=== PATIENT | female | born 1955 | race Caucasian/White ===

== ENCOUNTER → 2016-05-31 | Outpatient (CLI) | payer OTHER ==
--- NOTE | 2016-06-09 08:03 | USB ---
Reason for exam: clinical finding. History: Patient is postmenopausal and has history of breast cancer at age 59. Family history of breast cancer in mother at age 50. Implant Removal of the left breast, June 07, 2016. Malignant stereotactic core biopsy of the left breast, April 27, 2015. Ultrasound-guided core biopsy of the left breast, April 27, 2015. Mastectomy of the left breast, 2016. Chemotherapy, 2016. Radiation therapy of the left breast, 2016. Indicated problem(s): other indicated problem in the right breast. Physical Findings: Nurse Summary: right breast soft, nodular, movable, redness with irritation under breast (nurse ts). US Breast RT Right breast ultrasound includes all four quadrants, the retroareolar region and axilla. Finding demonstrates a 1.1 x 0.6 x 0.3cm oval, hypoechoic lesion at 3 o'clock. These results were verbally communicated with the patient and result sheet given to the patient on 06/08/16. ASSESSMENT: Suspicious, BI-RAD 4 RECOMMENDATION: Ultrasound core biopsy of the right breast. Called Dr. Heart with mammographic findings office to contact patient with results. PRELIMINARY REPORT CALLED AND FAXED TO DR. BUCHANAN ON 06/09/16 AT 800/TMP.
== END | disposition home or self-care (01) ==
LOC: RADUSWWP 15:22
PROVIDERS: ATTEND Internal Medicine Hematology & Oncology
DX: Z85.3 Personal history of malignant neoplasm of breast (principal)

== ENCOUNTER 2016-06-06 17:21 | Inpatient (IN) | payer OTHER ==
--- NOTE | 2016-06-06 18:10 | ED ---
General Adult HPI - General Chief complaint: Skin/Abscess/Foreign Body Stated complaint: Post op infection Time Seen by Provider: 06/06/16 17:51 Source: patient, RN notes reviewed, old records reviewed Mode of arrival: ambulatory Limitations: no limitations - History of Present Illness Initial comments: 60-year-old female presenting for left breast swelling and pain. Patient states history of breast cancer with mastectomy. She states the surgery was done about a year ago. She had a breast engineering specialist technician placed in November. She states she has had some degree of pain since January which she has followed up for. She states however over the past few weeks the pain is worsening. Today she had a blister on the breast which popped and a large gush of fluid that came out of it. She states that her breast feels warm and painful to the touch. She denies any fevers or chills. She denies any chest pain or shortness of breath. She states she follows with Dr. Spence from surgery. - Related Data Home Medications Medication Instructions Recorded Confirmed Aspirin EC [Ecotrin] 81 mg PO DAILY 05/05/15 06/06/16 Acetaminophen Tab [Tylenol Tab] 1,500 mg PO DAILY@1200 06/06/16 06/06/16 Letrozole [Femara] 2.5 mg PO DAILY 06/06/16 06/06/16 Xeloda (Unknown Dose) 1 dose PO DIRECTED 06/06/16 06/06/16 Allergies Allergy/AdvReac Type Severity Reaction Status Date / Time latex AdvReac Unknown "TINGLING" Verified 06/06/16 17:48 ibuprofen [From Motrin] AdvReac Nausea & Verified 06/06/16 18:21 Vomiting phenaphen Allergy Severe Anaphylaxis Uncoded 06/06/16 18:21 blue cheese Allergy Unknown Rash/Hives, Uncoded 06/06/16 17:48 Swelling corn beef Allergy Unknown Rash/Hives, Uncoded 06/06/16 17:48 Swelling OXYGEN AdvReac Unknown smell of Uncoded 06/06/16 17:48 O2 VIA NASAL CANULA causes N/V Review of Systems ROS Statement: Those systems with pertinent positive or pertinent negative responses have been documented in the HPI. ROS Other: All systems not noted in ROS Statement are negative. 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 FINISHED CHEMO Sep History of Any Multi-Drug Resistant Organisms: None Reported Past Surgical History: Breast Surgery, Section Additional Past Surgical History / Comment(s): C-SEC X3. MEDI PORT INSERTION- RT CHEST Past Anesthesia/Blood Transfusion Reactions: Previous Problems w/ Anesthesia Additional Past Anesthesia/Blood Transfusion Reaction / Comment(s): O2 VIA NASAL CANULA CAUSES N/V Past Psychological History: No Psychological Hx Reported Smoking Status: Never smoker Past Alcohol Use History: Rare Past Drug Use History: None Reported - Past Family History Mother Family Medical History: Cancer Additional Family Medical History / Comment(s): BREAST CANCER Father Family Medical History: Cancer, Congestive Heart Failure (CHF) Additional Family Medical History / Comment(s): CANCER General Exam - General Exam Comments Initial Comments: General: Awake and Alert. No acute distress. Does not appear acutely ill. Eyes: GENEVA, EOM intact. No nystagmus. No scleral icterus. HENT: Atraumatic, normocephalic. Mucous membranes moist. Trachea midline. Neck: The neck is supple, there is no tenderness or JVD. Cardiovascular: Regular rate and rhythm. No murmur, rub, or gallop is appreciated. Distal pulses intact. Respiratory: Lungs are clear to auscultation bilaterally. No wheezes, rales, rhonchi. No respiratory distress. Gastrointestinal: Soft, Nontender. No rebound or guarding. Non-distended. No masses or organomegaly noted. No CVA tenderness. Musculoskeletal: No tenderness. Normal ROM. No gross deformity. No strength deficits. Neurological: A&Ox3. CN II-XII grossly intact, There are no obvious motor or sensory deficits. Coordination appears grossly intact. Speech is normal. Skin: Skin is warm and dry and no rashes or lesions are noted. Left lower lateral breast area with induration and erythema. There is a 1 cm x 1cm ulcer left lateral portion of the breast which has purulent drainage coming from it. Psychiatric: Cooperative, appropriate mood & affect, normal judgment. Limitations: no limitations Course Vital Signs 06/06/16 06/06/16 06/06/16 17:46 19:56 21:23 Temperature 97.6 F 99.4 F 99.3 F Pulse Rate 107 H 101 H 110 H Respiratory 18 18 18 Rate Blood Pressure 102/68 129/69 133/64 O2 Sat by Pulse 100 98 98 Oximetry Medical Decision Making - Medical Decision Making 60-year-old female presenting for left breast abscess. Patient has a tissue engineering specialist technician present in this breast area after mastectomy in November 2015. Per review this was a surgery performed by Dr. Brad Warren as well as Dr. Zhou. Breast ultrasound is showing evidence of abscess formation which is around the tissue engineering specialist technician. Lab work was performed with leukocytosis, and worsening anemia. Discussed with patient, she is on a home oral chemotherapy medication she takes every other week. Likely secondary this. Discussed plan for blood transfusion, patient is agreeable with this. Risks and benefits discussed. BMP grossly stable. Lactate is negative. Patient started on vancomycin. Patient reevaluated and remains clinically stable. Updated on results and imaging. Discussed plan for admission, she and family are agreeable to this. I discussed with Dr. Spence who was updated on the patient. She recommends contacting Dr. Zhou, plastic surgery for further management as he placed the tissue engineering specialist technician. I discussed with Dr. Zhou states he is unable to manage the patient until Monday. He recommends surgeon from our system remove the tissue engineering specialist technician and she can follow-up on Monday in his office. I discussed with Dr. Godinez, who also spoke with Dr. Zhou. She recommends admission for the patient with Dr. Spence to remove the tissue engineering specialist technician. Spoke with Dr. Clark, agrees with plan for admission. Consult placed to Dr. Spence for surgical management. - Lab Data Result diagrams: 06/06/16 20:00 06/06/16 20:00 Lab Results 06/06/16 06/06/16 06/06/16 Range/Units 20:00 20:00 20:00 WBC 12.9 H (3.8-10.6) k/uL RBC 2.46 L (3.80-5.40) m/uL Hgb 6.9 L* (11.4-16.0) gm/dL Hct 23.0 L (34.0-46.0) % MCV 93.5 (80.0-100.0) fL MCH 28.1 (25.0-35.0) pg MCHC 30.1 L (31.0-37.0) g/dL RDW 20.5 H (11.5-15.5) % Plt Count 346 (150-450) k/uL Neutrophils % 88 % Lymphocytes % 6 % Monocytes % 4 % Eosinophils % 0 % Basophils % 0 % Neutrophils # 11.4 H (1.3-7.7) k/uL Lymphocytes # 0.7 L (1.0-4.8) k/uL Monocytes # 0.6 (0-1.0) k/uL Eosinophils # 0.0 (0-0.7) k/uL Basophils # 0.0 (0-0.2) k/uL Hypochromasia Marked Anisocytosis Moderate Macrocytosis Slight Sodium 131 L (137-145) mmol/L Potassium 3.5 (3.5-5.1) mmol/L Chloride 92 L (98-107) mmol/L Carbon Dioxide 27 (22-30) mmol/L Anion Gap 12 mmol/L BUN 13 (7-17) mg/dL Creatinine 0.77 (0.52-1.04) mg/dL Est GFR (MDRD) Af Amer >60 (>60 ml/min/1.73 sqM) Est GFR (MDRD) Non-Af >60 (>60 ml/min/1.73 sqM) Glucose 139 H (74-99) mg/dL Plasma Lactic Acid Ar 1.5 (0.7-2.0) mmol/L Calcium 8.4 (8.4-10.2) mg/dL - Radiology Data Radiology results: report reviewed, image reviewed Disposition Clinical Impression: Sepsis, Breast abscess, Anemia Disposition: ADMITTED IP TO THIS [facility] Condition: Stable Decision to Admit Reason: Admit from EC
--- NOTE | 2016-06-06 18:57 | USB ---
EXAMINATION TYPE: US breast complete LT DATE OF EXAM: 06/06/2016 6:40 PM COMPARISON: NONE CLINICAL HISTORY: Pain r/o abscess. Findings Left breast is scanned and there is an implant. There is some complex fluid surrounding the implant i n the 3:00 position and also the 7:00 position consistent with abscess. IMPRESSION: There is complex fluid surrounding the spacer as described above consistent with abscess . This measures almost up to 2 cm in thickness. Hematoma is thought less likely in view of the erythe ma.
[2016-06-06] MEDS ORDERED: VANCOMYCIN 2,000 MG in SODIUM CHLORIDE 0.9% 500 ML IVPB STA (19:23)
[2016-06-06 20:11] LABS: Anisocytosis Moderate; Basophils % (A) 0 %; CH 27.8; CHCM 29.6; Eosinophils % (A) 0 %; Hypochromasia Marked; Luc # (Auto) 0.21; Luc % (Auto) 2; Lymphocytes # (A) 0.7 k/uL (1.0-4.8); Lymphocytes % (A) 6 %; MCH 28.1 pg (25.0-35.0); MCHC 30.1 g/dL (31.0-37.0); MCV 93.5 fL (80.0-100.0); Macrocytosis Slight; Mean Platelet Volume 7.3; Monocytes # (A) 0.6 k/uL (0-1.0); Monocytes % (A) 4 %; Neutrophils # (A) 11.4 k/uL (1.3-7.7); Neutrophils % (A) 88 %; RBC 2.46 m/uL (3.80-5.40); RDW 20.5 % (11.5-15.5); WBC 12.9 k/uL (3.8-10.6); WBC (Perox) 14.05
[2016-06-06 20:18] LABS: HGB 6.9 gm/dL (11.4-16.0)
[2016-06-06 20:23] LABS: Anion Gap 12 mmol/L; Blood Urea Nitrogen 13 mg/dL (7-17); Calcium 8.4 mg/dL (8.4-10.2); Carbon Dioxide 27 mmol/L (22-30); Chloride 92 mmol/L (98-107); Glucose 139 mg/dL (74-99); Non-African American GFR(MDRD) >60 (>60 ml/min/1.73 sqM); Potassium 3.5 mmol/L (3.5-5.1); Sodium 131 mmol/L (137-145)
--- NOTE | 2016-06-06 20:59 | P.PN ---
Progress Note - Text Please see full dictated report. A patient reports having a tissue packaging designer placement November 2015 for breast cancer reconstruction. Her last follow up with her plastic surgeon was one to 2 months ago. She reports increasing pain and warmth and tenderness along the left chest wall at her tissue packaging designer following radiation treatment. She reports active drainage including intermittent fevers or chills. I had personally spoken to her plastic surgeon who has recommended explant and removal of her tissue packaging designer. She will be admitted for IV antibiotics. Once clinically medically stable, she'll follow-up with her plastic surgeon.
[2016-06-06] MEDS ORDERED: oxyCODONE-APAP 5-325MG 1 EACH TAB PO PRN (21:01)
[2016-06-06] MEDS ORDERED: ACETAMINOPHEN IV (For NPO) 1,000 MG in EMPTY BAG 1 BAG IVPB ONE (21:01)
[2016-06-06] MEDS ORDERED: IV VANCOMYCIN PER PHARMACY 1 EACH MISC MISCELLANE PRN (21:03)
[2016-06-07] MEDS: ACETAMINOPHEN TAB 325 MG TAB PO PRN ×2 (03:24→21:58)
[2016-06-07] MEDS: VANCOMYCIN 1,750 MG in SODIUM CHLORIDE 0.9% 250 ML IVPB SCH ×2 (05:52→18:20)
[2016-06-07] MEDS: ONDANSETRON 4 MG/2 ML VIAL IVP SCH ×4 (05:58→16:56)
[2016-06-07 06:01] LABS: Anisocytosis Moderate; Basophils % (A) 0 %; CH 28.2; CHCM 30.7; Eosinophils % (A) 0 %; HCT 20.7 % (34.0-46.0); HDW 3.41; Hypochromasia Marked; Luc # (Auto) 0.16; Luc % (Auto) 2; Lymphocytes # (A) 0.5 k/uL (1.0-4.8); Lymphocytes % (A) 5 %; MCH 28.8 pg (25.0-35.0); MCHC 31.4 g/dL (31.0-37.0); MCV 91.8 fL (80.0-100.0); Macrocytosis Slight; Mean Platelet Volume 7.2; Monocytes # (A) 0.5 k/uL (0-1.0); Monocytes % (A) 5 %; Neutrophils # (A) 9.2 k/uL (1.3-7.7); Neutrophils % (A) 89 %; Poikilocytosis Slight; RBC 2.25 m/uL (3.80-5.40); RDW 20.3 % (11.5-15.5); WBC 10.3 k/uL (3.8-10.6); WBC (Perox) 10.47
[2016-06-07 06:09] LABS: HGB 6.5 gm/dL (11.4-16.0)
[2016-06-07 06:13] LABS: ALT 21 U/L (9-52); AST 11 U/L (14-36); Alkaline Phosphatase 110 U/L (38-126); Anion Gap 9 mmol/L; Blood Urea Nitrogen 10 mg/dL (7-17); Calcium 7.9 mg/dL (8.4-10.2); Carbon Dioxide 28 mmol/L (22-30); Chloride 94 mmol/L (98-107); Glucose 124 mg/dL (74-99); Iron 17 ug/dL (37-170); Magnesium 1.4 mg/dL (1.6-2.3); Non-African American GFR(MDRD) >60 (>60 ml/min/1.73 sqM); Phosphorous 3.1 mg/dL (2.5-4.5); Potassium 3.2 mmol/L (3.5-5.1); Sodium 131 mmol/L (137-145); Total Bilirubin 0.9 mg/dL (0.2-1.3)
[2016-06-07] MEDS ORDERED: ENOXAPARIN 40 MG/0.4 ML SYRINGE SQ SCH (09:00)
[2016-06-07] MEDS: MAGNESIUM SULFATE-D5W PMX 1 GM in DEXTROSE/WATER 1 100ML.BAG IVPB SCH ×4 (11:03→17:00)
--- NOTE | 2016-06-07 11:23 | P.GSCN ---
History of Present Illness Consult date: 06/07/16 Reason for Consult: Left breast abscess History of present illness: A 60-year-old female. Patient stated the surgery was done about a year ago. Patient states that she had breast expanders placed in November 2015. Patient has a history of invasive left breast cancer underwent immediate reconstruction of the left breast following a mastectomy with insertion of tissue bonbon cream warmer with subsequent outpatient expansion done on 12/01/2015 the temp in the emergency room was 99.4 additionally was noted that the patient's hemoglobin was down to 6.9. It's noted that the patient is on home oral chemotherapy medication which is likely contributing to the patient's worsening anemia and leukocytosis. Decision was made by the medicine service to give 1 unit of packed red blood cells. Patient had a blood reaction approximately 200 mL of the blood was given patient spiked a temp of 103 the blood was stopped protocol was initiated hemoglobin this morning 6.9. There is no evidence of any active bleed. 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 The left chest area 1 cm ulcer left lateral portion of the breast. Drainage coming from it the skin is warm no rash positive erythrema noted patient continues to report tenderness to the left breast area Patient reports that over the last several weeks she has developed increased pain involving the left breast. Did note there was a blister on the breast which popped and there was a large amount of fluid that came out of the site. Patient stated the breast was tender and painful to the touch. Patient denied any fever chills. Patient states her surgeon that she normally follows with is Dr. Brad Warren patient states that she did see the plastic surgeon Dr. coleman about 2 months ago. Review of Systems Essentially unremarkable except as mentioned in the present illness Past Medical History Past Medical History: Cancer, CVA/TIA, Hypertension Additional Past Medical History / Comment(s): CVA (MAR 2014)- NO WEAKNESS OR PARALYSIS- SOME TINGLING ON TONGUE, NEW DIAGNOSIS LEFT BREAST CANCER. FINISHED CHEMO Sep History of Any Multi-Drug Resistant Organisms: None Reported Past Surgical History: Breast Surgery, Section Additional Past Surgical History / Comment(s): C-SEC X3. MEDI PORT INSERTION- RT CHEST Past Anesthesia/Blood Transfusion Reactions: Previous Problems w/ Anesthesia Additional Past Anesthesia/Blood Transfusion Reaction / Comm: O2 VIA NASAL CANULA CAUSES N/V Past Psychological History: No Psychological Hx Reported Smoking Status: Never smoker Past Alcohol Use History: Rare Past Drug Use History: None Reported - Past Family History Mother Family Medical History: Cancer Additional Family Medical History / Comment(s): BREAST CANCER Father Family Medical History: Cancer, Congestive Heart Failure (CHF) Additional Family Medical History / Comment(s): CANCER Medications and Allergies Home Medications Medication Instructions Recorded Confirmed Type Aspirin EC [Ecotrin] 81 mg PO DAILY 05/05/15 06/06/16 History Acetaminophen Tab [Tylenol Tab] 1,500 mg PO DAILY@1200 06/06/16 06/06/16 History Letrozole [Femara] 2.5 mg PO DAILY 06/06/16 06/06/16 History Xeloda (Unknown Dose) 1 dose PO DIRECTED 06/06/16 06/06/16 History Allergies Allergy/AdvReac Type Severity Reaction Status Date / Time latex AdvReac Unknown "TINGLING" Verified 06/06/16 17:48 ibuprofen [From Motrin] AdvReac Nausea & Verified 06/06/16 18:21 Vomiting phenaphen Allergy Severe Anaphylaxis Uncoded 06/06/16 18:21 blue cheese Allergy Unknown Rash/Hives, Uncoded 06/06/16 17:48 Swelling corn beef Allergy Unknown Rash/Hives, Uncoded 06/06/16 17:48 Swelling OXYGEN AdvReac Unknown smell of Uncoded 06/06/16 17:48 O2 VIA NASAL CANULA causes N/V Surgical - Exam Vital Signs Temp Pulse Resp BP Pulse Ox 97.6 F 107 H 18 102/68 100 06/06/16 17:46 06/06/16 17:46 06/06/16 17:46 06/06/16 17:46 06/06/16 17:46 GENERAL APPEARANCE: 60-year-old female patient is alert, oriented, in no acute distress. Continues to report having tenderness to the left breast area VITAL SIGNS: Reviewed HEENT: Head is normocephalic and atraumatic. Pupils are equal and reactive. The nares are patent. Oropharynx is clear without lesions. NECK: Supple without lymphadenopathy. Traches midline. HEART: S1, S2. Regular rate and rhythm. No murmur noted denying chest pain LUNGS: No crackles or wheezes are heard. Adequate air movement bilaterally sats are 98% on room air ABDOMEN: Soft, nontender, nondistended with good bowel sounds. No peritoneal signs. No palpable organomegaly or masses. No reports of nausea vomiting EXTREMITIES: Normal skin color and turgor. No cyanosis, rash, ulceration, clubbing or edema. Radial pedal pulses are 2/4 bilaterally. NEUROLOGICAL: No focal deficits. Strength and sensation are grossly intact. Chest left breast absent there is no rash noted that the area is red and warm to touch positive tenderness. The left lower lateral breast area induration erythema there is a 1 cm x 1 cm ulcer the left lateral portion of the breast.. Drainage noted. No odor. Skin warm to touch no skin rash Results - Labs 06/07/16 05:35 06/07/16 05:35 Abnormal Lab Results - Last 24 Hours (Table) 06/06/16 06/07/16 06/07/16 Range/Units 22:53 05:35 05:35 RBC 2.25 L (3.80-5.40) m/uL Hgb 6.5 L* (11.4-16.0) gm/dL Hct 20.7 L (34.0-46.0) % RDW 20.3 H (11.5-15.5) % Neutrophils # 9.2 H (1.3-7.7) k/uL Lymphocytes # 0.5 L (1.0-4.8) k/uL Sodium 131 L (137-145) mmol/L Potassium 3.2 L (3.5-5.1) mmol/L Chloride 94 L (98-107) mmol/L Glucose 124 H (74-99) mg/dL Calcium 7.9 L (8.4-10.2) mg/dL Magnesium 1.4 L (1.6-2.3) mg/dL Iron 17 L (37-170) ug/dL Ferritin 1550 H (11-264) ng/mL AST 11 L (14-36) U/L Total Protein 5.0 L (6.3-8.2) g/dL Albumin 2.6 L (3.5-5.0) g/dL Crossmatch See Detail Diabetes panel 06/07/16 Range/Units 05:35 Sodium 131 L (137-145) mmol/L Potassium 3.2 L (3.5-5.1) mmol/L Chloride 94 L (98-107) mmol/L Carbon Dioxide 28 (22-30) mmol/L BUN 10 (7-17) mg/dL Creatinine 0.70 (0.52-1.04) mg/dL Glucose 124 H (74-99) mg/dL Calcium 7.9 L (8.4-10.2) mg/dL AST 11 L (14-36) U/L ALT 21 (9-52) U/L Alkaline Phosphatase 110 (38-126) U/L Total Protein 5.0 L (6.3-8.2) g/dL Albumin 2.6 L (3.5-5.0) g/dL Calcium panel 06/07/16 Range/Units 05:35 Calcium 7.9 L (8.4-10.2) mg/dL Phosphorus 3.1 (2.5-4.5) mg/dL Albumin 2.6 L (3.5-5.0) g/dL Pituitary panel 06/07/16 Range/Units 05:35 Sodium 131 L (137-145) mmol/L Potassium 3.2 L (3.5-5.1) mmol/L Chloride 94 L (98-107) mmol/L Carbon Dioxide 28 (22-30) mmol/L BUN 10 (7-17) mg/dL Creatinine 0.70 (0.52-1.04) mg/dL Glucose 124 H (74-99) mg/dL Calcium 7.9 L (8.4-10.2) mg/dL Adrenal panel 06/07/16 Range/Units 05:35 Sodium 131 L (137-145) mmol/L Potassium 3.2 L (3.5-5.1) mmol/L Chloride 94 L (98-107) mmol/L Carbon Dioxide 28 (22-30) mmol/L BUN 10 (7-17) mg/dL Creatinine 0.70 (0.52-1.04) mg/dL Glucose 124 H (74-99) mg/dL Calcium 7.9 L (8.4-10.2) mg/dL Total Bilirubin 0.9 (0.2-1.3) mg/dL AST 11 L (14-36) U/L ALT 21 (9-52) U/L Alkaline Phosphatase 110 (38-126) U/L Total Protein 5.0 L (6.3-8.2) g/dL Albumin 2.6 L (3.5-5.0) g/dL Assessment and Plan Plan: Impression Present on admission left breast pain suspect due to 1 cm breast abscess Present on admission leukocytosis suspect due to left breast abscess 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 Harrison to remove the tissue bonbon cream warmer defer to the timing of the procedure per surgery Hematology oncology Dr. Anil engel for anemia and myoplastic disorder IV antibiotics as ordered vancomycin When patient is clinically medically stable will follow-up with her plastic surgeon Dr. preciado Electrolytes to be corrected labs to be monitored DVT and GI prophylaxis Pain control Resume home meds as appropriate Will DC Lovenox patient has received no doses The above dictated assessment and findings were discussed with dr Arnold Salinas . Impression and the plan of care have been dictated as directed. Ebony Good nurse practitioner acting as a scribe for [place]
[2016-06-07 11:27] VITALS: BMI 38.2
[2016-06-07] MEDS: POTASSIUM CHLORIDE ER 20 MEQ TAB.ER PO SCH ×2 (13:38→15:45)
--- NOTE | 2016-06-07 13:43 | P.GSHP ---
History of Present Illness H&P Date: 06/07/16 Reason for Consult: Left breast abscess History of present illness: A 60-year-old female. Patient stated the surgery was done about a year ago. Patient states that she had breast expanders placed in November 2015. Patient has a history of invasive left breast cancer underwent immediate reconstruction of the left breast following a mastectomy with insertion of tissue sales promotion director with subsequent outpatient expansion done on 12/01/2015 the temp in the emergency room was 99.4 additionally was noted that the patient's hemoglobin was down to 6.9. It's noted that the patient is on home oral chemotherapy medication which is likely contributing to the patient's worsening anemia and leukocytosis. Decision was made by the medicine service to give 1 unit of packed red blood cells. Patient had a blood reaction approximately 200 mL of the blood was given patient spiked a temp of 103 the blood was stopped protocol was initiated hemoglobin this morning 6.9. There is no evidence of any active bleed. 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 The left chest area 1 cm ulcer left lateral portion of the breast. Drainage coming from it the skin is warm no rash positive erythrema noted patient continues to report tenderness to the left breast area Patient reports that over the last several weeks she has developed increased pain involving the left breast. Did note there was a blister on the breast which popped and there was a large amount of fluid that came out of the site. Patient stated the breast was tender and painful to the touch. Patient denied any fever chills. Patient states her surgeon that she normally follows with is Dr. Brad Warren patient states that she did see the plastic surgeon Dr. coleman about 2 months ago. - Review of Systems Comment: Essentially unremarkable except as mentioned in the present illness Past Medical History Past Medical History: Cancer, CVA/TIA, Hypertension Additional Past Medical History / Comment(s): CVA (MAR 2014)- NO WEAKNESS OR PARALYSIS- SOME TINGLING ON TONGUE, NEW DIAGNOSIS LEFT BREAST CANCER. FINISHED CHEMO Sep History of Any Multi-Drug Resistant Organisms: None Reported Past Surgical History: Breast Surgery, Section Additional Past Surgical History / Comment(s): C-SEC X3. MEDI PORT INSERTION- RT CHEST Past Anesthesia/Blood Transfusion Reactions: Previous Problems w/ Anesthesia Additional Past Anesthesia/Blood Transfusion Reaction / Comment(s): O2 VIA NASAL CANULA CAUSES N/V Past Psychological History: No Psychological Hx Reported Smoking Status: Never smoker Past Alcohol Use History: Rare Past Drug Use History: None Reported - Past Family History Mother Family Medical History: Cancer Additional Family Medical History / Comment(s): BREAST CANCER Father Family Medical History: Cancer, Congestive Heart Failure (CHF) Additional Family Medical History / Comment(s): CANCER Medications and Allergies Home Medications Medication Instructions Recorded Confirmed Type Aspirin EC [Ecotrin] 81 mg PO DAILY 05/05/15 06/06/16 History Acetaminophen Tab [Tylenol Tab] 1,500 mg PO DAILY@1200 06/06/16 06/06/16 History Letrozole [Femara] 2.5 mg PO DAILY 06/06/16 06/06/16 History Capecitabine [Capecitabine] 2,500 mg PO BID PRN 06/07/16 06/07/16 History Allergies Allergy/AdvReac Type Severity Reaction Status Date / Time latex AdvReac Unknown "TINGLING" Verified 06/06/16 17:48 ibuprofen [From Motrin] AdvReac Nausea & Verified 06/06/16 18:21 Vomiting phenaphen Allergy Severe Anaphylaxis Uncoded 06/06/16 18:21 blue cheese Allergy Unknown Rash/Hives, Uncoded 06/06/16 17:48 Swelling corn beef Allergy Unknown Rash/Hives, Uncoded 06/06/16 17:48 Swelling OXYGEN AdvReac Unknown smell of Uncoded 06/06/16 17:48 O2 VIA NASAL CANULA causes N/V Surgical - Exam Vital Signs Temp Pulse Resp BP Pulse Ox 97.6 F 107 H 18 102/68 100 06/06/16 17:46 06/06/16 17:46 06/06/16 17:46 06/06/16 17:46 06/06/16 17:46 Physical exam GENERAL APPEARANCE: 60-year-old female patient is alert, oriented, in no acute distress. Continues to report having tenderness to the left breast area VITAL SIGNS: Reviewed HEENT: Head is normocephalic and atraumatic. Pupils are equal and reactive. The nares are patent. Oropharynx is clear without lesions. NECK: Supple without lymphadenopathy. Traches midline. HEART: S1, S2. Regular rate and rhythm. No murmur noted denying chest pain LUNGS: No crackles or wheezes are heard. Adequate air movement bilaterally sats are 98% on room air ABDOMEN: Soft, nontender, nondistended with good bowel sounds. No peritoneal signs. No palpable organomegaly or masses. No reports of nausea vomiting EXTREMITIES: Normal skin color and turgor. No cyanosis, rash, ulceration, clubbing or edema. Radial pedal pulses are 2/4 bilaterally. NEUROLOGICAL: No focal deficits. Strength and sensation are grossly intact. Chest left breast absent there is no rash noted that the area is red and warm to touch positive tenderness. The left lower lateral breast area induration erythema there is a 1 cm x 1 cm ulcer the left lateral portion of the breast.. Drainage noted. No odor. Skin warm to touch no skin rash Results - Labs 06/07/16 05:35 06/07/16 05:35 Abnormal Lab Results - Last 24 Hours (Table) 06/06/16 06/07/16 06/07/16 Range/Units 22:53 05:35 05:35 RBC 2.25 L (3.80-5.40) m/uL Hgb 6.5 L* (11.4-16.0) gm/dL Hct 20.7 L (34.0-46.0) % RDW 20.3 H (11.5-15.5) % Neutrophils # 9.2 H (1.3-7.7) k/uL Lymphocytes # 0.5 L (1.0-4.8) k/uL Sodium 131 L (137-145) mmol/L Potassium 3.2 L (3.5-5.1) mmol/L Chloride 94 L (98-107) mmol/L Glucose 124 H (74-99) mg/dL Calcium 7.9 L (8.4-10.2) mg/dL Magnesium 1.4 L (1.6-2.3) mg/dL Iron 17 L (37-170) ug/dL Ferritin 1550 H (11-264) ng/mL AST 11 L (14-36) U/L Total Protein 5.0 L (6.3-8.2) g/dL Albumin 2.6 L (3.5-5.0) g/dL Crossmatch See Detail Diabetes panel 06/07/16 Range/Units 05:35 Sodium 131 L (137-145) mmol/L Potassium 3.2 L (3.5-5.1) mmol/L Chloride 94 L (98-107) mmol/L Carbon Dioxide 28 (22-30) mmol/L BUN 10 (7-17) mg/dL Creatinine 0.70 (0.52-1.04) mg/dL Glucose 124 H (74-99) mg/dL Calcium 7.9 L (8.4-10.2) mg/dL AST 11 L (14-36) U/L ALT 21 (9-52) U/L Alkaline Phosphatase 110 (38-126) U/L Total Protein 5.0 L (6.3-8.2) g/dL Albumin 2.6 L (3.5-5.0) g/dL Calcium panel 06/07/16 Range/Units 05:35 Calcium 7.9 L (8.4-10.2) mg/dL Phosphorus 3.1 (2.5-4.5) mg/dL Albumin 2.6 L (3.5-5.0) g/dL Pituitary panel 06/07/16 Range/Units 05:35 Sodium 131 L (137-145) mmol/L Potassium 3.2 L (3.5-5.1) mmol/L Chloride 94 L (98-107) mmol/L Carbon Dioxide 28 (22-30) mmol/L BUN 10 (7-17) mg/dL Creatinine 0.70 (0.52-1.04) mg/dL Glucose 124 H (74-99) mg/dL Calcium 7.9 L (8.4-10.2) mg/dL Adrenal panel 06/07/16 Range/Units 05:35 Sodium 131 L (137-145) mmol/L Potassium 3.2 L (3.5-5.1) mmol/L Chloride 94 L (98-107) mmol/L Carbon Dioxide 28 (22-30) mmol/L BUN 10 (7-17) mg/dL Creatinine 0.70 (0.52-1.04) mg/dL Glucose 124 H (74-99) mg/dL Calcium 7.9 L (8.4-10.2) mg/dL Total Bilirubin 0.9 (0.2-1.3) mg/dL AST 11 L (14-36) U/L ALT 21 (9-52) U/L Alkaline Phosphatase 110 (38-126) U/L Total Protein 5.0 L (6.3-8.2) g/dL Albumin 2.6 L (3.5-5.0) g/dL Assessment and Plan Plan: Impression Present on admission left breast pain suspect due to 1 cm breast abscess Present on admission leukocytosis suspect due to left breast abscess 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 Harrison to remove the tissue sales promotion director defer to the timing of the procedure per surgery Hematology oncology Dr. Anil engel for anemia and myoplastic disorder IV antibiotics as ordered vancomycin When patient is clinically medically stable will follow-up with her plastic surgeon Dr. preciado Electrolytes to be corrected labs to be monitored DVT and GI prophylaxis Pain control Resume home meds as appropriate Will DC Lovenox patient has received no doses The above dictated assessment and findings were discussed with dr Dr. Godinez . Impression and the plan of care have been dictated as directed. Ebony Good nurse practitioner acting as a scribe for Dr. Gretchen Harrison will resume care with further recommendations per Dr. Harrison
[2016-06-07] MEDS: HEPARIN SODIUM,PORCINE 5,000 UNIT/ML 1 ML VIAL SQ SCH (21:32)
[2016-06-07] MEDS ORDERED: methylPREDNISolone SOD SUCCI 125 MG/2 ML VIAL IV STA (22:26)
[2016-06-07] MEDS ORDERED: diphenhydrAMINE 50 MG/ML 1 ML VIAL IVP STA (22:30)
[2016-06-08] MEDS: ACETAMINOPHEN TAB 325 MG TAB PO PRN (01:00)
[2016-06-08] MEDS: ONDANSETRON 4 MG/2 ML VIAL IVP SCH ×4 (01:43→13:58)
[2016-06-08] MEDS ORDERED: VANCOMYCIN TROUGH DUE 1 EACH MISC MISCELLANE ONE (05:00)
[2016-06-08 08:37] LABS: INR 1.3 (<1.1); Partial Thromboplastin Time 24.2 sec (22.0-30.0); Prothrombin Time 12.8 sec (9.0-12.0)
[2016-06-08 08:38] LABS: Anisocytosis Slight; Basophils % (A) 0 %; CH 28.7; CHCM 31.1; Eosinophils % (A) 0 %; HCT 28.6 % (34.0-46.0); HDW 4.21; Hypochromasia Marked; Luc # (Auto) 0.13; Luc % (Auto) 1; Lymphocytes # (A) 0.4 k/uL (1.0-4.8); Lymphocytes % (A) 4 %; MCH 29.9 pg (25.0-35.0); MCHC 32.2 g/dL (31.0-37.0); MCV 92.7 fL (80.0-100.0); Mean Platelet Volume 7.4; Monocytes # (A) 0.5 k/uL (0-1.0); Monocytes % (A) 5 %; Neutrophils # (A) 8.9 k/uL (1.3-7.7); Neutrophils % (A) 89 %; Poikilocytosis Moderate; RBC 3.08 m/uL (3.80-5.40); RDW 18.3 % (11.5-15.5)
[2016-06-08 08:39] LABS: HGB 9.2 gm/dL (11.4-16.0)
[2016-06-08 08:56] LABS: ALT 23 U/L (9-52); AST 13 U/L (14-36); Alkaline Phosphatase 125 U/L (38-126); Anion Gap 10 mmol/L; Blood Urea Nitrogen 11 mg/dL (7-17); Calcium 7.9 mg/dL (8.4-10.2); Carbon Dioxide 26 mmol/L (22-30); Chloride 99 mmol/L (98-107); Glucose 124 mg/dL (74-99); Non-African American GFR(MDRD) >60 (>60 ml/min/1.73 sqM); Sodium 135 mmol/L (137-145); Total Bilirubin 1.3 mg/dL (0.2-1.3); Total Protein 5.3 g/dL (6.3-8.2)
[2016-06-08] MEDS: HEPARIN SODIUM,PORCINE 5,000 UNIT/ML 1 ML VIAL SQ SCH ×2 (10:54→20:41)
[2016-06-08] MEDS: VANCOMYCIN 1,750 MG in SODIUM CHLORIDE 0.9% 250 ML IVPB SCH ×2 (12:22→23:00)
[2016-06-08] MEDS ORDERED: IV FLUID CONTINUATION 1,000 ML IV ONE (13:30)
[2016-06-08] MEDS ORDERED: MIDAZOLAM 2 MG/2 ML VIAL IV ONE (13:58)
[2016-06-08] MEDS ORDERED: DEXAMETHASONE SOD PHOS (MDV) 100 MG/10 ML VIAL IV ONE (13:58)
[2016-06-08] MEDS ORDERED: fentaNYL (PF) 50 MCG/ML 2 ML AMP ONE (14:17)
[2016-06-08] MEDS ORDERED: PROPOFOL 10 MG/ML 20 ML VIAL IV ONE (14:17)
[2016-06-08] MEDS ORDERED: GLYCOPYRROLATE 0.2 MG/ML 2 ML VIAL ONE (14:17)
[2016-06-08] MEDS ORDERED: LIDOCAINE 1% INJ 10MG/ML (20 ML MDV) ONE (14:17)
[2016-06-08] MEDS ORDERED: SUCCINYLCHOLINE CHLORIDE 100 MG/5 ML SYR IV ONE (14:17)
[2016-06-08] MEDS ORDERED: ROCURONIUM BROMIDE 10 MG/ML 10 ML VIAL IV ONE (14:17)
[2016-06-08] MEDS ORDERED: NEOSTIGMINE 1 MG/ML 10 ML VIAL ONE (14:17)
[2016-06-08] MEDS ORDERED: ONDANSETRON 4 MG/2 ML VIAL IVP PRN (14:58)
[2016-06-08] MEDS ORDERED: HYDROmorphone 1 MG/ML 1 ML SYRINGE IV PRN (14:58)
[2016-06-08] MEDS ORDERED: NALOXONE 0.4 MG/ML 1 ML VIAL IV PRN (14:58)
--- NOTE | 2016-06-08 14:58 | P.OP ---
Date of Procedure: 06/08/16 Preoperative Diagnosis: Infected subpectoral milk processing worker left breast Postoperative Diagnosis: Same Procedure(s) Performed: removal Infected subpectoral milk processing worker left breast Anesthesia: MICHELLEA Surgeon: Angélica Spence Estimated Blood Loss (ml): 5 IV fluids (ml): 500 Pathology: none sent Condition: stable Disposition: PACU Indications for Procedure: Patient is a 60-year-old white female who presents with an infected left subpectoral expanders status post mastectomy in approximately November 2015 This was discussed with a plastic surgeon who recommended removal of milk processing worker. Operative Findings: Infected left breast milk processing worker Description of Procedure: Mary Reilly is a 60-year-old white female who is status post a left breast mastectomy chemotherapy and radiation therapy. She underwent a reconstructive procedure with placement of the subcu pectoral milk processing worker in approximately November 2015. This is subsequently become inflamed and infected. She presents for removal of the milk processing worker. The case has been discussed with plastic surgery. The patient was taken to the operating room and following induction of general anesthesia the left breast was prepped and draped in a sterile fashion. The periareolar incision was enlarged using electrocautery device. The implant was immediately visible and this was deflated using an 18-gauge syringe. This was removed. Cultures were obtained. There was an area of necrotic skin in the upper outer quadrant region which was debrided. This area was approximately 4 cm in length. Debridement of necrotic tissue was performed. Pulse VAC was utilized to clean the area. Approximately 3 L of fluid was used. After assured that homeostasis was attained the wound was packed using moist kurlex.
[2016-06-08] MEDS ORDERED: IV VANCOMYCIN PER PHARMACY 1 EACH MISC MISCELLANE PRN ×2 (15:04→15:07)
[2016-06-08] MEDS ORDERED: KETOROLAC 30 MG/ML 1 ML VIAL IVP ONE (15:37)
[2016-06-08] MEDS: HYDROmorphone 1 MG/ML 1 ML SYRINGE IVP ONE ×2 (15:49→15:54)
[2016-06-08] MEDS ORDERED: HEPARIN SODIUM,PORCINE 5,000 UNIT/ML 1 ML VIAL SQ SCH (21:00)
--- NOTE | 2016-06-08 21:10 | P.CONS ---
History of Present Illness - Reason for Consult Consult date: 06/08/16 MDS, breast cancer Requesting physician: Lay Godinez - Chief Complaint left breast abscess - History of Present Illness Mrs. Wilson is a very pleasant 60-year-old female patient of Dr. Michelle donovan with a history of ER-positive locally advanced breast cancer diagnosed in November 2015. Patient had neoadjuvant chemotherapy followed by surgery. Patient is then started on adjuvant Xeloda due to local advancement of her cancer. patient is admitted for removal of an infected left breast can slider. Dr. Ma and Dr. Brad Warren did collaborate on the case prior to surgery. Patient is seen today postoperatively. Patient is doing well, she is sitting up in bed and eating ice cream, she states she feels like she did "before she ever had cancer". Review of Systems All systems: negative Constitutional: Reports as per HPI Past Medical History Past Medical History: Cancer, CVA/TIA, Hypertension Additional Past Medical History / Comment(s): CVA (MAR 2014)- NO WEAKNESS OR PARALYSIS- SOME TINGLING ON TONGUE, NEW DIAGNOSIS LEFT BREAST CANCER. FINISHED CHEMO Sep History of Any Multi-Drug Resistant Organisms: None Reported Past Surgical History: Breast Surgery, Section Additional Past Surgical History / Comment(s): C-SEC X3. MEDI PORT INSERTION- RT CHEST Past Anesthesia/Blood Transfusion Reactions: Previous Problems w/ Anesthesia Additional Past Anesthesia/Blood Transfusion Reaction / Comm: O2 VIA NASAL CANULA CAUSES N/V Past Psychological History: No Psychological Hx Reported Smoking Status: Never smoker Past Alcohol Use History: Rare Past Drug Use History: None Reported - Past Family History Mother Family Medical History: Cancer Additional Family Medical History / Comment(s): BREAST CANCER Father Family Medical History: Cancer, Congestive Heart Failure (CHF) Additional Family Medical History / Comment(s): CANCER Medications and Allergies Home Medications Medication Instructions Recorded Confirmed Type Aspirin EC [Ecotrin] 81 mg PO DAILY 05/05/15 06/06/16 History Acetaminophen Tab [Tylenol Tab] 1,500 mg PO DAILY@1200 06/06/16 06/06/16 History Letrozole [Femara] 2.5 mg PO DAILY 06/06/16 06/06/16 History Capecitabine [Capecitabine] 2,500 mg PO BID PRN 06/07/16 06/07/16 History Allergies Allergy/AdvReac Type Severity Reaction Status Date / Time latex AdvReac Unknown "TINGLING" Verified 06/08/16 13:35 ibuprofen [From Motrin] AdvReac Nausea & Verified 06/08/16 13:35 Vomiting phenaphen Allergy Severe Anaphylaxis Uncoded 06/08/16 13:35 blue cheese Allergy Unknown Rash/Hives, Uncoded 06/08/16 13:35 Swelling corn beef Allergy Unknown Rash/Hives, Uncoded 06/08/16 13:35 Swelling OXYGEN AdvReac Unknown smell of Uncoded 06/08/16 13:35 O2 VIA NASAL CANULA causes N/V Physical Exam Vitals: Vital Signs Temp Pulse Pulse Pulse Resp BP BP 06/08/16 18:30 97.2 F L 76 16 117/65 06/08/16 17:27 98.4 F 86 16 97/63 06/08/16 17:00 97.2 F L 74 16 111/61 06/08/16 16:30 97.5 F L 87 16 97/69 06/08/16 16:00 86 16 117/61 06/08/16 15:46 98 18 132/69 06/08/16 15:30 97 18 133/68 06/08/16 15:15 98 18 147/73 06/08/16 15:06 97 12 132/66 06/08/16 13:45 99.4 F 103 H 16 135/75 06/08/16 09:20 97.7 F 98 16 146/72 06/08/16 08:02 97.7 F 98 16 146/72 06/08/16 08:00 98 16 06/08/16 07:00 97.7 F 98 16 146/72 06/08/16 04:54 97.5 F L 80 115/64 06/08/16 04:24 97.5 F L 80 108/64 06/08/16 04:14 97.2 F L 82 110/66 06/08/16 04:02 97.3 F L 83 110/66 06/08/16 01:38 97.9 F 84 108/55 06/08/16 01:08 98.1 F 86 114/62 06/08/16 00:58 98 F 84 112/59 06/07/16 23:44 98.4 F 06/07/16 22:57 101.4 F H 06/07/16 21:47 102.7 F H 108 H 16 129/66 Pulse Ox 06/08/16 18:30 98 06/08/16 17:27 94 L 06/08/16 17:00 98 06/08/16 16:30 97 06/08/16 16:00 95 06/08/16 15:46 95 06/08/16 15:30 100 06/08/16 15:15 100 06/08/16 15:06 100 06/08/16 13:45 95 06/08/16 09:20 99 06/08/16 08:02 99 06/08/16 08:00 06/08/16 07:00 99 06/08/16 04:54 06/08/16 04:24 06/08/16 04:14 06/08/16 04:02 06/08/16 01:38 96 06/08/16 01:08 06/08/16 00:58 06/07/16 23:44 06/07/16 22:57 06/07/16 21:47 98 Intake and Output 06/08/16 06/08/16 06/08/16 06:59 14:59 22:59 Intake Total 310 400 150 Output Total 5 Balance 310 400 145 Intake: IV 310 400 150 prbcs 310 Blood Product 0 Rc As-1 Unit 0 [id number] Rc As-1 Unit 0 [id number] Output: Estimated Blood Loss 5 Other: Voiding Method Toilet Toilet Toilet # Voids 1 1 Weight 104.326 kg 104.326 kg Patient Weight 06/09/16 06:59 Weight 104.326 kg - Constitutional General appearance: cooperative, no acute distress, obese - EENT Eyes: anicteric sclerae - Respiratory Respiratory: bilateral: CTA - Cardiovascular Heart sounds: normal: S1, S2 - Gastrointestinal General gastrointestinal: normal bowel sounds, soft - Neurologic Neurologic: CNII-XII intact - Musculoskeletal Musculoskeletal: strength equal bilaterally - Psychiatric Psychiatric: A&O x's 3, appropriate affect, intact judgment & insight Results CBC & Chem 7: 06/08/16 08:08 06/08/16 08:08 Labs: Abnormal Lab Results - Last 24 Hours (Table) 06/06/16 06/08/16 06/08/16 Range/Units 22:53 08:08 08:08 RBC 3.08 L (3.80-5.40) m/uL Hgb 9.2 L D (11.4-16.0) gm/dL Hct 28.6 L (34.0-46.0) % RDW 18.3 H (11.5-15.5) % Neutrophils # 8.9 H (1.3-7.7) k/uL Lymphocytes # 0.4 L (1.0-4.8) k/uL PT (9.0-12.0) sec Sodium 135 L (137-145) mmol/L Glucose 124 H (74-99) mg/dL Calcium 7.9 L (8.4-10.2) mg/dL AST 13 L (14-36) U/L Total Protein 5.3 L (6.3-8.2) g/dL Albumin 2.6 L (3.5-5.0) g/dL Crossmatch See Detail 06/08/16 Range/Units 08:08 RBC (3.80-5.40) m/uL Hgb (11.4-16.0) gm/dL Hct (34.0-46.0) % RDW (11.5-15.5) % Neutrophils # (1.3-7.7) k/uL Lymphocytes # (1.0-4.8) k/uL PT 12.8 H (9.0-12.0) sec Sodium (137-145) mmol/L Glucose (74-99) mg/dL Calcium (8.4-10.2) mg/dL AST (14-36) U/L Total Protein (6.3-8.2) g/dL Albumin (3.5-5.0) g/dL Crossmatch Microbiology - Last 24 Hours (Table) 06/07/16 15:45 Gram Stain - Preliminary Breast Fluid - Left Wound Culture - Preliminary Presumptive Staph aureus 06/07/16 16:00 Anaerobic Culture - Preliminary Breast Fluid - Left Comments: Left breast US report reviewed Assessment and Plan (1) Breast abscess Narrative/Plan: patient is status post removal of an infected breast can slider on the left with Dr. Brad Warren, patient is doing well after surgery Status: Acute (2) Cancer of left breast Narrative/Plan: Patient is currently on adjuvant Xeloda, she will continue with therapy as prescribed. She will follow up with Dr. Martinez in one to 2 weeks Status: Chronic Plan: Dr. Ma and Dr. Brad Warren did discuss patient's case in regards to transfusion reaction and preoperative hemoglobin. She was transfused with 2 additional units of blood with a significant improvement in her hemoglobin which did allow Dr. Brad Warren to perform surgery. CBC in the a.m.
[2016-06-09] MEDS: ACETAMINOPHEN TAB 325 MG TAB PO PRN (07:38)
--- NOTE | 2016-06-09 07:40 | CONS ---
DATE OF CONSULTATION: DATE OF SERVICE: 06/08/2016 REASON FOR CONSULTATION: Left breast abscess. HISTORY OF PRESENT ILLNESS: The patient is a 60-year-old female with past medical history significant for left breast cancer, status post mastectomy. Patient did have left breast writing center director placement back in 03/2015. The patient seemed to have some problem with left breast pain and swelling that has been going on for the last few months. Breast has been more swollen and red and the patient said she has been evaluated by her PCP and no specific therapy has been done. She did not recall if she was given any antibiotic. Pain described to be more of a dull in nature about 4 to 5 out of 10 and no radiation. On the day of admission, on the , the patient noticed to have significant drainage of chocolate-colored fluid coming out from one side of her breast area. With this symptom, the patient did come to the ER. She did have an ultrasound of the breast that was suspicious for an abscess. The patient did have a fever of 101 to 102.6 degrees Fahrenheit with elevated white count 12.9. The patient did have cultures obtained. She has been treated with vancomycin. She was taken to the OR today, status post removal of the writing center director and some debridement of the necrotic tissue. Deep culture was obtained. I was asked to see the patient for further recommendation regarding antibiotic therapy. REVIEW OF SYSTEMS: CONSTITUTIONAL: Positive for weakness along with a fever. EYES: No complaint. ENT: No complaint. RESPIRATORY: No complaint. CARDIOVASCULAR: No complaint. GENITOURINARY: No complaint. GASTROINTESTINAL: No complaint. MUSCULOSKELETAL: No complaint. INTEGUMENTARY: As per HPI. PSYCHOLOGIC: No complaint. ENDOCRINE: No complaint. NEUROLOGIC: No complaint. PAST MEDICAL HISTORY: Hypertension, CVA, TIA, breast cancer. PAST SURGICAL HISTORY: Left mastectomy with tissue writing center director placement, x3, Mediport insertion right chest. SOCIAL HISTORY: No history of smoking, drinking or drug use. FAMILY HISTORY: Mother with history of breast cancer. Father history of heart failure. Allergies to LATEX, IBUPROFEN. Medications include the patient is on vancomycin pharmacy to dose. She is on Tylenol, [place], heparin, Dilaudid, Narcan, Zofran, Protonix. On examination, blood pressure 117/61 with pulse of 95, temperature 98. She is 95% on room air. General description is a middle-age female lying in bed in no distress. No tachypnea or accessory muscle of respiration use. HEENT examination shows pallor. No scleral icterus. Oral mucous membranes dry. NECK: Trachea central. There is no thyromegaly. LUNGS: Unlabored breathing. Clear to auscultation anteriorly. HEART: S1, S2. Regular rate and rhythm. ABDOMEN: Soft. No tenderness. EXTREMITIES: No edema of the feet. EXAMINATION OF THE LEFT BREAST: Wound is currently packed, she just came from the OR with some drainage on the dressing. NEUROLOGICAL: The patient is awake, alert, oriented x3. Mood and affect normal. LABS: Hemoglobin 9.2, white count 10. Admission white count was 12.9 with a BUN of 11, creatinine 0.56. Blood culture obtained, currently pending. Wound culture with presumptive Staph aureus. DIAGNOSTIC IMPRESSION AND PLAN: Patient admitted to the hospital with sepsis in a patient who noted to have a fever of 102 with elevated white count of 12.9, some tachycardia meeting criteria for sepsis, source is left breast abscess with writing center director infection, status post removal of the same. Wound culture showing a staph to be more likely methicillin-resistant Staphylococcus aureus. PLAN: 1. Vancomycin pharmacy to dose with a target trough of 15. 2. Will re-evaluate the wound tomorrow depending upon the depth of infection as well as clinical response, will determine her discharge antibiotic, which could be more likely IV in view of her extensive infection. 3. Will follow up on the clinical condition and cultures to further adjust the medication if needed. Thank you for this consultation. Will follow this patient along with you. NEWTON
[2016-06-09] MEDS: HEPARIN SODIUM,PORCINE 5,000 UNIT/ML 1 ML VIAL SQ SCH ×2 (08:06→21:17)
[2016-06-09] MEDS: PANTOPRAZOLE 40 MG TABLET PO SCH (08:06)
[2016-06-09 08:14] LABS: Anisocytosis Slight; Basophils % (A) 0 %; CH 28.6; CHCM 30.4; Eosinophils % (A) 0 %; HCT 31.2 % (34.0-46.0); HDW 4.16; HGB 9.7 gm/dL (11.4-16.0); Hypochromasia Marked; Luc # (Auto) 0.03; Luc % (Auto) 1; Lymphocytes # (A) 0.4 k/uL (1.0-4.8); Lymphocytes % (A) 6 %; MCH 29.1 pg (25.0-35.0); MCV 94.1 fL (80.0-100.0); Macrocytosis Slight; Mean Platelet Volume 7.8; Monocytes # (A) 0.2 k/uL (0-1.0); Monocytes % (A) 3 %; Neutrophils # (A) 5.2 k/uL (1.3-7.7); Neutrophils % (A) 90 %; Poikilocytosis Moderate; RBC 3.32 m/uL (3.80-5.40); RDW 18.1 % (11.5-15.5); WBC 5.8 k/uL (3.8-10.6); WBC (Perox) 6.16
[2016-06-09] MEDS: VANCOMYCIN 1,750 MG in SODIUM CHLORIDE 0.9% 250 ML IVPB SCH (11:19)
[2016-06-09] MEDS: HYDROcodone/APAP 5-325MG 1 EACH TAB PO PRN ×2 (11:52→18:19)
--- NOTE | 2016-06-09 15:38 | P.PN ---
Subjective 6-year-old female being seen with the attending this morning. Dr. Salinas did remove the surgical dressing from the left breast. 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 left breast done on June 08 the left breast has packing in place positive tenderness to the site decrease edema noted the wound cultures are pending Objective - Vital Signs Vital signs: Vital Signs Temp 98.7 F 06/09/16 07:00 Pulse 81 06/09/16 08:00 Resp 16 06/09/16 08:00 BP 110/72 06/09/16 07:00 Pulse Ox 99 06/09/16 07:00 Intake & Output 06/08/16 06/09/16 06/09/16 18:59 06:59 18:59 Intake Total 550 730 360 Output Total 5 Balance 545 730 360 Weight 104.326 kg 104.326 kg Intake: IV 550 Intake, IV Titration 250 Amount Vancomycin 1,750 mg In 250 Sodium Chloride 0.9% 250 ml @ 125 mls/hr IVPB Q12H [facility] Rx#:[id number] Oral 480 360 Output: Estimated Blood Loss 5 Other: Voiding Method Toilet Toilet Toilet # Voids 1 1 - Exam Physical exam 60-year-old female resting in bed states pain medication effective for pain control Lungs essentially clear adequate air movement on room air Heart S1-S2 audible regular Abdomen soft nontender denies any frequent stooling no nausea vomiting Extremities no edema Chest dressing left breast area dry packing in place decreased tenderness to the left axillary area - Labs CBC & Chem 7: 06/09/16 07:18 06/08/16 08:08 Labs: Abnormal Lab Results - Last 24 Hours (Table) 06/06/16 06/09/16 Range/Units 22:53 07:18 RBC 3.32 L (3.80-5.40) m/uL Hgb 9.7 L (11.4-16.0) gm/dL Hct 31.2 L (34.0-46.0) % RDW 18.1 H (11.5-15.5) % Lymphocytes # 0.4 L (1.0-4.8) k/uL Crossmatch See Detail Microbiology - Last 24 Hours (Table) 06/07/16 16:00 Anaerobic Culture - Preliminary Breast Fluid - Left 06/07/16 15:45 Gram Stain - Final Breast Fluid - Left Wound Culture - Final Staphylococcus aureus 06/08/16 14:38 Gram Stain - Preliminary Breast - Left Wound Culture - Preliminary 06/08/16 14:38 Anaerobic Culture - Preliminary Breast - Left Assessment and Plan Plan: Impression Present on admission left breast pain suspect due to 1 cm breast abscess Present on admission leukocytosis suspect due to left breast abscess 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 Present on admission anemia suspect related to myoplastic disorder History of invasive breast cancer left breast Immediate reconstruction left breast following a left mastectomy with insertion of tissue expanders and subsequent outpatient expansion done on 12/01/2015 Present on admission febrile leukocytosis suspect sepsis likely due to left breast abscess Blood transfusion reaction temp the 103 occurred on 06/06/2016 Severe Electrolyte abnormality hypokalemia hypo-magnesium present on admission Elevated ferritin level Status post left mastectomy November 2015 Status post June 08 removal Infected 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 preciado DVT and GI prophylaxis Pain control Resume home meds as appropriate The above dictated assessment and findings were discussed with dr Dr. Godinez . Impression and the plan of care have been dictated as directed. Ebony Good nurse practitioner acting as a scribe for Dr. Gretchen Harrison will resume care with further recommendations per Dr. Harrison
[2016-06-09] MEDS: ceFAZolin 2 GM in SODIUM CHLORIDE 0.9% 100 ML IVPB SCH (18:20)
--- NOTE | 2016-06-09 19:04 | PN ---
DATE OF SERVICE: 06/09/2016 Reason for follow up is left breast Staphylococcus aureus infection. INTERVAL HISTORY: The patient is afebrile. Pain to the left breast area has slightly improved. The patient denies having any chest pain, shortness of breath, cough. No abdominal pain or any diarrhea. On examination, blood pressure 110/72 with a pulse of 77, temperature 98.7. She is 99% on room air. General description is a middle-age female lying in bed in no distress. RESPIRATORY SYSTEM: Unlabored breathing. Clear to auscultation anteriorly. HEART: S1, S2. Regular rate and rhythm. ABDOMEN: Soft. No tenderness. Left breast wound was significantly deep, though no significant slough tissue. Surrounding cellulitis improved. No drainage. LABS: Hemoglobin 9.7, white count 5.8. Wound culture with Staphylococcus aureus with sensitivities pending. DIAGNOSTIC IMPRESSION AND PLAN: Patient with a left breast infected prosthesis, status post removal and debridement and resection of the necrotic skin. On review of the extensive infection. The patient will benefit from IV antibiotic therapy for which a PICC line will be placed. Also may benefit from the wound VAC. Will discussed further with surgery. Continue supportive care.
[2016-06-10] MEDS: ceFAZolin 2 GM in SODIUM CHLORIDE 0.9% 100 ML IVPB SCH ×3 (01:38→17:52)
[2016-06-10] MEDS: HYDROcodone/APAP 5-325MG 1 EACH TAB PO PRN ×3 (08:03→17:55)
[2016-06-10 08:20] LABS: Anisocytosis Slight; CH 28.6; CHCM 31.4; HCT 30.2 % (34.0-46.0); HDW 3.99; HGB 9.6 gm/dL (11.4-16.0); Hypochromasia Marked; MCH 29.1 pg (25.0-35.0); MCHC 31.8 g/dL (31.0-37.0); MCV 91.4 fL (80.0-100.0); Mean Platelet Volume 8.6; Poikilocytosis Slight; RBC 3.31 m/uL (3.80-5.40); RDW 18.3 % (11.5-15.5); WBC 7.7 k/uL (3.8-10.6); WBC (Perox) 8.24
[2016-06-10] MEDS: PANTOPRAZOLE 40 MG TABLET PO SCH (08:41)
[2016-06-10] MEDS: HEPARIN SODIUM,PORCINE 5,000 UNIT/ML 1 ML VIAL SQ SCH (08:41)
[2016-06-10 08:42] LABS: Add Differential Manual Differential
[2016-06-10 08:45] LABS: Nucleated Red Blood Cells 0 /100 WBC (0-0); Total Cells Counted 100
[2016-06-10 08:48] LABS: Polychromasia Present
--- NOTE | 2016-06-10 10:59 | P.PN ---
Subjective 60-year-old female patient being seen with the surgical surgeon at the bedside this morning Dr. Harrison. The surgeon did remove the surgical dressing from the left breast. There is packing in place at the surgical site. Patient continues to report having tenderness at the site is decreased swelling. No drainage noted on the dressing. Wound cultures pending the patient is being followed by infectious disease Dr. 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 done on June 08 Objective - Vital Signs Vital signs: Vital Signs Temp 97.4 F L 06/10/16 07:00 Pulse 77 06/10/16 08:00 Resp 16 06/10/16 08:00 BP 136/74 06/10/16 07:00 Pulse Ox 100 06/10/16 07:00 Intake & Output 06/09/16 06/10/16 06/10/16 18:59 06:59 18:59 Intake Total 985 1255 360 Output Total 6 1 Balance 979 1255 359 Weight 104.326 kg 104.326 kg Intake: IV 675 prbcs 675 Intake, IV Titration 125 100 Amount Vancomycin 1,750 mg In 125 Sodium Chloride 0.9% 250 ml @ 125 mls/hr IVPB Q12H [facility] Rx#:[id number] ceFAZolin 2 gm In Sodium 100 Chloride 0.9% 100 ml @ 100 mls/hr IVPB Q8HR [facility] Rx#:[id number] Oral 860 480 360 Output: Urine 3 Stool 3 1 Other: Voiding Method Toilet Toilet # Voids 5 2 1 - Exam Physical exam 60-year-old female resting in bed states pain medication effective for pain control "very anxious I don't know how I got this infection Lungs essentially clear adequate air movement on room air no cough no shortness of breath Heart S1-S2 audible regular Abdomen soft nontender denies any frequent stooling no nausea vomiting Extremities no edema Chest dressing left breast area dry packing in place decreased tenderness to the left axillary area - Labs CBC & Chem 7: 06/10/16 07:20 06/08/16 08:08 Labs: Abnormal Lab Results - Last 24 Hours (Table) 06/06/16 06/10/16 Range/Units 22:53 07:20 RBC 3.31 L (3.80-5.40) m/uL Hgb 9.6 L (11.4-16.0) gm/dL Hct 30.2 L (34.0-46.0) % RDW 18.3 H (11.5-15.5) % Lymphocytes # (Manual) 0.3 L (1.0-4.8) k/uL Crossmatch See Detail Microbiology - Last 24 Hours (Table) 06/07/16 16:00 Anaerobic Culture - Preliminary Breast Fluid - Left 06/07/16 15:45 Gram Stain - Final Breast Fluid - Left Wound Culture - Final Staphylococcus aureus Assessment and Plan Plan: Impression Present on admission left breast pain suspect due to 1 cm breast abscess Present on admission leukocytosis suspect due to left breast abscess 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 Present on admission anemia suspect related to myoplastic disorder History of invasive breast cancer left breast Immediate reconstruction left breast following a left mastectomy with insertion of tissue expanders and subsequent outpatient expansion done on 12/01/2015 Present on admission febrile leukocytosis suspect sepsis likely due to left breast abscess Blood transfusion reaction temp the 103 occurred on 06/06/2016 Severe Electrolyte abnormality hypokalemia hypo-magnesium present on admission Elevated ferritin level Status post left mastectomy November 2015 Status post June 08 removal 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 preciado DVT and GI prophylaxis Pain control Resume home meds as appropriate The above dictated assessment and findings were discussed with dr Dr. Godinez . Impression and the plan of care have been dictated as directed. Ebony Good nurse practitioner acting as a scribe for Dr. Gretchen Harrison will resume care with further recommendations per Dr. Harrison
[2016-06-10] MEDS ORDERED: LIDOCAINE 2% INJ 20 MG/ML (20 ML MDV) ONE (14:24)
[2016-06-10] MEDS ORDERED: LIDOCAINE 2% INJ 20 MG/ML SQ ONE (14:54)
[2016-06-11] MEDS: HYDROcodone/APAP 5-325MG 1 EACH TAB PO PRN ×3 (00:31→22:08)
[2016-06-11] MEDS: ceFAZolin 2 GM in SODIUM CHLORIDE 0.9% 100 ML IVPB SCH ×3 (01:47→18:25)
[2016-06-11] MEDS: HEPARIN SODIUM,PORCINE 5,000 UNIT/ML 1 ML VIAL SQ SCH ×3 (01:47→22:08)
[2016-06-11] MEDS: PANTOPRAZOLE 40 MG TABLET PO SCH (08:18)
--- NOTE | 2016-06-11 10:37 | PN ---
DATE OF SERVICE: 06/10/2016 REASON FOR FOLLOWUP: Left breast methicillin susceptible Staphylococcus aureus abscess and cellulitis. INTERVAL HISTORY: The patient is afebrile. She is currently breathing comfortably. Pain is currently controlled. Denies significant chest pain. No cough, abdominal pain or diarrhea. On examination, blood pressure 146/75, pulse of 78, temperature 97.2, she is saturating 97% on room air. GENERAL DESCRIPTION: A middle-age female lying in bed in no distress. RESPIRATORY SYSTEM: Unlabored breathing. HEART: S1, S2 regular rate and rhythm. BREASTS: Left breast currently packed. EXTREMITIES: No edema of the feet. LABS: Hemoglobin 9.6, white count 7.7, BUN 11, creatinine 0.56. DIAGNOSTIC IMPRESSION AND PLAN: Methicillin susceptible Staphylococcus aureus and sepsis. The patient will need IV antibiotics for at least 2 weeks in the form of cefazolin. Local wound care with wet to dry dressing or wound VAC will help in healing process. Discussed in detail with Surgery. Once a PICC line is placed and outpatient wound care is arranged, she should be ready to go home from ID standpoint.
--- NOTE | 2016-06-11 10:43 | P.PN ---
Subjective Patient is postop day #3 removal of infected stab pectoral breast spacer. The patient is doing well at this time. She is been seen by infectious disease and is on IV antibiotic therapy. She will most likely be discharged home on Monday. Objective - Vital Signs Vital signs: Vital Signs Temp 97.4 F L 06/11/16 07:00 Pulse 75 06/11/16 08:00 Resp 16 06/11/16 08:00 BP 146/72 06/11/16 07:00 Pulse Ox 100 06/11/16 07:00 Intake & Output 06/10/16 06/11/16 06/11/16 18:59 06:59 18:59 Intake Total 1420 720 Output Total 6 5 Balance 1414 720 -5 Weight 104.326 kg 104.326 kg Intake: IV 600 prbcs 600 Intake, IV Titration 100 Amount ceFAZolin 2 gm In Sodium 100 Chloride 0.9% 100 ml @ 100 mls/hr IVPB Q8HR [facility] Rx#:[id number] Oral 720 720 Output: Urine 3 3 Stool 3 2 Other: Voiding Method Toilet Toilet # Voids 1 1 1 - Constitutional General appearance: Present: obese - Respiratory Respiratory: bilateral: CTA - Cardiovascular Rhythm: regular Heart sounds: normal: S1, S2 - Gastrointestinal General gastrointestinal: Present: normal bowel sounds, soft - Integumentary Integumentary Comment(s): Decreased inflammation of the skin of the left breast Packing in place - Psychiatric Psychiatric: Present: A&O x's 3, appropriate affect, intact judgment & insight - Labs CBC & Chem 7: 06/10/16 07:20 06/08/16 08:08 Labs: Microbiology - Last 24 Hours (Table) 06/08/16 14:38 Gram Stain - Preliminary Breast - Left Wound Culture - Final Staphylococcus aureus Assessment and Plan Plan: Impression/plan: 1. Continue antibiotic therapy 2. Discharge as per infectious disease 3. Continue wound packing Plan: She will follow with plastic surgery as an outpatient
[2016-06-12] MEDS: ceFAZolin 2 GM in SODIUM CHLORIDE 0.9% 100 ML IVPB SCH ×3 (00:01→18:02)
--- NOTE | 2016-06-12 07:39 | P.PN ---
Subjective Patient is postop day #4 removal of infected stab pectoral breast spacer. The patient is doing well at this time. She is been seen by infectious disease and is on IV antibiotic therapy. She will most likely be discharged home on Monday. Objective - Vital Signs Vital signs: Vital Signs Temp 97.6 F 06/11/16 21:50 Pulse 86 06/12/16 00:00 Resp 18 06/12/16 00:00 BP 123/64 06/11/16 21:50 Pulse Ox 97 06/11/16 21:50 Intake & Output 06/11/16 06/12/16 06/12/16 18:59 06:59 18:59 Intake Total 600 1020 Output Total 6 5 Balance 594 1015 Weight 104.326 kg 104.326 kg Intake: IV 180 prbcs 180 Intake, IV Titration 100 100 Amount ceFAZolin 2 gm In Sodium 100 100 Chloride 0.9% 100 ml @ 100 mls/hr IVPB Q8HR [facility] Rx#:[id number] Oral 500 740 Output: Urine 3 3 Stool 3 2 Other: Voiding Method Toilet Toilet # Voids 1 1 - Constitutional General appearance: Present: obese - Respiratory Respiratory: bilateral: CTA - Cardiovascular Rhythm: regular Heart sounds: normal: S1, S2 - Gastrointestinal General gastrointestinal: Present: normal bowel sounds - Integumentary Integumentary Comment(s): Decreased inflammation of the skin of the left breast/packing in place - Psychiatric Psychiatric: Present: A&O x's 3, appropriate affect, intact judgment & insight - Labs CBC & Chem 7: 06/10/16 07:20 06/08/16 08:08 Labs: Microbiology - Last 24 Hours (Table) 06/08/16 14:38 Anaerobic Culture - Preliminary Breast - Left 06/07/16 16:00 Anaerobic Culture - Final Breast Fluid - Left Assessment and Plan Plan: Impression/plan: 1. Continue antibiotic therapy 2. Discharge as per infectious disease 3. Continue wound packing Plan: She will follow with plastic surgery as an outpatient
[2016-06-12 07:50] VITALS: RESP 16
[2016-06-12] MEDS: HEPARIN SODIUM,PORCINE 5,000 UNIT/ML 1 ML VIAL SQ SCH ×2 (07:52→20:35)
[2016-06-12] MEDS: PANTOPRAZOLE 40 MG TABLET PO SCH (07:52)
[2016-06-12] MEDS: HYDROcodone/APAP 5-325MG 1 EACH TAB PO PRN ×2 (14:57→22:37)
[2016-06-12 22:28] VITALS: TEMP 98
[2016-06-13] MEDS: ceFAZolin 2 GM in SODIUM CHLORIDE 0.9% 100 ML IVPB SCH ×3 (00:05→15:40)
[2016-06-13 07:36] VITALS: BP 132/70; PULSE 82
[2016-06-13] MEDS: HEPARIN SODIUM,PORCINE 5,000 UNIT/ML 1 ML VIAL SQ SCH (08:49)
[2016-06-13] MEDS: PANTOPRAZOLE 40 MG TABLET PO SCH (08:49)
[2016-06-13] MEDS: HYDROcodone/APAP 5-325MG 1 EACH TAB PO PRN ×2 (08:49→14:28)
--- NOTE | 2016-06-13 10:32 | PN ---
DATE OF SERVICE: 06/12/2016 Reason for follow up: Left breast MSSA abscess and cellulitis. INTERVAL HISTORY: The patient is afebrile. She is currently feeling better. Breathing comfortably. Pain to the breast area is currently controlled. Denies significant chest pain, shortness of breath, cough, no abdominal pain. No diarrhea. On examination, blood pressure 132/68 with a pulse of 99, temperature 98, she is 98% on room air. General description is a middle-age female up in the bed in no distress. RESPIRATORY SYSTEM: Unlabored breathing. Clear to auscultation anteriorly. HEART: S1, S2 regular rate and rhythm. ABDOMEN: Soft, no tenderness. EXTREMITIES: No edema of feet. LABS: Hemoglobin 9.6, white count 7.7. Blood culture has been negative. DIAGNOSTIC IMPRESSION AND PLAN: Patient with methicillin susceptible Staphylococcus aureus left mastectomy site infection, status post drainage and debridment of skin necrosis. She did have a PICC line and is currently getting cefazolin. PLAN: Cefazolin 2 grams q.8 for at least two weeks along with Aquacel silver packing up the wound. However, the patient seems to be refusing home IV antibiotic therapy and wants to come to the infusion clinic. If that is the case, antibiotic will be ceftriaxone 2 grams daily. However, the patient has been advised this may not be as effective as to the cefazolin therapy when it comes to MSSA. I was able to explain this to her in layman's terms. Will wait for her final decision as of tomorrow. NEWTON
--- NOTE | 2016-06-13 11:48 | P.PN ---
Subjective Patient is postop day #5 removal of infected sub pectoral breast spacer. The patient is doing well at this time. She is been seen by infectious disease and is on IV antibiotic therapy. planning on discharge home today as per infectious disease. Objective - Vital Signs Vital signs: Vital Signs Temp 98 F 06/13/16 07:00 Pulse 82 06/13/16 07:00 Resp 16 06/13/16 07:00 BP 132/70 06/13/16 07:00 Pulse Ox 95 06/13/16 07:00 Intake & Output 06/12/16 06/13/16 06/13/16 18:59 06:59 18:59 Intake Total 100 Output Total 10 Balance 90 Weight 104.326 kg Intake: Intake, IV Titration 100 Amount ceFAZolin 2 gm In Sodium 100 Chloride 0.9% 100 ml @ 100 mls/hr IVPB Q8HR [facility] Rx#:[id number] Output: Urine 6 Stool 4 Other: Voiding Method Toilet Toilet Toilet # Voids 1 1 - Constitutional General appearance: Present: obese - Respiratory Respiratory: bilateral: CTA - Cardiovascular Rhythm: regular Heart sounds: normal: S1, S2 - Integumentary Integumentary Comment(s): wound clean and dry left breast Decreased erythema and induration of the breast skin - Psychiatric Psychiatric: Present: A&O x's 3, appropriate affect, intact judgment & insight - Labs CBC & Chem 7: 06/10/16 07:20 06/08/16 08:08 Labs: Microbiology - Last 24 Hours (Table) 06/08/16 14:38 Anaerobic Culture - Final Breast - Left Assessment and Plan Plan: Impression/plan: 1. Continue antibiotic therapy as per infectious disease 2. Discharge as per infectious disease 3. Continue wound packing Plan: She will follow with plastic surgery as an outpatient
--- NOTE | 2016-06-13 11:53 | P.DS ---
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 Do you want consulting provider notified?: Yes 06/07/16 10:03 Consult Physician Routine Consulting Provider: Guero Ma Consult Reason/Comments: Breast cancer, myeloplastic disorder Do you want consulting provider notified?: Yes 06/08/16 15:04 Consult Physician Routine Consulting Provider: Slick Ramos Consult Reason/Comments: infected implant Do you want consulting provider notified?: Yes Primary care physician: Joselito Gonzalez Patient Condition at Discharge: Stable Plan - Discharge Summary New Discharge Prescriptions: HYDROcodone/APAP 5-325MG [[place] 5] 1 - 2 each PO Q4H PRN #20 tab PRN Reason: Pain ceFAZolin [Kefzol] 2,000 mg IVPB Q8HR #42 bag Discharge Medication List Aspirin EC [Ecotrin] 81 mg PO DAILY 05/05/15 [History] Acetaminophen Tab [Tylenol Tab] 1,500 mg PO DAILY@1200 06/06/16 [History] Letrozole [Femara] 2.5 mg PO DAILY 06/06/16 [History] Capecitabine [Capecitabine] 2,500 mg PO BID PRN 06/07/16 [History] ceFAZolin [Kefzol] 2,000 mg IVPB Q8HR #42 bag 06/10/16 [Rx] HYDROcodone/APAP 5-325MG [[place] 5] 1 - 2 each PO Q4H PRN #20 tab 06/13/16 [Rx] Follow up Appointment(s)/Referral(s): Slick Ramos MD [STAFF PHYSICIAN] - 1 Week Tu Gonzalez MD [Primary Care Provider] - 1-2 days Angélica Spence MD [STAFF PHYSICIAN] - 2 Weeks Patient Instructions/Handouts: Cefazolin (By injection), MRSA (Methicillin Resistant Staphylococcus Aureus) (DC), Abscess (GEN), Anemia (DC) Activity/Diet/Wound Care/Special Instructions: [facility] for home iv antibiotics -Weekly CBC/BMP while on cefazolin IV Discharge Disposition: HOME SELF-CARE
--- NOTE | 2016-06-13 13:46 | PN ---
DATE OF SERVICE: 06/13/2016 Reason for followup is left breast MSSA infection. INTERVAL HISTORY: The patient is afebrile. She is currently breathing comfortably. Denies significant chest pain or shortness of breath. No cough, no abdominal pain or any diarrhea. On examination, blood pressure 132/70 with a pulse of 82, temperature 98. She is 95% on room air. General description is a middle-age female, lying in bed in no distress. RESPIRATORY SYSTEM: Unlabored breathing. Clear to auscultation anteriorly. HEART: S1, S2. Regular rate and rhythm. Left breast currently packed up, no drainage. LABS: Hemoglobin 9.6, white count is 7.7. Blood culture has been negative. DIAGNOSTIC IMPRESSION AND PLAN: Patient with left breast methicillin-sensitive Staphylococcus aureus infection with an infected spacer that has been discontinued. Patient seemed to have shown no clinical improvement. She will finish her therapy with cefazolin 2 gm q.8 for another 2 weeks along with Aquacel silver packing over the wound. Follow up in the office in about a week. Continue supportive care. NEWTON
--- NOTE | 2016-06-20 13:17 | IR ---
EXAMINATION TYPE: IR cvc insert >=5 years DATE OF EXAM: 06/20/2016 11:29 AM COMPARISON: NONE CLINICAL HISTORY: Infection Needs long-term intravenous access for antibiotics. PROCEDURE: After informed consent, the skin overlying the upper extremity vein was localized with ultrasound and noted to be compressible and patent. An ultrasound image was obtained and submitted on the patient' s chart. The overlying skin was prepped and draped and Lidocaine was used for local anesthesia. A s kin enrique was made with a scalpel. Access was gained to the vein under ultrasound guidance with a 21 gauge needle and a 0.018 inch wire was advanced. Access site was dilated with Peel-Away sheath and c atheter tailored to the appropriate length and advanced such that the distal tip is at the cavoatrial junction. Spot image was obtained verifying placement. Catheter was fixed to the skin with suture and a sterile dressing was placed following hemostasis. Catheter was aspirated and flushed with sali ne. Patient was discharged in stable condition without complication. Maximal barrier technique is ut ilized. Ultrasound image is documented on the chart. Ultrasound used with sterile technique. Fluoro time and fluoroscopic images submitted to document procedure: 132 intraoperative C-arm images document the procedure, 0.7 minutes fluoroscopy time IMPRESSION: STATUS POST ULTRASOUND AND FLUOROSCOPIC GUIDED PICC LINE PLACEMENT, READY FOR USE. THIS PROCEDURE WAS PERFORMED BY THE UNDERSIGNED.
== END 2016-06-13 17:30 | disposition home health service (06) | DRG 907 ==
LOC: EC 17:21 → 5MS5E 21:42
PROVIDERS: ADMIT Surgery Plastic and Reconstructive Surgery; ATTEND Surgery Plastic and Reconstructive Surgery
PROC: 30233N1 Transfusion of Nonautologous Red Blood Cells into Peripheral Vein, Percutaneous Approach (ICD-10-PCS; 2016-06-06)
PROC: 0HPU0NZ Removal of Tissue Expander from Left Breast, Open Approach (ICD-10-PCS; principal; 2016-06-08 13:30)
DX: T85.79XA Infection and inflammatory reaction due to other internal prosthetic devices, implants and grafts, initial encounter (principal); A41.01 Sepsis due to Methicillin susceptible Staphylococcus aureus; D64.9 Anemia, unspecified; I10 Essential (primary) hypertension; N61.1 Abscess of the breast and nipple; Z80.3 Family history of malignant neoplasm of breast; Z82.49 Family history of ischemic heart disease and other diseases of the circulatory system; Z85.3 Personal history of malignant neoplasm of breast; Z86.73 Personal history of transient ischemic attack (TIA), and cerebral infarction without residual deficits; Z90.12 Acquired absence of left breast and nipple; Z79.82 Long term (current) use of aspirin; Z79.899 Other long term (current) drug therapy; Z91.040 Latex allergy status
CPT/HCPCS: 36415; 36569; 76937; 77001; 80048; 80053; 80202; 82728; 83540; 83605; 83735; 84100; 85025; 85610; 85730; 86850; 86880; 86900; 86901; 86920; 87040; 87070; 87075; 87077; 87186; 87205; 96365; 96366; 99285

== ENCOUNTER → 2016-07-28 | Day surgery (SDC) | payer OTHER ==
[~2016-07-28] MED LIST: ALPRAZolam 0.25 MG TAB ONE; BACITRACIN OINT 1 EACH PACKET TOPICAL ONE; LIDOCAINE 1% INJ 10MG/ML (20 ML MDV) ONE; LIDOCAINE 1%-EPI 1:100,000 20 ML VIAL ONE
--- NOTE | 2016-07-28 14:16 | USB ---
EXAMINATION TYPE: US biopsy breast VAD RT, MG diagnostic mammo RT wo CAD DATE OF EXAM: 07/28/2016 CLINICAL HISTORY: Z85.3 Hx of breast ca,R92.8 abn mammo,N63 Lump. TECHNIQUE: Ultrasound guided core biopsy of right breast with clip placement and follow-up two-view mammogram. COMPARISON: Right breast ultrasound May 31, 2016. FINDINGS: The procedure of ultrasound guided core biopsy was explained to the patient. Benefits, alternatives, and risks were discussed. An informed consent was then obtained. The patient was placed in supine positioning for imaging and for the procedure. Preprocedure imaging redemonstrates 7 x 3 mm well-defined heterogeneous slightly hypoechoic lesion felt a 3:00 position right breast. The overlying skin was prepped and draped in usual sterile fashion. Lidocaine buffered was used as anesthetic into the skin and subcutaneous tissue. Lidocaine with epinephrine is used as anesthetic into the deeper tissue up to area of concern in the right breast. A enrique was made with surgical scalpel. Under ultrasound guidance, a 12-gauge vacuum assisted biopsy gun device was used to obtain 2 core samples. Following this, a biopsy clip was left in lesion. The patient tolerated the procedure well without any immediate complication. The patient was kept in the radiology department for short stay after the procedure and then discharged home in stable condition. Postprocedure mammogram shows successful deployment of the in the right breast. IMPRESSION: Successful, uncomplicated ultrasound guided core biopsy of area of concern in the right breast, full pathology results to follow. Low index of suspicion noted at time of procedure. Pathology Results: High Risk BREAST, RIGHT, CORE BIOPSY: INTRADUCTAL PAPILLOMA. ADJACENT BREAST TISSUE SHOWING FIBROCYSTIC CHANGES INCLUDING FIBROSIS AND SMALL CYSTS. Recommendation Surgical consult of the right breast. PRAKASHD
== END ==
LOC: RADUSWWP 11:21
PROVIDERS: ATTEND Internal Medicine Hematology & Oncology
DX: D24.1 Benign neoplasm of right breast (principal); N60.31 Fibrosclerosis of right breast; Z85.3 Personal history of malignant neoplasm of breast; Z88.8 Allergy status to other drugs, medicaments and biological substances; Z88.6 Allergy status to analgesic agent; Z91.040 Latex allergy status
CPT/HCPCS: 88305; 19083; G0206; A4648; J2001

== ENCOUNTER → 2016-08-18 | Outpatient (CLI) | payer OTHER ==
--- NOTE | 2016-08-19 09:05 | MM ---
Reason for exam: additional evaluation requested from prior study. Last mammogram was performed 1 month ago. History: Patient is postmenopausal, has history of high-risk lesion on a previous biopsy at age 60, and has history of breast cancer at age 59. Family history of breast cancer in mother at age 50. High risk US biopsy breast VAD RT of the right breast, July 28, 2016. Implant Removal of the left breast, June 07, 2016. Malignant stereotactic core biopsy of the left breast, April 27, 2015. Ultrasound-guided core biopsy of the left breast, April 27, 2015. Mastectomy of the left breast, 2016. Chemotherapy, 2016. Radiation therapy of the left breast, 2016. Taking antineoplastic for 1 year beginning at age 59. Physical Findings: Nurse did not find any significant physical abnormalities on exam. MG Diagnostic Mammo RT w CAD CC and MLO view(s) were taken of the right breast. Prior study comparison: July 28, 2016, right breast MG diagnostic mammo RT wo CAD. June 06, 2016, left breast US breast LT. The breast tissue is heterogeneously dense. This may lower the sensitivity of mammography. Previous mammotome biopsy in the right breast. No significant new findings when compared with previous films. These results were verbally communicated with the patient and result sheet given to the patient on 08/18/16. ASSESSMENT: Benign, BI-RAD 2 RECOMMENDATION: Clinical management of the right breast. Manage patient on a clinical basis.
== END ==
LOC: RADMAMWWP 14:51
PROVIDERS: ATTEND Surgery
DX: Z08 Encounter for follow-up examination after completed treatment for malignant neoplasm (principal); Z85.3 Personal history of malignant neoplasm of breast

== ENCOUNTER 2016-09-13 08:49 | Day surgery (SDC) | payer OTHER ==
[2016-09-06 09:14] VITALS: BMI 39.9
[~2016-09-13 08:49] MED LIST changes: -ALPRAZolam 0.25 MG TAB ONE; +ALPRAZolam 0.25 MG TAB PO PRN; -BACITRACIN OINT 1 EACH PACKET TOPICAL ONE; +DEXAMETHASONE SOD PHOSPHATE 10 MG/ML 1 ML VIAL IV ONE; +FAMOTIDINE 20 MG/2 ML VIAL IV PRN; +HEPARIN SODIUM,PORCINE 5,000 UNIT/ML 1 ML VIAL SQ ONE; +HYDROmorphone 1 MG/ML 1 ML SYRINGE IVP PRN; +LACTATED RINGERS 1,000 ML IV SCH; +LIDOCAINE 1% 20 ML VIAL (10MG/ML) FOR IV START INTRADERMA PRN; -LIDOCAINE 1% INJ 10MG/ML (20 ML MDV) ONE; -LIDOCAINE 1%-EPI 1:100,000 20 ML VIAL ONE; +Pre Op ABX Message 1 EACH MISC MISCELLANE ONE; +SCOPOLAMINE 1.5MG/72HR PATCH TRANSDERM ONE
[2016-09-13 09:55] VITALS: RESP 16
[2016-09-13] MEDS ORDERED: LIDOCAINE 1% INJ 10MG/ML (20 ML MDV) SQ ONE ×3 (10:45→14:18)
[2016-09-13] MEDS ORDERED: SODIUM CHLORIDE 0.9% 50 ML with ceFAZolin 2,000 MG IV ONE ×2 (13:45)
[2016-09-13] MEDS ORDERED: LIDOCAINE 1% INJ 10MG/ML (20 ML MDV) ONE (13:45)
[2016-09-13] MEDS ORDERED: PROPOFOL 10 MG/ML 20 ML VIAL IV ONE (13:45)
[2016-09-13] MEDS ORDERED: MIDAZOLAM 2 MG/2 ML VIAL ONE (13:45)
[2016-09-13] MEDS ORDERED: fentaNYL (PF) 50 MCG/ML 2 ML AMP ONE (13:45)
[2016-09-13] MEDS ORDERED: SUCCINYLCHOLINE CHLORIDE 100 MG/5 ML SYR IV ONE (13:45)
--- NOTE | 2016-09-13 14:32 | P.OP ---
Date of Procedure: 09/13/16 Preoperative Diagnosis: Intraductal papilloma on core biopsy of the right breast Postoperative Diagnosis: Same Procedure(s) Performed: needle local excisional biopsy right breast Implants: Anesthesia: GETA Surgeon: Angélica Spence Estimated Blood Loss (ml): 10 IV fluids (ml): 850 Pathology: other (Breast tissue) Condition: stable Disposition: PACU Indications for Procedure: core Biopsy right breast intraductal papilloma Operative Findings: Description of Procedure: Patient was taken to the operating room and following induction of anesthesia the right breast was prepped and draped in a sterile fashion. An incision was made and carried down to the hook of the needle. Surrounding tissue was excised. Specimen was painted for orientation. Specimen was sent to radiology and radiograph revealed the area of concern was present in the specimen. The biopsy cavity was evaluated and there was no evidence of any active bleeding. The wound was well irrigated. Titanium clips were placed. The dissection was carried down to the muscle of the chest wall. After assured that hemostasis was attained the skin was closed using a 4-0 Monocryl. Patient tolerated procedure in stable condition. Specimen was sent to pathology after radiograph of the specimen.
--- NOTE | 2016-09-13 14:33 | P.DS ---
Providers Attending physician: Angélica Spence Primary care physician: Joselito Gonzalez Plan - Discharge Summary New Discharge Prescriptions: No Action Aspirin EC [Ecotrin] 81 mg PO DAILY Letrozole [Femara] 2.5 mg PO DAILY HYDROcodone/APAP 5-325MG [[place] 5] 1 - 2 each PO Q4H PRN #20 tab PRN Reason: Pain Discharge Medication List Aspirin EC [Ecotrin] 81 mg PO DAILY 05/05/15 [History] Letrozole [Femara] 2.5 mg PO DAILY 06/06/16 [History] HYDROcodone/APAP 5-325MG [[place] 5] 1 - 2 each PO Q4H PRN #20 tab 06/13/16 [Rx] Follow up Appointment(s)/Referral(s): Angélica Spence MD [STAFF PHYSICIAN] - 1 Week Patient Instructions/Handouts: *Surgery [facility] - Scopalamine Patch Instructions Activity/Diet/Wound Care/Special Instructions: do not drive today or if taking narcotic pain medicine Discharge Disposition: HOME SELF-CARE
[2016-09-13 15:18] VITALS: TEMP 98
[2016-09-13] MEDS ORDERED: LACTATED RINGERS 1,000 ML IV ONE (15:30)
[2016-09-13] MEDS ORDERED: HYDROcodone/APAP 5-325MG 1 EACH TAB PO ONE (16:04)
[2016-09-13 16:50] VITALS: BP 143/76; PULSE 77
--- NOTE | 2016-09-13 16:50 | MM ---
EXAMINATION TYPE: MG pre op needle loc RT, MG surgical specimen RT DATE OF EXAM: 09/13/2016 COMPARISON: 08/18/2016 CLINICAL HISTORY: 60 year-old female with biopsy-proven papilloma, high risk lesion referred for surg ical excision. TECHNIQUE: Needle localization with wire placement and surgical excision of area of concern in the ri t breast. FINDINGS: The procedure of needle localization with wire placement and than surgical excision was exp lained to the patient. Benefits, alternatives, and risks were discussed. An informed consent was th en obtained. The shortest pathway for procedure was chosen. Shortest pathway was a medial approach. The overlying skin was prepped and draped in usual sterile fashion. Lidocaine was used as anesthetic into the ski n and subcutaneous tissue up to the level of area of concern. A 7 cm Kopans needle was used. It was placed via a medial approach under mammographic guidance. Subsequent 90 degrees mammogram show the needle to be in satisfactory position relative to the targeted area. At this point, wire was placed and the needle was withdrawn. The wire was fixed to patient's skin. Images were marked for surgeon. The patient tolerated the procedure well without any immediate complication. The patient was kept in the radiology department for short stay after the procedure and then taken to surgery for surgical e xcision. Biopsy clip and wire are identified in specimen mammogram. The patient was kept in hospital for shor t stay after the procedure and then discharged home in stable condition. IMPRESSION: Successful, uncomplicated needle localization with wire placement and surgical excision of biopsy-pro aaron papilloma in the right breast; full pathology results to follow.
== END 2016-09-13 17:10 | disposition home or self-care (01) ==
LOC: OR 08:49
PROVIDERS: ATTEND Surgery
DX: D24.1 Benign neoplasm of right breast (principal); R92.8 Other abnormal and inconclusive findings on diagnostic imaging of breast; Z85.3 Personal history of malignant neoplasm of breast; Z90.12 Acquired absence of left breast and nipple; Z80.3 Family history of malignant neoplasm of breast; I10 Essential (primary) hypertension; D64.9 Anemia, unspecified; E78.00 Pure hypercholesterolemia, unspecified; Z86.73 Personal history of transient ischemic attack (TIA), and cerebral infarction without residual deficits; Z79.82 Long term (current) use of aspirin; Z79.899 Other long term (current) drug therapy; Z88.6 Allergy status to analgesic agent
CPT/HCPCS: 76098; 19281; 19125; J2250; J1644; J1100; J2001; J3010; J0690; J0330; J2704

== ENCOUNTER → 2016-11-22 | Outpatient (CLI) | payer OTHER ==
--- NOTE | 2016-11-23 16:08 | BD ---
EXAMINATION TYPE: MG DEXA axial skeleton. DATE OF EXAM: 11/22/2016 COMPARISON: NONE CLINICAL HISTORY: Breast cancer. Screening. Height: 5 FT 5 IN Weight: 260 FRAX RISK QUESTIONS: Alcohol (3 or more units per day): NO Family History (Parent hip fracture): NO Glucocorticoids (More than 3mos): NO (Ex: prednisone, prednisolone, methylprednisolone, dexamethasone, and hydrocortisone). History of Fracture in Adulthood: NO Secondary Osteoporosis: 1. Type 1 Diabetes: NO 2. Hyperthyroidism: NO 3. Menopause before 45: NO 4. Malnutrition: NO 5. Chronic liver disease: NO Rheumatoid Arthritis: NO Current Tobacco Use: NO RISK FACTORS HISTORY OF: Active: NO Postmenopausal woman: AGE 55-60 MEDICATIONS: Additional Medications: FEMARA,BABY ASPIRIN,NORCO, Additional History: BREAST CANCER 2016 CHEMO AND RADIATION EXAM MEASUREMENTS: Bone mineral densitometry was performed using the Travefy System. Bone mineral density as measured about the Lumbar spine is: ----- L1-L4(G/cm2): 1.337 T Score Values are as follows: ----- L2: 1.6 ----- L3: 2.0 ----- L4: 0.8 ----- L1-L4: 1.3 BASELINE Bone mineral density about the R hip (g/cm2): 0.995 Bone mineral density about the L hip (g/cm2): 1.005 T Score values are as follows: -----R Neck: -0.3 -----L Neck: -0.2 -----R Total: 1.0 -----L Total: 1.1 BASELINE IMPRESSION: Normal (Values between +1 and -1 indicate normal bone mass). Consider repeating this study in 5 year s or sooner if there is some new clinical indication. NOTE: T-SCORE=SD OF THE YOUNG ADULT MEAN.
== END | disposition home or self-care (01) ==
LOC: RADBDWWP 14:41
PROVIDERS: ATTEND Internal Medicine Hematology & Oncology
DX: N95.1 Menopausal and female climacteric states (principal); C50.112 Malignant neoplasm of central portion of left female breast; Z79.890 Hormone replacement therapy
CPT/HCPCS: 77080

== ENCOUNTER → 2016-12-09 | Outpatient (CLI) | payer OTHER | END | disposition home or self-care (01) | LOC: LABPAT 14:30 | PROVIDERS: ATTEND Surgery | DX: Z01.810 Encounter for preprocedural cardiovascular examination (principal) | CPT/HCPCS: 93005 ==

== ENCOUNTER → 2017-03-07 | Outpatient (CLI) | payer OTHER ==
--- NOTE | 2017-03-07 14:07 | MM ---
Reason for exam: additional evaluation requested from prior study. Last mammogram was performed 7 months ago. History: Patient is postmenopausal, has history of high-risk lesion on a previous biopsy at age 60, and has history of breast cancer at age 59. Family history of breast cancer in mother at age 50. High risk MG pre op needle loc RT of the right breast, September 13, 2016. High risk US biopsy breast VAD RT of the right breast, July 28, 2016. Implant Removal of the left breast, June 07, 2016. Malignant stereotactic core biopsy of the left breast, April 27, 2015. Ultrasound-guided core biopsy of the left breast, April 27, 2015. Mastectomy of the left breast, 2016. Chemotherapy, 2016. Radiation therapy of the left breast, 2016. Taking antineoplastic for 1 year beginning at age 59. Physical Findings: Nurse did not find any significant physical abnormalities on exam. MG Diagnostic Mammo RT w CAD CC, MLO, and ML view(s) were taken of the right breast. Prior study comparison: August 18, 2016, right breast MG diagnostic mammo RT w CAD. July 28, 2016, right breast MG diagnostic mammo RT wo CAD. The breast tissue is heterogeneously dense. This may lower the sensitivity of mammography. Stable benign calcifications. Stable post biopsy changes. No suspicious masses. No significant new findings when compared with previous films. These results were verbally communicated with the patient and result sheet given to the patient on 03/07/17. ASSESSMENT: Benign, BI-RAD 2 RECOMMENDATION: Follow-up diagnostic mammogram of the right breast in 6 months. Back on schedule for August 2016.
== END | disposition home or self-care (01) ==
LOC: RADMAMWWP 13:03
PROVIDERS: ATTEND Surgery
DX: Z08 Encounter for follow-up examination after completed treatment for malignant neoplasm (principal); Z85.3 Personal history of malignant neoplasm of breast
CPT/HCPCS: 77065

== ENCOUNTER → 2017-09-07 | Outpatient (CLI) | payer OTHER ==
--- NOTE | 2017-09-07 14:58 | MM ---
Reason for exam: additional evaluation requested from prior study. Last mammogram was performed 6 months ago. History: Patient is postmenopausal, has history of high-risk lesion on a previous biopsy at age 60, and has history of breast cancer at age 59. Family history of breast cancer in mother at age 50. High risk MG pre op needle loc RT of the right breast, September 13, 2016. High risk US biopsy breast VAD RT of the right breast, July 28, 2016. Implant Removal of the left breast, June 07, 2016. Malignant stereotactic core biopsy of the left breast, April 27, 2015. Ultrasound-guided core biopsy of the left breast, April 27, 2015. Mastectomy of the left breast, 2016. Chemotherapy, 2016. Radiation therapy of the left breast, 2016. Taking antineoplastic for 1 year beginning at age 59. Physical Findings: Nurse did not find any significant physical abnormalities on exam. MG Diagnostic Mammo RT w CAD CC, MLO, ML, CC with magnification, and ML with magnification view(s) were taken of the right breast. Prior study comparison: March 07, 2017, right breast MG diagnostic mammo RT w CAD. August 18, 2016, right breast MG diagnostic mammo RT w CAD. There are scattered fibroglandular densities. There is a group of coarse heterogeneous new calcifications anterior to the benign surgical excision site in the upper inner quadrant at anterior depth that appear similar to surrounding vascular calcifications. Possibly early vascular calcifications. 6 month follow up recommended. Post biopsy change of the right. These results were verbally communicated with the patient and result sheet given to the patient on 09/07/17. ASSESSMENT: Probably benign, BI-RAD 3 RECOMMENDATION: Follow-up diagnostic mammogram of the right breast in 6 months.
== END | disposition home or self-care (01) ==
LOC: RADMAMWWP 13:36
PROVIDERS: ATTEND Surgery
DX: Z85.3 Personal history of malignant neoplasm of breast (principal)
CPT/HCPCS: 77065

== ENCOUNTER → 2017-09-14 | Outpatient (CLI) | payer OTHER ==
[2017-09-14 12:10] VITALS: BP 140/88; PULSE 85; BMI 47.4
--- NOTE | 2017-09-14 12:32 | P.GSHP ---
History of Present Illness H&P Date: 09/14/17 Chief Complaint: History of left breast surgery The patient is a 61-year-old white female who is status post left breast cancer. The tumor was diagnosed in April 2015. She was diagnosed as a stage three cancer. She subsequently had preoperative chemotherapy followed by a mastectomy and reconstruction in November 2015. She had radiation in February. Following the radiation she developed an infection of the credit risk manager, and had a prolonged course of healing. It was necessary not only to remove the credit risk manager but have additional incision and drainage of the area in approximately November 2016. The patient prior to that had been seen in the wound clinic and had had a wound VAC applied without resolution of the problem. However, following the incision and drainage and November the area has healed without difficulty. The patient at this time is doing well and is considering another attempt at reconstruction with plastic surgeon Dr. Chinchilla. The patient also had a biopsy of the right breast in 2016 which was benign. The patient's last mammogram was done on 09/07/17 and this was felt to be probably benign BIRADS 3. However repeat diagnostic mammogram of the right breast in 6 months time was recommended. The patient denies any masses or nodules of concern in her right breast. She has no nipple discharge of concern from the right breast. Family history: 1. Mother:breast cancer 2. Paternal aunt: Brain cancer Hormonal History: menarche: 13 4, 3 live births, breast fed: all menopause: late 50's hormones: none, uses femora now follows with Dr. Martinez BCP: none Past surgical history: 1. 3 C-sections 2. Left breast mastectomy and reconstruction with implant 3. Removal of infected left breast implant 4. Port-A-Cath insertion 5. PIC line insertion Past medical history: 1. 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 Drugs: Negative - Constitutional Constitutional: Denies chills, Denies fever - EENT Eyes: denies blurred vision, denies pain Ears: bilateral: tinnitus, deny: decreased hearing Ears, nose, mouth and throat: Reports headache, Denies sore throat - Breasts Breasts: bilateral: as per HPI - Cardiovascular Cardiovascular: Denies chest pain, Denies shortness of breath - Respiratory Respiratory: Denies cough, Denies 7 - Gastrointestinal Gastrointestinal: Denies abdominal pain, Denies diarrhea, Denies nausea, Denies vomiting - Genitourinary (Female) Genitourinary: Denies dysuria, Denies hematuria - Menstruation Menstruation: Reports postmenopausal - Musculoskeletal Comment: limited range of motion on the left side - Integumentary Comment: dry skin Integumentary: Denies pruritus, Denies rash - Neurological Comment: neuropathy - Psychiatric Psychiatric: Denies anxiety, Denies depression - Endocrine Endocrine: Reports weight change, Denies fatigue - Hematologic/Lymphatic Comment: Baby aspirin - Allergic/Immunologic Allergic/Immunologic: Reports seasonal allergies Past Medical History Past Medical History: Cancer, CVA/TIA Additional Past Medical History / Comment(s): CVA (MAR 2014)- NO RESIDUAL EFFECTS FROM CVA, LEFT BREAST CANCER. FINISHED CHEMO Sep. CHEMO RELATED NEUROPATHY TO HANDS AND FEET. CURRENTLY HAS WOUND TO LT BREAST-NO INFECTION. No b/p, blood draws lt arm History of Any Multi-Drug Resistant Organisms: None Reported Past Surgical History: Breast Surgery, Section Additional Past Surgical History / Comment(s): LT MASTECTOMY. C-SEC X3. MEDI PORT INSERTION-RT CHEST-REMOVED. BREAST BIOPIES Past Anesthesia/Blood Transfusion Reactions: Postoperative Nausea & Vomiting ( PONV) Additional Past Anesthesia/Blood Transfusion Reaction / Comment(s): O2 VIA NASAL CANULA CAUSES N/V Past Psychological History: No Psychological Hx Reported Smoking Status: Never smoker Past Alcohol Use History: None Reported Past Drug Use History: None Reported - Past Family History Mother Family Medical History: Cancer Additional Family Medical History / Comment(s): BREAST CANCER Father Family Medical History: Cancer, Congestive Heart Failure (CHF) Additional Family Medical History / Comment(s): CANCER Medications and Allergies Home Medications Medication Instructions Recorded Confirmed Type Aspirin EC [Ecotrin] 81 mg PO DAILY 05/05/15 01/22/17 History Letrozole [Femara] 2.5 mg PO DAILY 06/06/16 01/22/17 History HYDROcodone/APAP 5-325MG [[place] 5] 1 - 2 each PO Q4H PRN #20 tab 06/13/16 Rx Ibuprofen/Pseudoephedrine HCl 1 each PO DAILY PRN 12/08/16 01/22/17 History [Advil Cold & Sinus Caplet] Cephalexin [Keflex] 500 mg PO Q12HR #20 cap 01/22/17 Rx Allergies Allergy/AdvReac Type Severity Reaction Status Date / Time latex AdvReac Unknown itching Verified 01/22/17 20:41 and tingling ibuprofen [From Motrin] AdvReac Nausea & Verified 01/22/17 20:41 Vomiting phenaphen Allergy Severe Anaphylaxis Uncoded 01/22/17 20:41 blue cheese Allergy Unknown Rash/Hives, Uncoded 01/22/17 20:41 Swelling corn beef Allergy Unknown Rash/Hives, Uncoded 01/22/17 20:41 Swelling Surgical - Exam - General obese - Eyes normal ocular movement - ENT no hearing loss, no congestion - Neck no masses, trachea midline - Respiratory normal respiratory effort, clear to auscultation - Cardiovascular Rhythm: regular Heart Sounds: normal: S1, S2 - Abdomen Abdomen: soft, non tender, no guarding, no rigid, no rebound - Integumentary Bilateral lower extremity pitting edema - Neurologic no disoriented, no combative - Musculoskeletal uses a dinh - Psychiatric oriented to time, oriented to person, oriented to place, speech is normal, memory intact Breast examination: Right breast: Multiple positional exam no dominant masses or nodules of concern Right axilla: No adenopathy of concern Left chest wall: The skin is well-healed at this time there is no evidence of any infection, no evidence of any recurrent cancer Left axilla: No adenopathy of concern measurement of the left upper extremity is 42 cm, right 39 cc Assessment and Plan Assessment: Impression/plan: 1. Patient status post chemo/radiation/mastectomy left breast for stage III breast cancer 2. No evidence of cancer or recurrence at this time 3. Patient wishes to follow with plastic surgery for possible reconstruction of the left breast 4. Swelling of the left upper extremity 5. Chemotherapy related neuropathy 6. Vertigo 7. Abnormal mammogram right breast 8. Bilateral lower extremity edema Plan: 1. Continue follow-up with medical and radiation oncology 2. Follow-up with lymphedema specialist 3. Follow-up here with repeat right breast mammogram and physician exam in 6 months time 4. Follow-up with primary care physician for medical management of medical conditions Cc: Dr. Gonzalez, Dr. Maritnez
== END | disposition home or self-care (01) ==
LOC: WWCWWP 11:18
PROVIDERS: ATTEND Surgery
DX: Z53.9 Procedure and treatment not carried out, unspecified reason (principal)

== ENCOUNTER → 2018-03-06 | Outpatient (CLI) | payer OTHER ==
--- NOTE | 2018-03-09 15:59 | MM ---
Reason for exam: follow-up at short interval from prior study. Last mammogram was performed 6 months ago. History: Patient is postmenopausal, has history of high-risk lesion on a previous biopsy at age 60, and has history of breast cancer at age 59. Family history of breast cancer in mother at age 50. High risk MG pre op needle loc RT of the right breast, September 13, 2016. High risk US biopsy breast VAD RT of the right breast, July 28, 2016. Implant Removal of the left breast, June 07, 2016. Malignant stereotactic core biopsy of the left breast, April 27, 2015. Ultrasound-guided core biopsy of the left breast, April 27, 2015. Mastectomy of the left breast, 2016. Chemotherapy, 2016. Radiation therapy of the left breast, 2016. Taking antineoplastic for 1 year beginning at age 59. Physical Findings: Nurse did not find any significant physical abnormalities on exam. MG Diagnostic Mammo RT w CAD CC, MLO, and ML view(s) were taken of the right breast. Prior study comparison: September 07, 2017, right breast MG diagnostic mammo RT w CAD. March 07, 2017, right breast MG diagnostic mammo RT w CAD. The breast tissue is heterogeneously dense. This may lower the sensitivity of mammography. There is a distortion in the right lower breast consistent with known excisional biopsy. There is benign-appearing vascular right breast calcifications. No discrete abnormality. Stable benign calcifications just anterior to the clips. These results were verbally communicated with the patient and result sheet given to the patient on 03/06/18. ASSESSMENT: Benign, BI-RAD 2 RECOMMENDATION: Routine screening mammogram of the right breast in 6 months.
== END ==
LOC: RADMAMWWP 11:07
PROVIDERS: ATTEND Surgery
DX: Z08 Encounter for follow-up examination after completed treatment for malignant neoplasm (principal); Z85.3 Personal history of malignant neoplasm of breast
CPT/HCPCS: 77065

== ENCOUNTER → 2018-03-15 | Outpatient (CLI) | payer OTHER ==
[2018-03-15 11:44] VITALS: BP 141/87; PULSE 89; RESP 18; TEMP 96.9; BMI 49.9
--- NOTE | 2018-03-15 12:04 | P.PN ---
Subjective Progress Note Date: 03/15/18 Principal diagnosis: Left breast cancer Mary is a 62-year-old white female who is status post left breast mastectomy for left breast cancer. The tumor was diagnosed in April 2015. It was stage III at that time. She subsequently had preoperative chemotherapy followed by mastectomy and reconstruction in November 2015. She had radiation in February 2016. Following the radiation she developed an index infection of the urinalysis technician and had a prolonged course of healing. It was necessary not only to remove the urinalysis technician but have additional incision and drainage of the area in November 2016. The patient prior to that had been seen in the wound clinic and had a wound VAC applied without resolution of the problem. However following the incision and drainage in November 2016 the area healed without difficulty. The patient at this time is considering another attempt at reconstruction with plastic surgeon Dr. Chinchilla. The patient has no new complaints related to her breasts. She's had a recent right breast mammogram performed on . The mammogram revealed distortion in the right lower breast consistent with known excisional biopsy. No other lesions of concern were identified. Benign BIRADS 2. Repeat mammogram of the right breast in 6 months time. Family history: 1. Mother: Breast cancer 2. Paternal aunt: Brain cancer Hormonal history: Menarche: 13 Pregnancies: 4, 3 live births, breast fed: All Menopause: Late 50s Hormones: None she is presently on Femara as per Dr. Martinez control pills: Negative Past surgical history: 1. 3 C-sections 2. Left breast mastectomy and reconstruction with implant 3. Removal of infected left breast implant 4. Port-A-Cath insertion 5. PICC line insertion Past medical history: 1. 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 Social history: Smoking: Negative Alcohol: Occasionally socially Drugs: Negative Review of systems: Constitutional: On occasion HEENT: No blurred vision, no decreased hearing Breasts: As per HPI Cardiovascular: Prior history of CVA no chest pain no shortness of breath Respiratory: Negative GI: Negative : Postmenopausal Musculoskeletal: Negative Integument: Negative Psychiatric: No anxiety or depression Hematologic: Baby aspirin Objective - Vital Signs Vital signs: Vital Signs Temp 96.9 F L 03/15/18 11:37 Pulse 89 03/15/18 11:37 Resp 18 03/15/18 11:37 BP 141/87 03/15/18 11:37 Pulse Ox 94 L 03/15/18 11:37 Intake & Output 03/14/18 03/15/18 03/15/18 18:59 06:59 18:59 Weight 136.078 kg - Exam BMI 49.9 - Constitutional General appearance: Present: obese - EENT Eyes: Present: EOMI ENT: Present: hearing grossly normal - Respiratory Respiratory: bilateral: CTA - Cardiovascular Rhythm: regular Heart sounds: normal: S1, S2 - Gastrointestinal General gastrointestinal: Present: soft - Integumentary Integumentary Comment(s): right breast: Multi-positional exam no dominant masses or nodules of concern Right axilla: No adenopathy of concern Left chest wall: Incision clean and dry well-healed no evidence of recurrent disease In one of the skin folds it appears that there may be some fungal infection will prescribe nystatin Left axilla: No adenopathy of concern Assessment and Plan Assessment: Impression: 1. Patient status post chemo/radiation/mastectomy left breast cancer for stage III disease 2. No evidence of recurrent cancer at this time 3. Patient is following with Dr. Chinchilla for possible reconstruction of the left breast 4. Chemotherapy related neuropathy 5. Recent right breast mammogram benign 6. patient on Femora Plan: 1. Continue to follow with medical oncology 2. Patient has followed with lymphedema specialist patient is not concerned about swelling in her arm 3. Nystatin to the left chest wall at site of possible fungal infection/ follow -up 1 month to reevaluate this area CC: Dr. Gonzalez
== END ==
LOC: WWCWWP 11:05
PROVIDERS: ATTEND Surgery
DX: Z53.9 Procedure and treatment not carried out, unspecified reason (principal)

== ENCOUNTER → 2018-04-12 | Outpatient (CLI) | payer OTHER ==
[2018-04-12 14:59] VITALS: BP 153/70; PULSE 95; RESP 18; TEMP 96.3; BMI 49.9
--- NOTE | 2018-04-12 15:49 | P.PN ---
Subjective Progress Note Date: 04/12/18 Mary is a 62-year-old white female who is status post left breast mastectomy for left breast cancer. The tumor was diagnosed in April 2015. He was stage III at that time. She subsequently had preoperative chemotherapy followed by mastectomy and reconstruction in November 2015. She had radiation in February 2016. Following the radiation she developed an infection of her rug sizer and it was necessary to remove the rug sizer. It was necessary not only to remove the rug sizer but she has had additional incision and drainage of the area in November 2016. The patient prior to that had been seen in the wound clinic and had a wound VAC applied without resolution of the problem. However following the incision and drainage in November 2016 the area has healed without difficulty. The patient at this time is considering another attempt at reconstruction with plastic surgeon Dr. Chinchilla. The patient was last seen in February 2018 at which time there was concern that there was a fungal infection in one of the skin folds of the left chest wall. She was prescribed nystatin and returns today for evaluation of this area. The patient states that the area has resolved. Patient's [place] breast mammogram [place] [id number]. This was benign BIRADS 2. Routine screening of the right breast in 6 months was recommended. Patient has noticed some swelling in her left upper arm. She has seen a lymphedema specialist who does not feel that she has lymphedema at this time. Objective - Vital Signs Vital signs: Vital Signs Temp 96.3 F L 04/12/18 14:52 Pulse 95 04/12/18 14:52 Resp 18 04/12/18 14:52 BP 153/70 04/12/18 14:52 Pulse Ox 94 L 04/12/18 14:52 Intake & Output 04/11/18 04/12/18 04/12/18 18:59 06:59 18:59 Weight 136.078 kg - Exam BMI 49.9 - Constitutional General appearance: Present: obese - EENT Eyes: Present: EOMI ENT: Present: hearing grossly normal - Neck Neck: Present: normal ROM - Respiratory Respiratory: bilateral: CTA - Cardiovascular Rhythm: regular Heart sounds: normal: S1, S2 - Gastrointestinal General gastrointestinal: Present: soft - Psychiatric Psychiatric: Present: A&O x's 3, appropriate affect, intact judgment & insight - Additional findings Additional findings: Examination of the left chest wall reveals complete resolution of the area of consent concern regarding fungal infection there is no evidence of any recurrent cancer and no evidence of any infection at this time Assessment and Plan Assessment: Impression: 1. Patient status post chemo/radiation/mastectomy left breast for stage III disease 2. No evidence of recurrent cancer 3. Patient is following with Dr. Chinchilla for possible reconstruction of the left breast after her daughter's wedding in August 4. Chemotherapy related neuropathy 5. Right breast mammogram benign in February 2018 6. Patient on Femara 7. Resolution of any fungal infection 8. Patient with swelling of her left upper arm Plan: 1. Continue to follow with medical oncology 2. Patient has seen lymphedema specialist does not want to see her again at this time 3. Follow-up with Dr. Chinchilla 4. Repeat right breast mammogram 6 months from past study and follow-up. At time Cc: Dr. Gonzalez, Dr. Martinez
== END | disposition home or self-care (01) ==
LOC: WWCWWP 14:45
PROVIDERS: ATTEND Surgery
DX: Z53.9 Procedure and treatment not carried out, unspecified reason (principal)

== ENCOUNTER → 2018-09-13 | Outpatient (CLI) | payer OTHER ==
--- NOTE | 2018-09-13 14:54 | MM ---
Reason for exam: follow-up at short interval from prior study. Last mammogram was performed 6 months ago. History: Patient is postmenopausal, has history of high-risk lesion on a previous biopsy at age 60, and has history of breast cancer at age 59. Family history of breast cancer in mother at age 50. High risk MG pre op needle loc RT of the right breast, September 13, 2016. High risk US biopsy breast VAD RT of the right breast, July 28, 2016. Implant Removal of the left breast, June 07, 2016. Malignant stereotactic core biopsy of the left breast, April 27, 2015. Ultrasound-guided core biopsy of the left breast, April 27, 2015. Mastectomy of the left breast, 2016. Chemotherapy, 2016. Radiation therapy of the left breast, 2016. Taking antineoplastic for 1 year beginning at age 59. Physical Findings: Nurse did not find any significant physical abnormalities on exam. MG Diagnostic Mammo RT w CAD CC and MLO view(s) were taken of the right breast. Prior study comparison: March 06, 2018, right breast MG diagnostic mammo RT w CAD. September 07, 2017, right breast MG diagnostic mammo RT w CAD. The breast tissue is heterogeneously dense. This may lower the sensitivity of mammography. Benign appearing calcifications in the right breast. Post therapy change on the right. These results were verbally communicated with the patient and result sheet given to the patient on 09/13/18. ASSESSMENT: Benign, BI-RAD 2 RECOMMENDATION: Follow-up diagnostic mammogram of the right breast in 1 year.
== END | disposition home or self-care (01) ==
LOC: RADMAMWWP 14:15
PROVIDERS: ATTEND Surgery
DX: Z08 Encounter for follow-up examination after completed treatment for malignant neoplasm (principal); Z85.3 Personal history of malignant neoplasm of breast
CPT/HCPCS: 77065

== ENCOUNTER → 2018-09-20 | Outpatient (CLI) | payer OTHER ==
[2018-09-20 11:52] VITALS: BP 139/85; PULSE 88; RESP 18; TEMP 98.1; BMI 49.9
--- NOTE | 2018-09-20 12:14 | P.PN ---
Subjective Progress Note Date: 09/20/18 Principal diagnosis: stage III left breast cancer Mary is a 62-year-old white female with a history of stage III moderately differentiated invasive ductal carcinoma of the left breast. This was ER/MO positive and HER-2 negative. She is status post neoadjuvant therapy followed by a left breast mastectomy with immediate reconstruction. She subsequently underwent postmastectomy radiotherapy directed to the reconstructed breast and lymphatics. This finished in March 2016. She developed an infection and was necessary to have her flotation tank operator removed. She has no evidence of any infection at this time. She has seen a plastic surgeon in considering reconstruction in the future. [place] [address]. This was a benign BIRADS 2. She has intermittent cramping of the muscle of the left chest wall. She has no lumps or masses in her right breast of concern. No nipple discharge or skin changes of concern. Family history: 1. mother: breast cancer 2. father: cancer ? type 3. paternal aunt: brain Hormonal History: menarche: 13 [place], breast fed: yes, first born at 29 menopause: 50 BCP: none hormones: antiestrogen complains of sweating with this Surgical history: 1. 3 C-sections 2. Left mastectomy, Port-A-Cath, flotation tank operator placed and removed Medical history: 1. Hypertension Social history: Smoke: Negative Alcohol: Occasional Drugs: Negative Review of systems: HEENT: none lung: none heart: HTN GI: none Gu: none Musculoskeletal: Arthritis Neurologic: Neuropathy hands and feet Psychiatric: Negative skin: none allergies: Seasonal Objective - Vital Signs Vital signs: Vital Signs Temp 98.1 F 09/20/18 11:48 Pulse 88 09/20/18 11:48 Resp 18 09/20/18 11:48 BP 139/85 09/20/18 11:48 Pulse Ox 96 09/20/18 11:48 Intake & Output 09/19/18 09/20/18 09/20/18 18:59 06:59 18:59 Weight 136.078 kg - Exam BMI 49.9 - Constitutional General appearance: Present: obese - EENT Eyes: Present: EOMI ENT: Present: hearing grossly normal - Neck Neck: Present: normal ROM - Respiratory Respiratory: bilateral: CTA - Cardiovascular Rhythm: regular Heart sounds: normal: S1, S2 - Peripheral edema ankle Peripheral Edema: bilateral: Trace - Gastrointestinal General gastrointestinal: Present: soft - Integumentary Integumentary: Present: normal turgor - Musculoskeletal Musculoskeletal: Present: gait normal - Psychiatric Psychiatric: Present: A&O x's 3, appropriate affect, intact judgment & insight - Additional findings Additional findings: Breast examination: Right breast: Multi-positional exam no dominant masses or nodules of concern Right axilla: No adenopathy of concern Left chest wall: Well-healed scar from prior surgery evidence of any infection Left axilla: No adenopathy of concern Assessment and Plan Assessment: Impression: 1. Patient status post left mastectomy stage III invasive ductal breast cancer 2. No evidence of recurrent cancer 3. Prior history of hypertension 4. Neuropathy hands and feet 5. Mild arthritis 6. Family history of cancer 7. Patient presently on Femara/sweats 8. obesity 9. wishes reconstruction of the left chest wall Plan: 1. Continue surveillance regarding breast cancer 2. Continue more 3. Continue follow-up with medical and radiation oncology 4. Medical management of medical conditions 5. appointment with plastic surgery 6. follow up in 6 months Cc:
== END | disposition home or self-care (01) ==
LOC: WWCWWP 11:38
PROVIDERS: ATTEND Surgery
DX: Z53.9 Procedure and treatment not carried out, unspecified reason (principal)

== ENCOUNTER → 2018-11-20 | Outpatient (CLI) | payer OTHER ==
--- NOTE | 2018-11-20 18:07 | BD ---
EXAMINATION TYPE: Axial Bone Density DATE OF EXAM: 11/20/2018 COMPARISON: 11/22/2016 CLINICAL HISTORY: Height: 65 IN Weight: 298 LBS FRAX RISK QUESTIONS: RISK FACTORS HISTORY OF: Active: YES Diet low in dairy products/other sources of calcium: YES Postmenopausal woman: AGE 54 MEDICATIONS: Additional Medications: FEMARA, BABY ASPIRIN, TYLENOL PM, Additional History: BREAST CANCER WITH RADIATION AND CHEMO AGE 60 EXAM MEASUREMENTS: Bone mineral densitometry was performed using the Agent Partner System. Bone mineral density as measured about the Lumbar spine is: ----- L1-L4(G/cm2): 1.255 T Score Values are as follows: ----- L2: 1.1 ----- L3: 1.0 ----- L4: 0.3 ----- L1-L4: 0.6 Bone mineral density has: Decreased -5.5% since study of: 11/22/2016 Bone mineral density about the R hip (g/cm2): 0.977 Bone mineral density about the L hip (g/cm2): 0.947 T Score values are as follows: -----R Neck: -0.4 -----L Neck: -0.7 -----R Total: 0.8 -----L Total: 0.9 Bone mineral density has: Decreased -1.8% since study of: 11/22/2016 IMPRESSION: Normal (Values between +1 and -1 indicate normal bone mass). Consider repeating this study in 5 year s or sooner if there is some new clinical indication. NOTE: T-SCORE=SD OF THE YOUNG ADULT MEAN.
== END | disposition home or self-care (01) ==
LOC: RADBDWWP 13:15
PROVIDERS: ATTEND Internal Medicine Hematology & Oncology
DX: C50.112 Malignant neoplasm of central portion of left female breast (principal); N95.1 Menopausal and female climacteric states; Z79.890 Hormone replacement therapy
CPT/HCPCS: 77080

== ENCOUNTER → 2018-11-27 | Outpatient (CLI) | payer OTHER ==
--- NOTE | 2018-11-27 16:24 | CT ---
EXAMINATION TYPE: CT angio chest DATE OF EXAM: 11/27/2018 COMPARISON: HISTORY: SOB. hx of breast ca. CT DLP: 774.4 mGycm Automated exposure control for dose reduction was used. CONTRAST: CTA scan of the thorax is performed with IV Contrast, patient injected with 86cc mL of Isovue 370, pu lmonary embolism protocol. MIP images are created and reviewed. 3D reconstructed images are created on an independent workstation and reviewed. FINDINGS: LUNGS: The lungs are grossly clear, there is no concerning parenchymal mass or nodule identified. T here are small bilateral pleural effusions. Some pleural thickening deep to the patient's mastectomy site may be due to post treatment change. The tracheobronchial tree is patent. AORTA: No additional significant abnormality is seen. Aorta is poorly opacified due to the timing of the exam to assess for pulmonary arterial enhancement, there is no aneurysm evident. MEDIASTINUM: There is satisfactory enhancement of the pulmonary artery and its branches, there is no CT evidence for pulmonary embolism. There are no greater than 1 cm hilar or mediastinal lymph nodes. No pericardial effusion is seen. OTHER: Dependent high density foci within the gallbladder compatible with stones. The spleen is enla rged. Patient is post left mastectomy. Soft tissue along the left chest wall with defect of the overl luisa mastectomy is likely due to scarring. There is a sclerotic focus within the third thoracic verte bral body to the left of midline. Some coronary artery calcifications are present. IMPRESSION: BILATERAL PLEURAL EFFUSIONS. NO EVIDENT PULMONARY EMBOLISM. INDETERMINATE SCLEROTIC FOCUS T3, BONE SC AN MAY BE OF BENEFIT. Cholelithiasis. Splenomegaly.
== END | disposition home or self-care (01) ==
LOC: RADCTMAIN 15:36
PROVIDERS: ATTEND Internal Medicine Hematology & Oncology
DX: J90 Pleural effusion, not elsewhere classified (principal)
CPT/HCPCS: 71275; Q9967

== ENCOUNTER 2018-12-05 13:10 | Day surgery (SDC) | payer OTHER ==
[2018-12-05 13:58] LABS: Mean Platelet Volume 7.1; Platelet Count 187 k/uL (150-450)
[2018-12-05 14:08] VITALS: RESP 18; TEMP 98
[2018-12-05 14:19] LABS: Prothrombin Time 10.9 sec (9.0-12.0)
--- NOTE | 2018-12-05 16:02 | US ---
EXAMINATION TYPE: US thoracentesis DATE OF EXAM: 12/05/2018 COMPARISON: NONE HISTORY: Pleural effusion left. FINDINGS: Maximal barrier technique was utilized. The skin overlying a suitable pocket of fluid was localized and the overlying skin prepped and draped. Lidocaine was used for local anesthesia. Ultras ound was used with sterile technique. A 5 [place] catheter over guide needle was advanced into the pl eural fluid collection using ultrasound guidance and the needle was removed, catheter advanced. Appr oximately 0.3 liter(s) of serous sanguinous fluid was removed. Catheter was withdrawn and hemostasis achieved. There is no immediate complication. The patient discharged in stable condition without c omplication. IMPRESSION: STATUS POST ULTRASOUND GUIDED THORACENTESIS, POST PROCEDURE CHEST X-RAY PENDING. THIS VA OCEDURE WAS PERFORMED BY THE UNDERSIGNED. Specimen sent for laboratory analysis.
--- NOTE | 2018-12-05 16:05 | XR ---
EXAMINATION TYPE: XR chest 1V portable DATE OF EXAM: 12/05/2018 COMPARISON: CT chest 11/27/2018 HISTORY: Status post left thoracentesis TECHNIQUE: Single frontal view of the chest is obtained. FINDINGS: Technique is apical lordotic and rotated. There is no focal air space opacity, pleural effu rashi, or pneumothorax seen. The cardiac silhouette size is within normal limits. The osseous struc tures are intact. IMPRESSION: No evident complication status post thoracentesis.
[2018-12-05 16:23] VITALS: BP 152/89; PULSE 102
[2018-12-05 20:10] LABS: Appearance,BF Blood Tinged; Nucleated Cells, Body Fluid 850 /uL; RBC, Body Fluid 12850 /uL
[2018-12-05 20:25] LABS: Mononuclear WBC,Body Fluid 95 %; Polynuclear WBC,Body Fluid 5 %; Total Cells Counted,Body Fluid 100
[2018-12-05 23:25] LABS: Total Protein, Body Fluid 1580 mg/dL
== END 2018-12-05 16:00 | disposition home or self-care (01) ==
LOC: RADPROMAIN 13:10
PROVIDERS: ATTEND Internal Medicine Hematology & Oncology
DX: J90 Pleural effusion, not elsewhere classified (principal); C50.119 Malignant neoplasm of central portion of unspecified female breast
CPT/HCPCS: 32555; 36415; 71045; 84157; 85049; 85610; 87070; 87075; 87205; 89050

== ENCOUNTER 2018-12-08 03:25 | Inpatient (IN) | payer OTHER ==
[2018-12-08] MEDS ORDERED: HEPARIN SODIUM,PORCINE 5,000 UNIT/ML 1 ML VIAL IV ONE (03:56)
[2018-12-08] MEDS ORDERED: ASPIRIN 81 MG PO STA (03:56)
[2018-12-08] MEDS ORDERED: MORPHINE SULFATE 4 MG/ML SYRINGE IV STA (03:56)
[2018-12-08] MEDS ORDERED: HEPARIN SODIUM,PORCINE 5,000 UNIT/ML 1 ML VIAL IV PRN (03:56)
[2018-12-08] MEDS ORDERED: NITROGLYCERIN SL TABS 0.4 MG TAB SUBLINGUAL STA (03:56)
--- NOTE | 2018-12-08 03:58 | ED ---
Chest Pain HPI - General Chief Complaint: Chest Pain Stated Complaint: chest discomfort Time Seen by Provider: 12/08/18 03:35 Source: patient Mode of arrival: wheelchair Limitations: no limitations - History of Present Illness MD Complaint: chest pain Onset/Timin -: minutes(s) Onset: during rest Pain Location: substernal Pain Radiation: RUE, LUE Severity: moderate Quality: tightness, heaviness Consistency: constant Improves With: nothing Worsens With: nothing Treatments Prior to Arrival: aspirin (162 mg) - Related Data Home Medications Medication Instructions Recorded Confirmed Aspirin EC [Ecotrin] 81 mg PO QAM 05/05/15 12/08/18 Letrozole [Femara] 2.5 mg PO QAM 06/06/16 12/08/18 Acetaminophen/Diphenhydramine 1 each PO HS 03/15/18 12/08/18 [Tylenol PM Extra Strength] Loratadine [Claritin] 10 mg PO DAILY 09/20/18 12/08/18 Ibuprofen/Pseudoephedrine HCl 1 each PO DAILY PRN 11/30/18 12/08/18 [Advil Cold & Sinus Caplet] Allergies Allergy/AdvReac Type Severity Reaction Status Date / Time latex AdvReac Unknown itching Verified 11/30/18 16:15 and tingling ibuprofen [From Motrin] AdvReac Nausea & Verified 11/30/18 16:15 Vomiting phenaphen Allergy Severe Anaphylaxis Uncoded 11/30/18 16:15 blue cheese Allergy Unknown Rash/Hives, Uncoded 11/30/18 16:15 Swelling corn beef Allergy Unknown Rash/Hives, Uncoded 11/30/18 16:15 Swelling Review of Systems ROS Statement: Those systems with pertinent positive or pertinent negative responses have been documented in the HPI. ROS Other: All systems not noted in ROS Statement are negative. Constitutional: Denies: fever, chills Respiratory: Denies: cough, dyspnea Cardiovascular: Reports: as per HPI, chest pain. Denies: palpitations, edema, syncope Gastrointestinal: Denies: abdominal pain, nausea, vomiting Genitourinary: Denies: dysuria, hematuria Musculoskeletal: Denies: back pain Skin: Denies: rash Neurological: Denies: headache, weakness, numbness EKG Findings - EKG Comments: EKG Findings:: The comparison ECG from November 2016 does not reveal left bundle-branch block. - EKG Results: EKG: interpreted by ERMD, sinus rhythm (With PVC, Rate 89 bpm.), normal axis - Blocks, Ramona, Hypertrophy, ST Abn: AV and intraventricular conduction: left bundle branch block (fixed/intermittent, complete/incomplete) Past Medical History Past Medical History: Cancer, CVA/TIA Additional Past Medical History / Comment(s): CVA (MAR 2014)- NO RESIDUAL EFFECTS FROM CVA, LEFT BREAST CANCER. FINISHED CHEMO Sep. CHEMO RELATED NEUROPATHY TO HANDS AND FEETWOUND TO LT BREAST,. No b/p, blood draws leftt arm History of Any Multi-Drug Resistant Organisms: None Reported Past Surgical History: Breast Surgery, Section Additional Past Surgical History / Comment(s): LT MASTECTOMY. C-SEC X3. MEDI PORT INSERTION-RT CHEST-REMOVED. BREAST BIOPSIES Past Anesthesia/Blood Transfusion Reactions: Postoperative Nausea & Vomiting (PONV) Additional Past Anesthesia/Blood Transfusion Reaction / Comment(s): O2 VIA NASAL CANULA CAUSES N/V Past Psychological History: No Psychological Hx Reported Smoking Status: Never smoker Past Alcohol Use History: None Reported Past Drug Use History: None Reported - Past Family History Mother Family Medical History: Cancer Additional Family Medical History / Comment(s): BREAST CANCER Father Family Medical History: Cancer, Congestive Heart Failure (CHF) Additional Family Medical History / Comment(s): CANCER General Exam Limitations: no limitations General appearance: alert, in no apparent distress Head exam: Present: atraumatic, normocephalic Eye exam: Present: normal appearance Neck exam: Present: normal inspection Respiratory exam: Present: normal lung sounds bilaterally. Absent: respiratory distress, wheezes, rales, rhonchi, stridor Cardiovascular Exam: Present: regular rate, normal rhythm, normal heart sounds. Absent: systolic murmur, diastolic murmur, rubs, gallop GI/Abdominal exam: Present: soft. Absent: distended, tenderness, guarding, rebound, rigid, mass, pulsatile mass Extremities exam: Present: normal inspection, normal capillary refill. Absent: pedal edema, calf tenderness Back exam: Present: normal inspection. Absent: CVA tenderness (R), CVA tenderness (L) Neurological exam: Present: alert Skin exam: Present: warm, dry, intact, normal color. Absent: rash Course Vital Signs 12/08/18 12/08/1812/08/19 03:27 04:22 04:31 Temperature 97.5 F L Pulse Rate 89 97 92 Respiratory 20 18 17 Rate Blood Pressure 136/86 128/84 134/85 O2 Sat by Pulse 100 97 90 L Oximetry 12/08/18 12/08/18 05:26 05:47 Temperature 98.4 F 97.9 F Pulse Rate 87 89 Respiratory 18 18 Rate Blood Pressure 145/93 147/110 O2 Sat by Pulse 98 100 Oximetry - Reevaluation(s) Reevaluation #1: 12/08/18 04:[address] Campbell, cardiology and his treatment recommendations are incorporated. Disposition Clinical Impression: Acute coronary syndrome with high troponin Disposition: ADMITTED IP TO THIS HOSP Condition: Serious
[2018-12-08] MEDS ORDERED: HEPARIN SOD,PORK IN 0.45% NACL 25,000 UNIT in 0.45% NACL 1 250ML.BAG IV SCH (04:00)
[2018-12-08] MEDS ORDERED: ONDANSETRON 4 MG/2 ML VIAL IVP STA (04:21)
[2018-12-08 04:43] LABS: Partial Thromboplastin Time 24.1 sec (22.0-30.0); Prothrombin Time 10.4 sec (9.0-12.0)
[2018-12-08 04:47] LABS: ALT 39 U/L (9-52); AST 32 U/L (14-36); African American GFR (CKD) >90 (>60 ml/min/1.73 sqM); Albumin 3.9 g/dL (3.5-5.0); Alkaline Phosphatase 53 U/L (38-126); Anion Gap 10 mmol/L; Basophils % (A) 0 %; Blood Urea Nitrogen 14 mg/dL (7-17); Calcium 8.9 mg/dL (8.4-10.2); Carbon Dioxide 26 mmol/L (22-30); Chloride 106 mmol/L (98-107); Eosinophils # (A) 0.1 k/uL (0-0.7); Eosinophils % (A) 3 %; Glucose 123 mg/dL (74-99); HCT 34.8 % (34.0-46.0); HGB 11.2 gm/dL (11.4-16.0); Hypochromasia Moderate; Lymphocytes # (A) 1.5 k/uL (1.0-4.8); Lymphocytes % (A) 29 %; MCH 29.9 pg (25.0-35.0); MCV 93.3 fL (80.0-100.0); Magnesium 1.8 mg/dL (1.6-2.3); Mean Platelet Volume 7.3; Monocytes # (A) 0.2 k/uL (0-1.0); Monocytes % (A) 5 %; Neutrophils # (A) 3.2 k/uL (1.3-7.7); Neutrophils % (A) 62 %; Platelet Count 206 k/uL (150-450); Potassium 4.1 mmol/L (3.5-5.1); RBC 3.73 m/uL (3.80-5.40); RDW 15.6 % (11.5-15.5); Sodium 142 mmol/L (137-145); Total Bilirubin 0.8 mg/dL (0.2-1.3); Total Protein 6.3 g/dL (6.3-8.2); WBC 5.2 k/uL (3.8-10.6)
[2018-12-08] MEDS ORDERED: NITROGLYCERIN-D5W PMX 50 MG in DEXTROSE/WATER 1 250ML.BAG IV ONE (05:18)
--- NOTE | 2018-12-08 05:19 | XR ---
EXAM: XR Chest, 1 View CLINICAL HISTORY: Chest pain. TECHNIQUE: Frontal view of the chest. COMPARISON: 12/05/2018. FINDINGS: Lungs: Unremarkable. No consolidation. Pleural space: No pleural effusion. No pneumothorax. Heart: There is cardiomegaly. Mediastinum: Unremarkable. Bones/joints: Osteopenia. Ribs are grossly unremarkable. Other findings: There is hypoaeration. IMPRESSION: Hypoaeration. Cardiomegaly. No significant pleural effusion is detected.
[2018-12-08] MEDS ORDERED: IV FLUID CONTINUATION 500 ML IV ONE (06:15)
[2018-12-08] MEDS ORDERED: LIDOCAINE 1% INJ 10MG/ML (20 ML MDV) ONE (06:21)
[2018-12-08] MEDS ORDERED: VERAPAMIL 2.5 MG/ML 2 ML AMP ONE (06:21)
[2018-12-08] MEDS ORDERED: fentaNYL (PF) 50 MCG/ML 2 ML AMP ONE (06:21)
[2018-12-08] MEDS ORDERED: fentaNYL (PF) 50 MCG/ML 2 ML AMP IV ONE (06:30)
[2018-12-08] MEDS ORDERED: MIDAZOLAM 2 MG/2 ML VIAL IV ONE (06:30)
[2018-12-08] MEDS ORDERED: LIDOCAINE 1% INJ 10MG/ML (20 ML MDV) SQ ONE (06:31)
[2018-12-08] MEDS ORDERED: VERAPAMIL SYRINGE (5 MG/10 ML) INTRAARTER ONE (06:33)
[2018-12-08] MEDS: VERAPAMIL SYRINGE (5 MG/10 ML) INTRAARTER ONE ×2 (06:36→06:42)
[2018-12-08] MEDS ORDERED: METOPROLOL TARTRATE 5 MG/5 ML VIAL IVP ONE ×2 (06:41→06:44)
[2018-12-08] MEDS ORDERED: NALOXONE 0.4 MG/ML 1 ML VIAL ONE (06:45)
[2018-12-08] MEDS ORDERED: NALOXONE 0.4 MG/ML 1 ML VIAL IV ONE (06:47)
[2018-12-08] MEDS ORDERED: BIVALIRUDIN BOLUS 250 MG/50 ML IV ONE (06:48)
[2018-12-08] MEDS ORDERED: TICAGRELOR 90 MG TAB PO ONE (06:49)
[2018-12-08] MEDS ORDERED: BIVALIRUDIN 250 MG in SODIUM CHLORIDE 0.9% 50 ML IV ONE (06:49)
[2018-12-08] MEDS ORDERED: TICAGRELOR 90 MG TAB ONE (06:53)
[2018-12-08] MEDS ORDERED: IOPAMIDOL-370 125ML BTL INJ ONE (07:01)
[2018-12-08] MEDS ORDERED: IOPAMIDOL-370 100ML BTL INJ ONE (07:12)
[2018-12-08] MEDS ORDERED: ATROPINE SULFATE 0.1 MG/ML 10ML SYRINGE IV PRN (07:32)
[2018-12-08] MEDS ORDERED: RX INFO: IV CONTRAST WAS GIVEN 1 EACH MISC MISCELLANE PRN (07:32)
[2018-12-08] MEDS ORDERED: ZOLPIDEM 5 MG TAB PO PRN (07:32)
[2018-12-08] MEDS ORDERED: MAG HYDROX/AL HYDROX/SIMETH 30 ML CUP PO PRN (07:32)
[2018-12-08] MEDS ORDERED: NITROGLYCERIN SL TABS 0.4 MG TAB SUBLINGUAL PRN (07:32)
[2018-12-08] MEDS ORDERED: SODIUM CHLORIDE 0.9% 1,000 ML IV SCH (07:45)
[2018-12-08 07:46] LABS: Glucose,Whole Blood 164 mg/dL (75-99)
[2018-12-08] MEDS: METOPROLOL TARTRATE 25 MG TAB PO SCH ×2 (09:21→20:34)
[2018-12-08] MEDS: ASPIRIN 81 MG PO SCH (09:21)
[2018-12-08] MEDS: TICAGRELOR 90 MG TAB PO SCH ×2 (09:21→20:34)
[2018-12-08] MEDS: LISINOPRIL 5 MG TAB PO SCH ×2 (09:21→20:34)
--- NOTE | 2018-12-08 10:29 | CONS ---
CONSULTATION Mrs. Wilson is a 63-year-old female with prior history of breast cancer that has been stable since 2016, history of hypertension that has been better, who presented to the emergency room with symptoms of chest discomfort. The discomfort woke her up from sleep, not associated with any other symptoms. There was some radiation to the arm. In the emergency room she was noted to have a left bundle branch block that was not noted 2 years ago, although there is no more recent EKG. The patient is not very active physically but has no exertional chest discomfort. She has dyspnea on exertion. No dizziness. No palpitations. No syncope. No clear PND or orthopnea. Her coronary risk factors are remarkable for the history of hypertension. She is nondiabetic, nonsmoker. No documented history of hyperlipidemia. REVIEW OF SYSTEMS: RESPIRATORY SYSTEM: She has some dyspnea on exertion. No recent wheezing or cough. GI SYSTEM: No recent GI bleeding. No peptic ulcer disease. SYSTEM: No dysuria or hematuria. NERVOUS SYSTEM: She was told that she had a small stroke a few years ago. PHYSICAL EXAMINATION: She is a 63-year-old female, alert, oriented, obese. Heart rate running in the 90s. Blood pressure 170/90. HEAD: Normocephalic. Eyes sclerae. NECK: Good carotid upstroke. No bruit. No jugular venous distention. LUNGS: Clear to auscultation. HEART: Regular rate and rhythm. S1, S2. No S3. No S4. No rub. ABDOMEN: Soft, obese. Positive bowel sounds. No organomegaly. EXTREMITIES: One plus edema bilaterally. Intact distal pulses. CHEST WALL: Status post left mastectomy. DIAGNOSTICS/LABS: EKG revealed a sinus mechanism with a left bundle branch block. Lab data revealed BUN and creatinine of 14 and 0.78, potassium 4.1. Troponin 0.036. Hemoglobin of 11.2. Chest x-ray shows no acute infiltrate. IMPRESSION: 1. Chest discomfort with mild troponin elevation, underlying left bundle branch block; possible non- ST-elevation myocardial infarction. 2. Prior history of hypertension. 3. History of breast cancer. 4. Morbid obesity. RECOMMENDATIONS: In view of the findings, I have recommended proceeding with coronary angiography to assess her status and guide her treatment. The rationale behind the procedure as well as risks and complications were discussed with the patient, who is in full understanding and agreement. Thank you for this consult. Will follow with you. MMODL / IJN: [id number] /
--- NOTE | 2018-12-08 10:38 | CC ---
CARDIAC CATHETERIZATION REPORT Mrs. Wilson is a 63-year-old female with no prior documented history of coronary artery disease who presented with symptoms of chest discomfort. Her EKG showed left bundle branch block. Her first troponin was mildly elevated. In view of that, recommendation was made regarding cardiac catheterization. The procedure, its risks and complications were discussed with the patient, who was in full understanding and agreement. PROCEDURE DESCRIPTION: Patient was brought to the analytical laboratory technician in a fasting, semi-sedated state after receiving fentanyl and Benadryl and achieving moderate conscious sedated state. Using Xylocaine anesthesia and Seldinger technique, a 6-[place]z sheath was introduced in the right radial artery. Selective right and left coronary angiography was performed using 5- [place]z 3-1/2 bend right Miguelina catheter and a 6-[place]z FL3.5 guiding catheter. Multiple views were taken of the coronary arteries, including hemiaxial views. Subsequently angioplasty and stenting of the LAD was performed. Following that, 5- [place] tight pigtail catheter was introduced in the left ventricle and pressures were calculated. Following that, catheter and sheath were removed. Hemostasis was obtained with deployment of a TR band. There was no immediate complication. Patient was returned to her room in stable condition. Of note, the patient received intra-arterial verapamil. FINDINGS: LEFT MAIN: This is a large-sized vessel trifurcating into left circumflex, left anterior descending artery and ramus intermedius. Left main coronary artery has no evidence of high-grade stenosis. LEFT ANTERIOR DESCENDING ARTERY: This is a large-sized vessel giving rise to a large diagonal branch proximally following the takeoff of the diagonal branch. The LAD is totally occluded with no antegrade flow. LEFT CIRCUMFLEX: This is a nondominant vessel giving rise to a small obtuse marginal branch. The left circumflex as well as its branches have no evidence of obstructive coronary artery disease. RAMUS INTERMEDIUS: This is a large-sized vessel reaching to the apicolateral wall. The ramus intermedius has no evidence of high-grade stenosis. RIGHT CORONARY ARTERY: This is a large dominant vessel bifurcating distally into PDA and posterolateral segment and branches. The right coronary artery as well as its branches have no evidence of obstructive coronary artery disease. LEFT VENTRICULOGRAM: Left ventriculogram was not performed. HEMODYNAMICS: There was no gradient across the aortic valve. The left ventricular end- diastolic pressure was 24 to 26 mmHg. CONCLUSION: 1. Totally occluded mid LAD. 2. Elevated left ventricular end-diastolic pressure. RECOMMENDATIONS: In view of findings and anatomy, I have recommended proceeding with angioplasty and stenting of the LAD. The procedure, its risks and complications were discussed with the patient, who is in full understanding and agreement. TRISTAN / LEANNE: [id number] /
--- NOTE | 2018-12-08 10:43 | PTCA ---
PERCUTANEOUSTRANS CORORONARY ANGIOGRAPHY Mrs. Wilson is a 63-year-old female with known history of hypertension who presented with symptoms of chest discomfort and was found to have a left bundle branch block. Her initial troponin was minimally elevated. In view of that, she underwent cardiac catheterization and was found to have a totally occluded mid LAD. Recommendation was made regarding angioplasty and stenting. The procedure, its risks and complications were discussed with the patient, who was in full agreement and understanding. PROCEDURE DESCRIPTION: Using the 6-[place] FL3.5 guiding catheter, a 0.014 balanced medium weight J-wire was advanced across the lesion and positioned distally. Then a 2.5 x 15 mm Trek balloon was advanced and 2 inflations, maximum of 8 atmospheres, were done. Following that, the balloon was removed and a 2.5 x 18 mm Xience Nichole stent was deployed, post dilated to 16 atmospheres. After the last inflation, after appropriate wait, the balloon and the guidewire were withdrawn back into the guiding catheter. Images were obtained and repeated. Those images revealed stable successful stenting. At that point, a 5-[place] tight pigtail catheter was introduced into the left ventricle and pressures were calculated. Following that, catheter and sheath were removed. Hemostasis was obtained with deployment of a TR band. There was no immediate complication. Patient was returned to her room in stable condition. Of note, the patient received Angiomax per protocol as well as oral loading dose of Brilinta. Her chest discomfort resolved at the end of the procedure. She had a transient episode of atrial fibrillation that resolved at the end of the procedure. RESULTS: Successful stenting of the totally occluded mid LAD with reduction of stenosis from 100% to 0%. RECOMMENDATIONS: Patient will be continued on aspirin, Brilinta, beta mario, ALYCIA inhibitor and statin. The importance of dual antiplatelet treatment was discussed with the patient and her family, and they are in full understanding and agreement. Duration of procedure was 36 minutes. MMODL / IJN: [id number] /
[2018-12-08 12:38] VITALS: BMI 49.8
--- NOTE | 2018-12-08 15:59 | P.HPIM ---
History of Present Illness H&P Date: 12/08/18 Chief Complaint: Chest pressure History of presenting complaint: This is a very pleasant 63-year-old patient who follows with Dr. Gonzalez. Back in 2016 patient had chemotherapy for the left breast cancer. Has been doing well since then. Patient does have bilateral lower extremity chronic venous edema. Does get better with rest. Otherwise has been in good health. Patient woke up in the early hours of morning with the chest pressure gradient across the chest. It went down to both the armpits. There is no dizziness no lightheadedness no shortness of breath did not. Fecal tired. The pressure still persisted. She decided to wake up her drive her to the hospital. EKG was showing possibly ST elevation in the anterior leads and the troponin was started to be positive. 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 Dr. Campbell and also mid LAD clot and successful angioplasty stenting was carried out. Patient currently in the ICU resting in bed. No further cardiac symptoms. Review of systems: GEN.: Tired EYES: None HEENT: None NECK: None RESPIRATORY: None CARDIOVASCULAR: As above GASTROINTESTINAL: None GENITOURINARY: None MUSCULOSKELETAL: None LYMPHATICS: None HEMATOLOGICAL: None PSYCHIATRY: None NEUROLOGICAL: None Past medical history: Stroke in 2014 with noticed to affect, left breast cancer, cancer related chemotherapy causing peripheral neuropathy Social history: Does not smoke or drink cold. . Family history: Breast cancer Physical examination: VITAL SIGNS: 97.5, 89, 20, 136/86, 100% room air GENERAL: BMI 49.9, propped in bed, comfortable. EYES: Pupils equal. Conjunctiva normal. HEENT: External appearance of nose and ears normal, oral cavity grossly normal. NECK: JVD not raised; masses not palpable. HEART: First and second heart sounds are normal; no edema. LUNGS: Respiratory rate normal; clear to auscultation. ABDOMEN: Soft, nontender, liver spleen not palpable, no masses palpable. PSYCH: Alert and oriented x3; mood and affect normal. NEUROLOGICAL: Cranial nerves grossly intact; no facial asymmetry, power and sensation grossly intact. LYMPHATICS: No lymph nodes palpable in the axilla and neck INVESTIGATIONS, reviewed in the clinical context: -EKG tracing personally reviewed by me shows possible ST segment elevation in the anterior leads -White count 5.2 hemoglobin on 0.2 potassium 4.1 BUN 14 creatinine 0.78 Chest x-ray film personally reviewed by me-cardiomegaly with underpenetration of the fellow Assessment: -Acute ST elevation microinfarction of the anterior wall -Emergent cardiac catheterization with stent to the LAD -Normocytic anemia cause unknown -History of breast cancer maintained on Femara Plan: -Patient status post stent to the LAD. Currently on aspirin, Lipitor, Zestril, Lopressor, Brilinta. Care was discussed with the patient. Questions answered. Past Medical History Past Medical History: Cancer, CVA/TIA Additional Past Medical History / Comment(s): CVA (MAR 2014)- NO RESIDUAL EFFECTS FROM CVA, LEFT BREAST CANCER. FINISHED CHEMO Sep. CHEMO RELATED NEUROPATHY TO HANDS AND FEETWOUND TO LT BREAST,. No b/p, blood draws leftt arm History of Any Multi-Drug Resistant Organisms: None Reported Past Surgical History: Breast Surgery, Section Additional Past Surgical History / Comment(s): LT MASTECTOMY. C-SEC X3. MEDI PORT INSERTION-RT CHEST-REMOVED. BREAST BIOPSIES Past Anesthesia/Blood Transfusion Reactions: Postoperative Nausea & Vomiting (PONV) Additional Past Anesthesia/Blood Transfusion Reaction / Comment(s): O2 VIA NASAL CANULA CAUSES N/V Past Psychological History: No Psychological Hx Reported Smoking Status: Never smoker Past Alcohol Use History: None Reported Past Drug Use History: None Reported - Past Family History Mother Family Medical History: Cancer Additional Family Medical History / Comment(s): BREAST CANCER Father Family Medical History: Cancer, Congestive Heart Failure (CHF) Additional Family Medical History / Comment(s): CANCER Medications and Allergies Home Medications Medication Instructions Recorded Confirmed Type Aspirin EC [Ecotrin] 81 mg PO QAM 05/05/15 12/08/18 History Letrozole [Femara] 2.5 mg PO QAM 06/06/16 12/08/18 History Acetaminophen/Diphenhydramine 1 tab PO HS 03/15/18 12/08/18 History [Tylenol PM Extra Strength] Loratadine [Claritin] 10 mg PO DAILY PRN 09/20/18 12/08/18 History Allergies Allergy/AdvReac Type Severity Reaction Status Date / Time latex AdvReac Unknown itching Verified 12/08/18 08:45 and tingling ibuprofen [From Motrin] AdvReac Nausea & Verified 12/08/18 08:45 Vomiting phenaphen Allergy Severe Anaphylaxis Uncoded 12/08/18 08:45 blue cheese Allergy Unknown Rash/Hives, Uncoded 12/08/18 08:45 Swelling corn beef Allergy Unknown Rash/Hives, Uncoded 12/08/18 08:45 Swelling Physical Exam Vitals: Vital Signs Temp Pulse Resp BP Pulse Ox 12/08/18 10:00 81 16 181/106 98 12/08/18 09:45 90 14 178/109 98 12/08/18 09:30 91 37 H 180/122 97 12/08/18 09:15 86 19 175/131 98 12/08/18 09:00 89 33 H 166/93 98 12/08/18 08:45 86 18 175/106 98 12/08/18 08:30 85 47 H 163/98 98 12/08/18 08:15 81 18 158/98 98 12/08/18 08:00 98 F 84 21 151/94 97 12/08/18 07:45 16 12/08/18 05:47 97.9 F 89 18 147/110 100 12/08/18 05:26 98.4 F 87 18 145/93 98 12/08/18 04:31 92 17 134/85 90 L 12/08/18 04:22 97 18 128/84 97 12/08/18 03:27 97.5 F L 89 20 136/86 100 Intake and Output 12/07/18 12/08/18 12/08/18 22:59 06:59 14:59 Intake Total 130 300 Balance 130 300 Intake: IV 130 300 Sodium Chloride 0.9% 1, 300 000 ml @ 100 mls/hr IV . Q10H [facility] Rx#:[id number] Other: Weight 136.078 kg 136.078 kg Results CBC & Chem 7: 12/08/18 04:12 12/08/18 04:12 Labs: Abnormal Lab Results - Last 24 Hours (Table) 12/08/18 12/08/18 12/08/18 Range/Units 04:12 04:12 04:12 RBC 3.73 L (3.80-5.40) m/uL Hgb 11.2 L (11.4-16.0) gm/dL RDW 15.6 H (11.5-15.5) % Glucose 123 H (74-99) mg/dL POC Glucose (mg/dL) (75-99) mg/dL Troponin I 0.036 H* (0.000-0.034) ng/mL 12/08/18 Range/Units 07:45 RBC (3.80-5.40) m/uL Hgb (11.4-16.0) gm/dL RDW (11.5-15.5) % Glucose (74-99) mg/dL POC Glucose (mg/dL) 164 H (75-99) mg/dL Troponin I (0.000-0.034) ng/mL
[2018-12-08] MEDS: ATORVASTATIN 80 MG TAB PO SCH (20:34)
--- NOTE | 2018-12-09 06:15 | XR ---
EXAMINATION TYPE: XR chest 1V portable DATE OF EXAM: 12/09/2018 HISTORY: sob. REFERENCE: Previous study dated 12/08/2018. FINDINGS: The heart is enlarged. There is vascular congestion without kirk edema. The left CP angle is obscured and I cannot exclude a small left effusion. IMPRESSION: 1. CARDIOMEGALY AND VASCULAR CONGESTION. 2. I CANNOT EXCLUDE A SMALL LEFT EFFUSION.
[2018-12-09 06:28] LABS: African American GFR (CKD) >90 (>60 ml/min/1.73 sqM); Anion Gap 6 mmol/L; Blood Urea Nitrogen 10 mg/dL (7-17); Calcium 8.6 mg/dL (8.4-10.2); Carbon Dioxide 24 mmol/L (22-30); Chloride 107 mmol/L (98-107); Cholesterol 133 mg/dL (<200); Glucose 134 mg/dL (74-99); HDL Cholesterol 41 mg/dL (40-60); LDL Cholesterol,Calculated 67 mg/dL (0-99); Potassium 4.5 mmol/L (3.5-5.1); Sodium 137 mmol/L (137-145); Triglycerides 125 mg/dL (<150)
[2018-12-09] MEDS: LISINOPRIL 5 MG TAB PO SCH ×2 (09:01→21:09)
[2018-12-09] MEDS: TICAGRELOR 90 MG TAB PO SCH ×2 (09:01→21:09)
[2018-12-09] MEDS: ASPIRIN 81 MG PO SCH (09:01)
[2018-12-09] MEDS: METOPROLOL TARTRATE 25 MG TAB PO SCH ×2 (09:01→21:08)
--- NOTE | 2018-12-09 12:21 | P.CNPUL ---
History of Present Illness Consult date: 12/09/18 Reason for consult: dyspnea History of present illness: This is a 63-year-old female patient with known history of breast cancer, hypertension and she came into the hospital because of chest pain and new onset left bundle branch block. Her troponins were minimally elevated. She underwent cardiac catheterization she was found to have a total occluded mid LAD. The patient underwent successful stenting of the totally occluded mid LAD and she was brought into the intensive care unit. The echo was done and the patient has severe cardiomyopathy with EF of around less than 20%. A final report is still pending for now. This morning, the patient is having some limited shortness of breath. As far as her breast cancer, she was diagnosed several years ago and she underwent a left mastectomy followed no reconstructive surgery followed by c hemoradiation therapy. Her course was complicated by a wound infection from which she really completely recovered. 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 She has had a stroke back in 2015. She does not smoke cigarettes. On a separate note, the patient was expressing shortness of breath. A CT angiogram that was done on 11/27/2018 showed small bilateral pleural effusions without evidence of pulmonary embolism. The patient had a sclerotic focus on the T3. The patient was referred to radiology and interventional radiology drained approximately 300 mL of fluid from her lung and the fluid cytology still pending for now. The fluid chemistry was not completely done. The total protein in the fluid was 1.5 L and this may indicate a changes days. LDH is missing on that evaluation. The total white count in the pleural fluid was low and was dominantly mononuclear. Review of Systems Constitutional: Reports fatigue, Reports weakness Eyes: denies blurred vision, denies bulging eye, denies decreased vision Ears: deny: decreased hearing, ear discharge, earache, tinnitus Ears, nose, mouth and throat: Denies headache, Denies sore throat Breasts: left: masses (Post breast surgery for breast cancer on the left) Cardiovascular: Reports chest pain, Reports decreased exercise tolerance, Reports dyspnea on exertion, Reports leg edema, Reports shortness of breath Respiratory: Reports dyspnea Gastrointestinal: Reports as per HPI Genitourinary: Reports as per HPI Menstruation: Reports as per HPI Musculoskeletal: Reports as per HPI Musculoskeletal: bilateral: ankle swelling, absent: ankle pain, ankle stiffness Integumentary: Reports as per HPI Neurological: Reports as per HPI Psychiatric: Reports as per HPI Endocrine: Reports as per HPI, Reports fatigue Hematologic/Lymphatic: Reports as per HPI Allergic/Immunologic: Reports as per HPI Past Medical History Past Medical History: Coronary Artery Disease (CAD), Cancer, CVA/TIA Additional Past Medical History / Comment(s): CVA (MAR 2014)- NO RESIDUAL EFFECTS FROM CVA, LEFT BREAST CANCER. FINISHED CHEMO Sep. CHEMO RELATED NEUROPATHY TO HANDS AND FEETWOUND TO LT BREAST,. No b/p, blood draws leftt arm Last Myocardial Infarction Date:: 12/08/2018 History of Any Multi-Drug Resistant Organisms: None Reported Past Surgical History: Breast Surgery, Section Additional Past Surgical History / Comment(s): LT MASTECTOMY. C-SEC X3. MEDI PORT INSERTION-RT CHEST-REMOVED. BREAST BIOPSIES Past Anesthesia/Blood Transfusion Reactions: Postoperative Nausea & Vomiting (PONV) Additional Past Anesthesia/Blood Transfusion Reaction / Comment(s): O2 VIA NASAL CANULA CAUSES N/V Past Psychological History: No Psychological Hx Reported Smoking Status: Never smoker Past Alcohol Use History: None Reported Past Drug Use History: None Reported - Past Family History Mother Family Medical History: Cancer Additional Family Medical History / Comment(s): BREAST CANCER Father Family Medical History: Cancer, Congestive Heart Failure (CHF) Additional Family Medical History / Comment(s): CANCER Medications and Allergies Home Medications Medication Instructions Recorded Confirmed Type Aspirin EC [Ecotrin] 81 mg PO QAM 05/05/15 12/08/18 History Letrozole [Femara] 2.5 mg PO QAM 06/06/16 12/08/18 History Acetaminophen/Diphenhydramine 1 tab PO HS 03/15/18 12/08/18 History [Tylenol PM Extra Strength] Loratadine [Claritin] 10 mg PO DAILY PRN 09/20/18 12/08/18 History Allergies Allergy/AdvReac Type Severity Reaction Status Date / Time latex AdvReac Unknown itching Verified 12/08/18 08:45 and tingling ibuprofen [From Motrin] AdvReac Nausea & Verified 12/08/18 08:45 Vomiting phenaphen Allergy Severe Anaphylaxis Uncoded 12/08/18 08:45 blue cheese Allergy Unknown Rash/Hives, Uncoded 12/08/18 08:45 Swelling corn beef Allergy Unknown Rash/Hives, Uncoded 12/08/18 08:45 Swelling Physical Exam Vitals: Vital Signs Temp Pulse Resp BP Pulse Ox 12/09/18 12:00 98.3 F 86 28 H 103/74 96 12/09/18 11:00 77 17 119/78 97 12/09/18 10:00 84 34 H 136/65 96 12/09/18 09:00 106 H 20 132/92 95 12/09/18 08:15 24 12/09/18 08:00 89 24 132/88 96 12/09/18 07:00 91 40 H 130/82 96 12/09/18 06:00 93 30 H 122/71 96 12/09/18 05:00 90 16 125/80 95 12/09/18 04:00 98.4 F 87 21 113/77 97 12/09/18 03:00 82 14 130/62 96 12/09/18 02:00 92 23 144/71 96 12/09/18 01:00 89 22 136/91 96 12/09/18 00:00 98 F 90 13 116/92 97 12/08/18 23:52 90 28 H 114/80 88 L 12/08/18 23:00 99 17 116/92 96 12/08/18 22:00 96 27 H 97 12/08/18 21:00 98.7 F 97 33 H 114/80 97 12/08/18 20:00 97 18 97 12/08/18 19:00 95 20 114/80 96 12/08/18 18:00 95 12 121/89 94 L 12/08/18 17:00 105 H 26 H 121/89 94 L 12/08/18 16:00 97.1 F L 89 18 121/89 94 L 12/08/18 15:45 18 12/08/18 15:00 87 24 173/118 97 12/08/18 14:00 85 24 162/109 95 12/08/18 13:00 82 25 H 152/92 96 Intake and Output 12/08/18 12/09/18 12/09/18 22:59 06:59 14:59 Intake Total 800 240 120 Output Total 0 0 Balance 800 240 120 Intake: IV 800 0 0 Sodium Chloride 0.9% 1, 800 0 0 000 ml @ 100 mls/hr IV . Q10H [facility] Rx#:[id number] Oral 240 120 Output: Urine 0 0 Other: Voiding Method Toilet Toilet Toilet # Voids 1 1 1 Weight 140 kg The patient appeared well nourished and normally developed. Vital signs as documented. Head exam is unremarkable. No scleral icterus or corneal arcus noted. Neck is without jugular venous distension, thyromegaly, or carotid bruits. Carotid upstrokes are brisk bilaterally. Lungs are clear to auscultation and percussion. Breath sounds are diminished in the lung bases bilaterally. The patient is post mastectomy on the left. The patient has undergone reconstructive surgery. Cardiac exam reveals the PMI to be normally sized and situated. Rhythm is regular. First and second heart sounds normal. No murmurs, rubs or gallops. Abdominal exam reveals normal bowel sounds, no masses, no organomegaly and no aortic enlargement. Extremities are nonedematous and both femoral and pedal pulses are normal.Examination of the skin revealed no evidence of significant rashes, suspicious appearing nevi or other concerning lesions. Neurologically the patient is awake and alert and there is no focal neurological deficits. Results - Laboratory Findings CBC and BMP: 12/08/18 04:12 12/09/18 05:45 PT/INR, D-dimer PT 10.4 sec (9.0-12.0) 12/08/18 04:12 INR 1.0 (<1.2) 12/08/18 04:12 Abnormal lab findings: Abnormal Labs 12/08/18 12/08/18 12/08/18 04:12 04:12 04:12 RBC 3.73 L Hgb 11.2 L RDW 15.6 H Glucose 123 H POC Glucose (mg/dL) Troponin I 0.036 H* 12/08/18 12/08/18 12/09/18 07:45 20:39 05:42 RBC Hgb RDW Glucose POC Glucose (mg/dL) 164 H Troponin I 78.900 H* 33.500 H* 12/09/18 05:45 RBC Hgb RDW Glucose 134 H POC Glucose (mg/dL) Troponin I - Diagnostic Findings Chest x-ray: image reviewed CT scan - chest: image reviewed Assessment and Plan Plan: Assessment 1 acute non-STEMI with a new onset left bundle branch block, abnormal troponins and cardiac catheterization showed totally occluded LAD post-stenting with good results 2 CHF with ischemic cardiomyopathy and EF around less than 20%. Also consider the possibility of chronic cardiomyopathy from chemotherapy that the patient had taken for breast cancer. No previous echocardiograms for comparison. The patient would benefit from diuretic therapy. 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 Continue Brilinta. Continue metoprolol 25 mg by mouth twice a day. Awaiting final results on the echocardiogram. May need and benefit from a low-dose diuretics to optimize her volume status knowing that the pleural effusions that were present earlier were consistent with CHF/transudate effusion. Awaiting fluid cytology to rule out the possibility of malignant pleural effusion although this is doubtful. Continue Amrit inhibitors. Continue high-dose statins. We'll continue to follow.
[2018-12-09] MEDS: FUROSEMIDE 10 MG/ML 2 ML VIAL IV SCH ×2 (13:03→21:09)
--- NOTE | 2018-12-09 14:21 | P.PN ---
Subjective This is Angelika Del Cid PA-C dictating a progress note on this patient The patient was interviewed and examined by me as well as by Dr. Díaz Case discussed with Dr. Díaz and he agrees with the plan of care IMPRESSION / ASSESSMENT: ACS, coronary angiogram showing totally occluded mid LAD, status post stenting to the LAD Severe cardiomyopathy, dilated LV with septal dyskinesis and apical akinesis with severe LV dysfunction in the setting of a chronically occluded LAD that was stented patient has been having worsening shortness of breath and orthopnea for the last few weeks Hypertension History of breast cancer History of pleural effusion status post pleurocentesis PLAN: Continue dual antiplatelet therapy and statins Patient has been started on low dose of Lasix Maximize medications for cardiomyopathy as tolerated HPI/interval history Patient is a 63-year-old female with a past medical history of breast cancer and hypertension who presented with complaints of chest discomfort. Her EKG showed left bundle branch block. Initial troponin mildly elevated. She underwent cardiac catheterization and was found to have a totally occluded mid LAD and subsequently underwent angioplasty and stenting. Echocardiogram today shows severe LV dysfunction, EF less than 20%. Telemetry revealed sinus mechanism overnight. Patient seen and examined resting in bed. States her chest pain has resolved. she is very tired. She was a little short of breath when she got up to use the bathroom. Denies any dizziness. EXAMINATION She is afebrile, pulse 86, respirations 20, blood pressure 103/74, oxygen saturation 96% on 2 L nasal cannula Patient seen and examined resting in bed, in no acute distress Lungs are slightly diminished with crackles at the bases Heart is regular, normal S1-S2, no murmurs noted Mild lower extremity edema bilaterally No elevated JVD noted REVIEW OF LABS, ECG WBC 5.2, hemoglobin 11.2, platelets 206, potassium 4.5, BUN 10, creatinine 0.69 LDL 67 Objective - Vital Signs Vital signs: Vital Signs Temp 98.3 F 12/09/18 12:00 Pulse 86 12/09/18 12:00 Resp 28 H 12/09/18 12:00 BP 103/74 12/09/18 12:00 Pulse Ox 96 12/09/18 12:00 Intake & Output 12/08/18 12/09/18 12/09/18 18:59 06:59 18:59 Intake Total 1100 640 120 Output Total 0 0 Balance 1100 640 120 Weight 136.078 kg 140 kg Intake: IV 1100 400 0 Sodium Chloride 0.9% 1, 1100 400 0 000 ml @ 100 mls/hr IV . Q10H [facility] Rx#:[id number] Oral 240 120 Output: Urine 0 0 Other: Voiding Method Toilet Toilet Toilet # Voids 1 1 1 - Labs CBC & Chem 7: 12/08/18 04:12 12/09/18 05:45 Labs: Abnormal Lab Results - Last 24 Hours (Table) 12/08/18 12/09/18 12/09/18 Range/Units 20:39 05:42 05:45 Glucose 134 H (74-99) mg/dL Troponin I 78.900 H* 33.500 H* (0.000-0.034) ng/mL
--- NOTE | 2018-12-09 14:40 | ECHOF ---
Referral Reason:LVF MEASUREMENTS -------- HEIGHT: 165.1 cm WEIGHT: 136.1 kg BP: 119/78 IVSd: 1.3 cm (0.6 - 1.1) LVIDd: 5.8 cm (3.9 - 5.3) LVPWd: 1.3 cm (0.6 - 1.1) IVSs: 1.4 cm LVIDs: 5.0 cm LVPWs: 1.6 cm LA Diam: 3.7 cm (2.7 - 3.8) RVIDd: 2.8 cm (< 3.3) LAESV Index (A-L): 28.92 ml/m Ao Diam: 3.0 cm (2.0 - 3.7) AV Cusp: 2.2 cm (1.5 - 2.6) EPSS: 1.7 cm MV E Felix: 1.26 m/s MV DecT: 133 ms MV A Felix: 0.31 m/s MV E/A Ratio: 4.02 RAP: 15.00 mmHg RVSP: 45.77 mmHg MV EF SLOPE: 33.03 mm/s (70 - 150) MV EXCURSION: 9.72 mm (> 18.000) FINDINGS -------- Sinus rhythm. This was a technically difficult study with suboptimal views. The left ventricle is moderately dilated. There is mild concentric left ventricular hypertrophy. Overall left ventricular systolic function is severely impaired with, an EF < 20%. The right ventricle is normal in size. LA is midly dilated 29-33ml/m2. The right atrium is normal in size. Interatrial and interventricular septum intact. There is mild aortic valve sclerosis. The mitral valve leaflets are mildly thickened. Mild mitral annular calcification present. Mild-t o-moderate mitral regurgitation is present. Mild tricuspid regurgitation present. There is mild to moderate pulmonary hypertension. The right ventricular systolic pressure, as measured by Doppler, is 45.77mmHg. Trace/mild (physiologic) pulmonic regurgitation. The aortic root size is normal. The inferior vena cava is dilated with no significant inspiratory collapse which is consistent estima alejandro right atrial pressure of >15 mmHg. 5.0mg of Lumason was utilized for enhancement of images CONCLUSIONS -------- 1. Sinus rhythm. 2. This was a technically difficult study with suboptimal views. 3. The left ventricle is moderately dilated. 4. There is mild concentric left ventricular hypertrophy. 5. Overall left ventricular systolic function is severely impaired with, an EF < 20%. 6. The right ventricle is normal in size. 7. LA is midly dilated 29-33ml/m2. 8. The right atrium is normal in size. 9. 5.0mg of Lumason was utilized for enhancement of images 10. Interatrial and interventricular septum intact. 11. There is mild aortic valve sclerosis. 12. The mitral valve leaflets are mildly thickened. 13. Mild mitral annular calcification present. 14. [id number] mitral regurgitation is present. 15. Mild tricuspid regurgitation present. 16. There is mild to moderate pulmonary hypertension. 17. The right ventricular systolic pressure, as measured by Doppler, is 45.77mmHg. 18. Trace/mild (physiologic) pulmonic regurgitation. 19. The aortic root size is normal. 20. The inferior vena cava is dilated with no significant inspiratory collapse which is consistent es timated right atrial pressure of >15 mmHg. STORAGE BATTERY TESTER: Estee Espinal RDCS
[2018-12-09] MEDS: ATORVASTATIN 80 MG TAB PO SCH (21:07)
--- NOTE | 2018-12-09 22:09 | P.PN ---
Progress Note - Text Progress Note Date: 12/09/18 Chief Complaint: Chest pressure History of presenting complaint: This is a very pleasant 63-year-old patient who follows with Dr. Gonzalez. Back in 2016 patient had chemotherapy for the left breast cancer. Has been doing well since then. Patient does have bilateral lower extremity chronic venous edema. Does get better with rest. Otherwise has been in good health. Patient woke up in the early hours of morning with the chest pressure gradient across the chest. It went down to both the armpits. There is no dizziness no lightheadedness no shortness of breath did not. Fecal tired. The pressure still persisted. She decided to wake up her drive her to the hospital. EKG was showing possibly ST elevation in the anterior leads and the troponin was started to be positive. Patient was taken to the cardiac malthouse laborer. Dr. Campbell and also mid LAD clot and successful angioplasty stenting was carried out. Today-sitting on bed. Getting IV Lasix. Breathing improving. No chest pain. Up to the bathroom. Active Medications Al Hydroxide/Mg Hydroxide (Maalox) 30 ml PO Q4HR PRN PRN Reason: Heartburn Aspirin (Aspirin) 81 mg PO DAILY [facility] Last Admin: 12/09/18 09:01 Dose: 81 mg Documented by: Atorvastatin Calcium (Lipitor) 80 mg PO HS [facility] Last Admin: 12/09/18 21:07 Dose: 80 mg Documented by: Atropine Sulfate (Atropine) 0.5 mg IV ONCE PRN PRN Reason: Symptomatic Bradycardia Furosemide (Lasix) 20 mg IV Q12HR [facility] Last Admin: 12/09/18 21:09 Dose: 20 mg Documented by: Lisinopril (Zestril) 5 mg PO BID [facility] Last Admin: 12/09/18 21:09 Dose: 5 mg Documented by: Metoprolol Tartrate (Lopressor) 25 mg PO BID [facility] Last Admin: 12/09/18 21:08 Dose: 25 mg Documented by: Miscellaneous Information (Rx Info: Iv Contrast Was Given) 1 each MISCELLANE DAILY PRN PRN Reason: Per Protocol Stop: 12/10/18 07:32 Nitroglycerin (Nitrostat) 0.4 mg SUBLINGUAL Q5M PRN PRN Reason: Chest Pain Ticagrelor (Brilinta) 90 mg PO BID [facility] Last Admin: 12/09/18 21:09 Dose: 90 mg Documented by: Zolpidem Tartrate (Ambien) 5 mg PO HS PRN PRN Reason: Insomnia Physical examination: VITAL SIGNS: 98.3, 86, 16, 103/74, 96% on 2 L GENERAL: Propped up in bed, sitting up. EYES: Pupils equal. Conjunctiva normal. HEENT: External appearance of nose and ears normal, oral cavity grossly normal. NECK: JVD not raised; masses not palpable. HEART: First and second heart sounds are normal; some edema. LUNGS: Respiratory rate normal; clear to auscultation. ABDOMEN: Soft, nontender, liver spleen not palpable, no masses palpable. PSYCH: Alert and oriented x3; mood and affect normal. INVESTIGATIONS, reviewed in the clinical context: Potassium 4.5 creatinine 0.6 LDL 67 Checks x-ray film personally reviewed by me shows cardiomegaly and pulmonary edema 2-D echo-EF less than 20% left ventricle moderately dilated Previous testing -EKG tracing personally reviewed by me shows possible ST segment elevation in the anterior leads -White count 5.2 hemoglobin on 0.2 potassium 4.1 BUN 14 creatinine 0.78 Chest x-ray film personally reviewed by me-cardiomegaly with underpenetration of the fellow Assessment: -Acute ST elevation myocardial infarction of the anterior wall -Emergent cardiac catheterization with stent to the LAD -Acute congestive heart failure exacerbation from systolic dysfunction EF less than 20% from ischemic cardiomyopathy, uncontrolled -Normocytic anemia cause unknown -History of breast cancer maintained on Femara Plan: -Patient status post stent to the LAD. Currently on aspirin, Lipitor, Zestril, Lopressor, Brilinta. Started on IV Lasix. We'll also add Aldactone 12.5 daily. Follow with cardiology.
[2018-12-10 05:52] LABS: African American GFR (CKD) >90 (>60 ml/min/1.73 sqM); Anion Gap 4 mmol/L; Blood Urea Nitrogen 12 mg/dL (7-17); Calcium 8.3 mg/dL (8.4-10.2); Carbon Dioxide 31 mmol/L (22-30); Chloride 103 mmol/L (98-107); Glucose 120 mg/dL (74-99); Magnesium 1.6 mg/dL (1.6-2.3); Potassium 3.9 mmol/L (3.5-5.1); Sodium 138 mmol/L (137-145)
--- NOTE | 2018-12-10 07:37 | XR ---
EXAMINATION TYPE: XR chest 1V DATE OF EXAM: 12/10/2018 COMPARISON: Shortness of breath INDICATION: 12/09/2018 TECHNIQUE: Single frontal view of the chest is obtained. FINDINGS: The heart size is borderline prominent. The pulmonary vasculature is normal. Mild infiltrate is in left base. Small left pleural effusion is present. There may be slight improvem ent from comparison. IMPRESSION: 1. Mild left lower lobe infiltrate and small left pleural effusion, improving from previous exam.
[2018-12-10] MEDS: FUROSEMIDE 10 MG/ML 2 ML VIAL IV SCH ×2 (09:38→21:40)
[2018-12-10] MEDS: TICAGRELOR 90 MG TAB PO SCH ×2 (09:38→21:40)
[2018-12-10] MEDS: LISINOPRIL 5 MG TAB PO SCH ×2 (09:38→21:39)
[2018-12-10] MEDS: METOPROLOL TARTRATE 25 MG TAB PO SCH ×2 (09:39→21:39)
[2018-12-10] MEDS: SPIRONOLACTONE 25 MG TAB PO SCH (09:39)
[2018-12-10] MEDS: ASPIRIN 81 MG PO SCH (09:39)
[2018-12-10] MEDS ORDERED: Potassium Replacement Protocol 1 EACH MISC MISCELLANE PRN (10:53)
[2018-12-10] MEDS ORDERED: Magnesium Replacement Protocol 1 EACH MISC MISCELLANE PRN (10:54)
[2018-12-10] MEDS ORDERED: POTASSIUM CHLORIDE ER 20 MEQ TAB.ER PO SCH (11:00)
[2018-12-10] MEDS: MAGNESIUM SULFATE-D5W PMX 1 GM in DEXTROSE/WATER 1 100ML.BAG IVPB SCH ×3 (11:53→15:45)
--- NOTE | 2018-12-10 14:28 | P.PN ---
Subjective Progress Note Date: 12/10/18 Principal diagnosis: Acute non-ST elevation AL, acute systolic congestive heart failure and bilateral pleural effusions. This is a 63-year-old female patient with known history of breast cancer, hypertension and she came into the hospital because of chest pain and new onset left bundle branch block. Her troponins were minimally elevated. She underwent cardiac catheterization she was found to have a total occluded mid LAD. The patient underwent successful stenting of the totally occluded mid LAD and she was brought into the intensive care unit. The echo was done and the patient has severe cardiomyopathy with EF of around less than 20%. A final report is still pending for now. This morning, the patient is having some limited shortness of breath. As far as her breast cancer, she was diagnosed several years ago and she underwent a left mastectomy followed no reconstructive surgery followed by chemoradiation therapy. Her course was complicated by a wound infection from which she really completely recovered. 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 She has had a stroke back in 2014. She does not smoke cigarettes. On a separate note, the patient was expressing shortness of breath. A CT angiogram that was done on 11/27/2018 showed small bilateral pleural effusions without evidence of pulmonary embolism. The patient had a sclerotic focus on the T3. The patient was referred to radiology and interventional radiology drained approximately 300 mL of fluid from her lung and the fluid cytology still pending for now. The fluid chemistry was not completely done. The total protein in the fluid was 1.5 L and this may indicate a changes days. LDH is missing on that evaluation. The total white count in the pleural fluid was low and was dominantly mononuclear. Patient was reevaluated today on 12/10/2018, she remains in the ICU, feeling much better, breathing a lot easier, remains on diuretics, and she had recent thoracentesis by interventional radiology.. The fluid was transudative in nature. And the presentation is mostly a presentation of a non-ST elevation myocardial infarction and congestive heart failure with ischemic cardiomyopathy and LV dysfunction. Labs were reviewed patient continues to have elevated troponin, however it is trending down, Celexa lites are normal renal profile is normal. Objective - Vital Signs Vital signs: Vital Signs Temp 98.2 F 12/10/18 08:00 Pulse 79 12/10/18 12:32 Resp 16 12/10/18 12:32 BP 108/59 12/10/18 12:32 Pulse Ox 100 12/10/18 12:32 Intake & Output 12/09/18 12/10/18 12/10/18 18:59 06:59 18:59 Intake Total 320 450 400 Output Total 0 1550 2000 Balance 320 -1100 -1600 Weight 137.4 kg Intake: IV 0 Sodium Chloride 0.9% 1, 0 000 ml @ 100 mls/hr IV . Q10H [facility] Rx#:[id number] Oral 320 450 400 Output: Urine 0 1550 2000 Other: Voiding Method Toilet Toilet Toilet # Voids 0 0 - Exam Physical Exam: Revealed 63-year-old female in no distress. HEENT:[Neck is supple.] [No neck masses.] [No thyromegaly.] [No JVD.] Chest: [Diminished breath sounds at the bases no crackles or rhonchi or wheezes.] Cardiac Exam: [Normal S1 and S2, no S3 gallop, no murmur.] Abdomen: [Soft, nontender, no megaly, no rebound, no guarding, normal bowel sounds.] Extremities: [No clubbing, no edema, no cyanosis.] Neurological Exam: [No focal neurologic deficit.] Alert and oriented 3. Skin: No rashes. Psychiatric: Normal mood affect and normal mental status examination. - Labs CBC & Chem 7: 12/08/18 04:12 12/10/18 04:52 Labs: Abnormal Lab Results - Last 24 Hours (Table) 12/10/18 Range/Units 04:52 Carbon Dioxide 31 H (22-30) mmol/L Glucose 120 H (74-99) mg/dL Calcium 8.3 L (8.4-10.2) mg/dL Assessment and Plan Assessment: Impression: 1 acute non-ST elevation myocardial infarction 2 acute systolic congestive heart failure and LV dysfunction and ejection fraction is less than 20%. Patient is known to have history of chronic cardiomyopathy could be ischemic in nature or could be related to chemotherapy. 3 bilateral pleural effusions, status post left-sided thoracentesis and the fluid was transudative in nature. 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 Recommendation: Continue present supportive care measures, transfer patient out of the ICU, she is being followed by cardiology, we will see the patient on when necessary basis. Time with Patient: Less than 30
--- NOTE | 2018-12-10 17:11 | P.PN ---
Subjective This is Angelika Del Cid PA-C dictating a progress note on this patient The patient was interviewed and examined by me as well as by Dr. Díaz Case discussed with Dr. Díaz and he agrees with the plan of care IMPRESSION / ASSESSMENT: ACS, coronary angiogram showing totally occluded mid LAD, status post stenting to the LAD Severe cardiomyopathy, dilated LV with septal dyskinesis and apical akinesis with severe LV dysfunction in the setting of a chronically occluded LAD that was stented patient has been having worsening shortness of breath and orthopnea for the last few weeks Hypertension, the blood pressure stable History of breast cancer History of pleural effusion status post pleurocentesis PLAN: Continue dual antiplatelet therapy and statins Continue treatment with beta blockers Amrit inhibitors and spironolactone Continue Lasix Maximize medications for cardiomyopathy as tolerated HPI/interval history Patient is a 63-year-old female with a past medical history of breast cancer and hypertension who presented with complaints of chest discomfort. Her EKG showed left bundle branch block. Initial troponin mildly elevated. She underwent cardiac catheterization and was found to have a totally occluded mid LAD and subsequently underwent angioplasty and stenting. Echocardiogram today shows severe LV dysfunction, EF less than 20%. Telemetry revealed sinus mechanism overnight. Patient seen and examined resting in bed. She continues to have some shortness of breath on exertion. Denies chest pain or dizziness. EXAMINATION Patient is afebrile, pulse 75, respirations 16, blood pressure 126/80, saturation 100% on 3 L nasal cannula Patient seen and examined resting in bed, in no acute distress Lungs are slightly diminished with crackles at the bases Heart is regular, normal S1-S2, no murmurs noted Mild lower extremity edema bilaterally No elevated JVD noted REVIEW OF LABS, ECG Sodium 138, potassium 3.9, BUN 12, creatinine 0.68, magnesium 1.6 Objective - Vital Signs Vital signs: Vital Signs Temp 98.0 F 12/10/18 16:00 Pulse 75 12/10/18 16:00 Resp 16 12/10/18 16:00 BP 126/80 12/10/18 16:00 Pulse Ox 100 12/10/18 16:00 Intake & Output 12/09/18 12/10/18 12/10/18 18:59 06:59 18:59 Intake Total 320 450 526 Output Total 0 1550 1999 Balance 320 1100 -1476 Weight 137.4 kg Intake: IV 0 Sodium Chloride 0.9% 1, 0 000 ml @ 100 mls/hr IV . Q10H [facility] Rx#:[id number] Oral 320 450 526 Output: Urine 0 1550 2000 Other: Voiding Method Toilet Toilet Toilet # Voids 0 0 - Labs CBC & Chem 7: 12/08/18 04:12 12/10/18 04:52 Labs: Abnormal Lab Results - Last 24 Hours (Table) 12/10/18 Range/Units 04:52 Carbon Dioxide 31 H (22-30) mmol/L Glucose 120 H (74-99) mg/dL Calcium 8.3 L (8.4-10.2) mg/dL
[2018-12-10] MEDS: ATORVASTATIN 80 MG TAB PO SCH (21:38)
--- NOTE | 2018-12-11 00:17 | P.PN ---
Progress Note - Text Progress Note Date: 12/10/18 Chief Complaint: Chest pressure History of presenting complaint: This is a very pleasant 63-year-old patient who follows with Dr. Gonzalez. Back in 2016 patient had chemotherapy for the left breast cancer. Has been doing well since then. Patient does have bilateral lower extremity chronic venous edema. Does get better with rest. Otherwise has been in good health. Patient woke up in the early hours of morning with the chest pressure gradient across the chest. It went down to both the armpits. There is no dizziness no lightheadedness no shortness of breath did not. Fecal tired. The pressure still persisted. She decided to wake up her drive her to the hospital. EKG was showing possibly ST elevation in the anterior leads and the troponin was started to be positive. Patient was taken to the cardiac clinical laboratory director. Dr. Campbell and also mid LAD clot and successful angioplasty stenting was carried out. Also found to be in acute congestive heart exacerbation. Today-patient is getting short of breath getting to the bathroom. No edema. No chest pain. Remains on IV Lasix. is at bedside. Review of systems: Was done for constitutional, cardiovascular, GI, pulmonary. relevant finding as above Active Medications Al Hydroxide/Mg Hydroxide (Maalox) 30 ml PO Q4HR PRN PRN Reason: Heartburn Aspirin (Aspirin) 81 mg PO DAILY [facility] Last Admin: 12/10/18 09:39 Dose: 81 mg Documented by: Atorvastatin Calcium (Lipitor) 80 mg PO HS [facility] Last Admin: 12/10/18 21:38 Dose: 80 mg Documented by: Atropine Sulfate (Atropine) 0.5 mg IV ONCE PRN PRN Reason: Symptomatic Bradycardia Furosemide (Lasix) 20 mg IV Q12HR [facility] Last Admin: 12/10/18 21:40 Dose: 20 mg Documented by: Lisinopril (Zestril) 5 mg PO BID [facility] Last Admin: 12/10/18 21:39 Dose: 5 mg Documented by: Metoprolol Tartrate (Lopressor) 25 mg PO BID [facility] Last Admin: 12/10/18 21:39 Dose: 25 mg Documented by: Miscellaneous Information (Potassium Per Protocol) 1 each MISCELLANE DAILY PRN; Protocol PRN Reason: Per Protocol Miscellaneous Information (Magnesium Per Protocol) 1 each MISCELLANE DAILY PRN; Protocol PRN Reason: Per Protocol Nitroglycerin (Nitrostat) 0.4 mg SUBLINGUAL Q5M PRN PRN Reason: Chest Pain Spironolactone (Aldactone) 25 mg PO DAILY [facility] Last Admin: 12/10/18 09:39 Dose: 25 mg Documented by: Ticagrelor (Brilinta) 90 mg PO BID [facility] Last Admin: 12/10/18 21:40 Dose: 90 mg Documented by: Zolpidem Tartrate (Ambien) 5 mg PO HS PRN PRN Reason: Insomnia Physical examination: VITAL SIGNS: 98, 75, 16, 126/80, 100% on 3 L GENERAL: Sitting at the edge of the bed. EYES: Pupils equal. Conjunctiva normal. HEENT: External appearance of nose and ears normal, oral cavity grossly normal. NECK: JVD not raised; masses not palpable. HEART: First and second heart sounds are normal; no edema. LUNGS: Respiratory rate normal; clear to auscultation. ABDOMEN: Soft, nontender, liver spleen not palpable, no masses palpable. PSYCH: Alert and oriented x3; mood and affect but anxious. INVESTIGATIONS, reviewed in the clinical context: Potassium 3.9 and creatinine 0.68 Chest x-ray film reviewed from today personally by me--lung appiah which improved Previous testing -EKG tracing personally reviewed by me shows possible ST segment elevation in the anterior leads -White count 5.2 hemoglobin on 0.2 potassium 4.1 BUN 14 creatinine 0.78 Chest x-ray film personally reviewed by me-cardiomegaly with underpenetration of the fellow 2-D echo-EF less than 20% left ventricle moderately dilated Assessment: -Acute ST elevation myocardial infarction of the anterior wall -Emergent cardiac catheterization with stent to the LAD -Acute congestive heart failure exacerbation from systolic dysfunction EF less than 20% from ischemic cardiomyopathy, -Normocytic anemia cause unknown -History of breast cancer maintained on Femara Plan: Remains on IV Lasix. Other medications to continue. Encouraged to ambulate as tolerated. Check BNP in the morning.
[2018-12-11] MEDS ORDERED: DILTIAZEM 125 MG in SODIUM CHLORIDE 0.9% 100 ML IV SCH (01:00)
[2018-12-11] MEDS ORDERED: HEPARIN SODIUM,PORCINE 5,000 UNIT/ML 1 ML VIAL IV PRN (01:05)
[2018-12-11] MEDS ORDERED: HEPARIN SOD,PORK IN 0.45% NACL 25,000 UNIT in 0.45% NACL 1 250ML.BAG IV SCH (01:15)
[2018-12-11 01:54] LABS: Basophils % (A) 0 %; Eosinophils # (A) 0.1 k/uL (0-0.7); Eosinophils % (A) 2 %; HCT 32.9 % (34.0-46.0); HGB 10.5 gm/dL (11.4-16.0); Hypochromasia Marked; Lymphocytes # (A) 1.2 k/uL (1.0-4.8); Lymphocytes % (A) 20 %; MCH 30.1 pg (25.0-35.0); MCV 94.1 fL (80.0-100.0); Mean Platelet Volume 6.8; Monocytes # (A) 0.4 k/uL (0-1.0); Monocytes % (A) 7 %; Neutrophils # (A) 4.3 k/uL (1.3-7.7); Neutrophils % (A) 69 %; Platelet Count 196 k/uL (150-450); RDW 15.3 % (11.5-15.5); WBC 6.2 k/uL (3.8-10.6)
[2018-12-11 02:24] LABS: Partial Thromboplastin Time 25.3 sec (22.0-30.0); Prothrombin Time 10.9 sec (9.0-12.0)
[2018-12-11] MEDS: TICAGRELOR 90 MG TAB PO SCH (08:52)
[2018-12-11] MEDS: ASPIRIN 81 MG PO SCH (08:52)
[2018-12-11] MEDS: FUROSEMIDE 10 MG/ML 2 ML VIAL IV SCH (08:52)
[2018-12-11] MEDS: LISINOPRIL 5 MG TAB PO SCH ×2 (11:55→21:24)
[2018-12-11] MEDS: METOPROLOL TARTRATE 50 MG TAB PO SCH ×2 (11:56→20:17)
[2018-12-11] MEDS: SPIRONOLACTONE 25 MG TAB PO SCH (11:56)
[2018-12-11] MEDS: METOPROLOL TARTRATE 25 MG TAB PO SCH (13:01)
[2018-12-11] MEDS ORDERED: CLOPIDOGREL 75 MG TAB PO STA (15:17)
--- NOTE | 2018-12-11 16:14 | P.PN ---
Subjective This is Angelika Del Cid PA-C dictating a progress note on this patient The patient was interviewed and examined by me as well as by Dr. Díaz Case discussed with Dr. Díaz and he agrees with the plan of care IMPRESSION / ASSESSMENT: ACS, coronary angiogram showing totally occluded mid LAD, status post stenting to the LAD Severe cardiomyopathy, predominantly ischemic, dilated LV with septal dyskinesis and apical akinesis with severe LV dysfunction in the setting of a chronically occluded LAD that was stented patient has been having worsening shortness of breath and orthopnea for the last few weeks Hypertension, the blood pressure stable History of breast cancer with chemo in 2016 History of pleural effusion status post pleurocentesis Atrial fibrillation with RVR, converted to sinus rhythm PLAN: Repeat BMP tomorrow Increase metoprolol to 50 mg twice a day Start eliquis 5 mg twice a day Switch from Brillinta to Plavix, loading Plavix 300 mg tonight and then start Plavix 75 mg tomorrow We'll switch to metoprolol succinate prior to discharge Patient will need to be sent home with a LifeVest, discussed this with the patient and her Monitor for the next couple days on telemetry HPI/interval history Patient is a 63-year-old female with a past medical history of breast cancer and hypertension who presented with complaints of chest discomfort. Her EKG showed left bundle branch block. Initial troponin mildly elevated. She underwent cardiac catheterization and was found to have a totally occluded mid LAD and sub sequently underwent angioplasty and stenting. Echocardiogram today shows severe LV dysfunction, EF less than 20%. Overnight she went into atrial fibrillation with RVR with rates up to the 140s. She was started on IV Cardizem and converted to sinus rhythm this morning. She was in atrial fibrillation for 6 hours. She did have some hypotension with the Cardizem. Repeat blood pressure this morning improved Patient seen and examined sitting up in bed. States her breathing is getting a little better. He is short of breath on exertion. States she did not feel any palpitations when she went into atrial fibrillation, she was sleeping. No chest pain. She does have a history of anemia when she was on chemo and needed blood transfusions. Her hemoglobin has been stable around 10 since then EXAMINATION Temperature 98.1F, pulse 69, respirations 14, blood pressure 106/68, oxygen saturation 99% on 3 L nasal cannula Patient seen and examined resting in bed, in no acute distress Lungs are slightly diminished with few scattered crackles at the bases Heart is regular, normal S1-S2, no murmurs noted no lower extremity edema bilaterally No elevated JVD noted REVIEW OF LABS, ECG WBC 6.2, hemoglobin 10.5, platelets 196 BMP yesterday showed BUN 12, creatinine 0.68, potassium 3.9 Objective - Vital Signs Vital signs: Vital Signs Temp 98.1 F 12/11/18 11:25 Pulse 84 12/11/18 11:25 Resp 14 12/11/18 11:25 BP 106/68 12/11/18 11:25 Pulse Ox 99 12/11/18 11:25 Intake & Output 12/10/18 12/11/18 12/11/18 18:59 06:59 18:59 Intake Total 646 684 Output Total 1999 1999 Balance -1354 -1999 684 Weight 135.6 kg Intake: Oral 646 684 Output: Urine 1999 1999 Other: Voiding Method Toilet Toilet Toilet # Voids 2 4 - Labs CBC & Chem 7: 12/11/18 01:38 12/10/18 04:52 Labs: Abnormal Lab Results - Last 24 Hours (Table) 12/11/18 12/11/18 Range/Units 01:38 06:37 RBC 3.50 L (3.80-5.40) m/uL Hgb 10.5 L (11.4-16.0) gm/dL Hct 32.9 L (34.0-46.0) % APTT 32.5 H (22.0-30.0) sec
[2018-12-11] MEDS: APIXABAN 5 MG TAB PO SCH ×2 (17:18→18:14)
[2018-12-11] MEDS: FUROSEMIDE 20 MG TAB PO SCH (17:20)
[2018-12-11] MEDS: ATORVASTATIN 80 MG TAB PO SCH (20:17)
--- NOTE | 2018-12-11 22:33 | P.PN ---
Progress Note - Text Progress Note Date: 12/11/18 Chief Complaint: Chest pressure History of presenting complaint: This is a very pleasant 63-year-old patient who follows with Dr. Gonzalez. Back in 2016 patient had chemotherapy for the left breast cancer. Has been doing well since then. Patient does have bilateral lower extremity chronic venous edema. Does get better with rest. Otherwise has been in good health. Patient woke up in the early hours of morning with the chest pressure gradient across the chest. It went down to both the armpits. There is no dizziness no lightheadedness no shortness of breath did not. Fecal tired. The pressure still persisted. She decided to wake up her drive her to the hospital. EKG was showing possibly ST elevation in the anterior leads and the troponin was started to be positive. Patient was taken to the cardiac record label intern. Dr. Campbell and also mid LAD clot and successful angioplasty stenting was carried out. Also found to be in acute congestive heart exacerbation. Today-patient remains on IV Lasix. 20 mg twice daily. Previously slowly improving. Has been ambulating better. No chest pain. Review of systems: Was done for constitutional, cardiovascular, GI, pulmonary. relevant finding as above Active Medications Al Hydroxide/Mg Hydroxide (Maalox) 30 ml PO Q4HR PRN PRN Reason: Heartburn Apixaban (Eliquis) 5 mg PO BID [facility] Last Admin: 12/11/18 18:14 Dose: 5 mg Documented by: Aspirin (Aspirin) 81 mg PO DAILY [facility] Last Admin: 12/11/18 08:52 Dose: 81 mg Documented by: Atorvastatin Calcium (Lipitor) 80 mg PO HS [facility] Last Admin: 12/11/18 20:17 Dose: 80 mg Documented by: Atropine Sulfate (Atropine) 0.5 mg IV ONCE PRN PRN Reason: Symptomatic Bradycardia Clopidogrel Bisulfate (Plavix) 75 mg PO DAILY [facility] Furosemide (Lasix) 20 mg PO 0900,1700 [facility] Last Admin: 12/11/18 17:20 Dose: 20 mg Documented by: Lisinopril (Zestril) 5 mg PO 1200,2200 [facility] Last Admin: 12/11/18 21:24 Dose: 5 mg Documented by: Metoprolol Tartrate (Lopressor) 50 mg PO BID [facility] Last Admin: 12/11/18 20:17 Dose: 50 mg Documented by: Miscellaneous Information (Potassium Per Protocol) 1 each MISCELLANE DAILY PRN; Protocol PRN Reason: Per Protocol Miscellaneous Information (Magnesium Per Protocol) 1 each MISCELLANE DAILY PRN; Protocol PRN Reason: Per Protocol Nitroglycerin (Nitrostat) 0.4 mg SUBLINGUAL Q5M PRN PRN Reason: Chest Pain Spironolactone (Aldactone) 25 mg PO DAILY [facility] Last Admin: 12/11/18 11:56 Dose: 25 mg Documented by: Zolpidem Tartrate (Ambien) 5 mg PO HS PRN PRN Reason: Insomnia Physical examination: VITAL SIGNS: 37.9, 67, 16, 106/68, 94% on 3 L GENERAL: Propped up in bed, more comfortable EYES: Pupils equal. Conjunctiva normal. HEENT: External appearance of nose and ears normal, oral cavity grossly normal. NECK: JVD not raised; masses not palpable. HEART: First and second heart sounds are normal; no edema. LUNGS: Respiratory rate normal; clear to auscultation. ABDOMEN: Soft, nontender, liver spleen not palpable, no masses palpable. PSYCH: Alert and oriented x3; mood and affect but anxious. INVESTIGATIONS, reviewed in the clinical context: White count 6.2 hemoglobin 10.5 creatinine 0.68 ProBNP 4780 Previous testing -EKG tracing personally reviewed by me shows possible ST segment elevation in the anterior leads -White count 5.2 hemoglobin on 0.2 potassium 4.1 BUN 14 creatinine 0.78 Chest x-ray film personally reviewed by me-cardiomegaly with underpenetration of the fellow 2-D echo-EF less than 20% left ventricle moderately dilated Assessment: -Acute ST elevation myocardial infarction of the anterior wall -Emergent cardiac catheterization with stent to the LAD -Acute congestive heart failure exacerbation from systolic dysfunction EF less than 20% from ischemic cardiomyopathy, -Normocytic anemia cause unknown -History of breast cancer maintained on Femara Plan: Patient continues to improve. Encouraged to ambulate in the hallway. Switched over to oral Lasix. By cardiology. Hopefully can be discharged home tomorrow.
[2018-12-12 01:50] VITALS: RESP 18
[2018-12-12 07:16] LABS: Basophils % (A) 0 %; Eosinophils # (A) 0.1 k/uL (0-0.7); Eosinophils % (A) 2 %; HCT 32.8 % (34.0-46.0); HGB 10.3 gm/dL (11.4-16.0); Hypochromasia Marked; Lymphocytes # (A) 0.9 k/uL (1.0-4.8); Lymphocytes % (A) 17 %; MCHC 31.5 g/dL (31.0-37.0); MCV 95.2 fL (80.0-100.0); Mean Platelet Volume 6.8; Monocytes # (A) 0.5 k/uL (0-1.0); Monocytes % (A) 9 %; Neutrophils # (A) 3.6 k/uL (1.3-7.7); Neutrophils % (A) 69 %; Platelet Count 174 k/uL (150-450); RBC 3.45 m/uL (3.80-5.40); RDW 15.3 % (11.5-15.5); WBC 5.2 k/uL (3.8-10.6)
[2018-12-12 07:38] LABS: African American GFR (CKD) >90 (>60 ml/min/1.73 sqM); Anion Gap 7 mmol/L; Blood Urea Nitrogen 14 mg/dL (7-17); Calcium 8.5 mg/dL (8.4-10.2); Carbon Dioxide 31 mmol/L (22-30); Chloride 101 mmol/L (98-107); Glucose 105 mg/dL (74-99); Potassium 4.2 mmol/L (3.5-5.1); Sodium 139 mmol/L (137-145)
[2018-12-12] MEDS: APIXABAN 5 MG TAB PO SCH (08:43)
[2018-12-12] MEDS: METOPROLOL TARTRATE 50 MG TAB PO SCH (08:43)
[2018-12-12] MEDS: ASPIRIN 81 MG PO SCH (08:43)
[2018-12-12] MEDS: SPIRONOLACTONE 25 MG TAB PO SCH (08:43)
[2018-12-12] MEDS: FUROSEMIDE 20 MG TAB PO SCH ×2 (08:43→16:58)
[2018-12-12] MEDS ORDERED: CLOPIDOGREL 75 MG TAB PO SCH (09:00)
[2018-12-12 09:35] VITALS: TEMP 98
[2018-12-12] MEDS: LISINOPRIL 5 MG TAB PO SCH (11:25)
[2018-12-12] MEDS ORDERED: CLOPIDOGREL 75 MG TAB PO STA (11:58)
--- NOTE | 2018-12-12 12:07 | P.PN ---
Subjective Progress Note Date: 12/12/18 Patient is a 63-year-old female with a past medical history of breast cancer and hypertension who presented with complaints of chest discomfort. Her EKG showed left bundle branch block. Initial troponin mildly elevated. She underwent cardiac catheterization and was found to have a totally occluded mid LAD and subsequently underwent angioplasty and stenting. Echocardiogram today shows severe LV dysfunction, EF less than 20%. Patient had 2 separate episodes of atrial fibrillation, remains in normal sinus rhythm this morning. She was bolused with Plavix yesterday her Brilinta was discontinued, she is now on Plavix 75 mg daily along with the baby aspirin and Eliquis 5 mg one tablet by mouth twice a day. Patient's ejection fraction was documented to be less than 20%, she was advised to wear a LifeVest. The rationale behind LifeVest was explained to the patient in detail, from our perspective she should be able to be discharged home today after a LifeVest arrival. She is hemodynamically s table. Denies any chest pain in her breathing is stable. Objective - Vital Signs Vital signs: Vital Signs Temp 98.0 F 12/12/18 08:00 Pulse 68 12/12/18 11:50 Resp 18 12/12/18 11:50 BP 90/55 12/12/18 11:50 Pulse Ox 97 12/12/18 11:50 Intake & Output 12/11/18 12/12/18 12/12/18 18:59 06:59 18:59 Intake Total 906 240 480 Output Total 1200 1175 1100 Balance -294 -935 -620 Weight 134.4 kg Intake: Oral 906 240 480 Output: Urine 1200 1175 1100 Other: Voiding Method Toilet Toilet Toilet # Voids 4 1 2 - Exam Patient seen and examined resting in bed, in no acute distress Lungs are slightly diminished with few scattered crackles at the bases Heart is regular, normal S1-S2, no murmurs noted no lower extremity edema bilaterally No elevated JVD noted - Labs CBC & Chem 7: 12/12/18 06:37 12/12/18 06:37 Labs: Abnormal Lab Results - Last 24 Hours (Table) 12/12/18 12/12/18 Range/Units 06:37 06:37 RBC 3.45 L (3.80-5.40) m/uL Hgb 10.3 L (11.4-16.0) gm/dL Hct 32.8 L (34.0-46.0) % Lymphocytes # 0.9 L (1.0-4.8) k/uL Carbon Dioxide 31 H (22-30) mmol/L Glucose 105 H (74-99) mg/dL Assessment and Plan Plan: IMPRESSION / ASSESSMENT: #1Non-Q-wave IA , coronary angiogram showing totally occluded mid LAD, status post stenting to the LAD #2Severe ischemic cardiomyopathy, #3Hypertension, the blood pressure stable #4History of breast cancer with chemo in 2016 #5History of pleural effusion status post pleurocentesis #6 paroxysmal Atrial fibrillation with RVR, converted to sinus rhythm Plan Patient presented with a non-Q-wave IA, ejection fraction less than 20%. She was advised LifeVest for the prevention of sudden cardiac . From our perspective she may be able to be discharged home today, we'll make her a follow-up appointment in the office post discharge. Because of the episodes of atrial fibrillation, patient has been initiated on Eliquis 5 mg one tablet by m out twice a day, we will continue baby aspirin, and she has also been changed over to Plavix 75 mg daily. DNP note has been reviewed, I agree with a documented findings and plan of care. Patient was seen and examined.
[2018-12-12 15:49] VITALS: BP 129/71; PULSE 85
--- NOTE | 2018-12-12 23:38 | P.DS ---
Providers Date of admission: 12/08/18 05:27 Expected date of discharge: 12/12/18 Attending physician: Sam Clark Consults: 12/08/18 07:32 Consult Physician Routine Consulting Provider: Cardiology Beatriz Consult Reason/Comments: Post Interventional patient Do you want consulting provider notified?: Already Contacted 12/08/18 09:53 Consult Physician Routine Consulting Provider: Ethan Campbell Consult Reason/Comments: cardiac cath Do you want consulting provider notified?: Already Contacted 12/09/18 12:05 Consult Physician Routine Consulting Provider: Caty Cueva Consult Reason/Comments: sob Do you want consulting provider notified?: Already Contacted Primary care physician: [facility] Course: Chief Complaint: Chest pressure History of presenting complaint: This is a very pleasant 63-year-old patient who follows with Dr. Gonzalez. Back in 2016 patient had chemotherapy for the left breast cancer. Has been doing well since then. Patient does have bilateral lower extremity chronic venous edema. Does get better with rest. Otherwise has been in good health. Patient woke up in the early hours of morning with the chest pressure gradient across the chest. It went down to both the armpits. There is no dizziness no lightheadedness no shortness of breath did not. Fecal tired. The pressure still persisted. She decided to wake up her drive her to the hospital. EKG was showing possibly ST elevation in the anterior leads and the troponin was started to be positive. Patient was taken to the cardiac laborer car barn. Dr. Campbell and also mid LAD clot and successful angioplasty stenting was carried out. Also found to be in acute congestive heart exacerbation.also had episodes of paroxysmal atrial fibrillation. LifeVest ordered. Today-doing better. ambulating better. No chest pain. Discussion and discharge planning more than 35 minutes Consultation: Dr. Zheng Díaz from cardiology Dr. Campbell from interventional cardiology Physical examination: VITAL SIGNS:afebrile, 85, 18, 129/71, 96% room air GENERAL: sitting up, comfortablee EYES: Pupils equal. Conjunctiva normal. HEENT: External appearance of nose and ears normal, oral cavity grossly normal. NECK: JVD not raised; masses not palpable. HEART: First and second heart sounds are normal; no edema. LUNGS: Respiratory rate normal; clear to auscultation. ABDOMEN: Soft, nontender, liver spleen not palpable, no masses palpable. PSYCH: Alert and oriented x3; mood and affect but anxious. INVESTIGATIONS, reviewed in the clinical context: white count 5.2 hemoglobin 10.3 creatinine 0.7 to ProBNP 4780 Previous testing -EKG tracing personally reviewed by me shows possible ST segment elevation in the anterior leads -White count 5.2 hemoglobin on 0.2 potassium 4.1 BUN 14 creatinine 0.78 Chest x-ray film personally reviewed by me-cardiomegaly with underpenetration of the fellow 2-D echo-EF less than 20% left ventricle moderately dilated discharge diagnosist: -Acute ST elevation myocardial infarction of the anterior wall -Emergent cardiac catheterization with stent to the LAD -Acute congestive heart failure exacerbation from systolic dysfunction EF less than 20% from ischemic cardiomyopathy, -Normocytic anemia cause unknown -History of breast cancer maintained on Femara -Paroxysmal atrial fibrillation currently in sinus rhythm disposition: Home Patient Condition at Discharge: Stable Plan - Discharge Summary Discharge Rx Participant: Yes New Discharge Prescriptions: New Spironolactone [Aldactone] 25 mg PO DAILY #30 tab Aspirin 81 mg PO DAILY #30 chew Apixaban [Eliquis] 5 mg PO BID #60 tab Furosemide [Lasix] 20 mg PO 0900,1700 #60 tab Atorvastatin [Lipitor] 80 mg PO HS #30 tab Nitroglycerin Sl Tabs [Nitrostat] 0.4 mg SUBLINGUAL Q5M PRN #25 tab PRN Reason: Chest Pain Clopidogrel [Plavix] 75 mg PO DAILY #30 tab Metoprolol Succinate (ER) [Toprol XL] 100 mg PO DAILY #30 tab.er.24h Lisinopril [Zestril] 5 mg PO 1200,2200 #60 tab Continue Letrozole [Femara] 2.5 mg PO QAM Acetaminophen/Diphenhydramine [Tylenol PM Extra Strength] 1 tab PO HS Discontinued Aspirin EC [Ecotrin] 81 mg PO QAM Loratadine [Claritin] 10 mg PO DAILY PRN PRN Reason: Allergy Symptoms Discharge Medication List Letrozole [Femara] 2.5 mg PO QAM 06/06/16 [History] Acetaminophen/Diphenhydramine [Tylenol PM Extra Strength] 1 tab PO HS 03/15/18 [History] Apixaban [Eliquis] 5 mg PO BID #60 tab 12/12/18 [Rx] Aspirin 81 mg PO DAILY #30 chew 12/12/18 [Rx] Atorvastatin [Lipitor] 80 mg PO HS #30 tab 12/12/18 [Rx] Clopidogrel [Plavix] 75 mg PO DAILY #30 tab 12/12/18 [Rx] Furosemide [Lasix] 20 mg PO 0900,1700 #60 tab 12/12/18 [Rx] Lisinopril [Zestril] 5 mg PO 1200,2200 #60 tab 12/12/18 [Rx] Metoprolol Succinate (ER) [Toprol XL] 100 mg PO DAILY #30 tab.er.24h 12/12/18 [Rx] Nitroglycerin Sl Tabs [Nitrostat] 0.4 mg SUBLINGUAL Q5M PRN #25 tab 12/12/18 [Rx] Spironolactone [Aldactone] 25 mg PO DAILY #30 tab 12/12/18 [Rx] Follow up Appointment(s)/Referral(s): Ethan Campbell MD [STAFF PHYSICIAN] - 12/17/18 2:45 pm (Monday) Tu Gonzalez MD [Primary Care Provider] - 12/24/18 1:00 pm (Monday -earliest available appointment) Patient Instructions/Handouts: A-fib (Atrial Fibrillation) (DC), Heart Healthy Diet (DC), Coronary Intravascular Stent Placement (DC), Wearable Cardioverter Defibrillator (DC) Activity/Diet/Wound Care/Special Instructions: Free 30 day coupon applied for Eliquis - filled at [facility] pharmacy Discharge Disposition: HOME SELF-CARE
[2018-12-13] MEDS ORDERED: METOPROLOL SUCCINATE (ER) 100 MG TAB.ER.24H PO SCH (09:00)
== END 2018-12-12 19:17 | disposition home or self-care (01) | DRG 246 ==
LOC: EC 03:25 → 2SICU 05:27 → 3SCARD 12-10 12:07
PROVIDERS: ADMIT Hospitalist; ATTEND Hospitalist
PROC: B2111ZZ Fluoroscopy of Multiple Coronary Arteries using Low Osmolar Contrast (ICD-10-PCS; 2018-12-08)
PROC: 027034Z Dilation of Coronary Artery, One Artery with Drug-eluting Intraluminal Device, Percutaneous Approach (ICD-10-PCS; principal; 2018-12-08 06:04)
PROC: 4A023N7 Measurement of Cardiac Sampling and Pressure, Left Heart, Percutaneous Approach (ICD-10-PCS; 2018-12-08 06:04)
DX: I21.09 ST elevation (STEMI) myocardial infarction involving other coronary artery of anterior wall (principal); I50.23 Acute on chronic systolic (congestive) heart failure; Z68.42 Body mass index [BMI] 45.0-49.9, adult; I11.0 Hypertensive heart disease with heart failure; I25.10 Atherosclerotic heart disease of native coronary artery without angina pectoris; C50.912 Malignant neoplasm of unspecified site of left female breast; D64.9 Anemia, unspecified; E66.01 Morbid (severe) obesity due to excess calories; G47.00 Insomnia, unspecified; G62.0 Drug-induced polyneuropathy; I25.5 Ischemic cardiomyopathy; I44.7 Left bundle-branch block, unspecified; I48.0 Paroxysmal atrial fibrillation; T45.1X5A Adverse effect of antineoplastic and immunosuppressive drugs, initial encounter; Z79.01 Long term (current) use of anticoagulants; Z79.02 Long term (current) use of antithrombotics/antiplatelets; Z79.82 Long term (current) use of aspirin; Z79.899 Other long term (current) drug therapy; Z80.3 Family history of malignant neoplasm of breast; Z82.49 Family history of ischemic heart disease and other diseases of the circulatory system; Z86.73 Personal history of transient ischemic attack (TIA), and cerebral infarction without residual deficits; Z90.12 Acquired absence of left breast and nipple; Z92.3 Personal history of irradiation; Z88.6 Allergy status to analgesic agent; Z91.040 Latex allergy status
CPT/HCPCS: 36415; 71045; 80048; 80053; 80061; 83735; 83880; 84484; 85025; 85610; 85730; 93005; 93306; 93458; 94760; 96365; 96375; 96376; 99285; C1874

== ENCOUNTER 2019-06-20 08:37 | Inpatient (IN) | payer OTHER ==
[2019-06-18 10:40] VITALS: BMI 49.9
[~2019-06-20 08:37] MED LIST changes: -ALPRAZolam 0.25 MG TAB PO PRN; -DEXAMETHASONE SOD PHOSPHATE 10 MG/ML 1 ML VIAL IV ONE; -FAMOTIDINE 20 MG/2 ML VIAL IV PRN; -HEPARIN SODIUM,PORCINE 5,000 UNIT/ML 1 ML VIAL SQ ONE; -HYDROmorphone 1 MG/ML 1 ML SYRINGE IVP PRN; -LACTATED RINGERS 1,000 ML IV SCH; -LIDOCAINE 1% 20 ML VIAL (10MG/ML) FOR IV START INTRADERMA PRN; -Pre Op ABX Message 1 EACH MISC MISCELLANE ONE; -SCOPOLAMINE 1.5MG/72HR PATCH TRANSDERM ONE; +ceFAZolin 1,000 MG in SODIUM CHLORIDE 0.9% IRRIGATIO 250 ML IRRIGATION ONE
[2019-06-20] MEDS: SODIUM CHLORIDE 0.9% 1,000 ML IV SCH (09:10)
[2019-06-20 09:25] LABS: Basophils % (A) 0 %; Eosinophils # (A) 0.1 k/uL (0-0.7); Eosinophils % (A) 2 %; HCT 37.6 % (34.0-46.0); HGB 12.4 gm/dL (11.4-16.0); Lymphocytes # (A) 1.6 k/uL (1.0-4.8); Lymphocytes % (A) 27 %; MCH 31.3 pg (25.0-35.0); MCV 94.8 fL (80.0-100.0); Mean Platelet Volume 8.6; Monocytes # (A) 0.3 k/uL (0-1.0); Monocytes % (A) 6 %; Neutrophils # (A) 3.6 k/uL (1.3-7.7); Neutrophils % (A) 63 %; Platelet Count 152 k/uL (150-450); RBC 3.97 m/uL (3.80-5.40); RDW 15.9 % (11.5-15.5); WBC 5.7 k/uL (3.8-10.6)
[2019-06-20 09:35] LABS: Calcium 8.9 mg/dL (8.4-10.2)
[2019-06-20 09:38] LABS: Potassium 4.5 mmol/L (3.5-5.1)
[2019-06-20] MEDS ORDERED: PROPOFOL 10 MG/ML 20 ML VIAL IV ONE (10:36)
[2019-06-20] MEDS ORDERED: fentaNYL (PF) 50 MCG/ML 2 ML AMP ONE (10:36)
[2019-06-20] MEDS ORDERED: KETAMINE 10 MG/ML 20 ML VIAL ONE (10:36)
[2019-06-20] MEDS ORDERED: ePHEDrine SULFATE/0.9% NACL/PF 50 MG/5 ML SYRINGE IV ONE (10:36)
[2019-06-20] MEDS ORDERED: MIDAZOLAM 2 MG/2 ML VIAL ONE (10:36)
[2019-06-20] MEDS ORDERED: IOPAMIDOL-370 50ML BTL INJ ONE (11:00)
[2019-06-20] MEDS ORDERED: LIDOCAINE 1% INJ 10MG/ML (20 ML MDV) SQ ONE ×2 (11:20→14:02)
[2019-06-20] MEDS ORDERED: ACETAMINOPHEN TAB 325 MG TAB PO PRN (13:52)
--- NOTE | 2019-06-20 14:02 | P.PCN ---
Preoperative Diagnosis: Left upper extremity venogram 15 mL) was injected in the left arm and the subclavian and x-ray veins were passive fella pacified. They were both patent for implantation of a bilateral ICD Extended procedure duration This is a long procedure on account of the following #1 Antolin sinus access was difficult and finally was within the vein selective coronary filter access this coronary sinus along with placement of the rotator 2 the lead was placed in anterior vein however during sheath removal this lead dislodged and a new sheath was replaced in the coronary sinus and a new lead was placed
[2019-06-20] MEDS ORDERED: LIDOCAINE 1% INJ 10MG/ML (20 ML MDV) ONE (14:07)
[2019-06-20] MEDS ORDERED: HUMAN PROTHROMBIN COMPLX IV ONE (14:45)
--- NOTE | 2019-06-20 14:50 | P.PCN ---
Preoperative Diagnosis: Pericardiocentesis After completion of the BIV ICD implant, the epigastric area was prepped and draped per protocol. Pericardial centesis was performed using an epicardial needle and the pericardium was successfully accessed. 290 mL of blood was drained and following that the 2-D echo showed no evidence for pericardial effusion. The pigtail catheter was placed and secured to the skin. At connected to the drainage bag K centra 25 mg per KG was administered Hold Plavix Hold ELIQUIS
[2019-06-20] MEDS ORDERED: SODIUM CHLORIDE 0.9% 1,000 ML IV ONE (14:58)
[2019-06-20] MEDS ORDERED: HYDROmorphone 0.5 MG/0.5 ML SYRINGE IVP PRN (15:10)
[2019-06-20] MEDS ORDERED: HYDROmorphone 1 MG/ML 1 ML SYRINGE IVP ONE (15:14)
[2019-06-20] MEDS ORDERED: ACETAMINOPHEN IV (For NPO) 1,000 MG in EMPTY BAG 1 BAG IVPB ONE (15:30)
[2019-06-20] MEDS ORDERED: ONDANSETRON 4 MG/2 ML VIAL IVP PRN (17:54)
[2019-06-20] MEDS: COLCHICINE 0.6 MG EACH PO SCH (18:36)
--- NOTE | 2019-06-20 20:54 | PCN ---
PROCEDURE NOTE This patient is a 63-year-old female who has severe ischemic cardiomyopathy with heart failure, class 2-3, and wide QRS with a left bundle branch block morphology. She was brought in for a biventricular ICD. Patient was brought to the EP lab in a fasting state. Written informed consent was obtained prior to the procedure. The left shoulder area was prepped and draped as per protocol. Lidocaine 1% was used for local anesthesia. A 4 cm incision was made parallel to the deltopectoral groove, about 1.5 cm medial to it. The incision was carried down to the level of the pectoralis muscle. A subfascial pocket was made. Hemostasis was assured. The left axillary vein was accessed at 3 separate points under fluoroscopy, and via appropriately-sized introducer sheaths, 3 leads were positioned. The atrial lead was a Tendril STS model #2088TC, 52 cm in length, and serial #[id number]. P waves 1.9 mV. Pacing impedance 560 ohms. Pacing threshold 0.6 V at 0.8 milliseconds. The RV lead was an Optisure #[id number], 65 cm in length, and serial #[id number]. R- waves were 15.9 mV. Pacing impedance 769 ohms. Pacing threshold 0.5 V at 0.5 milliseconds. High-voltage impedance 52 ohms. This was screwed into the mid RV septum. Coronary sinus access was difficult; however, with the help of a vein selector a guidewire was placed, Advantage, into the coronary sinus. A sheath was placed over it and the lead was placed in the anterior branch successfully. However, when the sheath was being removed the lead dislodged, and a new sheath was placed. A dilator was used with Advantage wire and access was in the coronary sinus. Following this, a lead was placed. However, this lead would not go into the anterior vein. Previously it was very easy to get into the anterior vein, and it seemed that the angioplasty wire was in the pericardium. Therefore a dye injection was made in the coronary vein and there was a small dissection with the contrast filling the pericardial space. The patient's blood pressure ranged was 140 and the lowest blood pressure was about 90 to 100 mmHg briefly. She was given IV fluids and supported with pressors intermittently. Blood pressure remained 110 to 120 mmHg. A new lead was then placed in the lateral vein. This was a Quartet [id number], 86 cm in length, and serial #[id number]. R-waves 13.4 mV. Pacing impedance 350 ohms. Pacing threshold 0.75 V at 0.5 milliseconds. This was a threshold between M2 to RV coil. The lead was then connected to the generator, biventricular ICD Quadra Assura MP model #[id number], serial #[id number]. Leads and the generator were then placed in the subfascial pocket. The wound was closed in 3 layers and dressed per protocol. RESULT: Successful biventricular ICD implantation. Pericardial effusion was noted, but the patient was reasonably stable. PLAN: Reassessment of pericardial effusion and plan for elective pericardial tap and sheath placement of the pericardium. Hold Eliquis and hold Plavix and hold blood pressure medications for now. MMODL / IJN: [id number] /
[2019-06-20] MEDS ORDERED: ATORVASTATIN 80 MG TAB PO SCH (21:00)
[2019-06-20] MEDS: LISINOPRIL 10 MG TAB PO SCH (21:28)
[2019-06-20] MEDS: HYDROcodone/APAP 5-325MG 1 EACH TAB PO PRN (22:56)
[2019-06-21] MEDS: SODIUM CHLORIDE 0.9% 1,000 ML IV SCH (03:56)
[2019-06-21 07:59] LABS: HCT 32.8 % (34.0-46.0); HGB 10.7 gm/dL (11.4-16.0); MCH 30.9 pg (25.0-35.0); MCHC 32.8 g/dL (31.0-37.0); MCV 94.2 fL (80.0-100.0); Mean Platelet Volume 9.2; Platelet Count 142 k/uL (150-450); RBC 3.48 m/uL (3.80-5.40); RDW 15.8 % (11.5-15.5); WBC 7.9 k/uL (3.8-10.6)
[2019-06-21 08:40] LABS: African American GFR (CKD) >90 (>60 ml/min/1.73 sqM); Anion Gap 6 mmol/L; Blood Urea Nitrogen 17 mg/dL (7-17); Calcium 8.5 mg/dL (8.4-10.2); Carbon Dioxide 26 mmol/L (22-30); Chloride 106 mmol/L (98-107); Glucose 123 mg/dL (74-99); Non-African American GFR(CKD) 85 (>60 ml/min/1.73 sqM); Potassium 5.1 mmol/L (3.5-5.1); Sodium 138 mmol/L (137-145)
[2019-06-21] MEDS: HYDROcodone/APAP 5-325MG 1 EACH TAB PO PRN (08:52)
[2019-06-21] MEDS ORDERED: AMIODARONE 100 MG TAB PO SCH (09:00)
[2019-06-21] MEDS ORDERED: SPIRONOLACTONE 25 MG TAB PO SCH (09:00)
[2019-06-21] MEDS ORDERED: METOPROLOL SUCCINATE (ER) 25 MG TAB.ER.24H PO SCH (09:00)
[2019-06-21] MEDS: LISINOPRIL 10 MG TAB PO SCH (09:02)
[2019-06-21] MEDS: COLCHICINE 0.6 MG EACH PO SCH (09:02)
[2019-06-21 09:09] VITALS: RESP 18; TEMP 97.7
--- NOTE | 2019-06-21 10:18 | ECHOF ---
Referral Reason:pericardial effusion MEASUREMENTS -------- HEIGHT: 165.1 cm WEIGHT: 136.1 kg BP: FINDINGS -------- Sinus rhythm. Limited Study Overall left ventricular systolic function is low-normal with, an EF between 50 - 55 %. There is a small, generalized pericardial effusion present. CONCLUSIONS -------- 1. Sinus rhythm. 2. Limited Study 3. Overall left ventricular systolic function is low-normal with, an EF between 50 - 55 %. 4. There is a small, generalized pericardial effusion present. BLEACH RANGE OPERATOR: Estee Espinal RDCS
--- NOTE | 2019-06-21 10:20 | P.GSCN ---
History of Present Illness Consult date: 06/21/19 Reason for Consult: Pericardial effusion Requesting physician: Hair Díaz History of present illness: This is 63-year-old female patient who is followed by Dr. Joselito Gonzalez on an outpatient basis. She has a past medical history significant for ischemic cardiomyopathy, atrial fibrillation, on Eliquis for anticoagulation, class II chronic systolic congestive heart failure, myocardial infarction in November 2018, coronary artery disease status post successful stenting to her left anterior descending coronary artery in November 2018, morbid obesity, dyslipidemia, hypertension, left bundle branch block, family history of coronary artery disease less than 60 years of age, CVA in 2014, history of breast cancer status post left mastectomy, chemotherapy and radiation treatments. Since her myocardial infarction in November 2018 the patient's ejection fraction has been severely reduced to 30% with severe anterior wall akinesis. She reports she has been wearing a LifeVest for the past 3-4 months. The patient reports recently she has had periods of lightheadedness due to some slow heart rhythms. Subseq uently, due to these slow heart rhythms and history of impaired LV function she was scheduled today for an elective biventricular ICD placement. During the procedure she was found to have a small dissection in the coronary vein and subsequent development of a pericardial effusion. While in the device lab a pericardial tap and sheath placement of the pericardium was performed by Dr. Díaz with 290 mL of blood drained and a follow-up 2-D echo showed no evidence of further pericardial effusion. Subsequently, due to the pericardial effusion a consult was placed to Dr. Davenport from cardiothoracic surgery for further evaluation and recommendations. Review of Systems A 14 point review of systems was completed and was negative except as mentioned in the HPI. Past Medical History Past Medical History: Atrial Fibrillation, Coronary Artery Disease (CAD), Cancer, Heart Failure (Class 2-3), CVA/TIA, Hyperlipidemia, Hypertension, Myocardial Infarction (CA) Additional Past Medical History / Comment(s): CVA (MAR 2014)- NO RESIDUAL EFFECTS , LEFT BREAST CANCER. FINISHED CHEMO Sep, HX OF INFECTION FROM IMPLANT WITH DIFFICULTY HEALING.,. 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 No b/p, blood draws left arm, history of LIFE VEST. Last Myocardial Infarction Date:: 12/08/2018 History of Any Multi-Drug Resistant Organisms: None Reported Past Surgical History: Breast Surgery, Section, Heart Catheterization With Stent (11/2018), Pacemaker Additional Past Surgical History / Comment(s): LT MASTECTOMY WITH IMPLANT (INFECTION & REMOVED),. C-SEC X3. MEDI PORT INSERTION-RT CHEST-REMOVED. BREAST BIOPSIES. HEART CATH WITH STENT 11/2018 Past Anesthesia/Blood Transfusion Reactions: Postoperative Nausea & Vomiting (PONV) Additional Past Anesthesia/Blood Transfusion Reaction / Comm: HX OF PONV. Date of Last Stent Placement:: 11/2018 Type of Cardiac Device: Biventricular Pacemaker Device Placement Date:: 06/20/19 Past Psychological History: No Psychological Hx Reported Smoking Status: Never smoker Past Alcohol Use History: Rare Past Drug Use History: None Reported - Past Family History Mother Family Medical History: Cancer, CVA/TIA Additional Family Medical History / Comment(s): BREAST CANCER Father Family Medical History: Cancer, Congestive Heart Failure (CHF), Diabetes Mellitus Additional Family Medical History / Comment(s): CANCER Medications and Allergies Home Medications Medication Instructions Recorded Confirmed Type Letrozole [Femara] 2.5 mg PO QAM 06/06/16 06/20/19 History Acetaminophen/Diphenhydramine 1 tab PO HS 03/15/18 06/20/19 History [Tylenol PM Extra Strength] Apixaban [Eliquis] 5 mg PO BID #60 tab 12/12/18 06/20/19 Rx Atorvastatin [Lipitor] 80 mg PO HS #30 tab 12/12/18 06/20/19 Rx Clopidogrel [Plavix] 75 mg PO DAILY #30 tab 12/12/18 06/20/19 Rx Nitroglycerin Sl Tabs [Nitrostat] 0.4 mg SUBLINGUAL Q5M PRN #25 tab 12/12/18 06/18/19 Rx Spironolactone [Aldactone] 25 mg PO DAILY #30 tab 12/12/18 06/20/19 Rx Amiodarone [Cordarone] 100 mg PO DAILY 06/18/19 06/18/19 History Lisinopril [Zestril] 10 mg PO BID 06/18/19 06/20/19 History Metoprolol Succinate (ER) [Toprol 25 mg PO DAILY 06/18/19 06/20/19 History XL] Allergies Allergy/AdvReac Type Severity Reaction Status Date / Time latex AdvReac Unknown itching Verified 06/18/19 10:10 and tingling ibuprofen [From Motrin] AdvReac Nausea & Verified 06/18/19 10:10 Vomiting phenaphen Allergy Severe Anaphylaxis Uncoded 06/18/19 10:10 blue cheese Allergy Unknown Rash/Hives, Uncoded 06/18/19 10:10 Swelling corn beef Allergy Unknown Rash/Hives, Uncoded 06/18/19 10:10 Swelling Surgical - Exam Vital Signs Temp Pulse Resp BP Pulse Ox 97.8 F 62 16 125/59 95 06/20/19 08:58 06/20/19 08:58 06/20/19 08:58 06/20/19 08:58 06/20/19 08:58 This is a pleasant 63-year-old female patient who is resting comfortably in bed. She is in no acute distress. Remains hemodynamically stable and is afebrile. Oxygen saturations 98% on room air. - General Morbidly obese. well developed, well nourished, no distress, no pain - Eyes PERRL, normal ocular movement - ENT normal pinna, normal nares, normal mucosa, no hearing loss, no congestion, poor half-way - Neck no masses, no bruits, trachea midline, no venous distension - Respiratory Lungs essentially clear throughout. No wheezes, rhonchi or crackles. Respirations are symmetrical and nonlabored. - Cardiovascular Regular rhythm and rate. S1 and S2 present, negative for S3, or gallop. Positive systolic murmur 2/6 heard best at the base. +1 edema to her bilateral lower extremities. Pericardial drain remains in place and to gravity drainage. No drainage present in the drainage collection device. - Abdomen Abdomen soft, nontender and nondistended. Morbidly obese. Active bowel sounds present in all 4 abdominal quadrants. No guarding or rigidity. Abdomen: no organomegaly - Genitourinary Deferred - Rectum Deferred - Integumentary Dressing is clean, dry and in place to the pericardial drain. no rash, no growths, no abnormal pigmentation - Neurologic normal coordination, normal sensation - Musculoskeletal Strength equal bilaterally, generalized weakness. - Psychiatric oriented to time, oriented to person, oriented to place, speech is normal, memory intact Results - Labs 06/21/19 07:00 06/21/19 07:00 Abnormal Lab Results - Last 24 Hours (Table) 06/20/19 06/21/1906/20/20 Range/Units 09:10 07:00 07:00 RBC 3.48 L (3.80-5.40) m/uL Hgb 10.7 L (11.4-16.0) gm/dL Hct 32.8 L (34.0-46.0) % RDW 15.8 H (11.5-15.5) % Plt Count 142 L (150-450) k/uL Carbon Dioxide 21 L (22-30) mmol/L BUN 22 H (7-17) mg/dL Glucose 133 H 123 H (74-99) mg/dL Diabetes panel 06/20/19 06/21/19 Range/Units 09:10 07:00 Sodium 138 138 (137-145) mmol/L Potassium 4.5 5.1 (3.5-5.1) mmol/L Chloride 107 106 (98-107) mmol/L Carbon Dioxide 21 L 26 (22-30) mmol/L BUN 22 H 17 (7-17) mg/dL Creatinine 0.92 0.75 (0.52-1.04) mg/dL Glucose 133 H 123 H (74-99) mg/dL Calcium 8.9 8.5 (8.4-10.2) mg/dL Calcium panel 06/20/19 06/21/19 Range/Units 09:10 07:00 Calcium 8.9 8.5 (8.4-10.2) mg/dL Pituitary panel 06/20/19 06/21/19 Range/Units 09:10 07:00 Sodium 138 138 (137-145) mmol/L Potassium 4.5 5.1 (3.5-5.1) mmol/L Chloride 107 106 (98-107) mmol/L Carbon Dioxide 21 L 26 (22-30) mmol/L BUN 22 H 17 (7-17) mg/dL Creatinine 0.92 0.75 (0.52-1.04) mg/dL Glucose 133 H 123 H (74-99) mg/dL Calcium 8.9 8.5 (8.4-10.2) mg/dL Adrenal panel 06/20/19 06/21/19 Range/Units 09:10 07:00 Sodium 138 138 (137-145) mmol/L Potassium 4.5 5.1 (3.5-5.1) mmol/L Chloride 107 106 (98-107) mmol/L Carbon Dioxide 21 L 26 (22-30) mmol/L BUN 22 H 17 (7-17) mg/dL Creatinine 0.92 0.75 (0.52-1.04) mg/dL Glucose 133 H 123 H (74-99) mg/dL Calcium 8.9 8.5 (8.4-10.2) mg/dL - Imaging Additional studies: Limited bedside 2-D echocardiogram completed this morning and was reviewed by Dr. Díaz at her bedside. Trivial pericardial effusion. Assessment and Plan Assessment: 1. Pericardial effusion, resolved, status post pericardial drain placement 2. Severe ischemic cardiomyopathy with chronic systolic heart failure class 2- 3, status post biventricular ICD placement, history of LifeVest 3. Left bundle branch block 4. Paroxysmal atrial fibrillation, on Eliquis for anticoagulation which is currently on hold for the biventricular ICD placement 5. Hypertension 6. Hyperlipidemia 7. History of myocardial infarction in November 2018, status post stenting of her left anterior descending coronary artery, on Plavix 8. Morbid obesity with a BMI of 42.9 kg/m 9. History of CVA with no residual limiting effects in 2014 10. History of breast cancer status post left mastectomy, chemotherapy and radiation treatments 11. Family history of coronary artery disease less than 60 years of age Plan: The patient was seen and examined Dr. martin on the cardiac stepdown unit. She is in no acute distress. She is hemodynamically stable and is currently on no inotropic or pressor support. She does have a pericardial drain in place with no active drainage to her gravity drainage collection bag. Her case was discussed in detail with Dr. Gurdeep Davenport from cardiothoracic surgery. No surgical intervention is warranted at this time as a pericardial drain was placed in the device lab by Dr. Díaz with 290 mL of bloody drainage remained removed. Anticoagulation management per cardiology recommendations. Agree with [place] as per current orders. A limited echo was completed this morning at the patient's bedside in reviewed in real-time by Dr. Díaz. Subsequently, the pericardial drain was removed by Dr. Díaz. A limited 2-D echo cardiogram will be completed again today at 3 PM, post pericardial drain removal. Okay to be discharged home per the cardiothoracic surgery standpoint when okayed by cardiology. Thank you Dr. Díaz for this consult and we will look for to working with you in the care of this patient. Time with Patient: Greater than 30
--- NOTE | 2019-06-21 10:45 | XR ---
EXAMINATION TYPE: XR chest 1V portable DATE OF EXAM: 06/21/2019 COMPARISON: 12/10/2018 HISTORY: The placement check TECHNIQUE: Single frontal view of the chest is obtained. FINDINGS: New multilead left-sided cardiac device in place. Right atrial lead and 2 ventricular lead s are seen without postprocedural pneumothorax. Coiled tubing overlying the midline lower mediastinal border and left midlung may relate to a thoracostomy tube, overlying tube, or atypical mediastinal d rain. Resolved left basilar airspace disease. Enlarged cardiomediastinal silhouette. Right lung remai ns clear. IMPRESSION: 1. Resolved left pleural effusion and airspace disease. 2. Newly placed 3-lead left-sided cardiac device without postprocedural pneumothorax. 3. Indeterminate pigtail catheter overlying the mediastinal border and left lung.
[2019-06-21 12:00] VITALS: BP 102/55; PULSE 69
--- NOTE | 2019-06-21 12:10 | P.DS ---
Providers Date of admission: 06/20/19 15:06 Attending physician: Hair Díaz Consults: 06/20/19 16:05 Consult Physician Routine Consulting Provider: Gurdeep Davenport Consult Reason/Comments: pericardial effusion Do you want consulting provider notified?: Already Contacted Primary care physician: [facility] Course: Patient is doing well. Her pain has improved. She is not dizzy or lightheaded. No shortness of breath. She is lying comfortably in bed. The ICD site is sore. Minimal soakage no hematoma A 2-D echo, limited study was performed and there was no pericardial effusion. The pericardial drain was removed and the wound was dressed She is receiving IV antibiotics and the last dose is this evening Vitals are stable blood pressure 130/88 mmHg 113/57 mmHg pulse rate is in the 60s and 70s afebrile Breath sounds are reduced bilaterally Heart sounds S1 and S2 are soft no murmurs or gallops Abdomen soft Next and is warm Chest x-ray, no pneumothorax Bi-Metric lysed he was interrogated and is functioning normally thresholds impedances and sensing functions are normal Plan Completion of IV antibiotics Repeat 2-D echo at 3 PM If this does not show any pericardial effusion then she will go home and follow- up with me on Monday in the device clinic Start Plavix and start ELIQUIS on Monday morning Colchicine 0.6 mg by mouth daily for one week Plan - Discharge Summary Discharge Rx Participant: Yes New Discharge Prescriptions: New Colchicine [Colcrys] 0.6 mg PO BID #14 tablet No Action Letrozole [Femara] 2.5 mg PO QAM Acetaminophen/Diphenhydramine [Tylenol PM Extra Strength] 1 tab PO HS Spironolactone [Aldactone] 25 mg PO DAILY #30 tab Apixaban [Eliquis] 5 mg PO BID #60 tab Atorvastatin [Lipitor] 80 mg PO HS #30 tab Nitroglycerin Sl Tabs [Nitrostat] 0.4 mg SUBLINGUAL Q5M PRN #25 tab PRN Reason: Chest Pain Clopidogrel [Plavix] 75 mg PO DAILY #30 tab Metoprolol Succinate (ER) [Toprol XL] 25 mg PO DAILY Lisinopril [Zestril] 10 mg PO BID Amiodarone [Cordarone] 100 mg PO DAILY Discharge Medication List Letrozole [Femara] 2.5 mg PO QAM 06/06/16 [History] Acetaminophen/Diphenhydramine [Tylenol PM Extra Strength] 1 tab PO HS 03/15/18 [History] Apixaban [Eliquis] 5 mg PO BID #60 tab 12/12/18 [Rx] Atorvastatin [Lipitor] 80 mg PO HS #30 tab 12/12/18 [Rx] Clopidogrel [Plavix] 75 mg PO DAILY #30 tab 12/12/18 [Rx] Nitroglycerin Sl Tabs [Nitrostat] 0.4 mg SUBLINGUAL Q5M PRN #25 tab 12/12/18 [Rx] Spironolactone [Aldactone] 25 mg PO DAILY #30 tab 12/12/18 [Rx] Amiodarone [Cordarone] 100 mg PO DAILY 06/18/19 [History] Lisinopril [Zestril] 10 mg PO BID 06/18/19 [History] Metoprolol Succinate (ER) [Toprol XL] 25 mg PO DAILY 06/18/19 [History] Colchicine [Colcrys] 0.6 mg PO BID #14 tablet 06/21/19 [Rx] Follow up Appointment(s)/Referral(s): Hair Díaz MD [STAFF PHYSICIAN] - 1 Week (Device clinic follow-up on Monday afternoon, attention Dr. Díaz Follow-up with Dr. Dr. Campbell in 2-3 weeks) Ethan Campbell MD [STAFF PHYSICIAN] - 3 Weeks Activity/Diet/Wound Care/Special Instructions: PATIENT EDUCATION MATERIAL Instructions following a heart rhythm device implant. 1. Keep dressing DRY for 5 DAYS. You may cover the area with Saran or Cling Wrap, prior to a shower. 2. The dressing will be removed in the Device Clinic at [facility]. Absorbable sutures were used to close the wound. 3. Avoid raising the left arm above the shoulder level. 4 week restriction 4. Avoid arm movements, like backscratching, rubbing the head, or pulling on a cord. 4 weeks restriction 5. Gentle range of motion movements of the shoulder, closest to the incision should be performed to avoid a frozen shoulder. (Pendulum exercises of the shoulder) 6. The opposite arm may be used freely. 7. Avoid driving for 7 days. 8. Avoid activities such as golfing, swimming, weed whacking, lifting more than 10 pounds weight, bowling, gymnastics and weight training/lifting. (6 weeks restriction) 9. Activities such as wood chopping with an axe, pull-ups in the gymnasium, power lifting, arc-welding, being close to home induction cooktops will always be a problem. 10. Arm sling is only a reminder not to raise the arm above the head. You do not need to keep the arm completely immobilized. Your free to move the arm and use it and for normal activities. In case of any problems, please call [facility], [place], @ [phone], Attention: Device Clinic Device clinic follow-up next week on Monday afternoon Follow-up with primary paper reclaiming machine operator in 2-3 weeks Colchicine 0.6 mg by mouth daily Restart Plavix and ELIQUIS on Monday morning Continue all other medications unchanged
--- NOTE | 2019-06-21 14:31 | CDI ---
Documentation Clarification Form Date: 06/21/2019 12:25:46 PM From: Sakshi Ewing RN CCDS Admit Date: 06/20/2019 03:06:00 PM Patient Name: Mary Wilson Visit Number: [id number] Discharge Date: ATTENTION: The Clinical Documentation Specialists (CDI) and [facility] Coding Staff appreciate your assistance in clarifying documentation. Please respond to the clarification below the line at the bottom and electronically sign. The CDI & [facility] Coding staff will review the response and follow-up if needed. Please note: Queries are made part of the Legal Health Record. If you have any questions, please contact the author of this message via ITS. Dr. 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 Patients Admitting Diagnosis: Severe ischemic cardiomyopathy with heart failure, class 2-3 and wide QRS with left bundle branch block morphology. Post-Operative Diagnosis: Successful biventricular ICD implantation. Pericardial effusion was noted, but patient was reasonably stable. Procedure performed: Biventricular ICD History/Risk Factors: 63-year-old female presented for an elective Biventricular ICD. History of Severe ischemic cardiomyopathy with heart failure, class 2-3 and wide QRS with left bundle branch block morphology. Has been wearing a life vest for 3-4 months. Clinical Indicators: Per procedure note However, this lead would not go into the anterior vein. Previously it was very easy to get into the anterior vein, and it seemed that the angioplasty wire was in the pericardium. Therefore, a dye injection was made in the coronary vein and there was a small dissection with the contrast filling the pericardial space. 290 mL of blood drained. Treatment: Pericardiocentesis with a pigtail catheter and sheath placement of the pericardium. Procedure note She was given IV fluids and supported with pressors intermittently 06/20 Cardio Thoracic Sx Consult Pericardial effusion, resolved status post pericardial drain placement. In order to accurately reflect this patients severity of illness, please clarify if the coronary vein dissection and resulting pericardial effusion. -are a complication of surgical procedure -are an expected outcome of the surgical procedure -an unexpected outcome related to the patients co-morbid conditions (please specify) -Other, (please specify) -Unable to determine (Last Revision: March 2019) Complication of procedure MTDD
--- NOTE | 2019-06-22 11:49 | ECHOF ---
Referral Reason:Evaluate Pericardial effusion MEASUREMENTS -------- HEIGHT: 165.1 cm WEIGHT: 116.6 kg BP: IVSd: 1.3 cm (0.6 - 1.1) LVIDd: 5.7 cm (3.9 - 5.3) LVPWd: 1.3 cm (0.6 - 1.1) RAP: 5.00 mmHg RVSP: 18.87 mmHg FINDINGS -------- Paced rhythm. Overall left ventricular systolic function is low-normal with, an EF between 50 - 55 %. There is a small pericardial effusion located near the left ventricle. CONCLUSIONS -------- 1. Paced rhythm. 2. Overall left ventricular systolic function is low-normal with, an EF between 50 - 55 %. 3. There is a small pericardial effusion located near the left ventricle. [employer]: [employer] [facility]
--- NOTE | 2019-06-26 14:00 | ECHOF ---
Referral Reason:PERICARDIAL EFFUSION MEASUREMENTS -------- HEIGHT: 0.0 cm WEIGHT: 0.0 kg BP: FINDINGS -------- Sinus rhythm. Limited Study There is no pericardial effusion. CONCLUSIONS -------- 1. Sinus rhythm. 2. Limited Study 3. There is no pericardial effusion. PMP PROJECT MANAGER: Ratna James ERIC
== END 2019-06-21 17:22 | disposition home or self-care (01) | DRG 227 ==
LOC: CATHEP 08:37 → 3SCARD 15:06
PROVIDERS: ADMIT Internal Medicine Clinical Cardiac Electrophysiology; ATTEND Internal Medicine Clinical Cardiac Electrophysiology
PROC: 0W9D3ZZ Drainage of Pericardial Cavity, Percutaneous Approach (ICD-10-PCS; 2019-06-20)
PROC: B5171ZZ Fluoroscopy of Left Subclavian Vein using Low Osmolar Contrast (ICD-10-PCS; 2019-06-20)
PROC: 0JH609Z Insertion of Cardiac Resynchronization Defibrillator Pulse Generator into Chest Subcutaneous Tissue and Fascia, Open Approach (ICD-10-PCS; principal; 2019-06-20 10:00)
PROC: 02HK3KZ Insertion of Defibrillator Lead into Right Ventricle, Percutaneous Approach (ICD-10-PCS; 2019-06-20 10:00)
PROC: 02H63KZ Insertion of Defibrillator Lead into Right Atrium, Percutaneous Approach (ICD-10-PCS; 2019-06-20 10:00)
DX: I11.0 Hypertensive heart disease with heart failure (principal); I31.3 Pericardial effusion (noninflammatory); Z68.41 Body mass index [BMI] 40.0-44.9, adult; I97.51 Accidental puncture and laceration of a circulatory system organ or structure during a circulatory system procedure; I50.22 Chronic systolic (congestive) heart failure; Z11.59 Encounter for screening for other viral diseases; I27.29 Other secondary pulmonary hypertension; G62.0 Drug-induced polyneuropathy; E66.01 Morbid (severe) obesity due to excess calories; I48.0 Paroxysmal atrial fibrillation; I25.10 Atherosclerotic heart disease of native coronary artery without angina pectoris; I25.5 Ischemic cardiomyopathy; I08.1 Rheumatic disorders of both mitral and tricuspid valves; E78.2 Mixed hyperlipidemia; I44.7 Left bundle-branch block, unspecified; Y65.8 Other specified misadventures during surgical and medical care; T45.1X5A Adverse effect of antineoplastic and immunosuppressive drugs, initial encounter; I25.2 Old myocardial infarction; Z79.01 Long term (current) use of anticoagulants; Z79.899 Other long term (current) drug therapy; Z79.02 Long term (current) use of antithrombotics/antiplatelets; Z86.73 Personal history of transient ischemic attack (TIA), and cerebral infarction without residual deficits; Z90.12 Acquired absence of left breast and nipple; Z85.3 Personal history of malignant neoplasm of breast; Z92.3 Personal history of irradiation; Z92.21 Personal history of antineoplastic chemotherapy; Z95.5 Presence of coronary angioplasty implant and graft; Z98.890 Other specified postprocedural states; Z88.6 Allergy status to analgesic agent; Z91.040 Latex allergy status; Z88.8 Allergy status to other drugs, medicaments and biological substances; Z91.018 Allergy to other foods; Z80.3 Family history of malignant neoplasm of breast; Z83.3 Family history of diabetes mellitus; Z82.49 Family history of ischemic heart disease and other diseases of the circulatory system; Z82.3 Family history of stroke
CPT/HCPCS: 33225; 33249; 71045; 80048; 85025; 85027; 86850; 86900; 86901; 87635; 93308

== ENCOUNTER 2019-06-21 20:18 | Inpatient (IN) | payer OTHER ==
--- NOTE | 2019-06-21 20:36 | ED ---
General Adult HPI - General Chief complaint: Chest Pain Stated complaint: Chest Pain Time Seen by Provider: 06/21/19 20:20 Source: patient, EMS, RN notes reviewed, old records reviewed Mode of arrival: EMS Limitations: no limitations - History of Present Illness Initial comments: This a 63-year-old female with past medical history significant for atrial fibrillation. Patient states she had a pacemaker defibrillator placed yesterday. Patient states today at about 7:45 she was standing and lifting and moving and all of a sudden his defibrillator shocked her. Patient states shocked her about 1516 times and when she got in the emergency never shocked her again. Patient states she has no chest pain or difficulty breathing currently. Patient denies any palpitations. Patient denies any recent fever chills. Patient states currently she is asymptomatic. Patient denies any other problems. - Related Data Home Medications Medication Instructions Recorded Confirmed Letrozole [Femara] 2.5 mg PO QAM 06/06/16 06/20/19 Acetaminophen/Diphenhydramine 1 tab PO HS 03/15/18 06/20/19 [Tylenol PM Extra Strength] Amiodarone [Cordarone] 100 mg PO DAILY 06/18/19 06/18/19 Lisinopril [Zestril] 10 mg PO BID 06/18/19 06/20/19 Metoprolol Succinate (ER) [Toprol 25 mg PO DAILY 06/18/19 06/20/19 XL] Previous Rx's Medication Instructions Recorded Apixaban [Eliquis] 5 mg PO BID #60 tab 12/12/18 Atorvastatin [Lipitor] 80 mg PO HS #30 tab 12/12/18 Clopidogrel [Plavix] 75 mg PO DAILY #30 tab 12/12/18 Nitroglycerin Sl Tabs [Nitrostat] 0.4 mg SUBLINGUAL Q5M PRN #25 tab 12/12/18 Spironolactone [Aldactone] 25 mg PO DAILY #30 tab 12/12/18 Colchicine [Colcrys] 0.6 mg PO BID #14 tablet 06/21/19 Allergies Allergy/AdvReac Type Severity Reaction Status Date / Time latex AdvReac Unknown itching Verified 06/18/19 10:10 and tingling ibuprofen [From Motrin] AdvReac Nausea & Verified 06/18/19 10:10 Vomiting phenaphen Allergy Severe Anaphylaxis Uncoded 06/18/19 10:10 blue cheese Allergy Unknown Rash/Hives, Uncoded 06/18/19 10:10 Swelling corn beef Allergy Unknown Rash/Hives, Uncoded 06/18/19 10:10 Swelling Review of Systems ROS Statement: Those systems with pertinent positive or pertinent negative responses have been documented in the HPI. ROS Other: All systems not noted in ROS Statement are negative. Past Medical History Past Medical History: Atrial Fibrillation, Coronary Artery Disease (CAD), Cancer, Heart Failure, CVA/TIA, Hyperlipidemia, Hypertension, Myocardial Infarction ([place]) Additional Past Medical History / Comment(s): CVA (MAR 2014)- NO RESIDUAL EFFECTS , LEFT BREAST CANCER. FINISHED CHEMO Sep, HX OF INFECTION FROM IMPLANT WITH DIFFICULTY HEALING.,. 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 No b/p, blood draws left arm, history of LIFE VEST. Last Myocardial Infarction Date:: 12/08/2018 History of Any Multi-Drug Resistant Organisms: None Reported Past Surgical History: Breast Surgery, Section, Heart Catheterization With Stent, Pacemaker Additional Past Surgical History / Comment(s): LT MASTECTOMY WITH IMPLANT ( INFECTION & REMOVED),. C-SEC X3. MEDI PORT INSERTION-RT CHEST-REMOVED. BREAST BIOPSIES. HEART CATH WITH STENT 11/2018 Past Anesthesia/Blood Transfusion Reactions: Postoperative Nausea & Vomiting (PONV) Additional Past Anesthesia/Blood Transfusion Reaction / Comment(s): HX OF PONV. Date of Last Stent Placement:: 11/2018 Type of Cardiac Device: Biventricular Pacemaker Device Placement Date:: 06/20/19 Past Psychological History: No Psychological Hx Reported Smoking Status: Never smoker Past Alcohol Use History: Rare Past Drug Use History: None Reported - Past Family History Mother Family Medical History: Cancer, CVA/TIA Additional Family Medical History / Comment(s): BREAST CANCER Father Family Medical History: Cancer, Congestive Heart Failure (CHF), Diabetes Mellitus Additional Family Medical History / Comment(s): CANCER General Exam - General Exam Comments Initial Comments: GENERAL: Patient is well-developed and well-nourished. Patient is nontoxic and well- hydrated and is in mild distress. ENT: Neck is soft and supple. No significant lymphadenopathy is noted. Oropharynx is clear. Moist mucous membranes. Neck has full range of motion without brisa citing any pain. EYES: The sclera were anicteric and conjunctiva were pink and moist. Extraocular movements were intact and pupils were equal round and reactive to light. Eyelids were unremarkable. PULMONARY: Unlabored respirations. Good breath sounds bilaterally. No audible rales rhonchi or wheezing was noted. CARDIOVASCULAR: There is a regular rate and rhythm without any murmurs gallops or rubs. Over the pacemaker site does not show any signs of erythema. ABDOMEN: Soft and nontender with normal bowel sounds. SKIN: Skin is clear with no lesions or rashes and otherwise unremarkable. NEUROLOGIC: Patient is alert and oriented x3. Cranial nerves II through XII are grossly int act. Motor and sensory are also intact. Normal speech, volume and content. Symmetrical smile. MUSCULOSKELETAL: Normal extremities with adequate strength and full range of motion. LYMPHATICS: No significant lymphadenopathy is noted PSYCHIATRIC: Normal psychiatric evaluation. Limitations: no limitations Course Vital Signs 06/21/19 20:22 Temperature 98.4 F Pulse Rate 120 H Respiratory 20 Rate Blood Pressure 119/73 O2 Sat by Pulse 96 Oximetry Medical Decision Making - Medical Decision Making EKG shows electronically paced rhythm at 118 bpm QRS is 120 QT interval 322 QTC is 451. Review of the patient's defibrillator interrogated and it shows that she was shocked multiple times. I spoke with Dr. Portillo he agreed to admit the patient admitted the patient I started the patient on amiodarone. - Lab Data Result diagrams: 06/21/19 20:42 06/21/19 20:42 Lab Results 06/21/19 06/21/19 06/21/19 Range/Units 20:42 20:42 20:42 WBC 7.1 (3.8-10.6) k/uL RBC 3.41 L (3.80-5.40) m/uL Hgb 10.7 L (11.4-16.0) gm/dL Hct 32.2 L (34.0-46.0) % MCV 94.5 (80.0-100.0) fL MCH 31.3 (25.0-35.0) pg MCHC 33.1 (31.0-37.0) g/dL RDW 15.9 H (11.5-15.5) % Plt Count 126 L (150-450) k/uL Neutrophils % 68 % Lymphocytes % 25 % Monocytes % 6 % Eosinophils % 1 % Basophils % 0 % Neutrophils # 4.8 (1.3-7.7) k/uL Lymphocytes # 1.7 (1.0-4.8) k/uL Monocytes # 0.4 (0-1.0) k/uL Eosinophils # 0.1 (0-0.7) k/uL Basophils # 0.0 (0-0.2) k/uL PT 10.4 (9.0-12.0) sec INR 1.0 (<1.2) APTT 21.6 L (22.0-30.0) sec Sodium 135 L (137-145) mmol/L Potassium 4.3 (3.5-5.1) mmol/L Chloride 103 (98-107) mmol/L Carbon Dioxide 24 (22-30) mmol/L Anion Gap 8 mmol/L BUN 15 (7-17) mg/dL Creatinine 0.85 (0.52-1.04) mg/dL Est GFR (CKD-EPI)AfAm 85 (>60 ml/min/1.73 sqM) Est GFR (CKD-EPI)NonAf 73 (>60 ml/min/1.73 sqM) Glucose 146 H (74-99) mg/dL Calcium 8.5 (8.4-10.2) mg/dL Magnesium 1.6 (1.6-2.3) mg/dL Total Bilirubin 1.0 (0.2-1.3) mg/dL AST 23 (14-36) U/L ALT 19 (4-34) U/L Alkaline Phosphatase 66 (38-126) U/L Troponin I (0.000-0.034) ng/mL Total Protein 5.9 L (6.3-8.2) g/dL Albumin 3.5 (3.5-5.0) g/dL 06/21/19 Range/Units 20:42 WBC (3.8-10.6) k/uL RBC (3.80-5.40) m/uL Hgb (11.4-16.0) gm/dL Hct (34.0-46.0) % MCV (80.0-100.0) fL MCH (25.0-35.0) pg MCHC (31.0-37.0) g/dL RDW (11.5-15.5) % Plt Count (150-450) k/uL Neutrophils % % Lymphocytes % % Monocytes % % Eosinophils % % Basophils % % Neutrophils # (1.3-7.7) k/uL Lymphocytes # (1.0-4.8) k/uL Monocytes # (0-1.0) k/uL Eosinophils # (0-0.7) k/uL Basophils # (0-0.2) k/uL PT (9.0-12.0) sec INR (<1.2) APTT (22.0-30.0) sec Sodium (137-145) mmol/L Potassium (3.5-5.1) mmol/L Chloride (98-107) mmol/L Carbon Dioxide (22-30) mmol/L Anion Gap mmol/L BUN (7-17) mg/dL Creatinine (0.52-1.04) mg/dL Est GFR (CKD-EPI)AfAm (>60 ml/min/1.73 sqM) Est GFR (CKD-EPI)NonAf (>60 ml/min/1.73 sqM) Glucose (74-99) mg/dL Calcium (8.4-10.2) mg/dL Magnesium (1.6-2.3) mg/dL Total Bilirubin (0.2-1.3) mg/dL AST (14-36) U/L ALT (4-34) U/L Alkaline Phosphatase (38-126) U/L Troponin I 0.271 H* (0.000-0.034) ng/mL Total Protein (6.3-8.2) g/dL Albumin (3.5-5.0) g/dL Critical Care Time Critical Care Time: Yes Total Critical Care Time: 35 Disposition Clinical Impression: V tach, Defibrillator discharge Disposition: ADMITTED IP TO THIS HOSP Referrals: Tu Gonzalez MD [Primary Care Provider] - 1-2 days Time of Disposition: 22:35
[2019-06-21 21:05] LABS: Basophils % (A) 0 %; Eosinophils # (A) 0.1 k/uL (0-0.7); Eosinophils % (A) 1 %; HCT 32.2 % (34.0-46.0); HGB 10.7 gm/dL (11.4-16.0); Lymphocytes # (A) 1.7 k/uL (1.0-4.8); Lymphocytes % (A) 25 %; MCH 31.3 pg (25.0-35.0); MCHC 33.1 g/dL (31.0-37.0); MCV 94.5 fL (80.0-100.0); Mean Platelet Volume 9.4; Monocytes # (A) 0.4 k/uL (0-1.0); Monocytes % (A) 6 %; Neutrophils # (A) 4.8 k/uL (1.3-7.7); Neutrophils % (A) 68 %; Platelet Count 126 k/uL (150-450); RBC 3.41 m/uL (3.80-5.40); RDW 15.9 % (11.5-15.5); WBC 7.1 k/uL (3.8-10.6)
--- NOTE | 2019-06-21 21:12 | XR ---
EXAMINATION TYPE: XR chest 2V DATE OF EXAM: 06/21/2019 COMPARISON: Today HISTORY: Chest pain Heart and mediastinum are within normal limits. Lungs are clear of infiltrate. There is a left axill juan m pacemaker. There are chest leads. There is no evidence of pleural effusion. Bony thorax is intact pulmonary vascularity is normal. IMPRESSION: No active cardiopulmonary disease. Normal heart. No change.
[2019-06-21 21:15] LABS: Albumin 3.5 g/dL (3.5-5.0); Calcium 8.5 mg/dL (8.4-10.2); Magnesium 1.6 mg/dL (1.6-2.3); Potassium 4.3 mmol/L (3.5-5.1); Total Protein 5.9 g/dL (6.3-8.2)
[2019-06-21 21:38] LABS: Partial Thromboplastin Time 21.6 sec (22.0-30.0); Prothrombin Time 10.4 sec (9.0-12.0)
[2019-06-21] MEDS ORDERED: AMIODARONE 360 MG in DEXTROSE 5% IN WATER 200 ML IV ONE ×2 (22:45)
[2019-06-21] MEDS ORDERED: DEXTROSE 5% IN WATER 100 ML with AMIODARONE 150 MG IV ONE (22:45)
[2019-06-22] MEDS: AMIODARONE 300 MG in DEXTROSE 5% IN WATER 250 ML IV SCH ×4 (04:56→14:43)
--- NOTE | 2019-06-22 13:31 | P.CRDCN ---
History of Present Illness Consult date: 06/22/19 Requesting physician: Sam Clark Chief complaint: AICD discharge History of present illness: This is a pleasant 63-year-old female with history of breast cancer and prior mastectomy, hypertension, hyperlipidemia, coronary artery disease for which the patient underwent LAD stenting in November of last year, her echo at that time revealed severe LV dysfunction with an ejection fraction of less than 20%. Patient also has a history of paroxysmal atrial fibrillation. Patient had a LifeVest in place since her admission in November, her echo continued to reveal severe cardiomyopathy and for this reason she was brought into the hospital earlier this week, to undergo implantation of a biventricular ICD. This was performed by Dr. Díaz. Yesterday the patient was discharged home. While at home, the patient states that she was lifting and moving some items when all of a sudden her defibrillator went off. According to the patient, it felt like her defibrillator shocks her multiple times. She denied any palpitations, no chest discomfort, no difficulty in breathing, no dizziness or lightheadedness. Her device wasn't interrogated on arrival here, also reviewed by Dr. Allred and Dr. Díaz, it was felt that the AICD discharged for atrial fibrillation with rapid ventricular response. The patient was initiated on IV amiodarone on arrival here. She continues to be on that this morning. At the time of my examination, she is quite uncomfortable, her chest feels bruised according to her. Breathing is overall stable. Chest x-ray on presentation here did not reveal any active cardiopulmonary disease. Her EKG showed a ventricular paced rhythm with underlying atrial fibrillation. This morning she is currently in a normal sinus rhythm. Blood pressure 120/60 with a heart rate in the 60s this morning. Afebrile. White blood cell count 7.9, hemoglobin 10.7, platelet count 142. Sodium 138, potassium 5.1, BUN 17, creatinine 0.7. Troponin 0.27. Alexandra virus not detected. Past Medical History Past Medical History: Atrial Fibrillation, Coronary Artery Disease (CAD), Cancer, Heart Failure, CVA/TIA, Hyperlipidemia, Hypertension, Myocardial In farction ([place]) Additional Past Medical History / Comment(s): CVA (MAR 2014)- NO RESIDUAL EFFECTS , LEFT BREAST CANCER. FINISHED CHEMO Sep, HX OF INFECTION FROM IMPLANT WITH DIFFICULTY HEALING.,. 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 No b/p, blood draws left arm, history of LIFE VEST. Last Myocardial Infarction Date:: 12/08/2018 History of Any Multi-Drug Resistant Organisms: None Reported Past Surgical History: Breast Surgery, Section, Heart Catheterization With Stent, Pacemaker Additional Past Surgical History / Comment(s): LT MASTECTOMY WITH IMPLANT (INFECTION & REMOVED),. C-SEC X3. MEDI PORT INSERTION-RT CHEST-REMOVED. BREAST BIOPSIES. HEART CATH WITH STENT 11/2018 Past Anesthesia/Blood Transfusion Reactions: Postoperative Nausea & Vomiting (PONV) Additional Past Anesthesia/Blood Transfusion Reaction / Comment(s): HX OF PONV. Date of Last Stent Placement:: 11/2018 Type of Cardiac Device: Biventricular Pacemaker, Permanent Pacemaker, AICD Device Placement Date:: 06/20/19 Past Psychological History: No Psychological Hx Reported Smoking Status: Never smoker Past Alcohol Use History: Rare Past Drug Use History: None Reported - Past Family History Mother Family Medical History: Cancer, CVA/TIA Additional Family Medical History / Comment(s): BREAST CANCER Father Family Medical History: Cancer, Congestive Heart Failure (CHF), Diabetes Mellitus Additional Family Medical History / Comment(s): CANCER Medications and Allergies Home Medications Medication Instructions Recorded Confirmed Type Letrozole [Femara] 2.5 mg PO QAM 06/06/16 06/20/19 History Acetaminophen/Diphenhydramine 1 tab PO HS 03/15/18 06/20/19 History [Tylenol PM Extra Strength] Apixaban [Eliquis] 5 mg PO BID #60 tab 12/12/18 06/20/19 Rx Atorvastatin [Lipitor] 80 mg PO HS #30 tab 12/12/18 06/20/19 Rx Clopidogrel [Plavix] 75 mg PO DAILY #30 tab 12/12/18 06/20/19 Rx Nitroglycerin Sl Tabs [Nitrostat] 0.4 mg SUBLINGUAL Q5M PRN #25 tab 12/12/18 06/18/19 Rx Spironolactone [Aldactone] 25 mg PO DAILY #30 tab 12/12/18 06/20/19 Rx Amiodarone [Cordarone] 100 mg PO DAILY 06/18/19 06/18/19 History Lisinopril [Zestril] 10 mg PO BID 06/18/19 06/20/19 History Metoprolol Succinate (ER) [Toprol 25 mg PO DAILY 06/18/19 06/20/19 History XL] Colchicine [Colcrys] 0.6 mg PO BID #14 tablet 06/21/19 Rx Allergies Allergy/AdvReac Type Severity Reaction Status Date / Time latex AdvReac Unknown itching Verified 06/18/19 10:10 and tingling ibuprofen [From Motrin] AdvReac Nausea & Verified 06/18/19 10:10 Vomiting phenaphen Allergy Severe Anaphylaxis Uncoded 06/18/19 10:10 blue cheese Allergy Unknown Rash/Hives, Uncoded 06/18/19 10:10 Swelling corn beef Allergy Unknown Rash/Hives, Uncoded 06/18/19 10:10 Swelling Physical Exam Vitals: Vital Signs Temp Pulse Pulse Pulse Resp BP BP 06/22/19 12:00 98.6 F 65 62 18 119/62 06/22/19 08:00 98.2 F 111 H 119 H 18 111/66 06/22/19 04:15 98.0 F 99 18 105/62 06/22/19 02:46 98.0 F 104 H 20 126/69 06/21/19 22:54 98.6 F 116 H 18 128/67 06/21/19 22:26 123 H 18 119/86 06/21/19 20:22 98.4 F 120 H 20 119/73 Pulse Ox 06/22/19 12:00 99 06/22/19 08:00 97 06/22/19 04:15 100 06/22/19 02:46 100 06/21/19 22:54 100 06/21/19 22:26 99 06/21/19 20:22 96 Intake and Output 06/21/19 06/22/19 06/22/19 22:59 06:59 14:59 Intake Total 480 Balance 480 Intake: Oral 480 Other: # Voids 1 3 Weight 136.078 kg 136.6 kg PHYSICAL EXAMINATION: GENERAL: 63-year-old female in no acute distress at the time of my examination HEENT: Head is atraumatic, normocephalic. Pupils equal, round. Sclera anicteric. Conjunctiva are clear. Mucous membranes of the mouth are moist. Neck is supple. There is no elevated jugular venous pressure. No carotid bruit is heard. HEART EXAMINATION: Heart S1, S2 normal. No murmur or gallop heard. CHEST EXAMINATION: Lungs are clear to auscultation and precussion. No chest wall tenderness is noted on palpation or with deep breathing. Site of device implantation, dressing is dry and intact. Status post mastectomy ABDOMEN: Soft, nontender. Bowel sounds are heard. No organomegaly noted. EXTREMITIES: 2+ peripheral pulses with no evidence of peripheral edema and no calf tenderness noted. NEUROLOGIC patient is awake, alert and oriented 3 . . Results 06/21/19 20:42 06/21/19 20:42 Cardiac Enzymes 06/21/19 06/21/19 Range/Units 20:42 20:42 AST 23 (14-36) U/L Troponin I 0.271 H* (0.000-0.034) ng/mL Coagulation 06/21/19 Range/Units 20:42 PT 10.4 (9.0-12.0) sec APTT 21.6 L (22.0-30.0) sec CBC 06/21/19 Range/Units 20:42 WBC 7.1 (3.8-10.6) k/uL RBC 3.41 L (3.80-5.40) m/uL Hgb 10.7 L (11.4-16.0) gm/dL Hct 32.2 L (34.0-46.0) % Plt Count 126 L (150-450) k/uL Comprehensive Metabolic Panel 06/21/19 Range/Units 20:42 Sodium 135 L (137-145) mmol/L Potassium 4.3 (3.5-5.1) mmol/L Chloride 103 (98-107) mmol/L Carbon Dioxide 24 (22-30) mmol/L BUN 15 (7-17) mg/dL Creatinine 0.85 (0.52-1.04) mg/dL Glucose 146 H (74-99) mg/dL Calcium 8.5 (8.4-10.2) mg/dL AST 23 (14-36) U/L ALT 19 (4-34) U/L Alkaline Phosphatase 66 (38-126) U/L Total Protein 5.9 L (6.3-8.2) g/dL Albumin 3.5 (3.5-5.0) g/dL Current Medications Generic Name Dose Route Start Last Admin Trade Name Freq PRN Reason Stop Dose Admin Apixaban 5 mg 06/22/19 21:00 Eliquis PO BID [facility] Atorvastatin Calcium 80 mg 06/22/19 21:00 Lipitor PO HS KALEB Clopidogrel Bisulfate 75 mg 06/23/19 09:00 Plavix PO DAILY KALEB Colchicine 0.6 mg 06/22/19 21:00 Colcrys PO BID KALEB Amiodarone HCl 300 mg/ 250 mls @ 25 mls/hr 06/22/19 05:00 06/22/19 04:56 Dextrose/Water IV 06/22/19 22:59 0.5 mg/min .Q10H KALEB 25 mls/hr Administration Protocol 0.5 MG/MIN Metoprolol Succinate 50 mg 06/23/19 09:00 Toprol Xl PO DAILY KALEB Spironolactone 25 mg 06/23/19 09:00 Aldactone PO DAILY KALEB Intake and Output 06/21/19 06/22/19 06/22/19 22:59 06:59 14:59 Intake Total 480 Balance 480 Intake: Oral 480 Other: # Voids 1 3 Weight 136.078 kg 136.6 kg 06/21/19 20:42 06/21/19 20:42 EKG Interpretations (text) EKG shows a paced rhythm with underlying atrial fibrillation Assessment and Plan Plan: Assessment and plan #1 AICD discharge, multiple shocks, for what appears to be atrial fibrillation with rapid ventricular response #2 ischemic cardiomyopathy status post implantation of a bi-V device 2 days ago #3 coronary artery disease with prior LAD stenting #4 hypertension #5 hyperlipidemia #6 paroxysmal atrial fibrillation Plan Patient is currently on IV amiodarone drip which we will continue, once the drip is completed we will start the patient on amiodarone 600 mg daily for one week, then we will taper this down. We will increase her dose of metoprolol to 50 mg and decrease lisinopril to 5 mg. Continue to monitor the patient for 24-48 hours. DNP note has been reviewed, I agree with a documented findings and plan of care. Patient was seen and examined.
--- NOTE | 2019-06-22 16:17 | P.HPIM ---
History of Present Illness H&P Date: 06/22/19 Chief Complaint: AICD firing History of presenting complaint: This is a pleasant 63-year-old patient of Dr. Gonzalez. Chronic stable medical conditions include coronary artery disease with stent, congestive heart failure, hyperlipidemia, hypertension, chemotherapy related peripheral neuropathy. The lead was dislodged and a new one was placed. A limited echocardiogram did show effusion. A pericardiocentesis was done and 290 mL of blood was drained. A pigtail catheter was placed. Patient did receive some K centra. The pigtail catheter was subsequently removed and patient was discharged home yesterday evening. Patient now presents with multiple episodes of AICD firing. Just feels a bit tired and rundown no dizziness no lightheadedness. Presents to the ER. Review of systems: GEN.: Tired EYES: None HEENT: None NECK: None RESPIRATORY: None CARDIOVASCULAR: As above GASTROINTESTINAL: None GENITOURINARY: None MUSCULOSKELETAL: Some joint pains LYMPHATICS: None HEMATOLOGICAL: None PSYCHIATRY: Slightly anxious] NEUROLOGICAL: None Past medical history to include: Atrial fibrillation, coronary artery disease with stent, congestive heart failure, hyperlipidemia, hypertension, stroke in 2049 with noticeable, left breast cancer with chemotherapy, chemotherapy related peripheral neuropathy, left mastectomy. Biventricular pacemaker placement June 19. Social history: No smoking. Alcohol rarely. Physical examination: VITAL SIGNS: 97.7, 74, 18, 130/88, 98% on room air GENERAL: BMI 50.1, laying in bed, tired. EYES: Pupils equal. Conjunctiva normal. HEENT: External appearance of nose and ears normal, oral cavity grossly normal. NECK: JVD not raised; masses not palpable. HEART: First and second heart sounds are normal; no edema. LUNGS: Respiratory rate normal; clear to auscultation. ABDOMEN: Soft, nontender, liver spleen not palpable, no masses palpable. CHEST wall: Left infraclavicular AICD placed with the dressing in place PSYCH: Alert and oriented x3; mood and affect normal. NEUROLOGICAL: Cranial nerves grossly intact; no facial asymmetry, power and sensation grossly intact. LYMPHATICS: No lymph nodes palpable in the axilla and neck INVESTIGATIONS, reviewed in the clinical context: White count 7.9 hemoglobin 10.7 platelets 140 to percussion 5.1 bun 17 creatinine 0.75 COVID-19 PCR-not detected. 2-D echocardiogram-small pericardial effusion EF 50-55% EKG tracing personally reviewed by me-irregular, paced rhythm Chest x-ray film personally reviewed by me-some cardiomegaly, lung appiah are clear Previous testing: Hemoglobin was 12.4 on June 19 Assessment: -Recurrent AICD firing in a patient with a AICD placed on June 19 -AICD placement on June 19. Subsequently had secondary hemopericardium that was drained with a pigtail catheter. Before discharge. -Coronary artery disease with history of stent -Hyperlipidemia -Essential hypertension -Peripheral neuropathy secondary to chemotherapy -Morbid obesity BMI 50.1 -Atrial fibrillation with rapid ventricular response resulted in multiple AICD firings. Plan: Home medications resumed. Patient was discharged on colchicine which will be continued. Cardiology was consulted. Patient was put on IV amiodarone initially. Because of beta blockers be increased. Care was discussed with the patient. Past Medical History Past Medical History: Atrial Fibrillation, Coronary Artery Disease (CAD), Cancer, Heart Failure, CVA/TIA, Hyperlipidemia, Hypertension, Myocardial Infarction ([place]) Additional Past Medical History / Comment(s): CVA (MAR 2014)- NO RESIDUAL EFFECTS , LEFT BREAST CANCER. FINISHED CHEMO Sep, HX OF INFECTION FROM IMPLANT WITH DIFFICULTY HEALING.,. 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 No b/p, blood draws left arm, history of LIFE VEST. Last Myocardial Infarction Date:: 12/08/2018 History of Any Multi-Drug Resistant Organisms: None Reported Past Surgical History: Breast Surgery, Section, Heart Catheterization With Stent, Pacemaker Additional Past Surgical History / Comment(s): LT MASTECTOMY WITH IMPLANT (INFECTION & REMOVED),. C-SEC X3. MEDI PORT INSERTION-RT CHEST-REMOVED. BREAST BIOPSIES. HEART CATH WITH STENT 11/2018 Past Anesthesia/Blood Transfusion Reactions: Postoperative Nausea & Vomiting (PONV) Additional Past Anesthesia/Blood Transfusion Reaction / Comment(s): HX OF PONV. Date of Last Stent Placement:: 11/2018 Type of Cardiac Device: Biventricular Pacemaker, Permanent Pacemaker, AICD Device Placement Date:: 06/20/19 Past Psychological History: No Psychological Hx Reported Smoking Status: Never smoker Past Alcohol Use History: Rare Past Drug Use History: None Reported - Past Family History Mother Family Medical History: Cancer, CVA/TIA Additional Family Medical History / Comment(s): BREAST CANCER Father Family Medical History: Cancer, Congestive Heart Failure (CHF), Diabetes Mellitus Additional Family Medical History / Comment(s): CANCER Medications and Allergies Home Medications Medication Instructions Recorded Confirmed Type Letrozole [Femara] 2.5 mg PO QAM 06/06/16 06/22/19 History Acetaminophen/Diphenhydramine 1 tab PO HS 03/15/18 06/22/19 History [Tylenol PM Extra Strength] Apixaban [Eliquis] 5 mg PO BID #60 tab 12/12/18 06/22/19 Rx Atorvastatin [Lipitor] 80 mg PO HS #30 tab 12/12/18 06/22/19 Rx Clopidogrel [Plavix] 75 mg PO DAILY #30 tab 12/12/18 06/22/19 Rx Nitroglycerin Sl Tabs [Nitrostat] 0.4 mg SUBLINGUAL Q5M PRN #25 tab 12/12/18 06/22/19 Rx Spironolactone [Aldactone] 25 mg PO DAILY #30 tab 12/12/18 06/22/19 Rx Amiodarone [Cordarone] 100 mg PO DAILY 06/18/19 06/22/19 History Lisinopril [Zestril] 10 mg PO BID 06/18/19 06/22/19 History Metoprolol Succinate (ER) [Toprol 25 mg PO DAILY 06/18/19 06/22/19 History XL] Colchicine 0.6 mg PO BID 06/22/19 06/22/19 History Allergies Allergy/AdvReac Type Severity Reaction Status Date / Time latex AdvReac Unknown itching Verified 06/18/19 10:10 and tingling ibuprofen [From Motrin] AdvReac Nausea & Verified 06/18/19 10:10 Vomiting phenaphen Allergy Severe Anaphylaxis Uncoded 06/18/19 10:10 blue cheese Allergy Unknown Rash/Hives, Uncoded 06/18/19 10:10 Swelling corn beef Allergy Unknown Rash/Hives, Uncoded 06/18/19 10:10 Swelling Physical Exam Vitals: Vital Signs Temp Pulse Pulse Pulse Resp BP BP 06/22/19 08:00 98.2 F 111 H 119 H 18 111/66 06/22/19 04:15 98.0 F 99 18 105/62 06/22/19 02:46 98.0 F 104 H 20 126/69 06/21/19 22:54 98.6 F 116 H 18 128/67 06/21/19 22:26 123 H 18 119/86 06/21/19 20:22 98.4 F 120 H 20 119/73 Pulse Ox 06/22/19 08:00 97 06/22/19 04:15 100 06/22/19 02:46 100 06/21/19 22:54 100 06/21/19 22:26 99 06/21/19 20:22 96 Intake and Output 06/21/19 06/22/19 06/22/19 22:59 06:59 14:59 Intake Total 480 Balance 480 Intake: Oral 480 Other: # Voids 1 3 Weight 136.078 kg 136.6 kg Results CBC & Chem 7: 06/21/19 20:42 06/21/19 20:42 Labs: Abnormal Lab Results - Last 24 Hours (Table) 06/21/19 06/21/19 06/21/19 Range/Units 20:42 20:42 20:42 RBC 3.41 L (3.80-5.40) m/uL Hgb 10.7 L (11.4-16.0) gm/dL Hct 32.2 L (34.0-46.0) % RDW 15.9 H (11.5-15.5) % Plt Count 126 L (150-450) k/uL APTT 21.6 L (22.0-30.0) sec Sodium 135 L (137-145) mmol/L Glucose 146 H (74-99) mg/dL Troponin I (0.000-0.034) ng/mL Total Protein 5.9 L (6.3-8.2) g/dL 06/21/19 Range/Units 20:42 RBC (3.80-5.40) m/uL Hgb (11.4-16.0) gm/dL Hct (34.0-46.0) % RDW (11.5-15.5) % Plt Count (150-450) k/uL APTT (22.0-30.0) sec Sodium (137-145) mmol/L Glucose (74-99) mg/dL Troponin I 0.271 H* (0.000-0.034) ng/mL Total Protein (6.3-8.2) g/dL
[2019-06-22] MEDS: ATORVASTATIN 80 MG TAB PO SCH (20:34)
[2019-06-22] MEDS: APIXABAN 5 MG TAB PO SCH (20:34)
[2019-06-22] MEDS: COLCHICINE 0.6 MG EACH PO SCH (20:34)
[2019-06-22] MEDS ORDERED: LISINOPRIL 10 MG TAB PO SCH (21:00)
[2019-06-22] MEDS: AMIODARONE 200 MG TAB PO SCH (23:41)
[2019-06-23] MEDS: APIXABAN 5 MG TAB PO SCH ×2 (08:41→20:51)
[2019-06-23] MEDS: METOPROLOL SUCCINATE (ER) 50 MG TAB.ER.24H PO SCH (08:41)
[2019-06-23] MEDS: COLCHICINE 0.6 MG EACH PO SCH ×2 (08:41→21:16)
[2019-06-23] MEDS: CLOPIDOGREL 75 MG TAB PO SCH (08:42)
[2019-06-23] MEDS: SPIRONOLACTONE 25 MG TAB PO SCH (08:42)
[2019-06-23] MEDS: LISINOPRIL 5 MG TAB PO SCH (08:42)
[2019-06-23] MEDS ORDERED: METOPROLOL SUCCINATE (ER) 25 MG TAB.ER.24H PO SCH (09:00)
--- NOTE | 2019-06-23 12:15 | P.PN ---
Subjective Progress Note Date: 06/23/19 This is a pleasant 63-year-old female with history of breast cancer and prior mastectomy, hypertension, hyperlipidemia, coronary artery disease for which the patient underwent LAD stenting in November of last year, her echo at that time revealed severe LV dysfunction with an ejection fraction of less than 20%. Patient also has a history of paroxysmal atrial fibrillation. Patient had a LifeVest in place since her admission in November, her echo continued to reveal severe cardiomyopathy and for this reason she was brought into the hospital earlier this week, to undergo implantation of a biventricular ICD. This was performed by Dr. Díaz. Yesterday the patient was discharged home. While at home, the patient states that she was lifting and moving some items when all of a sudden her defibrillator went off. According to the patient, it felt like her defibrillator shocks her multiple times. She denied any palpitations, no chest discomfort, no difficulty in breathing, no dizziness or lightheadedness. Her device wasn't interrogated on arrival here, also reviewed by Dr. Allred and Dr. Díaz, it was felt that the AICD discharged for atrial fibrillation with rapid ventricular response. The patient was initiated on IV amiodarone on arrival here. She continues to be on that this morning. At the time of my examination, she is quite uncomfortable, her chest feels bruised according to her. Breathing is overall stable. Chest x-ray on presentation here did not reveal any active cardiopulmonary disease. Her EKG showed a ventricular paced rhythm with underlying atrial fibrillation. This morning she is currently in a normal sinus rhythm. Blood pressure 120/60 with a heart rate in the 60s this morning. Afebrile. White blood cell count 7.9, hemoglobin 10.7, platelet count 142. Sodium 138, potassium 5.1, BUN 17, creatinine 0.7. Troponin 0.27. Alexandra virus not detected. 06/23/2019 Patient was seen and examined this morning, continues to be quite anxious about her defibrillator going off, she so nervous that she'll experience that significant pain again. We had a lengthy discussion with the patient regarding rate control for her atrial fibrillation, we also explained that she is monitored here for 24 hours a day, she has had no arrhythmias noted on the monitor since yesterday. Hemodynamically she stable. Remaining in a normal sinus rhythm today. Objective - Vital Signs Vital signs: Vital Signs Temp 98.1 F 06/23/19 11:55 Pulse 64 06/23/19 11:55 Resp 18 06/23/19 11:55 BP 124/62 06/23/19 11:55 Pulse Ox 99 06/23/19 11:55 Intake & Output 06/22/19 06/23/19 06/23/19 18:59 06:59 18:59 Intake Total 764.583 240 60 Balance 764.583 240 60 Weight 135.4 kg Intake: Intake, IV Titration 244.583 Amount Amiodarone 300 mg In 244.583 Dextrose 5% in Water 250 ml @ 0.5 MG/MIN 25 mls/hr IV .Q10H KALEB Rx#: [id number] Oral 520 240 60 Other: # Voids 2 2 # Bowel Movements 0 - Exam PHYSICAL EXAMINATION: GENERAL: 63-year-old female in no acute distress at the time of my examination HEENT: Head is atraumatic, normocephalic. Pupils equal, round. Sclera anicteric. Conjunctiva are clear. Mucous membranes of the mouth are moist. Nec k is supple. There is no elevated jugular venous pressure. No carotid bruit is heard. HEART EXAMINATION: Heart S1, S2 normal. No murmur or gallop heard. CHEST EXAMINATION: Lungs are clear to auscultation and precussion. No chest wall tenderness is noted on palpation or with deep breathing. Site of device implantation, dressing is dry and intact. Status post mastectomy ABDOMEN: Soft, nontender. Bowel sounds are heard. No organomegaly noted. EXTREMITIES: 2+ peripheral pulses with no evidence of peripheral edema and no calf tenderness noted. NEUROLOGIC patient is awake, alert and oriented 3 . - Labs CBC & Chem 7: 06/21/19 20:42 06/21/19 20:42 Assessment and Plan Plan: Assessment and plan #1 AICD discharge, multiple shocks, for what appears to be atrial fibrillation with rapid ventricular response #2 ischemic cardiomyopathy status post implantation of a bi-V device 2 days ago #3 coronary artery disease with prior LAD stenting #4 hypertension #5 hyperlipidemia #6 paroxysmal atrial fibrillation Plan We will continue to monitor the patient for another 24 hours, plan for possible discharge home tomorrow after evaluated by Dr. Díaz. DNP note has been reviewed, I agree with a documented findings and plan of care. Patient was seen and examined.
--- NOTE | 2019-06-23 18:53 | P.PN ---
Progress Note - Text Progress Note Date: 06/23/19 Chief Complaint: AICD firing History of presenting complaint: This is a pleasant 63-year-old patient of Dr. Gonzalez. Chronic stable medical conditions include coronary artery disease with stent, congestive heart failure, hyperlipidemia, hypertension, chemotherapy related peripheral neuropathy. The lead was dislodged and a new one was placed. A limited echocardiogram did show effusion. A pericardiocentesis was done and 290 mL of blood was drained. A pigtail catheter was placed. Patient did receive some K centra. The pigtail catheter was subsequently removed and patient was discharged home yesterday evening. Patient now presents with multiple episodes of AICD firing. Just feels a bit tired and rundown no dizziness no lightheadedness. Presents to the ER. Admitted with-recurrent AICD firing. Does of Cordarone increased. Today-. Stat normal AICD firing. Breathing stable. Tolerating a diet. Review of systems: Was done for constitutional, cardiovascular, GI, pulmonary. relevant finding as above Active Medications Amiodarone HCl (Cordarone) 600 mg PO [facility] Last Admin: 06/22/19 23:41 Dose: 600 mg Documented by: Apixaban (Eliquis) 5 mg PO BID [facility] Last Admin: 06/23/19 08:41 Dose: 5 mg Documented by: Atorvastatin Calcium (Lipitor) 80 mg PO [facility] Last Admin: 06/22/19 20:34 Dose: 80 mg Documented by: Clopidogrel Bisulfate (Plavix) 75 mg PO DAILY [facility] Last Admin: 06/23/19 08:42 Dose: 75 mg Documented by: Colchicine (Colcrys) 0.6 mg PO BID [facility] Last Admin: 06/23/19 08:41 Dose: 0.6 mg Documented by: Lisinopril (Zestril) 5 mg PO DAILY [facility] Last Admin: 06/23/19 08:42 Dose: 5 mg Documented by: Metoprolol Succinate (Toprol Xl) 50 mg PO DAILY [facility] Last Admin: 06/23/19 08:41 Dose: 50 mg Documented by: Spironolactone (Aldactone) 25 mg PO DAILY [facility] Last Admin: 06/23/19 08:42 Dose: 25 mg Documented by: Physical examination: VITAL SIGNS: 98.1, 64, 18, 124/62, 99% room air GENERAL: Propped up in bed, eating EYES: Pupils equal. Conjunctiva normal. HEENT: External appearance of nose and ears normal, oral cavity grossly normal. NECK: JVD not raised; masses not palpable. HEART: First and second heart sounds are normal; no edema. LUNGS: Respiratory rate normal; clear to auscultation. ABDOMEN: Soft, nontender, liver spleen not palpable, no masses palpable. CHEST wall: Left infraclavicular AICD placed with the dressing in place PSYCH: Alert and oriented x3; mood and affect normal. INVESTIGATIONS, reviewed in the clinical context: White count 7.9 hemoglobin 10.7 platelets 140 to percussion 5.1 bun 17 creatinine 0.75 COVID-19 PCR-not detected. 2-D echocardiogram-small pericardial effusion EF 50-55% EKG tracing personally reviewed by me-irregular, paced rhythm Chest x-ray film personally reviewed by me-some cardiomegaly, lung appiah are clear Previous testing: Hemoglobin was 12.4 on June 19 Assessment: -Recurrent AICD firing in a patient with a AICD placed on June 19, POA -AICD placement on June 19. Subsequently had secondary hemopericardium that was drained with a pigtail catheter. Before discharge. -Coronary artery disease with history of stent -Hyperlipidemia -Essential hypertension -Peripheral neuropathy secondary to chemotherapy -Morbid obesity BMI 50.1 -Atrial fibrillation with rapid ventricular response resulted in multiple AICD firings., POA Plan: Continue current medication due to plan. Patient will be evaluated by Dr. Oliver tomorrow. Discharge planning accordingly. Discussed with the patient.
[2019-06-23] MEDS: AMIODARONE 200 MG TAB PO SCH (20:50)
[2019-06-23] MEDS: ATORVASTATIN 80 MG TAB PO SCH (20:51)
[2019-06-24 06:27] LABS: HCT 31.6 % (34.0-46.0); Hypochromasia Slight; MCH 30.4 pg (25.0-35.0); MCHC 31.5 g/dL (31.0-37.0); MCV 96.6 fL (80.0-100.0); Mean Platelet Volume 8.6; Platelet Count 120 k/uL (150-450); RBC 3.28 m/uL (3.80-5.40); RDW 15.7 % (11.5-15.5); WBC 4.4 k/uL (3.8-10.6)
[2019-06-24] MEDS: COLCHICINE 0.6 MG EACH PO SCH ×2 (08:55→21:21)
[2019-06-24] MEDS: APIXABAN 5 MG TAB PO SCH ×2 (08:56→21:22)
[2019-06-24] MEDS: METOPROLOL SUCCINATE (ER) 50 MG TAB.ER.24H PO SCH (08:56)
[2019-06-24] MEDS: CLOPIDOGREL 75 MG TAB PO SCH (08:56)
[2019-06-24] MEDS: SPIRONOLACTONE 25 MG TAB PO SCH (08:56)
[2019-06-24] MEDS ORDERED: METOPROLOL SUCCINATE (ER) 50 MG TAB.ER.24H PO STA (10:29)
--- NOTE | 2019-06-24 11:17 | P.PN ---
Subjective This is Angelika Del Cid PA-C scribing on behalf of Dr. Díaz The patient was interviewed and examined by Dr. Díaz HPI/interval history Patient is a 63-year-old female with a history of breast cancer status post mastectomy, hypertension, dyslipidemia, CAD status post stenting to the LAD, severe cardiomyopathy, paroxysmal atrial fibrillation who recently underwent a biventricular ICD implant. She was recently discharged and presented to the hospital again with multiple defibrillator shocks due to A. fib with RVR. She has been initiated on amiodarone. She remains in sinus rhythm. No further shocks. She remains very anxious about the defibrillator going off again. EXAMINATION Patient is afebrile, pulse in the 60s, respirations 16, blood pressure 127/60, oxygen saturation 98% on room air Patient seen and examined by Dr. Díaz Lungs are clear to auscultation bilaterally, no wheezing rhonchi or crackles Heart is regular, no audible murmurs No elevated JVD or lower extremity edema Dressing with minimal drainage, minimal hematoma REVIEW OF LABS, ECG WBC 4.4, hemoglobin 10, platelets 120, potassium 4.3, BUN 15, creatinine 0.85 IMPRESSION / ASSESSMENT: #AICD discharge, multiple shocks for atrial fibrillation with RVR, currently in sinus rhythm #Abnormal troponin likely secondary to above #Paroxysmal atrial fibrillation, currently in sinus rhythm, anticoagulated with eliquis #Ischemic cardiomyopathy status post recent implantation of IV ICD #CAD status post stenting to the LAD #Hypertension #Dyslipidemia PLAN: Increase metoprolol to 100 mg daily, we'll continue to maximize her beta blockers as her blood pressure tolerates Continue amiodarone 200 mg 3 times a day Continue atorvastatin and Plavix Continue spironolactone and lisinopril Anticoagulation with eliquis Objective - Vital Signs Vital signs: Vital Signs Temp 98.6 F 06/24/19 08:00 Pulse 63 06/24/19 08:00 Resp 16 06/24/19 08:00 BP 127/60 06/24/19 08:00 Pulse Ox 98 06/24/19 08:00 Intake & Output 06/23/19 06/24/19 06/24/19 18:59 06:59 18:59 Intake Total 780 450 90 Balance 780 450 90 Weight 133.8 kg Intake: Oral 780 450 90 Other: Voiding Method Toilet # Voids 2 1 # Bowel Movements 0 - Labs CBC & Chem 7: 06/24/19 06:10 06/21/19 20:42 Labs: Abnormal Lab Results - Last 24 Hours (Table) 06/24/19 Range/Units 06:10 RBC 3.28 L (3.80-5.40) m/uL Hgb 10.0 L (11.4-16.0) gm/dL Hct 31.6 L (34.0-46.0) % RDW 15.7 H (11.5-15.5) % Plt Count 120 L (150-450) k/uL
[2019-06-24] MEDS: AMIODARONE 200 MG TAB PO SCH ×2 (16:40→21:22)
[2019-06-24] MEDS: LISINOPRIL 5 MG TAB PO SCH (16:40)
--- NOTE | 2019-06-24 17:57 | P.PN ---
Progress Note - Text Progress Note Date: 06/24/19 Chief Complaint: AICD firing History of presenting complaint: This is a pleasant 63-year-old patient of Dr. Gonzalez. Chronic stable medical conditions include coronary artery disease with stent, congestive heart failure, hyperlipidemia, hypertension, chemotherapy related peripheral neuropathy. The lead was dislodged and a new one was placed. A limited echocardiogram did show effusion. A pericardiocentesis was done and 290 mL of blood was drained. A pigtail catheter was placed. Patient did receive some K centra. The pigtail catheter was subsequently removed and patient was discharged home yesterday evening. Patient now presents with multiple episodes of AICD firing. Just feels a bit tired and rundown no dizziness no lightheadedness. Presents to the ER. Admitted with-recurrent AICD firing. Does of Cordarone increased. Today-. Does of oral amiodarone increased. No further episodes of AICD firing. Breathing is stable. Tolerating a diet. Review of systems: Was done for constitutional, cardiovascular, GI, pulmonary. relevant finding as above Active Medications Amiodarone HCl (Cordarone) 200 mg PO TID [facility] Last Admin: 06/24/19 16:40 Dose: 200 mg Documented by: Apixaban (Eliquis) 5 mg PO BID [facility] Last Admin: 06/24/19 08:56 Dose: 5 mg Documented by: Atorvastatin Calcium (Lipitor) 80 mg PO HS [facility] Last Admin: 06/23/19 20:51 Dose: 80 mg Documented by: Clopidogrel Bisulfate (Plavix) 75 mg PO DAILY [facility] Last Admin: 06/24/19 08:56 Dose: 75 mg Documented by: Colchicine (Colcrys) 0.6 mg PO BID [facility] Last Admin: 06/24/19 08:55 Dose: 0.6 mg Documented by: Lisinopril (Zestril) 5 mg PO DAILY [facility] Last Admin: 06/24/19 16:40 Dose: 5 mg Documented by: Metoprolol Succinate (Toprol Xl) 100 mg PO DAILY [facility] Spironolactone (Aldactone) 25 mg PO DAILY [facility] Last Admin: 06/24/19 08:56 Dose: 25 mg Documented by: Physical examination: VITAL SIGNS: 97.4, 60, 16, 101/66, 97% on room air GENERAL: Sitting up, awake comfortable EYES: Pupils equal. Conjunctiva normal. HEENT: External appearance of nose and ears normal, oral cavity grossly normal. NECK: JVD not raised; masses not palpable. HEART: First and second heart sounds are normal; no edema. LUNGS: Respiratory rate normal; clear to auscultation. ABDOMEN: Soft, nontender, liver spleen not palpable, no masses palpable. CHEST wall: Left infraclavicular AICD placed with the dressing in place PSYCH: Alert and oriented x3; mood and affect normal. INVESTIGATIONS, reviewed in the clinical context: White count 4.4 hemoglobin 10 platelets 120 Previous testing COVID-19 PCR-not detected. 2-D echocardiogram-small pericardial effusion EF 50-55% EKG tracing personally reviewed by me-irregular, paced rhythm Chest x-ray film personally reviewed by me-some cardiomegaly, lung appiah are clear Previous testing: Hemoglobin was 12.4 on June 19 Assessment: -Recurrent AICD firing in a patient with a AICD placed on June 19, POA -AICD placement on June 19. Subsequently had secondary hemopericardium that was drained with a pigtail catheter. Before discharge. -Coronary artery disease with history of stent -Hyperlipidemia -Essential hypertension -Peripheral neuropathy secondary to chemotherapy -Morbid obesity BMI 50.1 -Atrial fibrillation with rapid ventricular response resulted in multiple AICD firings., -Acute blood loss anemia secondary to hemopericardium postprocedure POA -Troponin leak from myocardial injury from procedure, not acute coronary syndrome Plan: Patient currently on amiodarone 600 mg daily. Continue other medication. Follow with Dr. Díaz
[2019-06-24] MEDS: ATORVASTATIN 80 MG TAB PO SCH (21:22)
[2019-06-25] MEDS ORDERED: METOPROLOL SUCCINATE (ER) 50 MG TAB.ER.24H PO STA (00:39)
[2019-06-25 00:56] LABS: Magnesium 1.6 mg/dL (1.6-2.3); Potassium 3.8 mmol/L (3.5-5.1)
[2019-06-25] MEDS ORDERED: LISINOPRIL 5 MG TAB PO SCH (07:33)
[2019-06-25] MEDS ORDERED: POTASSIUM CHLORIDE ER 20 MEQ TAB.ER PO STA (08:00)
[2019-06-25] MEDS: METOPROLOL SUCCINATE (ER) 50 MG TAB.ER.24H PO SCH (08:58)
[2019-06-25] MEDS: SPIRONOLACTONE 25 MG TAB PO SCH (08:58)
[2019-06-25] MEDS: AMIODARONE 200 MG TAB PO SCH ×2 (08:58→15:44)
[2019-06-25] MEDS: CLOPIDOGREL 75 MG TAB PO SCH (08:58)
[2019-06-25] MEDS: APIXABAN 5 MG TAB PO SCH ×2 (08:58→21:00)
[2019-06-25] MEDS: MAGNESIUM SULFATE-D5W PMX 1 GM in DEXTROSE/WATER 1 100ML.BAG IVPB SCH ×2 (08:59→10:17)
[2019-06-25] MEDS ORDERED: METOPROLOL SUCCINATE (ER) 100 MG TAB.ER.24H PO SCH (09:00)
[2019-06-25] MEDS: MAGNESIUM OXIDE 400 MG TAB PO SCH (09:57)
--- NOTE | 2019-06-25 10:13 | P.PN ---
Subjective This is Angelika Del Cid PA-C scribing on behalf of Dr. Díaz The patient was interviewed and examined by Dr. Díaz HPI/interval history Patient is a 63-year-old female with a history of breast cancer status post mastectomy, hypertension, dyslipidemia, CAD status post stenting to the LAD, severe cardiomyopathy, paroxysmal atrial fibrillation who recently underwent a biventricular ICD implant. She was recently discharged and presented to the hospital again with multiple defibrillator shocks due to A. fib with RVR. She has been initiated on amiodarone. Yesterday we increased her metoprolol. She did have another episode of atrial fibrillation overnight with rates up to the 170s. She was asymptomatic and converted spontaneously. She has been having diarrhea. EXAMINATION Temperature 98.1F, pulse 71, blood pressure 115/71, oxygen saturation 98% on room air, respirations 16 Patient seen and examined by Dr. Díaz Lungs are clear to auscultation bilaterally, no wheezing rhonchi or crackles Heart is regular, no audible murmurs No elevated JVD or lower extremity edema Device incision clean dry and intact REVIEW OF LABS, ECG Potassium 3.8, magnesium 1.6 and a C. diff negative IMPRESSION / ASSESSMENT: #AICD discharge, multiple shocks for atrial fibrillation with RVR, she had another brief episode of A. fib overnight with heart rates up to the 170s, no further shocks, currently in sinus rhythm #Abnormal troponin likely secondary to above #Paroxysmal atrial fibrillation, currently in sinus rhythm, anticoagulated with eliquis #Ischemic cardiomyopathy status post recent implantation of BiV ICD #CAD status post stenting to the LAD #Hypertension, controlled #Dyslipidemia #Diarrhea of a negative C. diff PLAN: Stop colchicine Increase metoprolol to 150 mg daily Continue lisinopril in the evening to avoid hypotension Continue spironolactone Add magnesium supplement replace potassium Continue Plavix and eliquis Continue statins Continue amiodarone 200 mg 3 times a day Discharge planning tomorrow Objective - Vital Signs Vital signs: Vital Signs Temp 98.1 F 06/25/19 08:00 Pulse 71 06/25/19 08:00 Resp 16 06/25/19 08:00 BP 115/71 06/25/19 08:00 Pulse Ox 98 06/25/19 08:00 Intake & Output 06/24/19 06/25/19 06/25/19 18:59 06:59 18:59 Intake Total 810 Balance 810 Weight 131.7 kg Intake: Oral 810 Other: Voiding Method Toilet Toilet # Voids 1 3 # Bowel Movements 1 3 - Labs CBC & Chem 7: 06/24/19 06:10 06/25/19 00:24 Labs: Abnormal Lab Results - Last 24 Hours (Table) 06/25/19 Range/Units 03:28 Troponin I 0.244 H* (0.000-0.034) ng/mL
[2019-06-25] MEDS ORDERED: ACETAMINOPHEN TAB 325 MG TAB PO PRN (10:17)
[2019-06-25] MEDS: LISINOPRIL 5 MG TAB PO SCH (17:32)
[2019-06-25] MEDS: ATORVASTATIN 80 MG TAB PO SCH (21:00)
--- NOTE | 2019-06-25 21:09 | P.PN ---
Progress Note - Text Progress Note Date: 06/25/19 Chief Complaint: AICD firing History of presenting complaint: This is a pleasant 63-year-old patient of Dr. Gonzalez. Chronic stable medical conditions include coronary artery disease with stent, congestive heart failure, hyperlipidemia, hypertension, chemotherapy related peripheral neuropathy. The lead was dislodged and a new one was placed. A limited echocardiogram did show effusion. A pericardiocentesis was done and 290 mL of blood was drained. A pigtail catheter was placed. Patient did receive some K centra. The pigtail catheter was subsequently removed and patient was discharged home yesterday evening. Patient now presents with multiple episodes of AICD firing. Just feels a bit tired and rundown no dizziness no lightheadedness. Presents to the ER. Admitted with-recurrent AICD firing. Does of Cordarone increased. Today-. Does of oral amiodarone increased. No further episodes of AICD firing. Comfortable. Review of systems: Was done for constitutional, cardiovascular, GI, pulmonary. relevant finding as above Active Medications Acetaminophen (Tylenol Tab) 650 mg PO Q4HR PRN PRN Reason: Fever and/ or Pain Last Admin: 06/25/19 10:22 Dose: 650 mg Documented by: Amiodarone HCl (Cordarone) 200 mg PO TID [facility] Last Admin: 06/25/19 15:44 Dose: 200 mg Documented by: Apixaban (Eliquis) 5 mg PO BID [facility] Last Admin: 06/25/19 21:00 Dose: 5 mg Documented by: Atorvastatin Calcium (Lipitor) 80 mg PO HS [facility] Last Admin: 06/25/19 21:00 Dose: 80 mg Documented by: Clopidogrel Bisulfate (Plavix) 75 mg PO DAILY [facility] Last Admin: 06/25/19 08:58 Dose: 75 mg Documented by: Lisinopril (Zestril) 5 mg PO DAILY [facility] Last Admin: 06/25/19 17:32 Dose: Not Given Documented by: Magnesium Oxide (Mag-Ox) 400 mg PO DAILY [facility] Last Admin: 06/25/19 09:57 Dose: 400 mg Documented by: Metoprolol Succinate (Toprol Xl) 150 mg PO DAILY [facility] Last Admin: 06/25/19 08:58 Dose: 150 mg Documented by: Spironolactone (Aldactone) 25 mg PO DAILY [facility] Last Admin: 06/25/19 08:58 Dose: 25 mg Documented by: Physical examination: VITAL SIGNS: 96.5, 57, 16, 89/66, 100% on room air GENERAL: Sitting up in the chair, awake comfortable EYES: Pupils equal. Conjunctiva normal. HEENT: External appearance of nose and ears normal, oral cavity grossly normal. NECK: JVD not raised; masses not palpable. HEART: First and second heart sounds are normal; no edema. LUNGS: Respiratory rate normal; clear to auscultation. ABDOMEN: Soft, nontender, liver spleen not palpable, no masses palpable. CHEST wall: Left infraclavicular AICD placed with the dressing in place PSYCH: Alert and oriented x3; mood and affect normal. INVESTIGATIONS, reviewed in the clinical context: White count 4.4 hemoglobin 10 platelets 120 Previous testing COVID-19 PCR-not detected. 2-D echocardiogram-small pericardial effusion EF 50-55% EKG tracing personally reviewed by me-irregular, paced rhythm Chest x-ray film personally reviewed by me-some cardiomegaly, lung appiah are clear Previous testing: Hemoglobin was 12.4 on June 19 Assessment: -Recurrent AICD firing in a patient with a AICD placed on June 19, POA -AICD placement on June 19. Subsequently had secondary hemopericardium that was drained with a pigtail catheter. Before discharge. -Coronary artery disease with history of stent -Hyperlipidemia -Essential hypertension -Peripheral neuropathy secondary to chemotherapy -Morbid obesity BMI 50.1 -Atrial fibrillation with rapid ventricular response resulted in multiple AICD firings., -Acute blood loss anemia secondary to hemopericardium postprocedure POA -Troponin leak from myocardial injury from procedure, and AICD firing Plan: Patient currently on amiodarone 600 mg daily. Colchicine been discontinued.
[2019-06-26] MEDS: AMIODARONE 200 MG TAB PO SCH ×2 (00:48→08:28)
[2019-06-26] MEDS: METOPROLOL SUCCINATE (ER) 50 MG TAB.ER.24H PO SCH (08:26)
[2019-06-26] MEDS: APIXABAN 5 MG TAB PO SCH (08:26)
[2019-06-26] MEDS: MAGNESIUM OXIDE 400 MG TAB PO SCH (08:26)
[2019-06-26] MEDS: LISINOPRIL 5 MG TAB PO SCH (08:26)
[2019-06-26] MEDS: CLOPIDOGREL 75 MG TAB PO SCH (08:28)
[2019-06-26] MEDS: SPIRONOLACTONE 25 MG TAB PO SCH (09:00)
--- NOTE | 2019-06-26 12:24 | P.PN ---
<Terra Stafford E - Last Filed: 06/26/19 12:21> Subjective Progress Note Date: 06/26/19 This is a pleasant 63-year-old female with history of breast cancer and prior mastectomy, hypertension, hyperlipidemia, coronary artery disease for which the patient underwent LAD stenting in November of last year, her echo at that time revealed severe LV dysfunction with an ejection fraction of less than 20%. Patient also has a history of paroxysmal atrial fibrillation. Patient had a LifeVest in place since her admission in November, her echo continued to reveal severe cardiomyopathy and for this reason she was brought into the hospital earlier this week, to undergo implantation of a biventricular ICD. This was per formed by Dr. Díaz. Yesterday the patient was discharged home. While at home, the patient states that she was lifting and moving some items when all of a sudden her defibrillator went off. According to the patient, it felt like her defibrillator shocks her multiple times. She denied any palpitations, no chest discomfort, no difficulty in breathing, no dizziness or lightheadedness. Her device wasn't interrogated on arrival here, also reviewed by Dr. Allred and Dr. Díaz, it was felt that the AICD discharged for atrial fibrillation with rapid ventricular response. The patient was initiated on IV amiodarone on arrival here. She continues to be on that this morning. At the time of my examination, she is quite uncomfortable, her chest feels bruised according to her. Breathing is overall stable. Chest x-ray on presentation here did not reveal any active cardiopulmonary disease. Her EKG showed a ventricular paced rhythm with underlying atrial fibrillation. This morning she is currently in a normal sinus rhythm. Blood pressure 120/60 with a heart rate in the 60s this m orning. Afebrile. White blood cell count 7.9, hemoglobin 10.7, platelet count 142. Sodium 138, potassium 5.1, BUN 17, creatinine 0.7. Troponin 0.27. Alexandra virus not detected. 06/23/2019 Patient was seen and examined this morning, continues to be quite anxious about her defibrillator going off, she so nervous that she'll experience that significant pain again. We had a lengthy discussion with the patient regarding rate control for her atrial fibrillation, we also explained that she is mo nitored here for 24 hours a day, she has had no arrhythmias noted on the monitor since yesterday. Hemodynamically she stable. Remaining in a normal sinus rhythm today. 06/26/2019 Patient was seen and examined this morning, no significant tachycardia arrhythmias noted on the monitor. Blood pressure 116/60 with a heart rate in the 70s, 98% on room air. Objective - Vital Signs Vital signs: Vital Signs Temp 97 F L 06/26/19 07:55 Pulse 71 06/26/19 08:00 Resp 16 06/26/19 08:00 BP 117/58 06/26/19 07:55 Pulse Ox 98 06/26/19 07:55 Intake & Output 06/25/19 06/26/19 06/26/19 18:59 06:59 18:59 Intake Total 860 240 Balance 860 240 Weight 132.1 kg Intake: IV 200 Magnesium Sulfate-D5w Pmx 200 1 gm In Dextrose/Water 1 100ml.bag @ 100 mls/hr IVPB Q1H [facility] Rx#: [id number] Oral 660 240 Other: Voiding Method Toilet Toilet Toilet # Voids 3 - Exam PHYSICAL EXAMINATION: GENERAL: 63-year-old female in no acute distress at the time of my examination HEENT: Head is atraumatic, normocephalic. Pupils equal, round. Sclera anicteric. Conjunctiva are clear. Mucous membranes of the mouth are moist. Neck is supple. There is no elevated jugular venous pressure. No carotid bruit is heard. HEART EXAMINATION: Heart S1, S2 normal. No murmur or gallop heard. CHEST EXAMINATION: Lungs are clear to auscultation and precussion. No chest wall tenderness is noted on palpation or with deep breathing. Site of device implantation, dressing is dry and intact. Status post mastectomy ABDOMEN: Soft, nontender. Bowel sounds are heard. No organomegaly noted. EXTREMITIES: 2+ peripheral pulses with no evidence of peripheral edema and no calf tenderness noted. NEUROLOGIC patient is awake, alert and oriented 3 . - Labs CBC & Chem 7: 06/24/19 06:10 06/25/19 00:24 Assessment and Plan Plan: Assessment and plan #1 AICD discharge, multiple shocks, for what appears to be atrial fibrillation with rapid ventricular response #2 ischemic cardiomyopathy status post implantation of a bi-V device 2 days ago #3 coronary artery disease with prior LAD stenting #4 hypertension #5 hyperlipidemia #6 paroxysmal atrial fibrillation Plan From cardiology's perspective, patient should be able to be discharged home today, we'll make her a follow-up appointment in the office to see Dr. Díaz. DNP note has been reviewed, I agree with a documented findings and plan of care. Patient was seen and examined. <Hair Díaz - Last Filed: 06/26/19 12:47> Subjective Device was interrogated When she Bi V paces, her QRS is very narrow and looks like an intrinsic QRS Her intrinsic QRS is fractionated The device was interrogated and he pacing threshold in the LV is excellent although it requires looking at the surface ECG on telemetry to make that deter mination She will be discharged home today on Metoprolol succinate 150 mg daily in the morning Lisinopril 5 mg in the evening Amiodarone 200 mg twice daily for a month in the 200 mg daily thereafter Continue ELIQUIS, statins, spironolactone, Plavix Discussed with patient Objective - Vital Signs Vital signs: Vital Signs Temp 98.2 F 06/26/19 12:00 Pulse 62 06/26/19 12:00 Resp 18 06/26/19 12:00 BP 123/82 06/26/19 12:00 Pulse Ox 99 06/26/19 12:00 Intake & Output 06/25/19 06/26/19 06/26/19 18:59 06:59 18:59 Intake Total 860 240 Balance 860 240 Weight 132.1 kg Intake: IV 200 Magnesium Sulfate-D5w Pmx 200 1 gm In Dextrose/Water 1 100ml.bag @ 100 mls/hr IVPB Q1H [facility] Rx#: [id number] Oral 660 240 Other: Voiding Method Toilet Toilet Toilet # Voids 3 - Labs CBC & Chem 7: 06/24/19 06:10 06/25/19 00:24
[2019-06-26 12:38] VITALS: BP 123/82; RESP 18; TEMP 98.2
--- NOTE | 2019-06-26 12:51 | P.PCN ---
Preoperative Diagnosis: Biventricular ICD interrogation [employer] medical device Quadra [id number] MP [id number] Q, CRP-D Atrial lead threshold 0.75 V at 0.5 ms, P waves 1 mV, pacing impedance 550 ohms RV threshold 0.5 V at 0.5 ms, R waves 11.7 mV, pacing impedance 460 ohms LV pacing threshold, M.D. 2-RV coil required watching the paced beats on telemetry The intrinsic QRS is quite fractionated With Bi V pacing is significant narrowing of the QRS This determination requires watching the paced beats on multiple surface leads LV threshold 1.25 V at 0.5 ms, pacing impedance 300 ohms High-voltage impedance 37 ohms New device is reprogrammed sensitivity later 100 ms, paced AV delay 1:30 milliseconds LV offset 50 ms MADIT RIT programming VT detection beats 100 SVT discriminators reprogrammed Impression Normally functioning biventricular ICD Bi V ICD interrogation with reprogramming, prior to discharge
[2019-06-26 13:11] VITALS: PULSE 71
--- NOTE | 2019-06-27 21:28 | P.DS ---
Providers Date of admission: 06/21/19 22:40 Expected date of discharge: 06/27/19 Attending physician: Sam Clark Consults: 06/21/19 22:37 Consult Physician Urgent Consulting Provider: Bipin Portillo Consult Reason/Comments: Ventricular tachycardia, defibrillator discharge Do you want consulting provider notified?: Already Contacted Primary care physician: [facility] Course: Chief Complaint: AICD firing History of presenting complaint: This is a pleasant 63-year-old patient of Dr. Gonzalez. Chronic stable medical conditions include coronary artery disease with stent, congestive heart failure, hyperlipidemia, hypertension, chemotherapy related peripheral neuropathy. The lead was dislodged and a new one was placed. A limited echocardiogram did show effusion. A pericardiocentesis was done and 290 mL of blood was drained. A pigtail catheter was placed. Patient did receive some K centra. The pigtail catheter was subsequently removed and patient was discharged home yesterday evening. Patient now presents with multiple episodes of AICD firing. Just feels a bit tired and rundown no dizziness no lightheadedness. Presents to the ER. Admitted with-recurrent AICD firing. Does of Cordarone increased. Medications adjusted. Today-. AICD interrogation was done today. Adjustments were made.. Patient stable. Cleared by cardiology Metoprolol succinate 150 mg daily in the morning. Lisinopril 5 mg the evening. Amiodarone 200 mg twice daily for a month then 200 mg daily. Consultation: Dr. Hair Díaz from cardiology Physical examination: VITAL SIGNS: 98.2, 62, 18, 123/82, 99% room air GENERAL: Sitting up comfortable EYES: Pupils equal. Conjunctiva normal. HEENT: External appearance of nose and ears normal, oral cavity grossly normal. NECK: JVD not raised; masses not palpable. HEART: First and second heart sounds are normal; no edema. LUNGS: Respiratory rate normal; clear to auscultation. ABDOMEN: Soft, nontender, liver spleen not palpable, no masses palpable. CHEST wall: Left infraclavicular AICD placed with the dressing in place PSYCH: Alert and oriented x3; mood and affect normal. INVESTIGATIONS, reviewed in the clinical context: White count 4.4 hemoglobin 10 platelets 120 Previous testing COVID-19 PCR-not detected. 2-D echocardiogram-small pericardial effusion EF 50-55% EKG tracing personally reviewed by me-irregular, paced rhythm Chest x-ray film personally reviewed by me-some cardiomegaly, lung appiah are clear Previous testing: Hemoglobin was 12.4 on June 19 Assessment: -Recurrent AICD firing in a patient with a AICD placed on June 19, POA -AICD placement on June 19. Subsequently had secondary hemopericardium that was drained with a pigtail catheter. Before discharge. -Coronary artery disease with history of stent -Hyperlipidemia -Essential hypertension -Peripheral neuropathy secondary to chemotherapy -Morbid obesity BMI 50.1 -Atrial fibrillation with rapid ventricular response resulted in multiple AICD firings., -Acute blood loss anemia secondary to hemopericardium postprocedure POA -Troponin leak from myocardial injury from procedure, and AICD firing Disposition: Home Patient Condition at Discharge: Stable Plan - Discharge Summary Discharge Rx Participant: No New Discharge Prescriptions: New Amiodarone [Cordarone] 200 mg PO BID #180 tab Lisinopril [Prinivil] 5 mg PO DAILY #90 tablet Metoprolol Succinate (ER) [Toprol XL] 150 mg PO DAILY #90 tab Magnesium Oxide [Mag-Ox] 400 mg PO DAILY tab Acetaminophen Tab [Tylenol] 650 mg PO Q4HR PRN tab PRN Reason: Fever And/ Or Pain Lisinopril [Zestril] 5 mg PO HS tab Continue Letrozole [Femara] 2.5 mg PO QAM Spironolactone [Aldactone] 25 mg PO DAILY #30 tab Apixaban [Eliquis] 5 mg PO BID #60 tab Atorvastatin [Lipitor] 80 mg PO HS #30 tab Nitroglycerin Sl Tabs [Nitrostat] 0.4 mg SUBLINGUAL Q5M PRN #25 tab PRN Reason: Chest Pain Clopidogrel [Plavix] 75 mg PO DAILY #30 tab Discontinued Acetaminophen/Diphenhydramine [Tylenol PM Extra Strength] 1 tab PO HS Metoprolol Succinate (ER) [Toprol XL] 25 mg PO DAILY Lisinopril [Zestril] 10 mg PO BID Amiodarone [Cordarone] 100 mg PO DAILY Colchicine 0.6 mg PO BID Discharge Medication List Letrozole [Femara] 2.5 mg PO QAM 06/06/16 [History] Apixaban [Eliquis] 5 mg PO BID #60 tab 12/12/18 [Rx] Atorvastatin [Lipitor] 80 mg PO HS #30 tab 12/12/18 [Rx] Clopidogrel [Plavix] 75 mg PO DAILY #30 tab 12/12/18 [Rx] Nitroglycerin Sl Tabs [Nitrostat] 0.4 mg SUBLINGUAL Q5M PRN #25 tab 12/12/18 [Rx] Spironolactone [Aldactone] 25 mg PO DAILY #30 tab 12/12/18 [Rx] Acetaminophen Tab [Tylenol] 650 mg PO Q4HR PRN tab 06/26/19 [Rx] Amiodarone [Cordarone] 200 mg PO BID #180 tab 06/26/19 [Rx] Lisinopril [Prinivil] 5 mg PO DAILY #90 tablet 06/26/19 [Rx] Lisinopril [Zestril] 5 mg PO HS tab 06/26/19 [Rx] Magnesium Oxide [Mag-Ox] 400 mg PO DAILY tab 06/26/19 [Rx] Metoprolol Succinate (ER) [Toprol XL] 150 mg PO DAILY #90 tab 06/26/19 [Rx] Follow up Appointment(s)/Referral(s): Ethan Campbell MD [STAFF PHYSICIAN] - 07/02/19 3:00 pm (Device clinic follow-up in one week Follow-up Dr. Campbell in 4 weeks/ keep appoint july 15 at 915 am) Tu Gonzalez MD [Primary Care Provider] - 06/28/19 10:20 am Patient Instructions/Handouts: Implantable Cardioverter Defibrillator (DC) Activity/Diet/Wound Care/Special Instructions: PATIENT EDUCATION MATERIAL Instructions following a heart rhythm device implant. 1. Keep dressing DRY for 5 DAYS. You may cover the area with Saran or Cling Wrap, prior to a shower. 2. The dressing will be removed in the Device Clinic at [facility]. Absorbable sutures were used to close the wound. 3. Avoid raising the left arm above the shoulder level. 4 week restriction 4. Avoid arm movements, like backscratching, rubbing the head, or pulling on a cord. 4 weeks restriction 5. Gentle range of motion movements of the shoulder, closest to the incision should be performed to avoid a frozen shoulder. (Pendulum exercises of the shoulder) 6. The opposite arm may be used freely. 7. Avoid driving for 7 days. 8. Avoid activities such as golfing, swimming, weed whacking, lifting more than 10 pounds weight, bowling, gymnastics and weight training/lifting. (6 weeks restriction) 9. Activities such as wood chopping with an axe, pull-ups in the gymnasium, power lifting, arc-welding, being close to home induction cooktops will always be a problem. 10. Arm sling is only a reminder not to raise the arm above the head. You do not need to keep the arm completely immobilized. Your free to move the arm and use it and for normal activities. In case of any problems, please call [facility], [place], @ [phone], Attention: Device Clinic Device clinic follow-up in 5 days Follow-up with primary house repairer in 1 months Medication changes as follows Amiodarone 200 mg twice daily for one month then reduced to 200 mg by mouth daily Metoprolol succinate 150 mg daily in the morning Lisinopril 5 mg daily in the evening Continue spironolactone Continue ELIQUIS Continue statins Continue Plavix Discharge Disposition: HOME SELF-CARE
== END 2019-06-26 15:46 | disposition home or self-care (01) | DRG 309 ==
LOC: EC 20:18 → 3SCARD 22:40
PROVIDERS: ADMIT Hospitalist; ATTEND Hospitalist
PROC: 4B02XTZ Measurement of Cardiac Defibrillator, External Approach (ICD-10-PCS; principal; 2019-06-26)
DX: I47.2 Ventricular tachycardia (principal); D62 Acute posthemorrhagic anemia; Z68.42 Body mass index [BMI] 45.0-49.9, adult; E66.01 Morbid (severe) obesity due to excess calories; E78.5 Hyperlipidemia, unspecified; G62.0 Drug-induced polyneuropathy; I11.0 Hypertensive heart disease with heart failure; I25.10 Atherosclerotic heart disease of native coronary artery without angina pectoris; I25.2 Old myocardial infarction; I25.5 Ischemic cardiomyopathy; I48.0 Paroxysmal atrial fibrillation; I50.9 Heart failure, unspecified; T45.1X5A Adverse effect of antineoplastic and immunosuppressive drugs, initial encounter; Z79.01 Long term (current) use of anticoagulants; Z79.02 Long term (current) use of antithrombotics/antiplatelets; Z79.899 Other long term (current) drug therapy; Z80.3 Family history of malignant neoplasm of breast; Z82.49 Family history of ischemic heart disease and other diseases of the circulatory system; Z83.3 Family history of diabetes mellitus; Z85.3 Personal history of malignant neoplasm of breast; Z86.73 Personal history of transient ischemic attack (TIA), and cerebral infarction without residual deficits; Z90.12 Acquired absence of left breast and nipple; Z95.5 Presence of coronary angioplasty implant and graft; Z95.810 Presence of automatic (implantable) cardiac defibrillator; Z88.6 Allergy status to analgesic agent; Z91.040 Latex allergy status; Z91.011 Allergy to milk products; Z91.018 Allergy to other foods
CPT/HCPCS: 36415; 71046; 80053; 83735; 84132; 84484; 85025; 85027; 85610; 85730; 87324; 93005; 96365; 96376; 99291

== ENCOUNTER → 2019-09-16 | Outpatient (CLI) | payer OTHER ==
--- NOTE | 2019-09-20 07:23 | MM ---
Reason for exam: additional evaluation requested from prior study. Last mammogram was performed 1 year ago. History: Patient is postmenopausal, has history of high-risk lesion on a previous biopsy at age 60, and has history of breast cancer at age 59. Family history of breast cancer in mother at age 50. High risk MG pre op needle loc RT of the right breast, September 13, 2016. High risk US biopsy breast VAD RT of the right breast, July 28, 2016. Implant Removal of the left breast, June 07, 2016. Malignant stereotactic core biopsy of the left breast, April 27, 2015. Ultrasound-guided core biopsy of the left breast, April 27, 2015. Mastectomy of the left breast, 2016. Chemotherapy, 2016. Radiation therapy of the left breast, 2016. Taking antineoplastic for 1 year beginning at age 59. Physical Findings: Nurse did not find any significant physical abnormalities on exam. MG Diagnostic Mammo RT w CAD CC and MLO view(s) were taken of the right breast. Prior study comparison: September 13, 2018, right breast MG diagnostic mammo RT w CAD. March 06, 2018, right breast MG diagnostic mammo RT w CAD. There are scattered fibroglandular densities. Post surgical changes right breast. No significant new findings when compared with previous films. These results were verbally communicated with the patient and result sheet given to the patient on 09/18/19. ASSESSMENT: Benign, BI-RAD 2 RECOMMENDATION: Follow-up diagnostic mammogram of the right breast in 1 year.
== END | disposition home or self-care (01) ==
LOC: RADMAMWWP 10:53
PROVIDERS: ATTEND Internal Medicine Hematology & Oncology
DX: R92.8 Other abnormal and inconclusive findings on diagnostic imaging of breast (principal); Z85.3 Personal history of malignant neoplasm of breast
CPT/HCPCS: 77065

== ENCOUNTER → 2019-09-19 | Outpatient (CLI) | payer OTHER ==
--- NOTE | 2019-09-19 14:15 | P.PN ---
Subjective Progress Note Date: 09/19/19 Principal diagnosis: stage III left breast cancer Mary is a 62-year-old white female with a history of stage III moderately differentiated invasive ductal carcinoma of the left breast. This was ER/IA positive and HER-2 negative. She is status post neoadjuvant therapy followed by a left breast mastectomy with immediate reconstruction. She subsequently underwent postmastectomy radiotherapy directed to the reconstructed breast and lymphatics. This finished in March 2016. She developed an infection and was necessary to have her dental cream maker removed. She has no evidence of any infection at this time. She has had a right breast partial resection which was benign, and there are clips makring the area of the biopsy cavity. She has seen a plastic surgeon in considering reconstruction in the future. The patient was scheduled for reconstruction in November 2018, however a week prior she had a myocardial infarction. She now have an internal pacemaker and defibrillator . She had 100% blockage of her left descending artery and a stent was placed. She was noted to have a low ejection fraction on echo and therefore the internal pacemaker and defibrillator were placed. At this time her reconstruction is on hold until she is stable from a cardiac standpoint. She has intermittent cramping of the muscle of the left chest wall it has improved. She has no lumps or masses in her right breast of concern. No nipple discharge or skin changes of concern. Most recently right breast mammogram was done on ; this was reviewed with Dr. Pelaez. He felt that this was stable benign in that she could have a repeat right breast mammogram in 1 year. Family history: 1. mother: breast cancer 2. father: cancer ? type 3. paternal aunt: brain Hormonal History: menarche: 13 1 [place], breast fed: yes, first born at 29 menopause: 50 BCP: none hormones: antiestrogen complains of sweating with this Surgical history: 1. 3 C-sections 2. Left mastectomy, Port-A-Cath, dental cream maker placed and removed 3. left coronary artery stent placed 4. Internal pacemaker and defibrillator Medical history: 1. Hypertension 2. Myocardial infarction Social history: Smoke: Negative Alcohol: Occasional Drugs: Negative Review of systems: HEENT: none lung: none heart: HTN, VA GI: none Gu: none Musculoskeletal: Arthritis Neurologic: Neuropathy hands and feet Psychiatric: Negative skin: none allergies: Seasonal - Constitutional Constitutional: Denies chills, Denies fever - EENT Eyes: denies blurred vision, denies pain Ears: bilateral: tinnitus (occasional right ear), deny: decreased hearing Ears, nose, mouth and throat: Denies headache, Denies sore throat - Breasts Breasts: bilateral: as per HPI - Cardiovascular Comment: VA, low ejection fraction - Respiratory Respiratory: Denies cough, - Gastrointestinal Gastrointestinal: Denies abdominal pain, Denies diarrhea, Denies nausea, Denies vomiting - Genitourinary (Female) Genitourinary: Denies dysuria, Denies hematuria - Menstruation Menstruation: Reports postmenopausal - Musculoskeletal Comment: arthritis in fingers - Integumentary Integumentary: Denies pruritus, Denies rash - Neurological Neurological: Denies numbness, Denies weakness - Psychiatric Comment: situational with recent VA Psychiatric: Reports anxiety - Endocrine Endocrine: Denies fatigue, Denies weight change - Hematologic/Lymphatic Comment: [place] Objective - Exam BMI 49.9 - Constitutional General appearance: Present: obese - EENT Eyes: Present: EOMI ENT: Present: hearing grossly normal - Neck Neck: Present: normal ROM - Respiratory Respiratory: bilateral: CTA - Cardiovascular Heart sounds: normal: S1, S2 - Gastrointestinal General gastrointestinal: Present: normal bowel sounds, soft - Integumentary Integumentary: Present: normal turgor - Musculoskeletal Musculoskeletal: Present: gait normal - Psychiatric Psychiatric: Present: A&O x's 3, appropriate affect, intact judgment & insight - Additional findings Additional findings: Breast exam: BRA: 44C Inspection: Grade 3 Ptosis on the right, postop changes on the left chest wall, defibrillator pacemaker placement on the left chest wall Palpation: Right breast: Multi-positional exam no dominant masses or nodules of concern, fibrocystic changes Right axilla: No adenopathy of concern Left breast: Status post mastectomy defibrillator/pacemaker in place left chest wall this area is measured at 9 by 7 cm she is following with Dr. Crystal; scar tissue status post surgery, no evidence of recurrent cancer Left axilla: No adenopathy of concern Assessment and Plan Assessment: Impression: 1. Patient status post treatment for stage III left breast cancer, patient has had mastectomy with implant reconstruction which became infected and was removed, patient has had radiation therapy, patient has had chemotherapy she is presently on femora 2. Status post myocardial infarction 3. Defibrillator pacemaker in place 4. HTN 5. Right breast mammogram stable follow-up in 1 year Plan: 1. no evidence of recurrent breast cancer/ firmness at site of defibrillator/pacemaker will follow closely in conjunction with cardiology 2. Continue to follow with medical oncology 3. Repeat right breast mammogram in 1 year 4. Follow-up here in 3 months for physician exam sooner if any question or concern regarding the defibrillator/pacemaker site CC: Dr. Gonzalez encounter 25 minutes, > 50% of time in planning and counselling
[2019-09-19 14:19] VITALS: BP 123/81; PULSE 51; RESP 20; TEMP 97.9
== END | disposition home or self-care (01) ==
LOC: WWCWWP 13:09
PROVIDERS: ATTEND Surgery
DX: Z53.9 Procedure and treatment not carried out, unspecified reason (principal)

== ENCOUNTER → 2019-09-23 | Outpatient (CLI) | payer OTHER ==
--- NOTE | 2019-09-23 14:50 | US ---
EXAMINATION TYPE: US venous doppler duplex UE LT DATE OF EXAM: 09/23/2019 COMPARISON: NONE CLINICAL HISTORY: L ARM, R22.32 Swelling L limb. SIDE PERFORMED: Left Left IJV, Subclavian, axilla, brachial, basilic, cephalic, radial, and ulnar veins imaged. Left Arm: Negative for DVT Grayscale, color doppler, spectral doppler imaging performed of the deep veins of the left upper extr emity. There is normal flow, compressability and vascular waveforms. IMPRESSION: No ultrasound evidence for acute deep or superficial venous thrombosis in the left upper extremity.
== END | disposition home or self-care (01) ==
LOC: RADUSWWP 14:07
PROVIDERS: ATTEND Internal Medicine Hematology & Oncology
DX: R22.32 Localized swelling, mass and lump, left upper limb (principal); Z88.6 Allergy status to analgesic agent

== ENCOUNTER → 2019-12-20 | Outpatient (CLI) | payer OTHER ==
[2019-12-20 14:02] VITALS: BP 126/88; PULSE 52; RESP 18; TEMP 98
--- NOTE | 2019-12-20 14:57 | P.PN ---
Subjective Progress Note Date: 12/20/19 Principal diagnosis: stage III left breast cancer Mary is a 62-year-old white female with a history of stage III moderately differentiated invasive ductal carcinoma of the left breast. This was ER/NM positive and HER-2 negative. She is status post neoadjuvant therapy followed by a left breast mastectomy with immediate reconstruction. She subsequently underwent postmastectomy radiotherapy directed to the reconstructed breast and lymphatics. This finished in March 2016. She developed an infection and was necessary to have her integrated program teacher removed. She has no evidence of any infection at this time. She has had a right breast partial resection which was benign, and there are clips makring the area of the biopsy cavity. She has seen a plastic surgeon in considering reconstruction in the future. The patient was scheduled for reconstruction in November 2018, however a week prior she had a myocardial infarction. She now have an internal pacemaker and defibrillator . She had 100% blockage of her left descending artery and a stent was placed. She was noted to have a low ejection fraction on echo and therefore the internal pacemaker and defibrillator were placed. At this time her reconstruction is on hold until she is stable from a cardiac standpoint. She has intermittent cramping of the muscle of the left chest wall it has improved. She has no lumps or masses in her right breast of concern. No nipple discharge or skin changes of concern. Most recently right breast mammogram was done on ; this was reviewed with Dr. Pelaez. He felt that this was stable benign in that she could have a repeat right breast mammogram in 1 year. On her examination of 09-19-19 there was some fullness at the pacemaker site and she is back for evaluation of this site. Family history: 1. mother: breast cancer 2. father: cancer ? type 3. paternal aunt: brain Hormonal History: menarche: 13 1 [place], breast fed: yes, first born at 29 menopause: 50 BCP: none hormones: antiestrogen complains of sweating with this Surgical history: 1. 3 C-sections 2. Left mastectomy, Port-A-Cath, integrated program teacher placed and removed 3. left coronary artery stent placed 4. Internal pacemaker and defibrillator Medical history: 1. Hypertension 2. Myocardial infarction Social history: Smoke: Negative Alcohol: Occasional Drugs: Negative Review of systems: HEENT: none lung: none heart: HTN, PR GI: none Gu: none Musculoskeletal: Arthritis Neurologic: Neuropathy hands and feet Psychiatric: Negative skin: none allergies: Seasonal Objective - Vital Signs Vital signs: Vital Signs Temp 98.0 F 12/20/19 13:59 Pulse 52 L 12/20/19 13:59 Resp 18 12/20/19 13:59 BP 126/88 12/20/19 13:59 Pulse Ox 98 12/20/19 13:59 Intake & Output 12/19/19 12/20/19 12/20/19 18:59 06:59 18:59 Weight 146.057 kg - Exam BMI 53.6 - Constitutional General appearance: Present: obese - EENT Eyes: Present: EOMI ENT: Present: hearing grossly normal - Neck Neck: Present: normal ROM - Respiratory Respiratory: bilateral: CTA - Cardiovascular Heart sounds: normal: S1, S2 - Gastrointestinal General gastrointestinal: Present: soft - Integumentary Integumentary Comment(s): Left chest wall no evidence of recurrent cancer, the area of the defibrillator is better demarcated on today's examination there is no evidence of any recurrent cancer Lymphedema left arm which is improved and she has been followed by lymphedema specialist - Musculoskeletal Musculoskeletal Comment(s): Bilateral lower extremity pitting edema +2 - Psychiatric Psychiatric: Present: A&O x's 3, appropriate affect Assessment and Plan Assessment: Impression: 1. No evidence of recurrent disease status post mastectomy for left stage III breast cancer 2. Lymphedema left upper extremity improved 3. History of myocardial infarction with pacemaker defibrillator in place 4. Bilateral lower extremity pitting edema Plan: 1. A prescription for left breast prosthesis 2. Continue to follow with lymphedema specialist as needed 3. Continue to follow with medical oncology 4. Follow up here in 6 months for physician exam 5. Follow-up plastic surgery as per patient for reconstruction Cc: Dr. Gonzalez encounter 15 minutes, > 50% of time in planning and counselling
== END | disposition home or self-care (01) ==
LOC: WWCWWP 13:48
PROVIDERS: ATTEND Surgery
DX: Z53.9 Procedure and treatment not carried out, unspecified reason (principal)

== ENCOUNTER 2020-02-28 15:12 | Observation (INO) | payer OTHER ==
--- NOTE | 2020-02-28 15:39 | ED ---
Dizziness HPI <Adryan Grigsby - Last Filed: 02/28/20 19:11> - General Source: patient Mode of arrival: wheelchair Limitations: no limitations <Latrell Ferris - Last Filed: 02/28/20 22:52> - General Chief Complaint: Dizziness Stated Complaint: dizziness Time Seen by Provider: 02/28/20 15:35 - History of Present Illness Initial Comments: 64-year-old female with history of CAD, cardiac pacemaker and breast cancer presenting to the emergency department of dizziness. States symptoms occurred t his morning. Patient states she got out of bed, put her clothes on and gradually noticed increased dizziness. Patient reports within an hour or 2, the whole room began spinning and now it does not stop. Patient reports one episode of vomiting is not bloody vomiting. Patient states she takes multiple blood pressure and cardiac medications including lisinopril, spurlike tone, metoprolol, amiodarone which she took prior to vomiting. States that no medications stated in her system. Patient denies any one-sided weakness appears to use. Denies history of vertigo. Denies one-sided weakness or paresthesias. 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 also present in the room and denies any speech difficulties. Patient denies any headache chest pain or shortness of breath at this time. (Latrell Ferris) - Related Data Home Medications Medication Instructions Recorded Confirmed Letrozole [Femara] 2.5 mg PO DAILY 06/06/16 02/28/20 Acetaminophen/Diphenhydramine 2 tab PO HS 02/28/20 02/28/20 [Tylenol PM 500-25mg] Amiodarone [Cordarone] 200 mg PO DAILY 02/28/20 02/28/20 Clopidogrel [Plavix] 75 mg PO HS 02/28/20 02/28/20 Metoprolol Succinate [Toprol XL] 150 mg PO DAILY 02/28/20 02/28/20 Spironolactone [Aldactone] 12.5 mg PO HS 02/28/20 02/28/20 lisinopriL [Zestril] 5 mg PO DAILY 02/28/20 02/28/20 Previous Rx's Medication Instructions Recorded Apixaban [Eliquis] 5 mg PO BID #60 tab 12/12/18 Atorvastatin [Lipitor] 80 mg PO HS #30 tab 12/12/18 Allergies Allergy/AdvReac Type Severity Reaction Status Date / Time latex AdvReac Unknown itching Verified 02/28/20 16:45 and tingling ibuprofen [From Motrin] AdvReac Nausea & Verified 02/28/20 16:45 Vomiting phenaphen Allergy Severe Anaphylaxis Uncoded 02/28/20 16:45 blue cheese Allergy Unknown Rash/Hives, Uncoded 02/28/20 16:45 Swelling corn beef Allergy Unknown Rash/Hives, Uncoded 02/28/20 16:45 Swelling Review of Systems ROS Other: All systems not noted in ROS Statement are negative. <Adryan Grigsby - Last Filed: 02/28/20 19:11> ROS Other: All systems not noted in ROS Statement are negative. <Latrell Ferris - Last Filed: 02/28/20 22:52> ROS Statement: Those systems with pertinent positive or pertinent negative responses have been documented in the HPI. Past Medical History Past Medical History: Atrial Fibrillation, Coronary Artery Disease (CAD), Cancer, Heart Failure, CVA/TIA, Hyperlipidemia, Hypertension, Myocardial Infarction ([place]) Additional Past Medical History / Comment(s): CVA (MAR 2014)- NO RESIDUAL EFFECTS , LEFT BREAST CANCER. FINISHED CHEMO Sep, HX OF INFECTION FROM IMPLANT WITH DIFFICULTY HEALING.,. 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 No b/p, blood draws left arm, history of LIFE VEST. Last Myocardial Infarction Date:: 12/08/2018 History of Any Multi-Drug Resistant Organisms: None Reported Past Surgical History: Breast Surgery, Section, Heart Catheterization With Stent, Pacemaker Additional Past Surgical History / Comment(s): LT MASTECTOMY WITH IMPLANT (INFECTION & REMOVED),. C-SEC X3. MEDI PORT INSERTION-RT CHEST-REMOVED. BREAST BIOPSIES. HEART CATH WITH STENT 11/2018 Past Anesthesia/Blood Transfusion Reactions: Postoperative Nausea & Vomiting (PONV) Additional Past Anesthesia/Blood Transfusion Reaction / Comment(s): HX OF PONV. Date of Last Stent Placement:: 11/2018 Type of Cardiac Device: Biventricular Pacemaker, Permanent Pacemaker, AICD Device Placement Date:: 06/20/19 Past Psychological History: No Psychological Hx Reported Smoking Status: Never smoker Past Alcohol Use History: Rare Past Drug Use History: None Reported - Past Family History Mother Family Medical History: Cancer, CVA/TIA Additional Family Medical History / Comment(s): BREAST CANCER Father Family Medical History: Cancer, Congestive Heart Failure (CHF), Diabetes Mellitus Additional Family Medical History / Comment(s): CANCER <Latrell Ferris - Last Filed: 02/28/20 22:52> General Exam Limitations: no limitations General appearance: alert, in no apparent distress Head exam: Present: atraumatic, normocephalic, normal inspection Eye exam: Present: normal appearance, PERRL, EOMI. Absent: scleral icterus, conjunctival injection, nystagmus, periorbital swelling, periorbital tenderness Pupils: Present: normal accommodation ENT exam: Present: normal exam, normal oropharynx, mucous membranes moist, TM's normal bilaterally, normal external ear exam Neck exam: Present: normal inspection, full ROM. Absent: tenderness, lymphadenopathy Respiratory exam: Present: normal lung sounds bilaterally. Absent: respiratory distress, wheezes, rales, rhonchi, stridor Cardiovascular Exam: Present: regular rate, normal rhythm, normal heart sounds GI/Abdominal exam: Present: soft. Absent: distended, tenderness, guarding, rebound Extremities exam: Present: normal inspection, full ROM, normal capillary refill, other (+2 ulnar and radial possible early. +2 dorsalis pedis and posterior tibials bilaterally.). Absent: tenderness, pedal edema, joint swelling, calf te nderness Back exam: Present: normal inspection, full ROM. Absent: tenderness, CVA tenderness (R), CVA tenderness (L) Neurological exam: Present: alert, oriented X3, CN II-XII intact Expanded Patient oriented to: Present: person, place, time Speech: Present: fluid speech Cranial nerves: EOM's Intact: Normal, Tongue Deviation: Normal, Nystagmus: Normal, Facial Sensation: Normal Upper motor neuron: Pronator Drift: Normal Sensory exam: Upper Extremity Light Touch: Normal, Lower Extremity Light Touch: Normal Motor strength exam: RUE: 5, LUE: 5, RLE: 5, LLE: 5 Psychiatric exam: Present: normal affect, normal mood. Absent: depressed, agitated, anxious, flat affect Skin exam: Present: warm, dry, intact, normal color <Latrell Ferris - Last Filed: 02/28/20 22:52> Course <Adryan Grigsby - Last Filed: 02/28/20 19:11> Vital Signs 02/28/20 02/28/20 02/28/20 15:13 17:29 18:08 Temperature 97.6 F Pulse Rate 54 L 89 89 Respiratory 20 18 18 Rate Blood Pressure 168/125 134/89 132/91 O2 Sat by Pulse 98 96 98 Oximetry - Reevaluation(s) Reevaluation #1: 02/28/20 19:11 64-year-old female presenting with dizziness, vomiting. Previous history of CVA, patient is on Eliquis. She remains asymptomatic after treatment. Initial head CT performed which is negative for intracranial hemorrhage, no acute findings. Patient does have a pacemaker defibrillator. I discussed case with Dr. malikion will admit for symptomatic control. (Adryan Grigsby) EKG Findings - EKG Comments: EKG Findings:: Ventricular paced rhythm. Ventricular rate 92, QRS 138, QTC 551, <Latrell Ferris - Last Filed: 02/28/20 22:52> Medical Decision Making - Lab Data Result diagrams: 02/28/20 17:07 02/28/20 17:07 <Adryan Grigsby - Last Filed: 02/28/20 19:11> - Lab Data Result diagrams: 02/28/20 17:07 02/28/20 17:07 <Latrell Ferris - Last Filed: 02/28/20 22:52> - Medical Decision Making 64-year-old female with history of CVA presenting to emergency Department with chief complaint of dizziness. Neurological examination is unremarkable. Patient was given Antivert and Valium. Laboratory work is unremarkable. Brain CT negative for any acute processes. On reevaluation, patient reports some improvement in her symptoms although the dizziness is still persistent. Patient was also given an addition of antiemetics. Patient will be admitted for symptom control. Case was discussed with who also evaluated the patient. Admitting physician is (Latrell Ferris) - Lab Data Lab Results 02/28/20 02/28/20 02/28/20 Range/Units 17:07 17:07 17:07 WBC 8.7 (3.8-10.6) k/uL RBC 4.25 (3.80-5.40) m/uL Hgb 13.5 (11.4-16.0) gm/dL Hct 40.5 (34.0-46.0) % MCV 95.4 (80.0-100.0) fL MCH 31.8 (25.0-35.0) pg MCHC 33.3 (31.0-37.0) g/dL RDW 14.3 (11.5-15.5) % Plt Count 141 L (150-450) k/uL MPV 8.6 Neutrophils % 84 % Lymphocytes % 12 % Monocytes % 3 % Eosinophils % 1 % Basophils % 0 % Neutrophils # 7.3 (1.3-7.7) k/uL Lymphocytes # 1.1 (1.0-4.8) k/uL Monocytes # 0.2 (0-1.0) k/uL Eosinophils # 0.0 (0-0.7) k/uL Basophils # 0.0 (0-0.2) k/uL PT 10.3 (9.0-12.0) sec INR 1.0 (<1.2) Sodium 142 (137-145) mmol/L Potassium 4.6 (3.5-5.1) mmol/L Chloride 106 (98-107) mmol/L Carbon Dioxide 30 (22-30) mmol/L Anion Gap 6 mmol/L BUN 18 H (7-17) mg/dL Creatinine 0.96 (0.52-1.04) mg/dL Est GFR (CKD-EPI)AfAm 72 (>60 ml/min/1.73 sqM) Est GFR (CKD-EPI)NonAf 63 (>60 ml/min/1.73 sqM) Glucose 166 H (74-99) mg/dL Calcium 9.0 (8.4-10.2) mg/dL Magnesium 1.6 (1.6-2.3) mg/dL Total Bilirubin 0.5 (0.2-1.3) mg/dL AST 28 (14-36) U/L ALT 44 H (4-34) U/L Alkaline Phosphatase 98 (38-126) U/L Troponin I (0.000-0.034) ng/mL Total Protein 7.0 (6.3-8.2) g/dL Albumin 4.4 (3.5-5.0) g/dL 02/28/20 Range/Units 17:07 WBC (3.8-10.6) k/uL RBC (3.80-5.40) m/uL Hgb (11.4-16.0) gm/dL Hct (34.0-46.0) % MCV (80.0-100.0) fL MCH (25.0-35.0) pg MCHC (31.0-37.0) g/dL RDW (11.5-15.5) % Plt Count (150-450) k/uL MPV Neutrophils % % Lymphocytes % % Monocytes % % Eosinophils % % Basophils % % Neutrophils # (1.3-7.7) k/uL Lymphocytes # (1.0-4.8) k/uL Monocytes # (0-1.0) k/uL Eosinophils # (0-0.7) k/uL Basophils # (0-0.2) k/uL PT (9.0-12.0) sec INR (<1.2) Sodium (137-145) mmol/L Potassium (3.5-5.1) mmol/L Chloride (98-107) mmol/L Carbon Dioxide (22-30) mmol/L Anion Gap mmol/L BUN (7-17) mg/dL Creatinine (0.52-1.04) mg/dL Est GFR (CKD-EPI)AfAm (>60 ml/min/1.73 sqM) Est GFR (CKD-EPI)NonAf (>60 ml/min/1.73 sqM) Glucose (74-99) mg/dL Calcium (8.4-10.2) mg/dL Magnesium (1.6-2.3) mg/dL Total Bilirubin (0.2-1.3) mg/dL AST (14-36) U/L ALT (4-34) U/L Alkaline Phosphatase (38-126) U/L Troponin I 0.018 (0.000-0.034) ng/mL Total Protein (6.3-8.2) g/dL Albumin (3.5-5.0) g/dL Disposition <Adryan Grigsby - Last Filed: 02/28/20 19:11> Is patient prescribed a controlled substance at d/c from ED?: No Time of Disposition: 18:29 <Latrell Ferris - Last Filed: 02/28/20 22:52> Clinical Impression: Dizziness Disposition: ADMITTED IP TO THIS HOSP Condition: Fair
[2020-02-28] MEDS ORDERED: DIAZEPAM 5 MG/ML 2 ML INJ IVP STA (15:48)
[2020-02-28] MEDS ORDERED: MECLIZINE 12.5 MG TAB PO STA (15:48)
--- NOTE | 2020-02-28 17:09 | CT ---
EXAMINATION TYPE: CT brain wo con DATE OF EXAM: 02/28/2020 COMPARISON: 03/28/2014 HISTORY: Dizziness. CT DLP: 1088.4 mGycm Automated exposure control for dose reduction was used. Images were obtained of the brain without contrast. Ventricles and sulci appear normal. There is no mass effect nor midline shift. There is no sign of in tracranial hemorrhage. There is no evidence of cerebral edema. Calvarium is intact. IMPRESSION: Negative unenhanced head CT scan. No change.
[2020-02-28] MEDS ORDERED: METOPROLOL SUCCINATE (ER) 100 MG TAB.ER.24H PO STA (17:13)
[2020-02-28] MEDS ORDERED: AMIODARONE 200 MG TAB PO STA (17:15)
[2020-02-28] MEDS ORDERED: lisinopriL 5 MG TAB PO STA (17:19)
[2020-02-28 17:20] LABS: Basophils % (A) 0 %; Eosinophils % (A) 1 %; HCT 40.5 % (34.0-46.0); HGB 13.5 gm/dL (11.4-16.0); Lymphocytes # (A) 1.1 k/uL (1.0-4.8); Lymphocytes % (A) 12 %; MCH 31.8 pg (25.0-35.0); MCHC 33.3 g/dL (31.0-37.0); MCV 95.4 fL (80.0-100.0); Mean Platelet Volume 8.6; Monocytes # (A) 0.2 k/uL (0-1.0); Monocytes % (A) 3 %; Neutrophils # (A) 7.3 k/uL (1.3-7.7); Neutrophils % (A) 84 %; Platelet Count 141 k/uL (150-450); RBC 4.25 m/uL (3.80-5.40); RDW 14.3 % (11.5-15.5); WBC 8.7 k/uL (3.8-10.6)
[2020-02-28 17:39] LABS: Albumin 4.4 g/dL (3.5-5.0); Magnesium 1.6 mg/dL (1.6-2.3); Potassium 4.6 mmol/L (3.5-5.1); Total Bilirubin 0.5 mg/dL (0.2-1.3)
[2020-02-28 17:43] LABS: Prothrombin Time 10.3 sec (9.0-12.0)
[2020-02-28] MEDS ORDERED: ONDANSETRON 4 MG/2 ML VIAL IVP STA (18:02)
[2020-02-28] MEDS ORDERED: traMADol 50 MG TAB PO PRN (18:26)
[2020-02-28] MEDS ORDERED: NALOXONE 0.4 MG/ML 1 ML VIAL IV PRN (18:26)
[2020-02-28] MEDS ORDERED: MORPHINE SULFATE 4 MG/ML SYRINGE IV PRN (18:26)
[2020-02-28] MEDS ORDERED: ONDANSETRON 4 MG/2 ML VIAL IVP PRN (18:26)
[2020-02-28] MEDS ORDERED: LORazepam 2 MG/ML INJ IV PRN (18:26)
[2020-02-28] MEDS ORDERED: SODIUM CHLORIDE 0.9% 500 ML 500 ML IV STA (18:28)
[2020-02-28] MEDS: SODIUM CHLORIDE 0.9% 1,000 ML IV SCH (18:41)
[2020-02-28 19:06] LABS: Appearance,Urine Clear (Clear); Bilirubin,Urine Negative (Negative); Blood,Urine Negative (Negative); Color,Urine Light Yellow; Glucose,Urine (UA) Negative (Negative); Ketones,Urine Negative (Negative); Leukocyte Esterase,Urine Negative (Negative); Nitrite,Urine Negative (Negative); Protein,Urine Trace (Negative); Specific Gravity,Urine 1.014 (1.001-1.035); Urobilinogen,Urine <2.0 mg/dL (<2.0)
[2020-02-28] MEDS: MECLIZINE 25 MG TAB PO SCH (21:20)
[2020-02-29] MEDS: MECLIZINE 25 MG TAB PO SCH ×3 (08:21→21:40)
[2020-02-29] MEDS ORDERED: AMIODARONE 200 MG TAB PO SCH (12:00)
[2020-02-29] MEDS: APIXABAN 5 MG TAB PO SCH ×2 (12:43→21:40)
[2020-02-29] MEDS: METOPROLOL TARTRATE 25 MG TAB PO SCH ×2 (12:46→21:40)
[2020-02-29] MEDS: LETROZOLE 2.5 MG TAB PO SCH (12:46)
[2020-02-29] MEDS: SODIUM CHLORIDE 0.9% 1,000 ML IV SCH ×2 (14:00→21:43)
[2020-02-29] MEDS ORDERED: CLOPIDOGREL 75 MG TAB PO SCH (21:00)
[2020-02-29] MEDS ORDERED: ACETAMINOPHEN TAB 500 MG TAB PO SCH (21:00)
[2020-02-29] MEDS ORDERED: diphenhydrAMINE 50 MG CAP PO SCH (21:00)
[2020-02-29] MEDS ORDERED: ATORVASTATIN 80 MG TAB PO SCH (21:00)
[2020-02-29] MEDS ORDERED: SPIRONOLACTONE 25 MG TAB PO SCH (21:00)
--- NOTE | 2020-02-29 21:01 | P.HPIM ---
History of Present Illness H&P Date: 02/29/20 Chief Complaint: Room spinning History of presenting complaint: This is a pleasant 64-year-old patient of Dr. Gonzalez. Chronic stable medical conditions include coronary artery disease with stent, congestive heart failure, hyperlipidemia, hypertension, chemotherapy related peripheral neuropathy. Has AICD. Patient now presents with yesterday morning the room spinning. Settle down and then she did have a second episode of the same. And then had an episode and became rather constant. Patient octahedral cannot keep her eyes open. And finally decided to present here. Had some nausea 2. No changes speech or vision. This morning also noticed that moving her head would reproduce symptoms. This morning her blood pressure was noted to be on the lower side to systolic of 108 and then at 101. No chest pain or palpitation. Review of systems: GEN.: Tired EYES: None HEENT: None NECK: None RESPIRATORY: None CARDIOVASCULAR: As above GASTROINTESTINAL: None GENITOURINARY: None MUSCULOSKELETAL: As above joint pains LYMPHATICS: None HEMATOLOGICAL: None PSYCHIATRY: None NEUROLOGICAL: As above Past medical history to include: Atrial fibrillation, coronary artery disease with stent, congestive heart failure, hyperlipidemia, hypertension, stroke, left breast cancer with chemotherapy, chemotherapy related peripheral neuropathy, left mastectomy. Biventricular pacemaker placement June 19. Social history: No smoking. Alcohol rarely. Physical examination: VITAL SIGNS: 97.8, 63, 16, 101/64, 99% room air GENERAL: BMI 53.3, reclining in bed. EYES: Pupils equal. Conjunctiva normal. HEENT: External appearance of nose and ears normal, oral cavity grossly normal. NECK: JVD not raised; masses not palpable. HEART: First and second heart sounds are normal; no edema. LUNGS: Respiratory rate normal; clear to auscultation. ABDOMEN: Soft, nontender, liver spleen not palpable, no masses palpable. CHEST wall: Left infraclavicular AICD placed with the dressing in place PSYCH: Alert and oriented x3; mood and affect normal. NEUROLOGICAL: Cranial nerves grossly intact; no facial asymmetry, power and sensation grossly intact. LYMPHATICS: No lymph nodes palpable in the axilla and neck INVESTIGATIONS, reviewed in the clinical context: White count 8.7 hemoglobin 13.5 platelets 141 potassium 4.6 creatinine 0.96 Troponin I 0.018 EKG tracing personally reviewed by me-ventricular paced rhythm Computed tomography scan of the brain without contrast-negative Assessment: -Patient presents with recurrent episodes of acute room spinning. Symptoms beco mandeep more protracted. Symptoms are much worse with moving her head and somewhat better with staying still. This was reproduced in my presence. Patient is felt to have BPPV. -AICD -Coronary artery disease with history of stent -Hyperlipidemia -Essential hypertension. Noted that patient's blood pressures running just above 100 this morning. I held off patient's Toprol-XL 150 mg morning. Give h er 25 mg of Lopressor. -Peripheral neuropathy secondary to chemotherapy -Morbid obesity BMI 53.3 -History of Atrial fibrillation, Plan: Was 4 BPPV [place] printed and given to the patient to be done in the room. Patient's Toprol-XL be started tomorrow morning. Will get a cardiology consultation. Care was discussed with the patient. Other medications reviewed. Past Medical History Past Medical History: Atrial Fibrillation, Coronary Artery Disease (CAD), Cancer, Heart Failure, CVA/TIA, Hyperlipidemia, Hypertension, Myocardial Infarction ([place]) Additional Past Medical History / Comment(s): CVA (MAR 2014)- NO RESIDUAL EFFECTS , LEFT BREAST CANCER. FINISHED CHEMO Sep, HX OF INFECTION FROM IMPLANT WITH DIFFICULTY HEALING.,. 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 No b/p, blood draws left arm, history of LIFE VEST. Last Myocardial Infarction Date:: 12/08/2018 History of Any Multi-Drug Resistant Organisms: None Reported Past Surgical History: Breast Surgery, Section, Heart Catheterization With Stent, Pacemaker Additional Past Surgical History / Comment(s): LT MASTECTOMY WITH IMPLANT (INFECTION & REMOVED),. C-SEC X3. MEDI PORT INSERTION-RT CHEST-REMOVED. BREAST BIOPSIES. HEART CATH WITH STENT 11/2018 Past Anesthesia/Blood Transfusion Reactions: Postoperative Nausea & Vomiting (PONV) Additional Past Anesthesia/Blood Transfusion Reaction / Comment(s): HX OF PONV. Date of Last Stent Placement:: 11/2018 Type of Cardiac Device: Biventricular Pacemaker, Permanent Pacemaker, AICD Device Placement Date:: 06/20/19 Past Psychological History: No Psychological Hx Reported Smoking Status: Never smoker Past Alcohol Use History: Rare Past Drug Use History: None Reported - Past Family History Mother Family Medical History: Cancer, CVA/TIA Additional Family Medical History / Comment(s): BREAST CANCER Father Family Medical History: Cancer, Congestive Heart Failure (CHF), Diabetes Mellitus Additional Family Medical History / Comment(s): CANCER Medications and Allergies Home Medications Medication Instructions Recorded Confirmed Type Letrozole [Femara] 2.5 mg PO DAILY 06/06/16 02/28/20 History Apixaban [Eliquis] 5 mg PO BID #60 tab 12/12/18 02/28/20 Rx Atorvastatin [Lipitor] 80 mg PO HS #30 tab 12/12/18 02/28/20 Rx Acetaminophen/Diphenhydramine 2 tab PO HS 02/28/20 02/28/20 History [Tylenol PM 500-25mg] Amiodarone [Cordarone] 200 mg PO DAILY 02/28/20 02/28/20 History Clopidogrel [Plavix] 75 mg PO HS 02/28/20 02/28/20 History Metoprolol Succinate [Toprol XL] 150 mg PO DAILY 02/28/20 02/28/20 History Spironolactone [Aldactone] 12.5 mg PO HS 02/28/20 02/28/20 History lisinopriL [Zestril] 5 mg PO DAILY 02/28/20 02/28/20 History Allergies Allergy/AdvReac Type Severity Reaction Status Date / Time latex AdvReac Unknown itching Verified 02/28/20 16:45 and tingling ibuprofen [From Motrin] AdvReac Nausea & Verified 02/28/20 16:45 Vomiting phenaphen Allergy Severe Anaphylaxis Uncoded 02/28/20 16:45 blue cheese Allergy Unknown Rash/Hives, Uncoded 02/28/20 16:45 Swelling corn beef Allergy Unknown Rash/Hives, Uncoded 02/28/20 16:45 Swelling Physical Exam Vitals: Vital Signs Temp Pulse Pulse Resp BP BP Pulse Ox 02/29/20 08:59 63 16 02/29/20 08:20 97.8 F 63 16 101/64 99 02/29/20 03:00 98.2 F 60 16 108/70 100 02/28/20 20:46 97.7 F 64 16 125/80 99 02/28/20 18:08 89 18 132/91 98 02/28/20 17:29 89 18 134/89 96 02/28/20 15:13 97.6 F 54 L 20 168/125 98 Intake and Output 02/28/20 02/29/20 02/29/20 22:59 06:59 14:59 Other: Voiding Method Toilet Weight 145.15 kg Results CBC & Chem 7: 02/28/20 17:07 02/28/20 17:07 Labs: Abnormal Lab Results - Last 24 Hours (Table) 02/28/20 02/28/20 02/28/20 Range/Units 17:07 17:07 19:02 Plt Count 141 L (150-450) k/uL BUN 18 H (7-17) mg/dL Glucose 166 H (74-99) mg/dL ALT 44 H (4-34) U/L Urine Protein Trace H (Negative) Thrombosis Risk Factor Assmnt - Choose All That Apply Any of the Below Risk Factors Present?: Yes Each Factor Represents 1 point: Age 41-60 years Thrombosis Risk Factor Assessment Total Risk Factor Score: 1 Thrombosis Risk Factor Assessment Level: Low Risk
[2020-03-01 04:23] VITALS: RESP 16
[2020-03-01 08:30] VITALS: TEMP 98.2
[2020-03-01] MEDS ORDERED: METOPROLOL SUCCINATE (ER) 50 MG TAB.ER.24H PO SCH (09:00)
[2020-03-01 09:17] VITALS: BP 119/57; PULSE 52
[2020-03-01] MEDS: APIXABAN 5 MG TAB PO SCH (09:32)
[2020-03-01] MEDS: MECLIZINE 25 MG TAB PO SCH (09:32)
[2020-03-01] MEDS: LETROZOLE 2.5 MG TAB PO SCH (09:34)
--- NOTE | 2020-03-01 11:19 | P.CRDCN ---
History of Present Illness Consult date: 03/01/20 History of present illness: CHIEF COMPLAINT: Dizziness HISTORY OF PRESENT ILLNESS: This is a 64-year-old female with a past medical history significant for coronary artery disease with previous PCI to LAD, ischemic cardiomyopathy with AICD placement, hypertension, and hyperlipidemia. Patient follows in the office with Dr. Campbell. We have been asked to see the patient in consultation for dizziness. Patient examined this might the bedside. Patient states on Monday she was sitting at her computer when she began to feel the whole room spinning. She reports she also was nauseous and had multiple episodes of vomiting. She states that she has never had this happen before and she became concerned so she came to the hospital for further evaluation. This morning, the patient states her symptoms have improved. DIAGNOSTICS: EKG reveals ventricular paced CT brain: Negative for acute process Laboratory data: WBC 8.7. Hemoglobin 13.5. Platelet count 141. Sodium 142. Potassium 4.6. BUN 18. Creatinine 0.96. Magnesium 1.6. Current home cardiac medications include lisinopril 5 mg daily, Aldactone 12.5 mg daily, metoprolol succinate 150 mrem daily, Plavix 75 mg daily, Lipitor 80 mg daily, Eliquis 5 mg twice a day, amiodarone 200 mg daily REVIEW OF SYSTEMS: At the time of my exam: CONSTITUTIONAL: Denies fever or chills. HEENT: Denies blurred vision, vision changes, or eye pain. Denies hemoptysis CARDIOVASCULAR: Denies chest pain, orthopnea, PND or palpitations RESPIRATORY: No shortness of breath. GASTROINTESTINAL: Denies abdominal pain. Denies nausea or vomiting. HEMATOLOGIC: Denies bleeding disorders. GENITOURINARY: Denies any blood in urine. SKIN: Denies pruitis. Denies rash. PHYSICAL EXAM: VITAL SIGNS: Reviewed. GENERAL: Well-developed in no acute distress. HEENT: Head is normocephalic. Pupils are equal, round. Sclerae anicteric. Mucous membranes of the mouth are moist. Neck supple. No JVD or thyromegaly LUNGS: Respirations even and unlabored. Lungs essentially clear to auscultation bilaterally. HEART: Regular rate and rhythm. S1 and S2 heard. ABDOMEN: Soft. Nondistended. Nontender. EXTREMITIES: Normal range of motion. No clubbing or cyanosis. Peripheral pulses intact. No lower extremity edema NEUROLOGIC: Awake and alert. Oriented x 3. ASSESSMENT: Vertigo Coronary artery disease with previous PCI to LAD Paroxysmal atrial fibrillation, on anticoagulation with Eliquis History of ischemic cardiomyopathy with ejection fraction less than 20%, status post ICD, most recent echocardiogram reveals EF 50-55% Hypertension Hyperlipidemia PLAN: Resume home cardiac medications Patient states she had an echocardiogram performed in December at the cardiology office. Will review echo. Obtain orthostatic blood pressures Interrogate AICD If no abnormalities noted on device interrogation, patient may be discharged home today from a cardiac standpoint and follow up with Dr. Campbell Nurse practitioner note has been reviewed by physician. Signing provider agrees with the documented findings, assessment, and plan of care. Past Medical History Past Medical History: Atrial Fibrillation, Coronary Artery Disease (CAD), Cancer, Heart Failure, CVA/TIA, Hyperlipidemia, Hypertension, Myocardial Infarction (CO) Additional Past Medical History / Comment(s): CVA (MAR 2014)- NO RESIDUAL EFFEC TS , LEFT BREAST CANCER. FINISHED CHEMO Sep, HX OF INFECTION FROM IMPLANT WITH DIFFICULTY HEALING.,. 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 No b/p, blood draws left arm, history of LIFE VEST. Last Myocardial Infarction Date:: 12/08/2018 History of Any Multi-Drug Resistant Organisms: None Reported Past Surgical History: Breast Surgery, Section, Heart Catheterization With Stent, Pacemaker Additional Past Surgical History / Comment(s): LT MASTECTOMY WITH IMPLANT (INFECTION & REMOVED),. C-SEC X3. MEDI PORT INSERTION-RT CHEST-REMOVED. BREAST BIOPSIES. HEART CATH WITH STENT 11/2018 Past Anesthesia/Blood Transfusion Reactions: Postoperative Nausea & Vomiting (PONV) Additional Past Anesthesia/Blood Transfusion Reaction / Comment(s): HX OF PONV. Date of Last Stent Placement:: 11/2018 Type of Cardiac Device: Biventricular Pacemaker, Permanent Pacemaker, AICD Device Placement Date:: 06/20/19 Past Psychological History: No Psychological Hx Reported Smoking Status: Never smoker Past Alcohol Use History: Rare Past Drug Use History: None Reported - Past Family History Mother Family Medical History: Cancer, CVA/TIA Additional Family Medical History / Comment(s): BREAST CANCER Father Family Medical History: Cancer, Congestive Heart Failure (CHF), Diabetes Mellitus Additional Family Medical History / Comment(s): CANCER Medications and Allergies Home Medications Medication Instructions Recorded Confirmed Type Letrozole [Femara] 2.5 mg PO DAILY 06/06/16 02/28/20 History Apixaban [Eliquis] 5 mg PO BID #60 tab 12/12/18 02/28/20 Rx Atorvastatin [Lipitor] 80 mg PO HS #30 tab 12/12/18 02/28/20 Rx Acetaminophen/Diphenhydramine 2 tab PO HS 02/28/20 02/28/20 History [Tylenol PM 500-25mg] Amiodarone [Cordarone] 200 mg PO DAILY 02/28/20 02/28/20 History Clopidogrel [Plavix] 75 mg PO HS 02/28/20 02/28/20 History Metoprolol Succinate [Toprol XL] 150 mg PO DAILY 02/28/20 02/28/20 History Spironolactone [Aldactone] 12.5 mg PO HS 02/28/20 02/28/20 History lisinopriL [Zestril] 5 mg PO DAILY 02/28/20 02/28/20 History Allergies Allergy/AdvReac Type Severity Reaction Status Date / Time latex AdvReac Unknown itching Verified 02/28/20 16:45 and tingling ibuprofen [From Motrin] AdvReac Nausea & Verified 02/28/20 16:45 Vomiting phenaphen Allergy Severe Anaphylaxis Uncoded 02/28/20 16:45 blue cheese Allergy Unknown Rash/Hives, Uncoded 02/28/20 16:45 Swelling corn beef Allergy Unknown Rash/Hives, Uncoded 02/28/20 16:45 Swelling Physical Exam Vitals: Vital Signs Temp Pulse Pulse Pulse Pulse Resp BP 03/01/20 09:15 66 55 L 52 L 136/80 03/01/20 08:43 53 L 16 03/01/20 07:42 98.2 F 53 L 16 03/01/20 03:00 97.7 F 55 L 16 02/29/20 20:54 98.0 F 63 18 02/29/20 15:00 97.8 F 56 L 16 BP BP BP Pulse Ox 03/01/20 09:15 121/60 119/57 03/01/20 08:43 03/01/20 07:42 98/56 95 03/01/20 03:00 148/74 98 02/29/20 20:54 128/70 99 02/29/20 15:00 92/60 98 Intake and Output 02/29/20 03/01/20 03/01/20 22:59 06:59 14:59 Intake Total 400 300 Balance 400 300 Intake: Oral 400 300 Other: Voiding Method Toilet Toilet # Voids 0 0 1 Results 02/28/20 17:07 02/28/20 17:07 Current Medications Generic Name Dose Route Start Last Admin Trade Name Freq PRN Reason Stop Dose Admin Acetaminophen 1,000 mg 02/29/20 21:00 02/29/20 21:40 Acetaminophen Tab 500 Mg Tab PO 1,000 mg HS KALEB Administration Amiodarone HCl 200 mg 03/01/20 21:00 Amiodarone 200 Mg Tab PO HS KALEB Apixaban 5 mg 02/29/20 12:00 03/01/20 09:32 Apixaban 5 Mg Tab PO 5 mg BID KALEB Administration Atorvastatin Calcium 80 mg 02/29/20 21:00 02/29/20 21:40 Atorvastatin 80 Mg Tab PO 80 mg HS KALEB Administration Clopidogrel Bisulfate 75 mg 02/29/20 21:00 02/29/20 21:40 Clopidogrel 75 Mg Tab PO 75 mg HS KALEB Administration Diphenhydramine HCl 50 mg 02/29/20 21:00 02/29/20 21:40 Diphenhydramine 50 Mg Cap PO 50 mg HS KALEB Administration Sodium Chloride 1,000 mls @ 75 mls/hr 02/28/20 18:30 02/29/20 21:43 Saline 0.9% IV 75 mls/hr .[id number] KALEB Administration Letrozole 2.5 mg 02/29/20 12:00 03/01/20 09:34 Letrozole 2.5 Mg Tab PO 2.5 mg DAILY KALEB Administration Lorazepam 0.5 mg 02/28/20 18:26 Lorazepam 2 Mg/Ml Inj IV Q6HR PRN Anxiety Meclizine HCl 25 mg 02/28/20 22:00 03/01/20 09:32 Meclizine 25 Mg Tab PO 25 mg TID KALEB Administration Metoprolol Succinate 150 mg 03/01/20 09:00 03/01/20 09:32 Metoprolol Succinate (Er) 50 Mg Tab.Er.24h PO 150 mg DAILY KALEB Administration Morphine Sulfate 4 mg 02/28/20 18:26 Morphine Sulfate 4 Mg/Ml Syringe IV Q4HR PRN Severe Pain Naloxone HCl 0.2 mg 02/28/20 18:26 Naloxone 0.4 Mg/Ml 1 Ml Vial IV Q2M PRN Opioid Reversal Ondansetron HCl 4 mg 02/28/20 18:26 Ondansetron 4 Mg/2 Ml Vial IVP Q8HR PRN Nausea And Vomiting Spironolactone 12.5 mg 02/29/20 21:00 02/29/20 21:40 Spironolactone 25 Mg Tab PO 12.5 mg HS KALEB Administration Tramadol HCl 50 mg 02/28/20 18:26 Tramadol 50 Mg Tab PO Q6H PRN Moderate Pain Intake and Output 02/29/20 03/01/20 03/01/20 22:59 06:59 14:59 Intake Total 400 300 Balance 400 300 Intake: Oral 400 300 Other: Voiding Method Toilet Toilet # Voids 0 0 1 02/28/20 17:07 02/28/20 17:07
[2020-03-01] MEDS: SODIUM CHLORIDE 0.9% 1,000 ML IV SCH (11:45)
[2020-03-01] MEDS ORDERED: AMIODARONE 200 MG TAB PO SCH (21:00)
--- NOTE | 2020-03-01 22:41 | P.DS ---
Providers Date of admission: 02/28/20 18:22 Expected date of discharge: 03/01/20 Attending physician: Sam Clark Consults: 02/29/20 14:18 Consult Physician Routine Consulting Provider: Ethan Campbell Consult Reason/Comments: h/o arrthymia Do you want consulting provider notified?: Yes Primary care physician: [facility] Course: Chief Complaint: Room spinning History of presenting complaint: This is a pleasant 64-year-old patient of Dr. Gonzalez. Chronic stable medical conditions include coronary artery disease with stent, congestive heart failure, hyperlipidemia, hypertension, chemotherapy related peripheral neuropathy. Has AICD. Patient now presents with yesterday morning the room spinning. Settle down and then she did have a second episode of the same. And then had an episode and became rather constant. Patient octahedral cannot keep her eyes open. And finally decided to present here. Had some nausea 2. No changes speech or vision. This morning also noticed that moving her head would reproduce symptoms. This morning her blood pressure was noted to be on the lower side to systolic of 108 and then at 101. No chest pain or palpitation. Patient was diagnosed to have BPPV. Was given positional exercises. Symptoms improved. Unit device interrogation carried out. Was noted to have underlying atrial flutter fibrillation when she had come in. Cleared by currently. No change in medication. Patient reminded to do a positional exercises. Discussion and discharge planning more than 35 minutes Consultation: Dr. Campbell from cardiology Past medical history to include: Atrial fibrillation, coronary artery disease with stent, congestive heart failure, hyperlipidemia, hypertension, stroke, left breast cancer with chemotherapy, chemotherapy related peripheral neuropathy, left mastectomy. Biventricular pacemaker placement June 19. Social history: No smoking. Alcohol rarely. Physical examination: VITAL SIGNS: 98.2, 53, 16, 136/80, 95% room air GENERAL: BMI 53.3, reclining in bed. EYES: Pupils equal. Conjunctiva normal. HEENT: External appearance of nose and ears normal, oral cavity grossly normal. NECK: JVD not raised; masses not palpable. HEART: First and second heart sounds are normal; no edema. LUNGS: Respiratory rate normal; clear to auscultation. ABDOMEN: Soft, nontender, liver spleen not palpable, no masses palpable. CHEST wall: Left infraclavicular AICD placed with the dressing in place PSYCH: Alert and oriented x3; mood and affect normal. INVESTIGATIONS, reviewed in the clinical context: White count 8.7 hemoglobin 13.5 platelets 141 potassium 4.6 creatinine 0.96 Troponin I 0.018 EKG tracing personally reviewed by me-ventricular paced rhythm Computed tomography scan of the brain without contrast-negative Device interrogation-report shows atrial flutter fibrillation Assessment: -Benign paroxysmal positional were [employer] -AICD -Coronary artery disease with history of stent -Hyperlipidemia -Essential hypertension. -Peripheral neuropathy secondary to chemotherapy -Morbid obesity BMI 53.3 -Paroxysmal Atrial fibrillation, on eliquis Disposition: Home Patient Condition at Discharge: Stable Plan - Discharge Summary Discharge Rx Participant: No New Discharge Prescriptions: Continue Letrozole [Femara] 2.5 mg PO DAILY Apixaban [Eliquis] 5 mg PO BID #60 tab Atorvastatin [Lipitor] 80 mg PO HS #30 tab Acetaminophen/Diphenhydramine [Tylenol PM 500-25mg] 2 tab PO HS Amiodarone [Cordarone] 200 mg PO DAILY Clopidogrel [Plavix] 75 mg PO HS lisinopriL [Zestril] 5 mg PO DAILY Metoprolol Succinate [Toprol XL] 150 mg PO DAILY Spironolactone [Aldactone] 12.5 mg PO HS Discharge Medication List Letrozole [Femara] 2.5 mg PO DAILY 06/06/16 [History] Apixaban [Eliquis] 5 mg PO BID #60 tab 12/12/18 [Rx] Atorvastatin [Lipitor] 80 mg PO HS #30 tab 12/12/18 [Rx] Acetaminophen/Diphenhydramine [Tylenol PM 500-25mg] 2 tab PO HS 02/28/20 [History] Amiodarone [Cordarone] 200 mg PO DAILY 02/28/20 [History] Clopidogrel [Plavix] 75 mg PO HS 02/28/20 [History] Metoprolol Succinate [Toprol XL] 150 mg PO DAILY 02/28/20 [History] Spironolactone [Aldactone] 12.5 mg PO HS 02/28/20 [History] lisinopriL [Zestril] 5 mg PO DAILY 02/28/20 [History] Follow up Appointment(s)/Referral(s): Ethan Campbell MD [STAFF PHYSICIAN] - 1 Week Tu Gonzalez MD [Primary Care Provider] - 1-2 days Patient Instructions/Handouts: Dizziness (ED) Discharge Disposition: HOME SELF-CARE
== END 2020-03-01 14:57 | disposition home or self-care (01) ==
LOC: EC 15:12 → 1SOBS 18:22
PROVIDERS: ADMIT Hospitalist; ATTEND Hospitalist
DX: H81.10 Benign paroxysmal vertigo, unspecified ear (principal); I25.10 Atherosclerotic heart disease of native coronary artery without angina pectoris; E78.5 Hyperlipidemia, unspecified; I11.0 Hypertensive heart disease with heart failure; G62.0 Drug-induced polyneuropathy; T45.1X5A Adverse effect of antineoplastic and immunosuppressive drugs, initial encounter; E66.01 Morbid (severe) obesity due to excess calories; I48.0 Paroxysmal atrial fibrillation; I48.92 Unspecified atrial flutter; C50.912 Malignant neoplasm of unspecified site of left female breast; I50.9 Heart failure, unspecified; I25.2 Old myocardial infarction; I25.5 Ischemic cardiomyopathy; Z92.21 Personal history of antineoplastic chemotherapy; Z79.899 Other long term (current) drug therapy; Z79.811 Long term (current) use of aromatase inhibitors; Z79.01 Long term (current) use of anticoagulants; Z91.040 Latex allergy status; Z88.6 Allergy status to analgesic agent; Z88.8 Allergy status to other drugs, medicaments and biological substances; Z91.018 Allergy to other foods; Z86.73 Personal history of transient ischemic attack (TIA), and cerebral infarction without residual deficits; Z86.19 Personal history of other infectious and parasitic diseases; Z98.890 Other specified postprocedural states; Z95.5 Presence of coronary angioplasty implant and graft; Z90.12 Acquired absence of left breast and nipple; Z91.89 Other specified personal risk factors, not elsewhere classified; Z95.810 Presence of automatic (implantable) cardiac defibrillator; Z68.43 Body mass index [BMI] 50.0-59.9, adult; Z80.3 Family history of malignant neoplasm of breast; Z82.3 Family history of stroke; Z80.9 Family history of malignant neoplasm, unspecified; Z82.49 Family history of ischemic heart disease and other diseases of the circulatory system; Z83.3 Family history of diabetes mellitus
CPT/HCPCS: 93005 ×2; 96374; 96375; 99285; 36415; 80053; 83735; 84484; 85025; 85610; 81003; 70450; G0378 ×3; J3360; J2405

== ENCOUNTER → 2020-06-19 | Outpatient (CLI) | payer OTHER ==
[2020-06-19 15:53] VITALS: BP 144/82; PULSE 55; RESP 18; TEMP 97.7
--- NOTE | 2020-06-19 16:16 | P.PN ---
Subjective Progress Note Date: 06/19/20 Principal diagnosis: stage III left breast cancer stage III left breast cancer Mary is a 64-year-old white female with a history of stage III moderately differentiated invasive ductal carcinoma of the left breast. This was ER/NH positive and HER-2 negative. She is status post neoadjuvant therapy followed by a left breast mastectomy with immediate reconstruction. She subsequently underwent postmastectomy radiotherapy directed to the reconstructed breast and lymphatics. This finished in March 2016. She developed an infection and was necessary to have her jump iron machine presser removed. She has no evidence of any infection at this time. She has had a right breast partial resection which was benign, and there are clips makring the area of the biopsy cavity. She has seen a plastic surgeon in considering reconstruction in the future. The patient was scheduled for reconstruction in November 2018, however a week prior she had a myocardial infarction. She now have an internal pacemaker and defibrillator . She had 100% blockage of her left descending artery and a stent was placed. She was noted to have a low ejection fraction on echo and therefore the internal pacemaker and defibrillator were placed. At that time her reconstruction was on hold until she is stable from a cardiac standpoint. She has intermittent cramping of the muscle of the left chest wall it has improved. She has no lumps or masses in her right breast of concern. No nipple discharge or skin changes of concern. Most recently right breast mammogram was done on ; this was reviewed with Dr. Pelaez. He felt that this was stable benign in that she could have a repeat right breast mammogram in 1 year. On her examination of 09-19-19 there was some fullness at the pacemaker site and she is back for evaluation of this site. At this time the patient is not complaining of any new changes in her right breast or chest wall. She was most recently seen in consultation by medical oncology on 03-30-20. She continues on letrazole. Family history: 1. mother: breast cancer 2. father: cancer ? type 3. paternal aunt: brain Hormonal History: menarche: 13 1 [place], breast fed: yes, first born at 29 menopause: 50 BCP: none hormones: antiestrogen complains of sweating with this Surgical history: 1. 3 C-sections 2. Left mastectomy, Port-A-Cath, jump iron machine presser placed and removed 3. left coronary artery stent placed 4. Internal pacemaker and defibrillator Medical history: 1. Hypertension 2. Myocardial infarction 3. BMI 53.3 Social history: Smoke: Negative Alcohol: Occasional Drugs: Negative Review of systems: HEENT: none lung: none heart: HTN, CT GI: none Gu: none Musculoskeletal: Arthritis Neurologic: Neuropathy hands and feet Psychiatric: Negative skin: none allergies: Seasonal Objective - Vital Signs Vital signs: Vital Signs Temp 97.7 F 06/19/20 15:49 Pulse 55 L 06/19/20 15:49 Resp 18 06/19/20 15:49 BP 144/82 06/19/20 15:49 Pulse Ox 98 06/19/20 15:49 Intake & Output 06/18/20 06/19/20 06/19/20 18:59 06:59 18:59 Weight 145.15 kg - Exam BMI 53.3 - Constitutional General appearance: Present: cooperative - EENT Eyes: Present: EOMI ENT: Present: hearing grossly normal - Neck Neck: Present: normal ROM - Respiratory Respiratory: bilateral: CTA - Cardiovascular Rhythm: regular Heart sounds: normal: S1, S2 - Integumentary Integumentary: Present: normal turgor - Musculoskeletal Musculoskeletal: Present: gait normal - Psychiatric Psychiatric: Present: A&O x's 3, appropriate affect, intact judgment & insight - Additional findings Additional findings: breast exam: BRA: 44C inspection: grade 3 ptosis right breast, scarring left chest wall palpation: right breast: Positional exam fibrocystic changes, no dominant masses or nodules of concern Radiographic axilla: No adenopathy of concern Left chest wall defibrillator in place, no evidence of recurrent cancer, scarring from prior surgery Left axilla: No adenopathy of concern Assessment and Plan Assessment: Impression: 1. Left breast stage III carcinoma no evidence of recurrence Patient was treated with chemotherapy, hormonal therapy, surgery, and radiation 2. Coronary artery disease patient with defibrillator pacemaker in place 3. Polyneuropathy due to medication 4. Hypertension 5. BMI 53.3 Plan: 1. Repeat low breast mammogram in August 2020 with physician exam at that time 2. Continue letrozole 3. encourage weight loss 4. follow up with plastic surgery CC: Dr. Gonzalez
== END ==
LOC: WWCWWP 15:44
PROVIDERS: ATTEND Surgery
DX: Z08 Encounter for follow-up examination after completed treatment for malignant neoplasm (principal); G62.0 Drug-induced polyneuropathy; I10 Essential (primary) hypertension; I25.10 Atherosclerotic heart disease of native coronary artery without angina pectoris; Z95.0 Presence of cardiac pacemaker; Z68.43 Body mass index [BMI] 50.0-59.9, adult; Z90.12 Acquired absence of left breast and nipple; Z79.811 Long term (current) use of aromatase inhibitors

== ENCOUNTER → 2020-09-17 | Outpatient (CLI) | payer OTHER ==
--- NOTE | 2020-09-18 14:21 | MM ---
Reason for exam: additional evaluation requested from prior study. Last mammogram was performed 1 year ago. History: Patient is postmenopausal, has history of high-risk lesion on a previous biopsy at age 60, and has history of breast cancer at age 59. Family history of breast cancer in mother at age 50. High risk MG pre op needle loc RT of the right breast, September 13, 2016. High risk US biopsy breast VAD RT of the right breast, July 28, 2016. Implant Removal of the left breast, June 07, 2016. Malignant stereotactic core biopsy of the left breast, April 27, 2015. Ultrasound-guided core biopsy of the left breast, April 27, 2015. Mastectomy of the left breast, 2015. 2 chemotherapies, 2016. Radiation therapy of the left breast, 2016. Taking antineoplastic for 5 years beginning at age 59. Physical Findings: Nurse did not find any significant physical abnormalities on exam. MG Diagnostic Mammo RT w CAD CC and MLO view(s) were taken of the right breast. Prior study comparison: September 16, 2019, right breast MG diagnostic mammo RT w CAD. September 13, 2018, right breast MG diagnostic mammo RT w CAD. March 06, 2018, right breast MG diagnostic mammo RT w CAD. September 07, 2017, right breast MG diagnostic mammo RT w CAD. August 18, 2016, right breast MG diagnostic mammo RT w CAD. There are scattered fibroglandular densities. Post surgical change and benign vascular calcifications redemonstrated. No significant new findings when compared with previous films. These results were verbally communicated with the patient and result sheet given to the patient on 09/16/20. ASSESSMENT: Benign, BI-RAD 2 RECOMMENDATION: Follow-up diagnostic mammogram of the right breast in 1 year.
== END | disposition home or self-care (01) ==
LOC: RADMAMWWP 12:55
PROVIDERS: ATTEND Surgery
DX: R92.1 Mammographic calcification found on diagnostic imaging of breast (principal); Z85.3 Personal history of malignant neoplasm of breast; Z78.0 Asymptomatic menopausal state; Z80.3 Family history of malignant neoplasm of breast
CPT/HCPCS: 77065

== ENCOUNTER → 2020-09-24 | Outpatient (CLI) | payer OTHER ==
[2020-09-24 14:00] VITALS: BP 162/85; PULSE 68; RESP 18; TEMP 98
--- NOTE | 2020-09-24 14:16 | P.PN ---
Subjective Progress Note Date: 09/24/20 Principal diagnosis: stage III left breast cancer stage III left breast cancer Mary is a 65-year-old white female with a history of stage III moderately differentiated invasive ductal carcinoma of the left breast. This was ER/MO positive and HER-2 negative. She is status post neoadjuvant therapy followed by a left breast mastectomy with immediate reconstruction. She subsequently underwent postmastectomy radiotherapy directed to the reconstructed breast and lymphatics. This finished in March 2016. She developed an infection and was necessary to have her certified alcohol counselor removed. She has no evidence of any infection at this time. She has had a right breast partial resection which was benign, and there are clips makring the area of the biopsy cavity. She has seen a plastic surgeon in considering reconstruction in the future. The patient was scheduled for reconstruction in November 2018, however a week prior she had a myocardial infarction. She now have an internal pacemaker and defibrillator . She had 100% blockage of her left descending artery and a stent was placed. She was noted to have a low ejection fraction on echo and therefore the internal pacemaker and defibrillator were placed. At that time her reconstruction was on hold until she is stable from a cardiac standpoint. She had an echocardiogram earlier this week. She is going to have a stress test next week. She has also seen Dr. Martinez and Dr. Finch recently. There was some consideration of doing a CT of the chest secondary to some shortness of breath however the patient has opted to wait and this is her son is getting in several weeks. She has intermittent cramping of the muscle of the left chest wall it has improved. She has no lumps or masses in her right breast of concern. No nipple discharge or skin changes of concern. Most recently right breast mammogram was done on . This is benign BIRADS 2. Medical oncology note from [id number] Martinez was reviewed. Continue Femara and continue calcium and vitamin D supplemen At this time the patient is not complaining of any new changes in her right breast or chest wall. Family history: 1. mother: breast cancer 2. father: cancer ? type 3. paternal aunt: brain Hormonal History: menarche: 13 1 [place], breast fed: yes, first born at 29 menopause: 50 BCP: none hormones: antiestrogen complains of sweating with this Surgical history: 1. 3 C-sections 2. Left mastectomy, Port-A-Cath, certified alcohol counselor placed and removed 3. left coronary artery stent placed 4. Internal pacemaker and defibrillator Medical history: 1. Hypertension 2. Myocardial infarction 3. BMI 54.9 Social history: Smoke: Negative Alcohol: Occasional Drugs: Negative Review of systems: HEENT: none lung: none heart: HTN, MS GI: none Gu: none Musculoskeletal: Arthritis Neurologic: Neuropathy hands and feet Psychiatric: Negative skin: none allergies: Seasonal Objective - Vital Signs Vital signs: Vital Signs Temp 98.0 F 09/24/20 13:56 Pulse 68 09/24/20 13:56 Resp 18 09/24/20 13:56 BP 162/85 09/24/20 13:56 Pulse Ox 97 09/24/20 13:56 Intake & Output 09/23/20 09/24/20 09/24/20 18:59 06:59 18:59 Weight 149.685 kg - Exam BMI 54.9 - Constitutional General appearance: Present: cooperative - EENT Eyes: Present: EOMI ENT: Present: hearing grossly normal - Neck Neck: Present: normal ROM - Respiratory Respiratory: bilateral: CTA - Cardiovascular Heart sounds: normal: S1, S2 - Gastrointestinal General gastrointestinal: Present: soft - Integumentary Integumentary Comment(s): Well-healed scar left chest wall/pacemaker/defibrillator superior chest wall - Musculoskeletal Musculoskeletal Comment(s): gait limited - Psychiatric Psychiatric: Present: A&O x's 3, appropriate affect, intact judgment & insight - Additional findings Additional findings: Breasts examination: Bra: 44B Inspection: Right breast grade 2/3 ptosis, left chest wall status post mastectomy Palpation: Right breast: Multi-positional exam fibrocystic changes no dominant masses or nodules of concern Right axilla: No adenopathy of concern Left chest wall: No evidence of recurrent cancer Left axilla: No adenopathy of concern Assessment and Plan Assessment: Impression: 1. Hypertension 2. Myocardial infarction 3. BMI 54.9 . Left breast stage III carcinoma no evidence of recurrent cancer Plan: 1. Continue Femara 2. Follow up here in 6 months 3. Patient is going to consider if she would like to see plastic surgery for reconstruction at a later date 4. we have discussed BMI and recommended weight loss 5. right breast mammogram in one year CC: Dr. Gonzalez
== END ==
LOC: WWCWWP 13:41
PROVIDERS: ATTEND Surgery
DX: I10 Essential (primary) hypertension (principal); I25.2 Old myocardial infarction; Z91.040 Latex allergy status; Z88.6 Allergy status to analgesic agent; Z91.018 Allergy to other foods

== ENCOUNTER → 2021-03-25 | Outpatient (CLI) | payer OTHER ==
[2021-03-25 14:09] VITALS: BP 147/69; PULSE 54; RESP 17; TEMP 97.6
--- NOTE | 2021-03-25 14:42 | P.PN ---
Subjective Progress Note Date: 03/25/21 Principal diagnosis: left breast stage III invasive ductal cancer stage III left breast cancer Mary is a 65-year-old white female with a history of stage III moderately differentiated invasive ductal carcinoma of the left breast. This was ER/OR positive and HER-2 negative. She is status post neoadjuvant therapy followed by a left breast mastectomy with immediate reconstruction. She subsequently underwent postmastectomy radiotherapy directed to the reconstructed breast and lymphatics. This finished in March 2016. She developed an infection and was necessary to have her photographer removed. She has no evidence of any infection at this time. She has had a right breast partial resection which was benign, and there are clips makring the area of the biopsy cavity. She has seen a plastic surgeon in considering reconstruction in the future. The patient was scheduled for reconstruction in November 2018, however a week prior she had a myocardial infarction. She now have an internal pacemaker and defibrillator . She had 100% blockage of her left descending artery and a stent was placed. She was noted to have a low ejection fraction on echo and therefore the internal pacemaker and defibrillator were placed. At that time her reconstruction was on hold until she is stable from a cardiac standpoint. She has also seen Dr. Martinez and Dr. Finch recently. There was some consideration of doing a CT of the chest secondary to some shortness of breath however the patient has opted to wait and this is her son is getting in several weeks. This was not done. She is no longer following with Dr. Finch. She has intermittent cramping of the muscle of the left chest wall it has improved. She has no lumps or masses in her right breast of concern. No nipple discharge or skin changes of concern. Most recently right breast mammogram was done on . This is benign BIRADS 2. Medical oncology note from [id number] Martinez was reviewed. Continue Femara and continue calcium and vitamin D supplement as per medical oncology. At this time the patient is not complaining of any new changes in her right breast or chest wall. Family history: 1. mother: breast cancer 2. father: cancer ? type 3. paternal aunt: brain Hormonal History: menarche: 13 [place], breast fed: yes, first born at 29 menopause: 50 BCP: none hormones: antiestrogen complains of sweating with this Surgical history: 1. 3 C-sections 2. Left mastectomy, Port-A-Cath, photographer placed and removed 3. left coronary artery stent placed 4. Internal pacemaker and defibrillator Medical history: 1. Hypertension 2. Myocardial infarction 3. BMI 54.9 4. vertigo Social history: Smoke: Negative Alcohol: Occasional Drugs: Negative Review of systems: HEENT: none lung: none heart: HTN, MA GI: none Gu: none Musculoskeletal: Arthritis Neurologic: Neuropathy hands and feet Psychiatric: Negative skin: none allergies: Seasonal Objective - Vital Signs Vital signs: Vital Signs Temp 97.6 F 03/25/21 14:01 Pulse 54 L 03/25/21 14:01 Resp 17 03/25/21 14:01 BP 147/69 03/25/21 14:01 Pulse Ox Intake & Output 03/24/21 03/25/21 03/25/21 18:59 06:59 18:59 Weight 149.685 kg - Exam BMI 54.9 - Constitutional General appearance: Present: cooperative - EENT Eyes: Present: EOMI ENT: Present: hearing grossly normal - Neck Neck: Present: normal ROM - Respiratory Respiratory: bilateral: CTA - Cardiovascular Rhythm: regular - Integumentary Integumentary: Present: normal turgor - Musculoskeletal Musculoskeletal: Present: gait normal - Psychiatric Psychiatric: Present: A&O x's 3, appropriate affect, intact judgment & insight - Additional findings Additional findings: Breast Exam: BRA: 44C inspection: Grade 3 ptosis right breast, left chest wall no recurrence of cancer palpation: right breast: Initial exam fibrocystic changes no dominant masses or nodules of concern Right axilla: No adenopathy of concern Left chest wall: scar left chest wall, pacemaker, defibrillator/pacemaker in place no evidence of recurrence in the left chest wall left axilla: no adenopathy of concern Assessment and Plan Assessment: Impression: Stage III carcinoma no evidence of recurrence Patient was treated with chemotherapy, hormonal therapy, surgery, and radiation Coronary artery disease patient with defibrillator pacemaker in place 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 Gonzalez
== END ==
LOC: WWCWWP 13:29
PROVIDERS: ATTEND Surgery
DX: Z85.3 Personal history of malignant neoplasm of breast (principal); I25.10 Atherosclerotic heart disease of native coronary artery without angina pectoris; G62.9 Polyneuropathy, unspecified; I10 Essential (primary) hypertension; I25.2 Old myocardial infarction; Z92.21 Personal history of antineoplastic chemotherapy; Z79.890 Hormone replacement therapy; Z92.3 Personal history of irradiation; Z95.810 Presence of automatic (implantable) cardiac defibrillator; Z91.040 Latex allergy status; Z88.6 Allergy status to analgesic agent; Z88.8 Allergy status to other drugs, medicaments and biological substances; Z91.018 Allergy to other foods

== ENCOUNTER → 2021-03-30 | Outpatient (CLI) | payer OTHER ==
--- NOTE | 2021-03-30 13:48 | BD ---
EXAMINATION TYPE: Axial Bone Density DATE OF EXAM: 03/30/2021 COMPARISON: NONE CLINICAL HISTORY: post menopausal w hrt, C50.112 Z79.890 Height: 5'5 Weight: 331 FRAX RISK QUESTIONS: Secondary Osteoporosis: RISK FACTORS HISTORY OF: Active: n Postmenopausal woman: y MEDICATIONS: Additional Medications: amiodarone,lisinopril,metoprol,eliquis,atorvastatin,letrozole,spironalactone, baby aspirin Additional History: breast cancer 2016, radiation and chemotherapy EXAM MEASUREMENTS: Bone mineral densitometry was performed using the [employer] System. Bone mineral density as measured about the Lumbar spine is: ----- L1-L4(G/cm2): 1.270 T Score Values are as lows: ----- L2: 1.0 ----- L3: 1.3 ----- L4: 0.4 ----- L1-L4:0.7 Bone mineral density has: Increased 0.6% since study of: 11/20/2018 Bone mineral density about the R hip (g/cm2): 0.929 Bone mineral density about the L hip (g/cm2): 0.905 T Score values are as follows: -----R Neck: -0.8 -----L Neck: -1.0 -----R Total: 0.6 -----L Total: 0.5 Bone mineral density has: Decreased -3.9% since study of: 11/20/2018 IMPRESSION: Score is borderline between normal and osteopenia. Normal (Values between +1 and -1 indicate normal bone mass). Consider repeating this study in 5 year s or sooner if there is some new clinical indication. NOTE: T-SCORE=SD OF THE YOUNG ADULT MEAN.
== END | disposition home or self-care (01) ==
LOC: RADBDWWP 12:26
PROVIDERS: ATTEND Internal Medicine Hematology & Oncology
DX: C50.112 Malignant neoplasm of central portion of left female breast (principal); M85.88 Other specified disorders of bone density and structure, other site; Z78.0 Asymptomatic menopausal state; Z79.890 Hormone replacement therapy
CPT/HCPCS: 77080

== ENCOUNTER 2021-05-06 18:47 | Inpatient (IN) | payer OTHER ==
[2021-05-06] MEDS ORDERED: PIPERACILLIN-TAZOBACTAM 3.375 GM in SODIUM CHLORIDE 0.9% 100 ML IVPB STA (19:00)
[2021-05-06] MEDS ORDERED: VANCOMYCIN IV PER PHARMACY 1 EACH MISC MISCELLANE PRN ×2 (19:00→21:09)
[2021-05-06] MEDS ORDERED: VANCOMYCIN 2,250 MG in SODIUM CHLORIDE 0.9% 500 ML 500 ML IVPB ONE (19:30)
--- NOTE | 2021-05-06 19:40 | ED ---
General Adult HPI - General Chief complaint: Chest Pain Stated complaint: Pacemaker issues Time Seen by Provider: 05/06/21 18:58 Source: patient, RN notes reviewed, old records reviewed Mode of arrival: wheelchair Limitations: no limitations - History of Present Illness Initial comments: 65-year-old female presenting from the training and development professional's office for evaluation of suspected infected pacemaker wire. She's had irritation and erythema over the site of her pacemaker as well as a very superficial wire. She denies fever. She has had some nausea. No central chest pain. She had previous left-sided mastectomy. - Related Data Home Medications Medication Instructions Recorded Confirmed Letrozole [Femara] 2.5 mg PO DAILY 06/06/16 05/06/21 Amiodarone [Cordarone] 100 mg PO HS 02/28/20 05/06/21 Metoprolol Succinate [Toprol XL] 150 mg PO DAILY 02/28/20 05/06/21 Spironolactone [Aldactone] 12.5 mg PO DAILY 02/28/20 05/06/21 lisinopriL [Zestril] 5 mg PO HS 02/28/20 05/06/21 Aspirin [Adult Low Dose Aspirin EC] 81 mg PO DAILY 03/25/21 05/06/21 Previous Rx's Medication Instructions Recorded Apixaban [Eliquis] 5 mg PO BID #60 tab 12/12/18 Atorvastatin [Lipitor] 80 mg PO HS #30 tab 12/12/18 Allergies Allergy/AdvReac Type Severity Reaction Status Date / Time latex AdvReac Unknown itching Verified 05/06/21 20:02 and tingling ibuprofen [From Motrin] AdvReac Nausea & Verified 05/06/21 20:02 Vomiting phenaphen Allergy Severe Anaphylaxis Uncoded 05/06/21 20:02 blue cheese Allergy Unknown Rash/Hives, Uncoded 05/06/21 20:02 Swelling corn beef Allergy Unknown Rash/Hives, Uncoded 05/06/21 20:02 Swelling Review of Systems ROS Statement: Those systems with pertinent positive or pertinent negative responses have been documented in the HPI. ROS Other: All systems not noted in ROS Statement are negative. Past Medical History Past Medical History: Atrial Fibrillation, Coronary Artery Disease (CAD), Cancer, Heart Failure, CVA/TIA, Hyperlipidemia, Hypertension, Myocardial Infarction ([place]) Additional Past Medical History / Comment(s): CVA (MAR 2014)- NO RESIDUAL EF FECTS , LEFT BREAST CANCER. FINISHED CHEMO Sep, HX OF INFECTION FROM IMPLANT WITH DIFFICULTY HEALING.,. 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 No b/p, blood draws left arm, history of LIFE VEST. vertigo Last Myocardial Infarction Date:: 12/08/2018 History of Any Multi-Drug Resistant Organisms: None Reported Past Surgical History: Breast Surgery, Section, Heart Catheterization With Stent, Pacemaker Additional Past Surgical History / Comment(s): LT MASTECTOMY WITH IMPLANT (INFECTION & REMOVED),. C-SEC X3. MEDI PORT INSERTION-RT CHEST-REMOVED. BREAST BIOPSIES. HEART CATH WITH STENT 11/2018 Past Anesthesia/Blood Transfusion Reactions: Postoperative Nausea & Vomiting (PONV) Additional Past Anesthesia/Blood Transfusion Reaction / Comment(s): HX OF PONV. Date of Last Stent Placement:: 11/2018 Type of Cardiac Device: Biventricular Pacemaker, Permanent Pacemaker, AICD Device Placement Date:: 06/20/19 Past Psychological History: No Psychological Hx Reported Smoking Status: Never smoker Past Alcohol Use History: Rare Past Drug Use History: None Reported - Past Family History Mother Family Medical History: Cancer, CVA/TIA Additional Family Medical History / Comment(s): BREAST CANCER Father Family Medical History: Cancer, Congestive Heart Failure (CHF), Diabetes Mellitus Additional Family Medical History / Comment(s): CANCER General Exam Limitations: no limitations General appearance: alert, in no apparent distress Head exam: Present: atraumatic, normocephalic Eye exam: Present: normal appearance, PERRL ENT exam: Present: normal exam Neck exam: Present: normal inspection. Absent: tenderness, meningismus Respiratory exam: Present: normal lung sounds bilaterally, other (Tenderness over a superficial wire with surrounding erythema. No induration or fluctuance. No crepitus.). Absent: respiratory distress Cardiovascular Exam: Present: regular rate, normal rhythm GI/Abdominal exam: Present: soft. Absent: distended, tenderness Extremities exam: Present: normal inspection, normal capillary refill. Absent: pedal edema Neurological exam: Present: alert, oriented X3, CN II-XII intact. Absent: motor sensory deficit Psychiatric exam: Present: normal affect, normal mood Skin exam: Present: warm, dry, intact. Absent: cyanosis, diaphoretic Course Vital Signs 05/06/21 18:50 Temperature 97.8 F Pulse Rate 56 L Respiratory 18 Rate Blood Pressure 142/65 O2 Sat by Pulse 96 Oximetry EKG Findings - EKG Comments: EKG Findings:: EKG: Paced rhythm rate of 56, VA interval 149, QRS duration 142, QTC 509. Medical Decision Making - Medical Decision Making 65-year-old female with eroding pacemaker wire , suspect underlying infection. Patient was sent in by her training and development professional. Requesting admission for IV antibiotics. I did discuss case with Dr. Lucia who will admit. Cardiology placed on consult. Blood cultures are obtained. As well as laboratory testing. Zosyn and vancomycin have been initiated. - Lab Data Result diagrams: 05/06/21 19:25 Lab Results 05/06/21 05/06/21 Range/Units 19:25 19:25 WBC 6.1 (3.8-10.6) k/uL RBC 4.02 (3.80-5.40) m/uL Hgb 12.2 (11.4-16.0) gm/dL Hct 37.9 (34.0-46.0) % MCV 94.3 (80.0-100.0) fL MCH 30.3 (25.0-35.0) pg MCHC 32.1 (31.0-37.0) g/dL RDW 16.4 H (11.5-15.5) % Plt Count 179 (150-450) k/uL MPV 9.4 Neutrophils % 68 % Lymphocytes % 24 % Monocytes % 5 % Eosinophils % 1 % Basophils % 0 % Neutrophils # 4.1 (1.3-7.7) k/uL Lymphocytes # 1.4 (1.0-4.8) k/uL Monocytes # 0.3 (0-1.0) k/uL Eosinophils # 0.1 (0-0.7) k/uL Basophils # 0.0 (0-0.2) k/uL Hypochromasia Slight Anisocytosis Slight ESR 9 (0-20) mm/hr PT 11.1 (9.0-12.0) sec INR 1.0 (<1.2) APTT 24.6 (22.0-30.0) sec Disposition Clinical Impression: Infection of pacemaker lead wire Disposition: ADMITTED IP TO THIS HOSP Condition: Stable Is patient prescribed a controlled substance at d/c from ED?: No Referrals: Tu Gonzalez MD [Primary Care Provider] - 1-2 days Decision to Admit Reason: Admit from EC Decision Date: 05/06/21 Decision Time: 20:28
[2021-05-06 19:46] LABS: Anisocytosis Slight; Basophils % (A) 0 %; Eosinophils # (A) 0.1 k/uL (0-0.7); Eosinophils % (A) 1 %; HCT 37.9 % (34.0-46.0); HGB 12.2 gm/dL (11.4-16.0); Hypochromasia Slight; Lymphocytes # (A) 1.4 k/uL (1.0-4.8); Lymphocytes % (A) 24 %; MCH 30.3 pg (25.0-35.0); MCHC 32.1 g/dL (31.0-37.0); MCV 94.3 fL (80.0-100.0); Mean Platelet Volume 9.4; Monocytes # (A) 0.3 k/uL (0-1.0); Monocytes % (A) 5 %; Neutrophils # (A) 4.1 k/uL (1.3-7.7); Neutrophils % (A) 68 %; Platelet Count 179 k/uL (150-450); RBC 4.02 m/uL (3.80-5.40); RDW 16.4 % (11.5-15.5); WBC 6.1 k/uL (3.8-10.6)
--- NOTE | 2021-05-06 19:57 | XR ---
EXAMINATION TYPE: XR chest 2V DATE OF EXAM: 05/06/2021 COMPARISON: 06/21/2019 HISTORY: Chest pain TECHNIQUE: 2 views FINDINGS: There is no heart failure nor confluent pneumonic infiltrate. There is left axillary pacema ker. Costophrenic angles are clear. There are no hilar masses. IMPRESSION: No active cardiopulmonary disease. No change.
[2021-05-06 20:00] LABS: Partial Thromboplastin Time 24.6 sec (22.0-30.0); Prothrombin Time 11.1 sec (9.0-12.0)
[2021-05-06] MEDS ORDERED: ACETAMINOPHEN TAB 325 MG TAB PO PRN (20:23)
[2021-05-06] MEDS ORDERED: NALOXONE 0.4 MG/ML 1 ML VIAL IV PRN (20:23)
[2021-05-06 20:26] LABS: Erythrocyte Sedimentation Rate 9 mm/hr (0-20)
[2021-05-06 20:35] LABS: Albumin 3.9 g/dL (3.5-5.0); C Reactive Protein 1.2 mg/dL (<1.0); Calcium 8.5 mg/dL (8.4-10.2); Magnesium 1.6 mg/dL (1.6-2.3); Potassium 4.2 mmol/L (3.5-5.1); Total Bilirubin 0.8 mg/dL (0.2-1.3); Total Protein 6.7 g/dL (6.3-8.2)
[2021-05-06] MEDS ORDERED: AMIODARONE 100 MG TAB PO SCH (21:30)
--- NOTE | 2021-05-06 21:37 | P.HPIM ---
History of Present Illness H&P Date: 05/06/21 Chief Complaint: left sided chest wall irritation 65 year old female with afib , CAD patient comes in from cardiology office , for admission to rule out infection and bactremia at site of eroding pacemaker wire . patient had CAD about 2 years ago , and had to have an AICD inserted. which she tolerated well, up until recently when she noticed increase erythema and irritation at the site of insertion, with possible wire eroding the skin. she denies any fever, chills, tenderness to palpation , SOB. she reports multiple infection at that site which was due to mastectomy and requiring multiple surgeries due to repeated infection after implant. she otherwise feels well, and denies any other medical concerns at this time. she denies any trauma to the area, or other injuries. blood work showed no leukocytosis, patient is afebrile . blood cultures obtained and she was started on empiric broad spectrum antibiotics. metabolic panel showed, elevated cr. Review of Systems Pertinent positives as noted in HPI. All other systems were reviewed and are negative Past Medical History Past Medical History: Atrial Fibrillation, Coronary Artery Disease (CAD), Cancer, Heart Failure, CVA/TIA, Hyperlipidemia, Hypertension, Myocardial Infarction ([place]) Additional Past Medical History / Comment(s): CVA (MAR 2014)- NO RESIDUAL EFFECTS , LEFT BREAST CANCER. FINISHED CHEMO Sep, HX OF INFECTION FROM IMPLANT WITH DIFFICULTY HEALING.,. 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 history of LIFE VEST. vertigo Last Myocardial Infarction Date:: 12/08/2018 History of Any Multi-Drug Resistant Organisms: None Reported Past Surgical History: Breast Surgery, Section, Heart Catheterization With Stent, Pacemaker Additional Past Surgical History / Comment(s): LT MASTECTOMY WITH IMPLANT (INFECTION & REMOVED),. C-SEC X3. MEDI PORT INSERTION-RT CHEST-REMOVED. BREAST BIOPSIES. HEART CATH WITH STENT 11/2018 Past Anesthesia/Blood Transfusion Reactions: Postoperative Nausea & Vomiting (PONV) Additional Past Anesthesia/Blood Transfusion Reaction / Comment(s): HX OF PONV. Date of Last Stent Placement:: 11/2018 Type of Cardiac Device: Biventricular Pacemaker, Permanent Pacemaker, AICD Device Placement Date:: 06/20/19 Past Psychological History: No Psychological Hx Reported Smoking Status: Never smoker Past Alcohol Use History: Rare Past Drug Use History: None Reported - Past Family History Mother Family Medical History: Cancer, CVA/TIA Additional Family Medical History / Comment(s): BREAST CANCER Father Family Medical History: Cancer, Congestive Heart Failure (CHF), Diabetes Mellitus Additional Family Medical History / Comment(s): CANCER Medications and Allergies Home Medications Medication Instructions Recorded Confirmed Type Letrozole [Femara] 2.5 mg PO DAILY 06/06/16 05/06/21 History Apixaban [Eliquis] 5 mg PO BID #60 tab 12/12/18 05/06/21 Rx Atorvastatin [Lipitor] 80 mg PO HS #30 tab 12/12/18 05/06/21 Rx Amiodarone [Cordarone] 100 mg PO HS 02/28/20 05/06/21 History Metoprolol Succinate [Toprol XL] 150 mg PO DAILY 02/28/20 05/06/21 History Spironolactone [Aldactone] 12.5 mg PO DAILY 02/28/20 05/06/21 History lisinopriL [Zestril] 5 mg PO HS 02/28/20 05/06/21 History Aspirin [Adult Low Dose Aspirin EC] 81 mg PO DAILY 03/25/21 05/06/21 History Allergies Allergy/AdvReac Type Severity Reaction Status Date / Time latex AdvReac Unknown itching Verified 05/06/21 20:02 and tingling ibuprofen [From Motrin] AdvReac Nausea & Verified 05/06/21 20:02 Vomiting phenaphen Allergy Severe Anaphylaxis Uncoded 05/06/21 20:02 blue cheese Allergy Unknown Rash/Hives, Uncoded 05/06/21 20:02 Swelling corn beef Allergy Unknown Rash/Hives, Uncoded 05/06/21 20:02 Swelling Physical Exam Vitals: Vital Signs Temp Pulse Resp BP Pulse Ox 05/06/21 21:10 52 L 19 145/94 99 05/06/21 18:50 97.8 F 56 L 18 142/65 96 Intake and Output 05/06/21 05/06/21 05/06/21 06:59 14:59 22:59 Other: Weight 153.314 kg ``Constitutional: No acute distress, conversant, pleasant Eyes: Anicteric sclerae, moist conjunctiva, Pupils equal round reactive to light ENMT: NC/AT Oropharynx clear, no erythema, or exudates Neck: Supple, no masses, or JVD No carotid bruits No thyromegaly Lungs: Clear to auscultation Clear to percussion Normal respiratory effort, no accessory muscle use Cardiovascular: Heart regular in rate and rhythm, No murmurs, gallops, or rubs No peripheral edema Abdominal: Soft Nontender, no guarding, rebound or rigidity Abdomen moving with respiration Normoactive bowel sounds obese limiting exam Skin: chronic skin changes over anterior left chest, with new area of 2X1 cm that looks raw and irritated with erythema , no surrounding induration no drainage , , warm to the touch Extremities: No digital cyanosis No clubbing Pedal pulses intact and symmetrical Radial pulses intact and symmetrical No calf tenderness Psychiatric: Alert and oriented to person, place and time Appropriate affect fair judgement Neuro Muscles Strength 4/5 in all 4 extremities Sensation to light touch grossly present throughout Cranial nerves II-XII grossly intact No focal sensory deficits Lymphatics: no palpable cervical or supraclavicular , or inguinal lymph nodes Results CBC & Chem 7: 05/06/21 19:25 05/06/21 19:25 Labs: Abnormal Lab Results - Last 24 Hours (Table) 05/06/21 05/06/21 Range/Units 19:25 19:25 RDW 16.4 H (11.5-15.5) % Creatinine 1.21 H (0.52-1.04) mg/dL Glucose 138 H (74-99) mg/dL C-Reactive Protein 1.2 H (<1.0) mg/dL Assessment and Plan Assessment: cellulitis of the left anterior chest possibly due to AICD wire irritation, rule out bactremia cardiology and ID consult blood cultures initiated on vanc and zosyn pain control monitor vital signs RONY hold nephrotoxic meds gentle IVF hydration with normal saline monitor urine output follow up renal functions chronic conditions history of breast cancer hypertension , resume home BP meds, lisinopril on hold 2/2 RONY afib on eliquis h/o CAD , continue with ASA statin obesity OP follow up with PCP counseled for lifestyle modification and weight loss full code anticipated length of stay < 2 midnights DVT PPX on eliquis for afib
[2021-05-06] MEDS: APIXABAN 5 MG TAB PO SCH (21:52)
[2021-05-06] MEDS: SODIUM CHLORIDE 0.9% 1,000 ML IV SCH (21:52)
[2021-05-07] MEDS: PIPERACILLIN-TAZOBACTAM 3.375 GM in SODIUM CHLORIDE 0.9% 100 ML IVPB SCH ×3 (01:32→15:45)
[2021-05-07] MEDS: APIXABAN 5 MG TAB PO SCH (08:10)
[2021-05-07] MEDS ORDERED: METOPROLOL SUCCINATE (ER) 50 MG TAB.ER.24H PO SCH (09:00)
[2021-05-07] MEDS ORDERED: LETROZOLE 2.5 MG TAB PO SCH (09:00)
[2021-05-07] MEDS ORDERED: ASPIRIN 81 MG PO SCH (09:00)
[2021-05-07 10:51] LABS: African American GFR (CKD) 63.1 (60.0-200.0); Anion Gap 13.3 mmol/L (10.00-18.00); BUN/Creat Ratio 12.15 Ratio (12.00-20.00); Calcium 8.4 mg/dL (8.7-10.3); Carbon Dioxide 23.7 mmol/L (20.0-27.5); Non-African American GFR(CKD) 54.4 (60.0-200.0)
[2021-05-07] MEDS: SODIUM CHLORIDE 0.9% 1,000 ML IV SCH (11:04)
--- NOTE | 2021-05-07 13:13 | P.CRDCN ---
History of Present Illness History of present illness: This is Dr. Díaz dictating a consult on this patient The patient was interviewed and examined IMPRESSION / ASSESSMENT: Erosion of the cardiac lead through the skin Suspect low-grade infection in the pocket Ischemic adenopathy status post BiV ICD 2 years back Paroxysmal atrial fibrillation with postconversion pauses, currently on amiodarone 100 mg daily Normal white count mildly increased C-reactive protein PLAN: Recommend laser lead extraction of the entire unit. I spoke to the room service waiter/waitress Dr. Ward at [facility] and I would recommend transferring her there I spoke to the patient in detail Currently we're treating her with IV antibiotics vancomycin and Zosyn Blood cultures were drawn prior to this A 2-D echo shows a mildly reduced LV systolic function with apical hypokinesis Discussed with attending physician Discussed with manager case line I spoke to Dr.Arafat raines at [facility] The procedure will most likely be performed on Monday Until then I want to remain on IV antibiotics as an inpatient and then be transferred to [facility] directly from here Arrangements are being made for a bed there for her HPI Patient presented with an eroded cardiac pacemaker lead. No fever chills cough Otherwise asymptomatic Known coronary artery disease status post anterior wall [place] in the past History of breast cancer with left mastectomy Prior suspicion for right-sided mass with repeated biopsies at that time ROS: No fever chills or rigors, no cough, phlegm or expectoration, no nausea, vomiting or diarrhea, no hematuria, dysuria, no musculoskeletal complaints, no strokes or seizures, no skin lesions. EXAMINATION: Afebrile 97.3F pulse rate in the 60s blood pressure 122/82 mmHg Breath sounds are reduced bilaterally Cardiac lead has eroded through the skin However the device is also independent to the skin at the lower pole She's had a mastectomy on the left side REVIEW OF LABS, ECG & MEDICAL DATA Normal white count Hemoglobin 12.2 Electrolytes normal C-reactive protein 1.2 Past Medical History Past Medical History: Atrial Fibrillation, Coronary Artery Disease (CAD), Cancer, Heart Failure, CVA/TIA, Hyperlipidemia, Hypertension, Myocardial Infarction ([place]) Additional Past Medical History / Comment(s): CVA (MAR 2014)- NO RESIDUAL EFF ECTS , LEFT BREAST CANCER. FINISHED CHEMO Sep, HX OF INFECTION FROM IMPLANT WITH DIFFICULTY HEALING.,. 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 history of LIFE VEST. vertigo Last Myocardial Infarction Date:: 12/08/2018 History of Any Multi-Drug Resistant Organisms: None Reported Past Surgical History: Breast Surgery, Section, Heart Catheterization With Stent, Pacemaker Additional Past Surgical History / Comment(s): LT MASTECTOMY WITH IMPLANT (INFECTION & REMOVED),. C-SEC X3. MEDI PORT INSERTION-RT CHEST-REMOVED. BREAST BIOPSIES. HEART CATH WITH STENT 11/2018 Past Anesthesia/Blood Transfusion Reactions: Postoperative Nausea & Vomiting (PONV) Additional Past Anesthesia/Blood Transfusion Reaction / Comment(s): HX OF PONV. Date of Last Stent Placement:: 11/2018 Type of Cardiac Device: Biventricular Pacemaker, Permanent Pacemaker, AICD Device Placement Date:: 06/20/19 Past Psychological History: No Psychological Hx Reported Smoking Status: Never smoker Past Alcohol Use History: Rare Past Drug Use History: None Reported - Past Family History Mother Family Medical History: Cancer, CVA/TIA Additional Family Medical History / Comment(s): BREAST CANCER Father Family Medical History: Cancer, Congestive Heart Failure (CHF), Diabetes Mellitus Additional Family Medical History / Comment(s): CANCER Medications and Allergies Home Medications Medication Instructions Recorded Confirmed Type Letrozole [Femara] 2.5 mg PO DAILY 06/06/16 05/06/21 History Apixaban [Eliquis] 5 mg PO BID #60 tab 12/12/18 05/06/21 Rx Atorvastatin [Lipitor] 80 mg PO HS #30 tab 12/12/18 05/06/21 Rx Amiodarone [Cordarone] 100 mg PO HS 02/28/20 05/06/21 History Metoprolol Succinate [Toprol XL] 150 mg PO DAILY 02/28/20 05/06/21 History Spironolactone [Aldactone] 12.5 mg PO DAILY 02/28/20 05/06/21 History lisinopriL [Zestril] 5 mg PO HS 02/28/20 05/06/21 History Aspirin [Adult Low Dose Aspirin EC] 81 mg PO DAILY 03/25/21 05/06/21 History Allergies Allergy/AdvReac Type Severity Reaction Status Date / Time latex AdvReac Unknown itching Verified 05/06/21 20:02 and tingling ibuprofen [From Motrin] AdvReac Nausea & Verified 05/06/21 20:02 Vomiting phenaphen Allergy Severe Anaphylaxis Uncoded 05/06/21 20:02 blue cheese Allergy Unknown Rash/Hives, Uncoded 05/06/21 20:02 Swelling corn beef Allergy Unknown Rash/Hives, Uncoded 05/06/21 20:02 Swelling Physical Exam Vitals: Vital Signs Temp Pulse Pulse Resp BP BP Pulse Ox 05/07/21 07:00 97.3 F L 68 18 122/82 97 05/07/21 02:53 59 L 18 05/07/21 02:50 97.6 F 52 L 18 113/57 96 05/06/21 22:30 98.5 F 59 L 18 131/67 100 05/06/21 21:10 52 L 19 145/94 99 05/06/21 18:50 97.8 F 56 L 18 142/65 96 Intake and Output 05/06/21 05/07/21 05/07/21 22:59 06:59 14:59 Other: Voiding Method Toilet Toilet # Voids 1 2 Weight 153.314 kg Results 05/06/21 19:25 05/07/21 05:45 Cardiac Enzymes 05/06/21 Range/Units 19:25 AST 22 (14-36) U/L Coagulation 05/06/21 Range/Units 19:25 PT 11.1 (9.0-12.0) sec APTT 24.6 (22.0-30.0) sec CBC 05/06/21 Range/Units 19:25 WBC 6.1 (3.8-10.6) k/uL RBC 4.02 (3.80-5.40) m/uL Hgb 12.2 (11.4-16.0) gm/dL Hct 37.9 (34.0-46.0) % Plt Count 179 (150-450) k/uL Comprehensive Metabolic Panel 05/06/21 05/07/21 Range/Units 19:25 05:45 Sodium 138 142 (137-145) mmol/L Potassium 4.2 4.0 (3.5-5.1) mmol/L Chloride 103 105 (98-107) mmol/L Carbon Dioxide 27 23.7 (22-30) mmol/L BUN 16 13.0 (7-17) mg/dL Creatinine 1.21 H 1.1 (0.52-1.04) mg/dL Glucose 138 H 107 (74-99) mg/dL Calcium 8.5 8.4 L (8.4-10.2) mg/dL AST 22 (14-36) U/L ALT 21 (4-34) U/L Alkaline Phosphatase 107 (38-126) U/L Total Protein 6.7 (6.3-8.2) g/dL Albumin 3.9 (3.5-5.0) g/dL Current Medications Generic Name Dose Route Start Last Admin Trade Name Freq PRN Reason Stop Dose Admin Acetaminophen 650 mg 05/06/21 20:23 Acetaminophen Tab 325 Mg Tab PO Q6HR PRN Mild Pain or Fever > 100.5 Amiodarone HCl 100 mg 05/06/21 21:30 05/06/21 21:52 Amiodarone 100 Mg Tab PO 100 mg HS KALEB Administration Apixaban 5 mg 05/06/21 21:30 05/07/21 08:10 Apixaban 5 Mg Tab PO 5 mg BID KALEB Administration Protocol Aspirin 81 mg 05/07/21 09:00 05/07/21 08:10 Aspirin 81 Mg PO 81 mg DAILY KALEB Administration Atorvastatin Calcium 80 mg 05/07/21 21:00 Atorvastatin 80 Mg Tab PO HS KALEB Sodium Chloride 1,000 mls @ 10 mls/hr 05/06/21 20:30 05/07/21 11:04 Saline 0.9% IV Not Given .Q24H KALEB Piperacillin Sod/Tazobactam 100 mls @ 25 mls/hr 05/07/21 01:00 05/07/21 07:38 Sod 3.375 gm/ Sodium Chloride IVPB 25 mls/hr Q8HR KALEB Administration Protocol Vancomycin HCl 2,250 mg/ 500 mls @ 167 mls/hr 05/07/21 22:00 Sodium Chloride IVPB Q24H KALEB Letrozole 2.5 mg 05/07/21 09:00 05/07/21 08:10 Letrozole 2.5 Mg Tab PO 2.5 mg DAILY KALEB Administration Metoprolol Succinate 150 mg 05/07/21 09:00 05/07/21 08:10 Metoprolol Succinate (Er) 50 Mg Tab.Er.24h PO 150 mg DAILY KALEB Administration Naloxone HCl 0.2 mg 05/06/21 20:23 Naloxone 0.4 Mg/Ml 1 Ml Vial IV Q2M PRN Opioid Reversal Intake and Output 05/06/21 05/07/21 05/07/21 22:59 06:59 14:59 Other: Voiding Method Toilet Toilet # Voids 1 2 Weight 153.314 kg 05/06/21 19:25 05/07/21 05:45
--- NOTE | 2021-05-07 13:41 | P.DS ---
Providers Date of admission: 05/07/21 09:29 Expected date of discharge: 05/07/21 Attending physician: Manny Calderón MD Consults: 05/06/21 20:26 Consult Physician Routine Consulting Provider: Hair Díaz Consult Reason/Comments: Suspect pacemaker infection Do you want consulting provider notified?: Already Contacted Primary care physician: [facility] Course: 65 year old female with afib , CAD Patient presented from cardiology office for admission to rule out infection and bactremia at site of eroding pacemaker wire. blood work showed no leukocytosis, patient is afebrile . blood cultures obtained and she was started on empiric broad spectrum antibiotics. metabolic panel showed elevated cr. CXR showed no active cardiopulmonary disease EKG showed v paced rhythm at 56 Cellulitis of the left anterior chest AICD generator and wire infection - on vancomycin and zosyn. BCx pending. Discussed with Cardiology and they recommend transfer for lead removal and replacement following capture if infection. I discussed this case over the phone with Dr. Breen who accepted this patient for transfer. Bed made available today. Pt discharged to [facility]. RONY -resolved with IVF chronic conditions history of breast cancer hypertension , resumed home BP meds, lisinopril on hold 2/ RONY afib on eliquis h/o CAD , continued with ASA statin obesity OP follow up with PCP counseled for lifestyle modification and weight loss I spent 40 minutes coordinating this complex discharge Gen: awake, alert HEENT: normocephalic, atraumatic, good hearing acuity, moist mucous membranes Resp: good air exchange, breathing comfortably with no accessory muscle use CVS: good distal perfusion x 4, GI: soft, NTTP, ND : no SPT, no CVAT, murillo catheter not present MSK: no pitting edema, no clubbing, erythema and pain to palpation of left upper chest, no drainage Neuro: non-focal, moving all extremities Psych: cooperative, euthymic mood Patient Condition at Discharge: Good Plan - Discharge Summary Discharge Rx Participant: No New Discharge Prescriptions: New Vancomycin 2,250 mg IVPB Q24H each Piperacillin-Tazobactam [Zosyn] 3.375 gm IVPB Q8HR each Acetaminophen Tab [Tylenol] 650 mg PO Q6HR PRN tab PRN Reason: Mild Pain Or Fever > 100.5 Continue Letrozole [Femara] 2.5 mg PO DAILY Apixaban [Eliquis] 5 mg PO BID #60 tab Atorvastatin [Lipitor] 80 mg PO HS #30 tab Amiodarone [Cordarone] 100 mg PO HS Metoprolol Succinate [Toprol XL] 150 mg PO DAILY Aspirin [Adult Low Dose Aspirin EC] 81 mg PO DAILY Discontinued lisinopriL [Zestril] 5 mg PO HS Spironolactone [Aldactone] 12.5 mg PO DAILY Discharge Medication List Letrozole [Femara] 2.5 mg PO DAILY 06/06/16 [History] Apixaban [Eliquis] 5 mg PO BID #60 tab 12/12/18 [Rx] Atorvastatin [Lipitor] 80 mg PO HS #30 tab 12/12/18 [Rx] Amiodarone [Cordarone] 100 mg PO HS 02/28/20 [History] Metoprolol Succinate [Toprol XL] 150 mg PO DAILY 02/28/20 [History] Aspirin [Adult Low Dose Aspirin EC] 81 mg PO DAILY 03/25/21 [History] Acetaminophen Tab [Tylenol] 650 mg PO Q6HR PRN tab 05/07/21 [Rx] Piperacillin-Tazobactam [Zosyn] 3.375 gm IVPB Q8HR each 05/07/21 [Rx] Vancomycin 2,250 mg IVPB Q24H each 05/07/21 [Rx] Follow up Appointment(s)/Referral(s): Tu Gonzalez MD [Primary Care Provider] - 1-2 days Discharge Disposition: OTHER INSTITUTION NOT DEFINED
[2021-05-07 14:41] VITALS: BP 122/68; PULSE 51; RESP 16; TEMP 99.9
[2021-05-07] MEDS ORDERED: VANCOMYCIN 2,250 MG in SODIUM CHLORIDE 0.9% 500 ML 500 ML IVPB SCH ×2 (21:00→22:00)
[2021-05-07] MEDS ORDERED: ATORVASTATIN 80 MG TAB PO SCH (21:00)
== END 2021-05-07 16:05 | disposition other institution (70) | DRG 315 ==
LOC: EC 18:47 → 6NMEDSUR 20:23 → OBSVTOIN 05-07 09:29
PROVIDERS: ADMIT Internal Medicine; ATTEND Internal Medicine
DX: T82.7XXA Infection and inflammatory reaction due to other cardiac and vascular devices, implants and grafts, initial encounter (principal); Z68.43 Body mass index [BMI] 50.0-59.9, adult; L03.90 Cellulitis, unspecified; N17.9 Acute kidney failure, unspecified; R07.9 Chest pain, unspecified; E66.9 Obesity, unspecified; E78.5 Hyperlipidemia, unspecified; I50.9 Heart failure, unspecified; I11.0 Hypertensive heart disease with heart failure; Z20.822 Contact with and (suspected) exposure to COVID-19; I25.10 Atherosclerotic heart disease of native coronary artery without angina pectoris; I25.2 Old myocardial infarction; I48.0 Paroxysmal atrial fibrillation; Y83.1 Surgical operation with implant of artificial internal device as the cause of abnormal reaction of the patient, or of later complication, without mention of misadventure at the time of the procedure; Z79.01 Long term (current) use of anticoagulants; Z79.811 Long term (current) use of aromatase inhibitors; Z79.82 Long term (current) use of aspirin; Z79.899 Other long term (current) drug therapy; Z80.3 Family history of malignant neoplasm of breast; Z82.3 Family history of stroke; Z82.49 Family history of ischemic heart disease and other diseases of the circulatory system; Z83.3 Family history of diabetes mellitus; Z85.3 Personal history of malignant neoplasm of breast; Z86.73 Personal history of transient ischemic attack (TIA), and cerebral infarction without residual deficits; Z90.12 Acquired absence of left breast and nipple; Z95.810 Presence of automatic (implantable) cardiac defibrillator; Z88.6 Allergy status to analgesic agent; Z91.014 Allergy to mammalian meats; Z91.040 Latex allergy status; Z88.8 Allergy status to other drugs, medicaments and biological substances; Z91.018 Allergy to other foods
CPT/HCPCS: 36415; 71046; 80048; 80053; 83605; 83735; 85025; 85610; 85652; 85730; 86140; 87040; 87635; 93005; 93306; 96365; 99285

== ENCOUNTER 2021-06-03 10:39 | Inpatient (IN) | payer MEDICARE, OTHER ==
[2021-06-03 11:45] LABS: Anisocytosis Slight; Basophils % (A) 0 %; Eosinophils # (A) 0.1 k/uL (0-0.7); Eosinophils % (A) 2 %; HCT 34.9 % (34.0-46.0); Hypochromasia Moderate; Lymphocytes % (A) 19 %; MCH 29.9 pg (25.0-35.0); MCHC 31.4 g/dL (31.0-37.0); MCV 95.2 fL (80.0-100.0); Mean Platelet Volume 8.6; Monocytes # (A) 0.2 k/uL (0-1.0); Monocytes % (A) 4 %; Neutrophils # (A) 3.9 k/uL (1.3-7.7); Neutrophils % (A) 73 %; Platelet Count 258 k/uL (150-450); RBC 3.67 m/uL (3.80-5.40); RDW 16.7 % (11.5-15.5); WBC 5.3 k/uL (3.8-10.6)
[2021-06-03 12:00] LABS: Albumin 3.9 g/dL (3.5-5.0); Calcium 8.6 mg/dL (8.4-10.2); Potassium 4.6 mmol/L (3.5-5.1); Total Bilirubin 0.9 mg/dL (0.2-1.3); Total Protein 6.7 g/dL (6.3-8.2)
--- NOTE | 2021-06-03 12:13 | CT ---
EXAMINATION TYPE: CT chest wo con DATE OF EXAM: 06/03/2021 INDICATION: Postop chest infection CT DLP: 1094.1 mGy.cm Automated Exposure Control for Dose Reduction was Utilized. TECHNIQUE AND CONTRAST: CT scan of the chest without IV contrast administration. COMPARISON: CT dated 11/27/2018 FINDINGS: Previous left mastectomy. Left superior chest wall irregular collection, mainly seen within the fat, containing air and measuring 7.2 x 3.9 cm, likely representing an abscess. It is inseparable from the overlying thickened skin anteriorly and from the pectoralis muscle posteriorly. Minimal anterior pleural-based reticulation is seen in the left upper lobe, otherwise unremarkable neli ngs. Patent central airways. No pleural or pericardial effusion. No gross cardiomegaly. Coronary fredo rial calcifications. No pathologically enlarged lymph nodes in the chest. Cholelithiasis without evidence of acute cholecy stitis. Slightly bulky spleen. Fatty infiltration of the pancreas. Tiny right breast surgical clips. T3 sclerotic changes, stable. No gross aggressive bone lesion. IMPRESSION: Left upper chest wall collection containing air as described above likely represent an abscess, for c linical correlation and surgical consultation. Other incidental findings as described above.
--- NOTE | 2021-06-03 13:06 | ED ---
General Adult HPI - General Chief complaint: Skin/Abscess/Foreign Body Stated complaint: Post surgery complications Time Seen by Provider: 06/03/21 10:56 Source: patient, family, RN notes reviewed Mode of arrival: ambulatory Limitations: no limitations - History of Present Illness Initial comments: This a 65-year-old female presents emergency Department with chief complaint of possible infection of surgical site. Patient states she was admitted here and was transferred on a Stanislaw Zayas to have her pacemaker remove because Dr. Díaz was concern with prior surgeries. Patient states she's been feeling well she did have a couple nights of chills but states that she went to remove the bandage today and noticed that started draining out large amount of fluid she states it was bloody tinged fluid she states that the pressure in the area has greatly decreased that it's been draining. Patient denies any noted fever. Patient states that she was discharged on antibiotics was placed on antibiotics here. - Related Data Home Medications Medication Instructions Recorded Confirmed Letrozole [Femara] 2.5 mg PO DAILY 06/06/16 06/03/21 Amiodarone [Cordarone] 200 mg PO DAILY 02/28/20 06/03/21 Aspirin [Adult Low Dose Aspirin EC] 81 mg PO DAILY 03/25/21 06/03/21 Melatonin 10 mg PO HS 06/03/21 06/03/21 Spironolactone [Aldactone] 12.5 mg PO DAILY 06/03/21 06/03/21 lisinopriL [Zestril] 5 mg PO HS 06/03/21 06/03/21 Previous Rx's Medication Instructions Recorded Apixaban [Eliquis] 5 mg PO BID #60 tab 12/12/18 Atorvastatin [Lipitor] 80 mg PO HS #30 tab 12/12/18 Allergies Allergy/AdvReac Type Severity Reaction Status Date / Time latex AdvReac Unknown itching Verified 06/03/21 10:44 and tingling ibuprofen [From Motrin] AdvReac Nausea & Verified 06/03/21 10:44 Vomiting phenaphen Allergy Severe Anaphylaxis Uncoded 06/03/21 10:44 blue cheese Allergy Unknown Rash/Hives, Uncoded 06/03/21 10:44 Swelling corn beef Allergy Unknown Rash/Hives, Uncoded 06/03/21 10:44 Swelling Review of Systems ROS Statement: Those systems with pertinent positive or pertinent negative responses have been documented in the HPI. ROS Other: All systems not noted in ROS Statement are negative. Past Medical History Past Medical History: Atrial Fibrillation, Coronary Artery Disease (CAD), Cancer, Heart Failure, CVA/TIA, Hyperlipidemia, Hypertension, Myocardial Infarction ([place]) Additional Past Medical History / Comment(s): CVA (MAR 2014)- NO RESIDUAL EFFECTS , LEFT BREAST CANCER. FINISHED CHEMO Sep, HX OF INFECTION FROM IMPLANT WITH DIFFICULTY HEALING.,. 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 history of LIFE VEST. vertigo Last Myocardial Infarction Date:: 12/08/2018 History of Any Multi-Drug Resistant Organisms: None Reported Past Surgical History: Breast Surgery, Section, Heart Catheterization With Stent, Pacemaker Additional Past Surgical History / Comment(s): LT MASTECTOMY WITH IMPLANT (INFECTION & REMOVED),. C-SEC X3. MEDI PORT INSERTION-RT CHEST-REMOVED. BREAST BIOPSIES. HEART CATH WITH STENT 11/2018, pacemaker removal 05/11/21 Past Anesthesia/Blood Transfusion Reactions: Postoperative Nausea & Vomiting (PONV) Additional Past Anesthesia/Blood Transfusion Reaction / Comment(s): HX OF PONV. Date of Last Stent Placement:: 11/2018 Type of Cardiac Device: Biventricular Pacemaker, Permanent Pacemaker, AICD Device Placement Date:: 06/20/19 Past Psychological History: No Psychological Hx Reported Smoking Status: Never smoker Past Alcohol Use History: Rare Past Drug Use History: None Reported - Past Family History Mother Family Medical History: Cancer, CVA/TIA Additional Family Medical History / Comment(s): BREAST CANCER Father Family Medical History: Cancer, Congestive Heart Failure (CHF), Diabetes Mellitus Additional Family Medical History / Comment(s): CANCER General Exam Limitations: no limitations General appearance: alert, in no apparent distress Head exam: Present: atraumatic, normocephalic, normal inspection Neck exam: Present: normal inspection. Absent: tenderness, meningismus, lymphadenopathy Respiratory exam: Present: normal lung sounds bilaterally, chest wall tenderness (Burt in place left upper chest, there is an opening with some drainage noted some purulent drainage, mild serosanguineous is a deformity from prior surgery of the left upper chest). Absent: respiratory distress, wheezes, rales, rhonc hi, stridor Cardiovascular Exam: Present: regular rate, normal rhythm, normal heart sounds. Absent: systolic murmur, diastolic murmur, rubs, gallop, clicks Course Vital Signs 06/03/21 06/03/21 10:40 14:58 Temperature 97.4 F L Pulse Rate 86 63 Respiratory 18 18 Rate Blood Pressure 151/75 138/65 O2 Sat by Pulse 98 98 Oximetry Medical Decision Making - Medical Decision Making Patient has evidence of fluid collection, abscess from prior surgical site there is possibly a seroma. Patient was evaluated by Dr. Díaz in emergency department. Patient will be kept nothing by mouth taken to the OR for opening rinses trace range of abscess. I discussed with the patient vancomycin he recommended an dosing coverage. states discussed with Dr. Galdamez accepts admission. - Lab Data Result diagrams: 06/03/21 11:27 06/03/21 11:27 Lab Results 06/03/21 06/03/21 06/03/21 Range/Units 11:27 11:27 11:27 WBC 5.3 (3.8-10.6) k/uL RBC 3.67 L (3.80-5.40) m/uL Hgb 11.0 L (11.4-16.0) gm/dL Hct 34.9 (34.0-46.0) % MCV 95.2 (80.0-100.0) fL MCH 29.9 (25.0-35.0) pg MCHC 31.4 (31.0-37.0) g/dL RDW 16.7 H (11.5-15.5) % Plt Count 258 (150-450) k/uL MPV 8.6 Neutrophils % 73 % Lymphocytes % 19 % Monocytes % 4 % Eosinophils % 2 % Basophils % 0 % Neutrophils # 3.9 (1.3-7.7) k/uL Lymphocytes # 1.0 (1.0-4.8) k/uL Monocytes # 0.2 (0-1.0) k/uL Eosinophils # 0.1 (0-0.7) k/uL Basophils # 0.0 (0-0.2) k/uL Hypochromasia Moderate Anisocytosis Slight Sodium 140 (137-145) mmol/L Potassium 4.6 (3.5-5.1) mmol/L Chloride 105 (98-107) mmol/L Carbon Dioxide 25 (22-30) mmol/L Anion Gap 10 mmol/L BUN 16 (7-17) mg/dL Creatinine 1.02 (0.52-1.04) mg/dL Est GFR (CKD-EPI)AfAm 67 (>60 ml/min/1.73 sqM) Est GFR (CKD-EPI)NonAf 58 (>60 ml/min/1.73 sqM) Glucose 144 H (74-99) mg/dL Plasma Lactic Acid Ar 1.5 (0.7-2.0) mmol/L Calcium 8.6 (8.4-10.2) mg/dL Total Bilirubin 0.9 (0.2-1.3) mg/dL AST 23 (14-36) U/L ALT 19 (4-34) U/L Alkaline Phosphatase 120 (38-126) U/L Total Protein 6.7 (6.3-8.2) g/dL Albumin 3.9 (3.5-5.0) g/dL Disposition Clinical Impression: Chest wall abscess Disposition: ADMITTED IP TO THIS HOSP Condition: Fair Referrals: Tu Gonzalez MD [Primary Care Provider] - 1-2 days
[2021-06-03] MEDS ORDERED: VANCOMYCIN IV PER PHARMACY 1 EACH MISC MISCELLANE PRN (15:02)
[2021-06-03] MEDS ORDERED: VANCOMYCIN 2,250 MG in SODIUM CHLORIDE 0.9% 500 ML 500 ML IVPB STA (15:06)
[2021-06-03] MEDS ORDERED: PIPERACILLIN-TAZOBACTAM 3.375 GM in SODIUM CHLORIDE 0.9% 100 ML IVPB STA (15:23)
[2021-06-03] MEDS ORDERED: NALOXONE 0.4 MG/ML 1 ML VIAL IV PRN ×2 (15:27→18:20)
[2021-06-03] MEDS: SODIUM CHLORIDE 0.9% 1,000 ML IV SCH (15:40)
[2021-06-03] MEDS ORDERED: ONDANSETRON 4 MG/2 ML VIAL IVP PRN (18:20)
[2021-06-03] MEDS ORDERED: MELATONIN 3 MG TABLET PO PRN (18:20)
[2021-06-03] MEDS ORDERED: HYDROcodone/APAP 5-325MG 1 EACH TAB PO PRN (18:20)
--- NOTE | 2021-06-03 18:20 | P.HPIM ---
History of Present Illness H&P Date: 06/03/21 Chief Complaint: wound Patient is a 65-year-old female past medical history of atrial fibrillation, coronary artery disease, systolic congestive heart failure, hypertension, and dyslipidemia who presented to the ER at the direction of her primary care physician after her recently removed pacemaker and site began leaking. Patient had been hospitalized here in April 2021 and required transfer to [facility] due to infected pacemaker. There she underwent extraction of her pacer/ICD as well as leads. She had been on IV antibiotics in the hospital and ultimately went home on a 1 week course of oral antibiotics and she was due to have her bayron removed today and then noted significant amount of leaking from the prior pacemaker site. Patient states she had been released from the care of [facility] and was due to follow-up with Dr. Díaz. He came and evaluated her in the ER and felt as though he could incise and drain the prior pacemaker pocket. On arrival to the ER vital signs within normal limits. Laboratory analysis was essentially unremarkable. CT of the chest demonstrated left upper wall fluid collection containing air likely insurance account representative of abscess. Patient was started on IV vancomycin and arrangements are made for her to undergo incision and drainage of possible abscess with Dr. Díaz. Patient seen and examined at bedside in the emergency department. She states that she was at [facility] and ultimately underwent events as noted above. She had been doing well and was following up with Dr. Campbell office. Lizette willett is due to have her bayron removed today which were taken out in the ER. Yesterday she noted that she started having significant amounts of copious clear to yellowish drainage. She denies any fevers, chills, nausea, vomiting, diarrhea. She denies any significant riders or muscle aches. She denies any significant weakness. She does state that she has chronic lower extremity edema which is unchanged. Pertinent positives and negatives as discussed in HPI, a complete review of systems was performed and all other systems are negative. General: non toxic, no distress, appears at stated age Derm: left chest wall without erythema / warmth, + flucuant with serous drainage, incision well approximated Head: atraumatic, normocephalic, symmetric Eyes: EOMI, no lid lag, anicteric sclera, pupils equal round reactive to light ENT: Nose and ears atraumatic, no thrush, no pharyngeal erythema Neck: No thyromegaly, no cervical lymphadenopathy, trachea midline, supple Mouth: no lip lesion, mucus membranes moist Cardiovascular: S1S2 irreg, no murmur, positive posterior tibial pulse bilateral, no edema, capillary refill less than 2 seconds Lungs: Decreased bs bilateral, no ronchi, no rales, no wheeze, no accessory muscle use Abdominal: soft, nontender to palpation, no guarding, no appreciable organomegaly, normal bowel sounds Ext: no gross muscle atrophy, muscle strength muscle strength 5 out of 5 in all 4 extremities, no contractures Neuro: CN II-XI grossly intact, light touch intact all 4 extremities, finger to nose within normal limits, Psych: Alert, oriented, appropriate affect Assessment/Plan: Left chest wall abscess - vanco - EP plans on drainage - ID consult - pain control Systolic congestive heart failure, chronic EF 45-50% A fib - ACEI - Aldactone - Eliquis - amio Chronic: CAD Heart Failure HTN HLD The patient is admitted with an anticipated greater than 2 midnight stay for sarah luation of Incfected post-surigcal site. Surrogate decision-maker: CODE STATUS: full DVT prophylaxis: eliquis Discussed with: patient, spouse, ED Anticipated discharge date: in 1-[address]: home A total of 75 minutes was spent on the care of this complex patient more than 50% of the time was spent in counseling and care coordination. Past Medical History Past Medical History: Atrial Fibrillation, Coronary Artery Disease (CAD), Cancer, Heart Failure, CVA/TIA, Hyperlipidemia, Hypertension, Myocardial Infarction (VT) Additional Past Medical History / Comment(s): CVA (MAR 2014)- NO RESIDUAL EFFECT S , LEFT BREAST CANCER. FINISHED CHEMO Sep, HX OF INFECTION FROM IMPLANT WITH DIFFICULTY HEALING.,. 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 history of LIFE VEST. vertigo Last Myocardial Infarction Date:: 12/08/2018 History of Any Multi-Drug Resistant Organisms: None Reported Past Surgical History: Breast Surgery, Section, Heart Catheterization With Stent, Pacemaker Additional Past Surgical History / Comment(s): LT MASTECTOMY WITH IMPLANT (INFECTION & REMOVED),. C-SEC X3. MEDI PORT INSERTION-RT CHEST-REMOVED. BREAST BIOPSIES. HEART CATH WITH STENT 11/2018, pacemaker removal 05/11/21 Past Anesthesia/Blood Transfusion Reactions: Postoperative Nausea & Vomiting (PONV) Additional Past Anesthesia/Blood Transfusion Reaction / Comment(s): HX OF PONV. Date of Last Stent Placement:: 11/2018 Type of Cardiac Device: Biventricular Pacemaker, Permanent Pacemaker, AICD Device Placement Date:: 06/20/19 Past Psychological History: No Psychological Hx Reported Smoking Status: Never smoker Past Alcohol Use History: Rare Past Drug Use History: None Reported - Past Family History Mother Family Medical History: Cancer, CVA/TIA Additional Family Medical History / Comment(s): BREAST CANCER Father Family Medical History: Cancer, Congestive Heart Failure (CHF), Diabetes Mellitus Additional Family Medical History / Comment(s): CANCER Medications and Allergies Home Medications Medication Instructions Recorded Confirmed Type Letrozole [Femara] 2.5 mg PO DAILY 06/06/16 06/03/21 History Apixaban [Eliquis] 5 mg PO BID #60 tab 12/12/18 06/03/21 Rx Atorvastatin [Lipitor] 80 mg PO HS #30 tab 12/12/18 06/03/21 Rx Amiodarone [Cordarone] 200 mg PO DAILY 02/28/20 06/03/21 History Aspirin [Adult Low Dose Aspirin EC] 81 mg PO DAILY 03/25/21 06/03/21 History Melatonin 10 mg PO HS 06/03/21 06/03/21 History Spironolactone [Aldactone] 12.5 mg PO DAILY 06/03/21 06/03/21 History lisinopriL [Zestril] 5 mg PO HS 06/03/21 06/03/21 History Allergies Allergy/AdvReac Type Severity Reaction Status Date / Time latex AdvReac Unknown itching Verified 06/03/21 10:44 and tingling ibuprofen [From Motrin] AdvReac Nausea & Verified 06/03/21 10:44 Vomiting phenaphen Allergy Severe Anaphylaxis Uncoded 06/03/21 10:44 blue cheese Allergy Unknown Rash/Hives, Uncoded 06/03/21 10:44 Swelling corn beef Allergy Unknown Rash/Hives, Uncoded 06/03/21 10:44 Swelling Physical Exam Osteopathic Statement: *. No significant issues noted on an osteopathic structural exam other than those noted in the History and Physical/Consult. Vitals: Vital Signs Temp Pulse Resp BP Pulse Ox 06/03/21 17:34 75 18 132/79 100 06/03/21 14:58 63 18 138/65 98 06/03/21 10:40 97.4 F L 86 18 151/75 98 Intake and Output 06/03/21 06/03/21 06/03/21 06:59 14:59 22:59 Other: Weight 149.685 kg Results CBC & Chem 7: 06/03/21 11:27 06/03/21 11:27 Labs: Abnormal Lab Results - Last 24 Hours (Table) 06/03/21 06/03/21 Range/Units 11:27 11:27 RBC 3.67 L (3.80-5.40) m/uL Hgb 11.0 L (11.4-16.0) gm/dL RDW 16.7 H (11.5-15.5) % Glucose 144 H (74-99) mg/dL
[2021-06-03] MEDS ORDERED: diphenhydrAMINE 50 MG/ML 1 ML VIAL IVP STA (19:33)
[2021-06-03] MEDS ORDERED: PROPOFOL 10 MG/ML 20 ML VIAL IV ONE (19:44)
[2021-06-03] MEDS ORDERED: LACTATED RINGERS 1,000 ML IV ONE (19:44)
[2021-06-03] MEDS ORDERED: fentaNYL (PF) 50 MCG/ML 2 ML AMP ONE (19:44)
[2021-06-03] MEDS ORDERED: MIDAZOLAM 2 MG/2 ML VIAL ONE (19:44)
[2021-06-03] MEDS ORDERED: LIDOCAINE 1% INJ 10MG/ML (20 ML MDV) ONE (20:04)
[2021-06-03] MEDS ORDERED: LIDOCAINE 1% INJ 10MG/ML (20 ML MDV) SQ ONE (20:06)
--- NOTE | 2021-06-03 20:34 | P.PCN ---
Preoperative Diagnosis: Procedure Incision and drainage and pocket evacuation Procedure Patient was brought to the EP lab Conscious sedation was provided by anesthesia The left pectoral area was prepped and draped An incision was made over the swelling and dark brown fluid was aspirated and sent for culture Following that a spindle-shaped incision was made around it and the edges were excised The old pacemaker pocket was reentrant This septae within the pocket were manually removed The pocket was evacuated Later it was packed with 3 separate sponges Patient will see well without any acute complications The fluid that was removed was dark brown in color and seemed like old blood rather than pus Cultures have been sent Wound will he be allowed to heal with secondary intention
[2021-06-03] MEDS ORDERED: lisinopriL 5 MG TAB PO SCH (21:00)
[2021-06-03] MEDS ORDERED: ATORVASTATIN 80 MG TAB PO SCH (21:00)
[2021-06-03] MEDS: MELATONIN 5 MG TABLET PO SCH (22:16)
[2021-06-03] MEDS: ACETAMINOPHEN TAB 325 MG TAB PO PRN (22:27)
[2021-06-04] MEDS: PIPERACILLIN-TAZOBACTAM 3.375 GM in SODIUM CHLORIDE 0.9% 100 ML IVPB SCH ×2 (00:03→07:19)
[2021-06-04] MEDS: SODIUM CHLORIDE 0.9% 1,000 ML IV SCH ×2 (06:16→21:10)
[2021-06-04] MEDS: lisinopriL 5 MG TAB PO SCH (07:14)
[2021-06-04] MEDS: SPIRONOLACTONE 25 MG TAB PO SCH (07:14)
[2021-06-04] MEDS: AMIODARONE 200 MG TAB PO SCH (07:14)
[2021-06-04] MEDS: FUROSEMIDE 20 MG TAB PO SCH (07:15)
[2021-06-04] MEDS: LETROZOLE 2.5 MG TAB PO SCH (07:20)
[2021-06-04 09:07] LABS: Anisocytosis Slight; Hypochromasia Marked; MCH 30.1 pg (25.0-35.0); MCHC 30.8 g/dL (31.0-37.0); MCV 97.8 fL (80.0-100.0); Macrocytosis Slight; Mean Platelet Volume 9.9; Platelet Count 193 k/uL (150-450); RBC 2.96 m/uL (3.80-5.40); RDW 16.9 % (11.5-15.5); WBC 3.8 k/uL (3.8-10.6)
[2021-06-04 09:10] LABS: HGB 8.9 gm/dL (11.4-16.0)
--- NOTE | 2021-06-04 09:28 | P.PN ---
Subjective Progress Note Date: 06/04/21 This is a pleasant 65-year-old female patient with history of paroxysmal atrial fibrillation, coronary artery disease, cardiomyopathy, hypertension, dyslipidemia, prior biventricular ICD status post extraction secondary to erosion of the cardiac leads through the skin. She underwent this extraction last month the [facility]. She presented to the emergency department after she noted an area around the incision started to pull out. She underwent incision and drainage and pocket evacuation yesterday by Dr. Díaz. The fluid that was removed was dark brown in color and seemed like old blood rather than any purulent drainage. He packed the area and cultures were sent. She has received IV antibiotics and ID has been consult did for further recommendations. Upon examination this morning she is resting comfortably in bed. Overall she's feeling fairly well. She does complain of some left shoulder pain around the eye. Otherwise she's feeling well her breathing is stable. She has minimal edema. Her vital signs are stable and she has been afebrile. Laboratory values show white blood cell count 3.8, hemoglobin 8.9 which is down from 11, and creatinine of 1.07. Objective - Vital Signs Vital signs: Vital Signs Temp 97.4 F L 06/04/21 07:35 Pulse 66 06/04/21 07:35 Resp 18 06/04/21 07:35 BP 118/74 06/04/21 07:35 Pulse Ox 95 06/04/21 07:35 Intake & Output 06/03/21 06/04/21 06/04/21 18:59 06:59 18:59 Intake Total 50 Balance 50 Weight 149.685 kg Intake: IV 50 Other: Voiding Method Toilet - Exam PHYSICAL EXAMINATION: HEENT: Head is atraumatic, normocephalic. Pupils equal, round. Neck is supple. There is no elevated jugular venous pressure. HEART EXAMINATION: Heart sounds regular, S1 and S2 normal. A soft systolic murmur. CHEST EXAMINATION: Lungs are clear to auscultation and precussion. No chest wall tenderness is noted on palpation or with deep breathing. Left upper chest with dressing intact, serosanguineous drainage noted no significant erythema around the site, patient complains of tenderness ABDOMEN: Soft, obese, nontender. Bowel sounds are heard. No organomegaly noted. EXTREMITIES: 2+ peripheral pulses with trace lower extremity peripheral edema and mild right hand edema and no calf tenderness noted. NEUROLOGIC patient is awake, alert and oriented x3. . - Labs CBC & Chem 7: 06/04/21 05:04 06/04/21 05:04 Labs: Abnormal Lab Results - Last 24 Hours (Table) 06/03/21 06/03/21 06/04/21 Range/Units 11:27 11:27 05:04 RBC 3.67 L (3.80-5.40) m/uL Hgb 11.0 L (11.4-16.0) gm/dL Hct (34.0-46.0) % MCHC (31.0-37.0) g/dL RDW 16.7 H (11.5-15.5) % Creatinine 1.07 H (0.52-1.04) mg/dL Glucose 144 H (74-99) mg/dL 06/04/21 Range/Units 05:04 RBC 2.96 L (3.80-5.40) m/uL Hgb 8.9 L D (11.4-16.0) gm/dL Hct 29.0 L (34.0-46.0) % MCHC 30.8 L (31.0-37.0) g/dL RDW 16.9 H (11.5-15.5) % Creatinine (0.52-1.04) mg/dL Glucose (74-99) mg/dL Microbiology - Last 24 Hours (Table) 06/03/21 12:00 Gram Stain - Preliminary Other - Other Wound Culture - Preliminary Assessment and Plan Assessment: #1 possible left chest wall abscess although incision and drainage showed likelihood of old blood as opposed to purulent drainage, ID on consult #2 cardiomyopathy, status post biventricular ICD placement with subsequent extraction #3 paroxysmal atrial fibrillation #4 coronary artery disease status post PCI #5 hypertension #6 hyperlipidemia Plan: From cardiology's perspective after discussion with Dr. Díaz the plan is to keep the patient at least until Monday at which time packing will be removed by Dr. Díaz and replaced. We will await culture results and input from infectious disease. Monitor hemoglobin closely. We will continue to follow the patient provide further recommendations accordingly. COAT JOINER LOCKSTITCH note has been reviewed, I agree with a documented findings and plan of care. Patient was seen and examined.
[2021-06-04 09:33] LABS: African American GFR (CKD) 64 (>60 ml/min/1.73 sqM); Anion Gap 7 mmol/L; Blood Urea Nitrogen 15 mg/dL (7-17); Calcium 8.1 mg/dL (8.4-10.2); Carbon Dioxide 26 mmol/L (22-30); Chloride 107 mmol/L (98-107); Glucose 115 mg/dL (74-99); Non-African American GFR(CKD) 55 (>60 ml/min/1.73 sqM); Sodium 140 mmol/L (137-145)
[2021-06-04] MEDS ORDERED: CYCLOBENZAPRINE 5 MG TAB PO PRN (11:49)
[2021-06-04] MEDS: ACETAMINOPHEN TAB 325 MG TAB PO PRN ×2 (11:58→19:06)
[2021-06-04] MEDS ORDERED: VANCOMYCIN 2,500 MG in SODIUM CHLORIDE 0.9% 500 ML 500 ML IVPB SCH (12:00)
[2021-06-04] MEDS ORDERED: VANCOMYCIN 2,250 MG in SODIUM CHLORIDE 0.9% 500 ML 500 ML IVPB SCH (16:00)
--- NOTE | 2021-06-04 17:58 | P.PN ---
Subjective Progress Note Date: 06/04/21 (delayed charting seen at 1130) Principal diagnosis: infected pocket Patient is a 65-year-old female past medical history of atrial fibrillation, coronary artery disease, systolic congestive heart failure, hypertension, and dyslipidemia who presented to the ER at the direction of her primary care physician after her recently removed pacemaker and site began leaking. Patient had been hospitalized here in April 2021 and required transfer to [facility] due to infected pacemaker. There she underwent extraction of her pacer/ICD as well as leads. She had been on IV antibiotics in the hospital and ultimately went home on a 1 week course of oral antibiotics and she was due to have her bayron removed today and then noted significant amount of leaking from the prior pacemaker site. Patient states she had been released from the care of [facility] and was due to follow-up with Dr. Díaz. He came and evaluated her in the ER and felt as though he could incise and drain the prior pacemaker pocket. On arrival to the ER vital signs within normal limits. Laboratory analysis was essentially unremarkable. CT of the chest demonstrated left upper wall fluid collection containing air likely apprenticeship representative of abscess. Patient was started on IV vancomycin. She did undergo incision and drainage of that pocket which demonstrated serosanganous fluid. Patient seen and examined at bedside. She reports that she is having some discomfort at the incision site. She denies any chest pain, unusual swelling, nausea, vomiting, diarrhea. Does report being very cold. is present at bedside. All questions answered. General: non toxic, no distress, appears at stated age Derm: warm, dry, dressing in place over left chest wall Head: atraumatic, normocephalic, symmetric Eyes: EOMI, no lid lag, anicteric sclera Mouth: no lip lesion, mucus membranes moist Cardiovascular: S1S2 reg, no murmur, positive posterior tibial pulse bilateral, Lungs: CTA bilateral, no rhonchi, no rales , no accessory muscle use Abdominal: soft, nontender to palpation, no guarding, no appreciable organomegaly Ext: no gross muscle atrophy, 1+ edema, no contractures Neuro: CN II-XI grossly intact, no focal neuro deficits Psych: Alert, oriented, appropriate affect Assessment/Plan: Left chest wall abscess/ seroma - vanco - cardio and ID recs - pain control - awiat cultures Systolic congestive heart failure, chronic EF 45-50% P. A fib - ACEI - Aldactone - Eliquis - amio Chronic: CAD Heart Failure HTN HLD Likely home on Monday after cultures available and wound is repacked. Objective - Vital Signs Vital signs: Vital Signs Temp 98.7 F 06/04/21 14:04 Pulse 74 06/04/21 14:04 Resp 18 06/04/21 14:04 BP 110/69 06/04/21 14:04 Pulse Ox 94 L 06/04/21 14:04 Intake & Output 06/03/21 06/04/21 06/04/21 18:59 06:59 18:59 Intake Total 50 Balance 50 Weight 149.685 kg Intake: IV 50 Other: Voiding Method Toilet # Voids 3 - Labs CBC & Chem 7: 06/04/21 05:04 06/04/21 05:04 Labs: Abnormal Lab Results - Last 24 Hours (Table) 06/04/21 06/04/21 06/04/21 Range/Units 05:04 05:04 05:04 RBC 2.96 L (3.80-5.40) m/uL Hgb 8.9 L D (11.4-16.0) gm/dL Hct 29.0 L (34.0-46.0) % MCHC 30.8 L (31.0-37.0) g/dL RDW 16.9 H (11.5-15.5) % Creatinine 1.07 H 1.06 H (0.52-1.04) mg/dL Glucose 115 H (74-99) mg/dL Calcium 8.1 L (8.4-10.2) mg/dL Microbiology - Last 24 Hours (Table) 06/03/21 11:27 Blood Culture - Preliminary Blood No Growth after 24 hours 06/03/21 11:27 Blood Culture - Preliminary Blood No Growth after 24 hours 06/03/21 12:00 Gram Stain - Preliminary Other - Other Wound Culture - Preliminary
[2021-06-04] MEDS: MELATONIN 5 MG TABLET PO SCH (19:02)
[2021-06-04] MEDS: ATORVASTATIN 80 MG TAB PO SCH (20:05)
--- NOTE | 2021-06-04 21:19 | P.CONS ---
History of Present Illness - Reason for Consult Consult date: 06/04/21 Left chest wall pacemaker site infection Requesting physician: Nicole Grove - Chief Complaint Drainage from the left chest wall x one day - History of Present Illness Patient is a 65-year-old female past medical history significant atrial fibrillation coronary artery disease congestive heart failure hypertension dyslipidemia we will recently did have a problem with her pacemaker which was removed at [facility] patient mentioned that she was sent h ome on a low oral antibiotic she was taking it twice a day however did not recall the name of those antibiotic patient did have a removal of the bayron on the day of presentation to the hospital she was noted to have significant mount of bloodstained leakage from the pacemaker site for the patient was advised to go to the hospital, patient denies high-grade fever or any chills she has been complaining of pain into the left chest wall more of a dull aching sharp 4-5 out of 10 no radiation she has drainage is mostly bloodstained nonpurulent patient denies any shortness of breath no nausea no vomiting no abdominal pain no diarrhea, patient presented to the hospital was afebrile patient did have a normal white count hemoglobin has dropped from 11-8.9 today creatinine has been normal patient did have a CT of the chest which did show left upper chest wall collection containing air concerning for an abscess patient was started on vancomycin and Zosyn admitted to hospital infectious disease was consulted for further management of antibiotic therapy, patient seen her problem with some hives to the left arm with vancomycin yesterday which has been put on hold pending evaluation Review of Systems Positive point has been mentioned in the HPI rest of the systems are negative Past Medical History Past Medical History: Atrial Fibrillation, Coronary Artery Disease (CAD), Cancer, Heart Failure, CVA/TIA, Hyperlipidemia, Hypertension, Myocardial Infarction (MS) Additional Past Medical History / Comment(s): CVA (MAR 2014)- NO RESIDUAL EFFECTS , LEFT BREAST CANCER. FINISHED CHEMO Sep, HX OF INFECTION FROM IMPLANT WITH DIFFICULTY HEALING.,. 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 history of LIFE VEST. vertigo Last Myocardial Infarction Date:: 12/08/2018 History of Any Multi-Drug Resistant Organisms: None Reported Past Surgical History: Breast Surgery, Section, Heart Catheterization With Stent, Pacemaker Additional Past Surgical History / Comment(s): LT MASTECTOMY WITH IMPLANT (INFECTION & REMOVED),. C-SEC X3. MEDI PORT INSERTION-RT CHEST-REMOVED. BREAST BIOPSIES. HEART CATH WITH STENT 11/2018, pacemaker removal 05/11/21 Past Anesthesia/Blood Transfusion Reactions: Postoperative Nausea & Vomiting (PONV) Additional Past Anesthesia/Blood Transfusion Reaction / Comm: HX OF PONV. Date of Last Stent Placement:: 11/2018 Type of Cardiac Device: Biventricular Pacemaker, Permanent Pacemaker, AICD Device Placement Date:: 06/20/19 Past Psychological History: No Psychological Hx Reported Smoking Status: Never smoker Past Alcohol Use History: Rare Past Drug Use History: None Reported - Past Family History Mother Family Medical History: Cancer, CVA/TIA Additional Family Medical History / Comment(s): BREAST CANCER Father Family Medical History: Cancer, Congestive Heart Failure (CHF), Diabetes Mellitus Additional Family Medical History / Comment(s): CANCER Medications and Allergies Home Medications Medication Instructions Recorded Confirmed Type Letrozole [Femara] 2.5 mg PO DAILY 06/06/16 06/03/21 History Apixaban [Eliquis] 5 mg PO BID #60 tab 12/12/18 06/03/21 Rx Atorvastatin [Lipitor] 80 mg PO HS #30 tab 12/12/18 06/03/21 Rx Amiodarone [Cordarone] 200 mg PO DAILY 02/28/20 06/03/21 History Aspirin [Adult Low Dose Aspirin EC] 81 mg PO DAILY 03/25/21 06/03/21 History Melatonin 10 mg PO HS 06/03/21 06/03/21 History Spironolactone [Aldactone] 12.5 mg PO DAILY 06/03/21 06/03/21 History lisinopriL [Zestril] 5 mg PO HS 06/03/21 06/03/21 History Allergies Allergy/AdvReac Type Severity Reaction Status Date / Time latex AdvReac Unknown itching Verified 06/03/21 10:44 and tingling ibuprofen [From Motrin] AdvReac Nausea & Verified 06/03/21 10:44 Vomiting phenaphen Allergy Severe Anaphylaxis Uncoded 06/03/21 10:44 blue cheese Allergy Unknown Rash/Hives, Uncoded 06/03/21 10:44 Swelling corn beef Allergy Unknown Rash/Hives, Uncoded 06/03/21 10:44 Swelling Physical Exam Vitals: Vital Signs Temp Pulse Pulse Resp BP BP Pulse Ox 06/04/21 07:35 97.4 F L 66 18 118/74 95 06/04/21 01:03 97.7 F 66 18 144/67 96 06/03/21 23:52 68 121/69 94 L 06/03/21 23:37 71 112/71 91 L 06/03/21 23:22 67 100/65 89 L 06/03/21 23:07 70 118/76 92 L 06/03/21 22:53 67 105/62 94 L 06/03/21 22:37 66 137/79 95 06/03/21 22:24 69 124/64 97 06/03/21 22:07 69 124/78 97 06/03/21 21:52 67 116/71 96 06/03/21 21:37 66 115/74 94 L 06/03/21 21:23 70 111/64 95 06/03/21 21:07 68 113/77 96 06/03/21 20:53 68 118/66 96 06/03/21 19:00 20 06/03/21 18:50 97.9 F 68 20 142/67 98 06/03/21 17:34 75 18 132/79 100 06/03/21 14:58 63 18 138/65 98 Intake and Output 06/03/21 06/04/21 06/04/21 22:59 06:59 14:59 Intake Total 50 Balance 50 Intake: IV 50 Other: Voiding Method Toilet Weight 149.685 kg GENERAL DESCRIPTION: Elderly female lying in bed, no distress. No tachypnea or accessory muscle of respiration use. HEENT: Shows Pallor , no scleral icterus. Oral mucous membrane is dry. No phary ngeal erythema or thrush NECK: Trachea central, no thyromegaly. LUNGS: Unlabored breathing. Clear to auscultation anteriorly. No wheeze or crackle. HEART: S1, S2, regular rate and rhythm. Left chest wall wound is currently dressed with some blood stained drainage on the dressing ABDOMEN: Soft, no tenderness , guarding or rigidity, no organomegaly EXTREMITIES: No edema of feet. SKIN: No rash, no masses palpable. NEUROLOGICAL: The patient is awake, alert, oriented x3, mood and affect normal. Results CBC & Chem 7: 06/04/21 05:04 06/04/21 05:04 Labs: Abnormal Lab Results - Last 24 Hours (Table) 06/03/21 06/04/21 06/04/21 Range/Units 11:27 05:04 05:04 RBC 2.96 L (3.80-5.40) m/uL Hgb 8.9 L D (11.4-16.0) gm/dL Hct 29.0 L (34.0-46.0) % MCHC 30.8 L (31.0-37.0) g/dL RDW 16.9 H (11.5-15.5) % Creatinine 1.07 H (0.52-1.04) mg/dL Glucose 144 H (74-99) mg/dL Calcium (8.4-10.2) mg/dL 06/04/21 Range/Units 05:04 RBC (3.80-5.40) m/uL Hgb (11.4-16.0) gm/dL Hct (34.0-46.0) % MCHC (31.0-37.0) g/dL RDW (11.5-15.5) % Creatinine 1.06 H (0.52-1.04) mg/dL Glucose 115 H (74-99) mg/dL Calcium 8.1 L (8.4-10.2) mg/dL Microbiology - Last 24 Hours (Table) 06/03/21 12:00 Gram Stain - Preliminary Other - Other Wound Culture - Preliminary Assessment and Plan (1) Chest wall abscess Current Visit: Yes Status: Acute Code(s): L02.213 - CUTANEOUS ABSCESS OF CHEST WALL SNOMED Code(s): 36284021 Plan: 1patient with recent removal of the left chest wall pacemaker/ICD along with removal of the wires in this patient started having drainage from the area after removal of the staple possible hematoma clinically not behaving as an abscess in this patient with no fever or elevated white count though not entirely excluded 2patient with hives secondary to vancomycin, patient reaction was not typical of a "red man" syndrome and may be true allergy 3-need to cover for the gram-positive skin lawrence to the likely pathogen while wa iting for the culture to finalize 4-discontinue Zosyn 5-start the patient on daptomycin awaiting for the culture to finalize We will follow on clinical condition and cultures to further adjust medication if needed Thank you for this consultation will follow this patient along with you Time with Patient: Greater than 30
[2021-06-05] MEDS: SODIUM CHLORIDE 0.9% 1,000 ML IV SCH ×2 (07:04→16:01)
[2021-06-05] MEDS: ACETAMINOPHEN TAB 325 MG TAB PO PRN ×2 (07:06→20:30)
[2021-06-05 07:43] LABS: Anisocytosis Slight; HGB 9.3 gm/dL (11.4-16.0); Hypochromasia Marked; MCH 30.4 pg (25.0-35.0); Macrocytosis Slight; Mean Platelet Volume 8.7; Platelet Count 196 k/uL (150-450); RBC 3.06 m/uL (3.80-5.40); RDW 16.3 % (11.5-15.5); WBC 4.3 k/uL (3.8-10.6)
[2021-06-05 08:00] LABS: African American GFR (CKD) 73 (>60 ml/min/1.73 sqM); Anion Gap 4 mmol/L; Blood Urea Nitrogen 13 mg/dL (7-17); Calcium 8.1 mg/dL (8.4-10.2); Carbon Dioxide 29 mmol/L (22-30); Chloride 103 mmol/L (98-107); Glucose 127 mg/dL (74-99); Non-African American GFR(CKD) 63 (>60 ml/min/1.73 sqM); Sodium 136 mmol/L (137-145)
[2021-06-05] MEDS: AMIODARONE 200 MG TAB PO SCH (08:53)
[2021-06-05] MEDS: lisinopriL 5 MG TAB PO SCH (08:53)
[2021-06-05] MEDS: SPIRONOLACTONE 25 MG TAB PO SCH (08:54)
[2021-06-05] MEDS: LETROZOLE 2.5 MG TAB PO SCH (08:55)
[2021-06-05] MEDS: FUROSEMIDE 20 MG TAB PO SCH (08:59)
--- NOTE | 2021-06-05 11:30 | P.PN ---
Subjective This is a pleasant 65-year-old female patient with history of paroxysmal atrial fibrillation, coronary artery disease, cardiomyopathy, hypertension, dyslipidemia, prior biventricular ICD status post extraction secondary to erosion of the cardiac leads through the skin. She underwent this extraction last month the [facility]. She presented to the emergency department after she noted an area around the incision started to pull out. She underwent incision and drainage and pocket evacuation yesterday by Dr. Díaz. The fluid that was removed was dark brown in color and seemed like old blood rather than any purulent drainage. He packed the area and cultures were sent. She has received IV antibiotics and ID has been consult did for further recommendations. 06/05/2021 She is seen and examined laying flat in bed in no acute distress. She has some pain to the site but tolerable. She denies chest pain, shortness of breath or d izziness. Blood pressure 109/69 heart rate 68 afebrile and maintaining oxygen saturation on room air. Laboratory data reviewed, WBC 4.3, hgb 9.3, plt 196, sodium 136, potassium 4.0 and creatinine 0.95. Currently maintained on amiodarone 200 mg daily, atorvastatin 80 mg daily, lasix 60 mg PO daily, l isinopril 5 mg daily and aldactone 12.5 mg daily. Eliquis remains on hold. She has been seen by ID and they are not convinced this is infectious however he will continue daptomycin pending cultures. PHYSICAL EXAMINATION: HEENT: Head is atraumatic, normocephalic. Pupils equal, round. Neck is supple. There is no elevated jugular venous pressure. HEART EXAMINATION: Heart sounds regular, S1 and S2 normal. A soft systolic murmur. CHEST EXAMINATION: Lungs are clear to auscultation and precussion. No chest wall tenderness is noted on palpation or with deep breathing. Left upper chest with dressing intact, serosanguineous drainage noted no significant erythema around the site, patient complains of tenderness EXTREMITIES: 2+ peripheral pulses with trace lower extremity peripheral edema and mild right hand edema and no calf tenderness noted. Assessment: #1 possible left chest wall abscess although incision and drainage showed likelihood of old blood as opposed to purulent drainage, ID on consult #2 cardiomyopathy, status post biventricular ICD placement with subsequent extraction #3 paroxysmal atrial fibrillation #4 coronary artery disease status post PCI #5 hypertension #6 hyperlipidemia Plan: Dr Díaz will remove packing Monday. Continue to hold eliquis. 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 Patient was seen and examined. Objective - Vital Signs Vital signs: Vital Signs Temp 98.3 F 06/05/21 08:24 Pulse 68 06/05/21 08:24 Resp 18 06/05/21 08:24 BP 109/69 06/05/21 08:24 Pulse Ox 91 L 06/05/21 08:24 Intake & Output 06/04/21 06/05/21 06/05/21 18:59 06:59 18:59 Other: # Voids 4 - Labs CBC & Chem 7: 06/05/21 07:24 06/05/21 07:24 Labs: Abnormal Lab Results - Last 24 Hours (Table) 06/05/21 06/05/21 Range/Units 07:24 07:24 RBC 3.06 L (3.80-5.40) m/uL Hgb 9.3 L (11.4-16.0) gm/dL Hct 30.0 L (34.0-46.0) % RDW 16.3 H (11.5-15.5) % Sodium 136 L (137-145) mmol/L Glucose 127 H (74-99) mg/dL Calcium 8.1 L (8.4-10.2) mg/dL Microbiology - Last 24 Hours (Table) 06/03/21 12:00 Gram Stain - Preliminary Other - Other Wound Culture - Preliminary Gram Neg Bacilli 06/03/21 11:27 Blood Culture - Preliminary Blood No Growth after 24 hours 06/03/21 11:27 Blood Culture - Preliminary Blood No Growth after 24 hours
[2021-06-05] MEDS: CEFEPIME 2 GM in SODIUM CHLORIDE 0.9% 100 ML IVPB SCH (17:11)
--- NOTE | 2021-06-05 17:43 | P.PN ---
Subjective Progress Note Date: 06/05/21 Principal diagnosis: Left chest wall pacemaker/ICD site infection Patient is a 65 year female who recently did have removal of the left chest wall pacemaker/AICD as a hospital, patient was noticed to have significant drainage at the time of removal of the stitches subsequently has been admitted to the hospital concerning for possible abscess at the surgical site as seen on the CT. On today's evaluation that is 06/05/2021, the patient denies having any fever or chills the patient pain into the left chest wall is currently controlled, the patient denies having any shortness of breath or cough no nausea no vomiting no abdominal pain and no diarrhea Objective - Vital Signs Vital signs: Vital Signs Temp 98.2 F 06/05/21 14:00 Pulse 67 06/05/21 14:00 Resp 18 06/05/21 14:00 BP 103/64 06/05/21 14:00 Pulse Ox 94 L 06/05/21 14:00 Intake & Output 06/04/21 06/05/21 06/05/21 18:59 06:59 18:59 Output Total 2 Balance -2 Output: Urine 2 Other: # Voids 4 1 - Exam GENERAL DESCRIPTION: An elderly female lying in bed in no distress RESPIRATORY SYSTEM: Unlabored breathing , decreased breath sounds at bases HEART: S1 S2 regular rate and rhythm , left chest wall wound is currently packed minimal drainage on the dressing ABDOMEN: Soft , no tenderness EXTREMITIES: No edema feet - Labs CBC & Chem 7: 06/05/21 07:24 06/05/21 07:24 Labs: Abnormal Lab Results - Last 24 Hours (Table) 06/05/21 06/05/21 Range/Units 07:24 07:24 RBC 3.06 L (3.80-5.40) m/uL Hgb 9.3 L (11.4-16.0) gm/dL Hct 30.0 L (34.0-46.0) % RDW 16.3 H (11.5-15.5) % Sodium 136 L (137-145) mmol/L Glucose 127 H (74-99) mg/dL Calcium 8.1 L (8.4-10.2) mg/dL Microbiology - Last 24 Hours (Table) 06/03/21 11:27 Blood Culture - Preliminary Blood No Growth after 48 hours 06/03/21 11:27 Blood Culture - Preliminary Blood No Growth after 48 hours 06/03/21 12:00 Gram Stain - Preliminary Other - Other Wound Culture - Preliminary Gram Neg Bacilli Assessment and Plan (1) Chest wall abscess Current Visit: Yes Status: Acute Code(s): L02.213 - CUTANEOUS ABSCESS OF CHEST WALL SNOMED Code(s): 94250787 Plan: 1patient with recent removal of the left chest wall pacemaker/ICD along with removal of the wires in this patient started having drainage from the area after removal of the staple possible hematoma clinically not behaving as an abscess in this patient with no fever or elevated white count though not entirely excluded 2patient with hives secondary to vancomycin, patient reaction was not typical of a "red man" syndrome and may be true allergy 3- local cultures are currently growing gram-negative we will discontinue daptomycin. Start the patient cefepime 2 g every 8 hours and adjust further on the basis of culture Time with Patient: Less than 30
--- NOTE | 2021-06-05 17:52 | P.PN ---
Subjective Progress Note Date: 06/05/21 (delayed charting seen at 0945) Principal diagnosis: infected pocket Patient is a 65-year-old female past medical history of atrial fibrillation, coronary artery disease, systolic congestive heart failure, hypertension, and dyslipidemia who presented to the ER at the direction of her primary care physician after her recently removed pacemaker and site began leaking. Patient had been hospitalized here in April 2021 and required transfer to [facility] due to infected pacemaker. There she underwent extraction of her pacer/ICD as well as leads. She had been on IV antibiotics in the hospital and ultimately went home on a 1 week course of oral antibiotics and she was due to have her bayron removed today and then noted significant amount of leaking from the prior pacemaker site. Patient states she had been released from the care of [facility] and was due to follow-up with Dr. Díaz. He came and evaluated her in the ER and felt as though he could incise and drain the prior pacemaker pocket. On arrival to the ER vital signs within normal limits. Laboratory analysis was essentially unremarkable. CT of the chest demonstrated left upper wall fluid collection containing air likely brewery representative of abscess. Patient was started on IV vancomycin. She did undergo incision and drainage of that pocket which demonstrated serosanganous fluid. Patient seen and examined at bedside. She reports some shortness of breath, no nausea, mild pain at her left shoulder. General: non toxic, no distress, appears at stated age Derm: warm, dry, dressing in place over left chest wall Head: atraumatic, normocephalic, symmetric Eyes: EOMI, no lid lag, anicteric sclera Mouth: no lip lesion, mucus membranes moist Cardiovascular: S1S2 reg, no murmur, positive posterior tibial pulse bilateral, Lungs: CTA bilateral, no rhonchi, no rales , no accessory muscle use Abdominal: soft, nontender to palpation, no guarding, no appreciable organomegaly Ext: no gross muscle atrophy, 1+ edema, no contractures Neuro: CN II-XI grossly intact, no focal neuro deficits Psych: Alert, oriented, appropriate affect Assessment/Plan: Gram negative Left chest wall abscess/ seroma - Cefepime - cardio and ID recs - pain control - awiat cultures Systolic congestive heart failure, chronic EF 45-50% P. A fib - ACEI - Aldactone - Eliquis - amio - Patient is refusing Lasix Morbid obesity BMI 54.9 - structured outpatient weight loss Chronic: CAD Heart Failure HTN HLD Likely home on Monday after cultures available and wound is repacked. Active Medications Acetaminophen (Acetaminophen Tab 325 Mg Tab) 650 mg PO Q6HR PRN PRN Reason: Mild Pain or Fever > 100.5 Last Admin: 06/05/21 07:06 Dose: 650 mg Documented by: Hydrocodone Bitart/Acetaminophen (Hydrocodone/Apap 5-325mg 1 Each Tab) 1 each PO Q4HR PRN PRN Reason: Moderate Pain Amiodarone HCl (Amiodarone 200 Mg Tab) 200 mg PO DAILY [facility] Last Admin: 06/05/21 08:53 Dose: 200 mg Documented by: Atorvastatin Calcium (Atorvastatin 80 Mg Tab) 80 mg PO HS [facility] Last Admin: 06/04/21 20:05 Dose: 80 mg Documented by: Cyclobenzaprine HCl (Cyclobenzaprine 5 Mg Tab) 2.5 mg PO TID PRN PRN Reason: Muscle Spasm Furosemide (Furosemide 20 Mg Tab) 60 mg PO DAILY [facility] Last Admin: 06/05/21 08:59 Dose: Not Given Documented by: Sodium Chloride (Saline 0.9%) 1,000 mls @ 75 mls/hr IV .[id number] [facility] Last Admin: 06/05/21 16:01 Dose: Not Given Documented by: Cefepime HCl 2 gm/ Sodium (Chloride) 100 mls @ 25 mls/hr IVPB Q12H [facility]; Protocol Last Admin: 06/05/21 17:11 Dose: 25 mls/hr Documented by: Letrozole (Letrozole 2.5 Mg Tab) 2.5 mg PO DAILY [facility] Last Admin: 06/05/21 08:55 Dose: 2.5 mg Documented by: Lisinopril (Lisinopril 5 Mg Tab) 5 mg PO DAILY [facility] Last Admin: 06/05/21 08:53 Dose: 5 mg Documented by: Melatonin (Melatonin 5 Mg Tablet) 10 mg PO HS [facility] Last Admin: 06/04/21 19:02 Dose: 10 mg Documented by: Melatonin (Melatonin 3 Mg Tablet) 3 mg PO HS PRN PRN Reason: Insomnia Naloxone HCl (Naloxone 0.4 Mg/Ml 1 Ml Vial) 0.2 mg IV Q2M PRN PRN Reason: Opioid Reversal Ondansetron HCl (Ondansetron 4 Mg/2 Ml Vial) 4 mg IVP Q8HR PRN PRN Reason: Nausea And Vomiting Spironolactone (Spironolactone 25 Mg Tab) 12.5 mg PO DAILY [facility] Last Admin: 06/05/21 08:54 Dose: 12.5 mg Documented by: Objective - Vital Signs Vital signs: Vital Signs Temp 98.2 F 06/05/21 14:00 Pulse 67 06/05/21 14:00 Resp 18 06/05/21 14:00 BP 103/64 06/05/21 14:00 Pulse Ox 94 L 06/05/21 14:00 Intake & Output 06/04/21 06/05/21 06/05/21 18:59 06:59 18:59 Output Total 2 Balance -2 Output: Urine 2 Other: # Voids 4 1 - Labs CBC & Chem 7: 06/05/21 07:24 06/05/21 07:24 Labs: Abnormal Lab Results - Last 24 Hours (Table) 06/05/21 06/05/21 Range/Units 07:24 07:24 RBC 3.06 L (3.80-5.40) m/uL Hgb 9.3 L (11.4-16.0) gm/dL Hct 30.0 L (34.0-46.0) % RDW 16.3 H (11.5-15.5) % Sodium 136 L (137-145) mmol/L Glucose 127 H (74-99) mg/dL Calcium 8.1 L (8.4-10.2) mg/dL Microbiology - Last 24 Hours (Table) 06/03/21 11:27 Blood Culture - Preliminary Blood No Growth after 48 hours 06/03/21 11:27 Blood Culture - Preliminary Blood No Growth after 48 hours 06/03/21 12:00 Gram Stain - Preliminary Other - Other Wound Culture - Preliminary Gram Neg Bacilli
[2021-06-05] MEDS: ATORVASTATIN 80 MG TAB PO SCH (20:28)
[2021-06-05] MEDS: MELATONIN 5 MG TABLET PO SCH (20:28)
[2021-06-06] MEDS: CEFEPIME 2 GM in SODIUM CHLORIDE 0.9% 100 ML IVPB SCH ×2 (03:54→15:45)
[2021-06-06] MEDS: ACETAMINOPHEN TAB 325 MG TAB PO PRN ×3 (04:21→21:32)
[2021-06-06 08:52] LABS: HCT 29.2 % (37.2-46.3); HGB 8.5 g/dL (12.0-15.0); MCH 28.2 pg (27.0-32.0); MCHC 29.1 g/dL (32.0-37.0); Mean Platelet Volume 11.6 fL (9.5-12.2); NRBC Per 100 WBC 0 /100 WBCS (0.0-0.0); Platelet Count 201 X 10*3/uL (140-440); RBC 3.01 X 10*6/uL (4.10-5.20); RDW 17.2 % (11.5-14.5); WBC 4.78 X 10*3/uL (4.50-10.00)
[2021-06-06 08:58] LABS: African American GFR (CKD) 73.5 (60.0-200.0); Anion Gap 12.5 mmol/L (10.00-18.00); BUN/Creat Ratio 11.45 Ratio (12.00-20.00); Blood Urea Nitrogen 10.8 mg/dL (9.0-27.0); Calcium 8.4 mg/dL (8.7-10.3); Carbon Dioxide 23.9 mmol/L (20.0-27.5); Non-African American GFR(CKD) 63.4 (60.0-200.0); Potassium 4.4 mmol/L (3.5-5.5)
[2021-06-06] MEDS: AMIODARONE 200 MG TAB PO SCH (09:43)
[2021-06-06] MEDS: SPIRONOLACTONE 25 MG TAB PO SCH (09:44)
[2021-06-06] MEDS: FUROSEMIDE 20 MG TAB PO SCH (09:44)
[2021-06-06] MEDS: LETROZOLE 2.5 MG TAB PO SCH (09:44)
[2021-06-06] MEDS: lisinopriL 5 MG TAB PO SCH (09:44)
[2021-06-06] MEDS: SODIUM CHLORIDE 0.9% 1,000 ML IV SCH (09:45)
--- NOTE | 2021-06-06 10:31 | P.PN ---
Subjective This is a pleasant 65-year-old female patient with history of paroxysmal atrial fibrillation, coronary artery disease, cardiomyopathy, hypertension, dyslipidemia, prior biventricular ICD status post extraction secondary to erosion of the cardiac leads through the skin. She underwent this extraction last month the [facility]. She presented to the emergency department after she noted an area around the incision started to pull out. She underwent incision and drainage and pocket evacuation yesterday by Dr. Díaz. The fluid that was removed was dark brown in color and seemed like old blood rather than any purulent drainage. He packed the area and cultures were sent. She has received IV antibiotics and ID has been consult did for further recommendations. 06/06/2021 She is seen and examined laying flat in bed in no acute distress. She has some pain to the site but tolerable. She denies chest pain, shortness of breath or d izziness. Blood pressure 106/71 heart rate 71 afebrile and maintaining oxygen saturation on room air. Laboratory data reviewed, hemoglobin 8.5 down from 9.3 yesterday, platelets 201, sodium 140, potassium 4.4 and creatinine 0.9. PHYSICAL EXAMINATION: HEENT: Head is atraumatic, normocephalic. Pupils equal, round. Neck is supple. There is no elevated jugular venous pressure. HEART EXAMINATION: Heart sounds regular, S1 and S2 normal. A soft systolic murmur. CHEST EXAMINATION: Lungs are clear to auscultation and precussion. No chest wall tenderness is noted on palpation or with deep breathing. Left upper chest with dressing intact, serosanguineous drainage noted no significant erythema around the site, patient complains of tenderness EXTREMITIES: 2+ peripheral pulses with trace lower extremity peripheral edema and mild right hand edema and no calf tenderness noted. Assessment: #1 possible left chest wall abscess although incision and drainage showed lik elihood of old blood as opposed to purulent drainage, ID on consult #2 cardiomyopathy, status post biventricular ICD placement with subsequent extraction #3 paroxysmal atrial fibrillation #4 coronary artery disease status post PCI #5 hypertension #6 hyperlipidemia Plan: Dr Díza will remove packing Monday. Continue to hold eliquis. 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 Patient was seen and examined. Objective - Vital Signs Vital signs: Vital Signs Temp 97.7 F 06/06/21 01:54 Pulse 71 06/06/21 01:54 Resp 18 06/06/21 01:54 BP 106/71 06/06/21 01:54 Pulse Ox 95 06/06/21 01:54 Intake & Output 06/05/21 06/06/21 06/06/21 18:59 06:59 18:59 Output Total 2 Balance -2 Output: Urine 2 Other: Voiding Method Toilet # Voids 1 - Labs CBC & Chem 7: 06/06/21 03:57 06/06/21 03:57 Labs: Abnormal Lab Results - Last 24 Hours (Table) 06/06/21 06/06/21 Range/Units 03:57 03:57 RBC 3.01 L (4.10-5.20) X 10*6/uL Hgb 8.5 L (12.0-15.0) g/dL Hct 29.2 L (37.2-46.3) % MCHC 29.1 L (32.0-37.0) g/dL RDW 17.2 H (11.5-14.5) % BUN/Creatinine Ratio 11.45 L (12.00-20.00) Ratio Calcium 8.4 L (8.7-10.3) mg/dL Microbiology - Last 24 Hours (Table) 06/03/21 12:00 Gram Stain - Final Other - Other Wound Culture - Final Proteus mirabilis 06/03/21 11:27 Blood Culture - Preliminary Blood No Growth after 48 hours 06/03/21 11:27 Blood Culture - Preliminary Blood No Growth after 48 hours
--- NOTE | 2021-06-06 13:58 | P.PN ---
Subjective Progress Note Date: 06/06/21 (eugenia charting seen at 0930) Principal diagnosis: infected prior PPM pocket Patient is a 65-year-old female past medical history of atrial fibrillation, coronary artery disease, systolic congestive heart failure, hypertension, and dyslipidemia who presented to the ER at the direction of her primary care physician after her recently removed pacemaker and site began leaking. Patient had been hospitalized here in April 2021 and required transfer to [facility] due to infected pacemaker. There she underwent extraction of her pacer/ICD as well as leads. She had been on IV antibiotics in the hospital and ultimately went home on a 1 week course of oral antibiotics and she was due to have her bayron removed today and then noted significant amount of leaking from the prior pacemaker site. Patient states she had been released from the care of [facility] and was due to follow-up with Dr. Díaz. He came and evaluated her in the ER and felt as though he could incise and drain the prior pacemaker pocket. On arrival to the ER vital signs within normal limits. Laboratory analysis was essentially unremarkable. 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 Patient was started on IV vancomycin. She did undergo incision and drainage of that pocket which demonstrated serosanganous fluid. Patient seen and examined at bedside. Over all doing well, still nervous about all of this, pain is controlled at this time, still with some drainage over night. General: non toxic, no distress, appears at stated age, obses Derm: warm, dry, dressing in place over left chest wall with blood tinged soak through Head: atraumatic, normocephalic, symmetric Eyes: EOMI, no lid lag, anicteric sclera Mouth: no lip lesion, mucus membranes moist Cardiovascular: S1S2 reg, no murmur, positive posterior tibial pulse bilateral, Lungs: CTA bilateral, no rhonchi, no rales , no accessory muscle use Abdominal: soft, nontender to palpation, no guarding, no appreciable organomegaly Ext: no gross muscle atrophy, 1+ edema, no contractures Neuro: CN II-XI grossly intact, no focal neuro deficits Psych: Alert, oriented, appropriate affect Assessment/Plan: Proteus Left chest wall abscess vs infected seroma/hematoma Acute blood loss anemia - Cefepime - Dr. Díaz to remove packing and reassess on 06/07/21 - ID recs appreciated - pain control - follow CBC, check iron studies Systolic congestive heart failure, chronic EF 45-50% P. A fib - ACEI - Aldactone - Eliquis on hold - amio - Patient is refusing Lasix Morbid obesity BMI 54.9 - structured outpatient weight loss Chronic: CAD Heart Failure HTN HLD Likely home on Monday after cultures available and wound is repacked. Active Medications Generic Name Dose Route Start Last Admin Trade Name Freq PRN Reason Stop Dose Admin Acetaminophen 650 mg 06/03/21 18:20 06/06/21 04:21 Acetaminophen Tab 325 Mg Tab PO 650 mg Q6HR PRN Administration Mild Pain or Fever > 100.5 Hydrocodone Bitart/Acetaminophen 1 each 06/03/21 18:20 Hydrocodone/Apap 5-325mg 1 Each Tab PO Q4HR PRN Moderate Pain Amiodarone HCl 200 mg 06/04/21 09:00 06/06/21 09:43 Amiodarone 200 Mg Tab PO 200 mg DAILY [facility] Administration Atorvastatin Calcium 80 mg 06/04/21 21:00 06/05/21 20:28 Atorvastatin 80 Mg Tab PO 80 mg HS [facility] Administration Cyclobenzaprine HCl 2.5 mg 06/04/21 11:49 Cyclobenzaprine 5 Mg Tab PO TID PRN Muscle Spasm Furosemide 60 mg 06/04/21 09:00 06/06/21 09:44 Furosemide 20 Mg Tab PO Not Given DAILY [facility] Sodium Chloride 1,000 mls @ 75 mls/hr 06/03/21 15:30 06/06/21 09:45 Saline 0.9% IV Not Given .[id number] [facility] Cefepime HCl 2 gm/ Sodium 100 mls @ 25 mls/hr 06/05/21 16:30 06/06/21 03:54 Chloride IVPB 25 mls/hr Q12H [facility] Administration Protocol Letrozole 2.5 mg 06/04/21 09:00 06/06/21 09:44 Letrozole 2.5 Mg Tab PO 2.5 mg DAILY [facility] Administration Lisinopril 5 mg 06/04/21 09:00 06/06/21 09:44 Lisinopril 5 Mg Tab PO 5 mg DAILY [facility] Administration Melatonin 10 mg 06/03/21 21:00 06/05/21 20:28 Melatonin 5 Mg Tablet PO 10 mg HS [facility] Administration Melatonin 3 mg 06/03/21 18:20 Melatonin 3 Mg Tablet PO HS PRN Insomnia Naloxone HCl 0.2 mg 06/03/21 15:27 Naloxone 0.4 Mg/Ml 1 Ml Vial IV Q2M PRN Opioid Reversal Ondansetron HCl 4 mg 06/03/21 18:20 Ondansetron 4 Mg/2 Ml Vial IVP Q8HR PRN Nausea And Vomiting Spironolactone 12.5 mg 06/04/21 09:00 06/06/21 09:44 Spironolactone 25 Mg Tab PO 12.5 mg DAILY [facility] Administration Objective - Vital Signs Vital signs: Vital Signs Temp 97.4 F L 06/06/21 08:00 Pulse 69 06/06/21 08:00 Resp 18 06/06/21 08:00 BP 119/74 06/06/21 09:40 Pulse Ox 96 06/06/21 08:00 Intake & Output 06/05/21 06/06/21 06/06/21 18:59 06:59 18:59 Output Total 2 Balance -2 Output: Urine 2 Other: Voiding Method Toilet # Voids 1 1 - Labs CBC & Chem 7: 06/06/21 03:57 06/06/21 03:57 Labs: Abnormal Lab Results - Last 24 Hours (Table) 06/06/21 06/06/21 Range/Units 03:57 03:57 RBC 3.01 L (4.10-5.20) X 10*6/uL Hgb 8.5 L (12.0-15.0) g/dL Hct 29.2 L (37.2-46.3) % MCHC 29.1 L (32.0-37.0) g/dL RDW 17.2 H (11.5-14.5) % BUN/Creatinine Ratio 11.45 L (12.00-20.00) Ratio Calcium 8.4 L (8.7-10.3) mg/dL Microbiology - Last 24 Hours (Table) 06/03/21 11:27 Blood Culture - Preliminary Blood No Growth after 72 hours 06/03/21 12:00 Gram Stain - Final Other - Other Wound Culture - Final Proteus mirabilis 06/03/21 11:27 Blood Culture - Preliminary Blood No Growth after 48 hours
--- NOTE | 2021-06-06 17:37 | P.PN ---
Subjective Progress Note Date: 06/06/21 Principal diagnosis: Left chest wall pacemaker/ICD site infection Patient is a 65 year female who recently did have removal of the left chest wall pacemaker/AICD as a hospital, patient was noticed to have significant drainage at the time of removal of the stitches subsequently has been admitted to the hospital concerning for possible abscess at the surgical site as seen on the CT. On today's evaluation that is 06/06/2021, the patient remains to be afebrile, the patient pain to the left chest wall is controlled, the patient denies having any shortness of breath or cough, the patient denies nausea no vomiting no abdominal pain and no diarrhea Objective - Vital Signs Vital signs: Vital Signs Temp 98.1 F 06/06/21 14:00 Pulse 67 06/06/21 14:00 Resp 18 06/06/21 14:00 BP 105/66 06/06/21 14:00 Pulse Ox 96 06/06/21 14:00 Intake & Output 06/05/21 06/06/21 06/06/21 18:59 06:59 18:59 Intake Total 480 Output Total 2 Balance -2 480 Intake: Oral 480 Output: Urine 2 Other: Voiding Method Toilet # Voids 1 2 - Exam GENERAL DESCRIPTION: An elderly female lying in bed in no distress RESPIRATORY SYSTEM: Unlabored breathing , decreased breath sounds at bases HEART: S1 S2 regular rate and rhythm , left chest wall wound is currently packed minimal drainage on the dressing ABDOMEN: Soft , no tenderness EXTREMITIES: No edema feet - Labs CBC & Chem 7: 06/06/21 03:57 06/06/21 03:57 Labs: Abnormal Lab Results - Last 24 Hours (Table) 06/06/21 06/06/21 Range/Units 03:57 03:57 RBC 3.01 L (4.10-5.20) X 10*6/uL Hgb 8.5 L (12.0-15.0) g/dL Hct 29.2 L (37.2-46.3) % MCHC 29.1 L (32.0-37.0) g/dL RDW 17.2 H (11.5-14.5) % BUN/Creatinine Ratio 11.45 L (12.00-20.00) Ratio Calcium 8.4 L (8.7-10.3) mg/dL Microbiology - Last 24 Hours (Table) 06/03/21 11:27 Blood Culture - Preliminary Blood No Growth after 72 hours 06/03/21 11:27 Blood Culture - Preliminary Blood No Growth after 72 hours 06/03/21 12:00 Gram Stain - Final Other - Other Wound Culture - Final Proteus mirabilis Assessment and Plan (1) Chest wall abscess Current Visit: Yes Status: Acute Code(s): L02.213 - CUTANEOUS ABSCESS OF CHEST WALL SNOMED Code(s): 63625887 Plan: 1patient with recent removal of the left chest wall pacemaker/ICD along with removal of the wires in this patient started having drainage from the area after removal of the staple possible hematoma clinically not behaving as an abscess in this patient with no fever or elevated white count though not entirely excluded 2 local cultures has been finalized with Proteus which is a sensitive pathogen, antibiotic switched over to Rocephin will evaluate the wound at the time of dressing changes tomorrow to determine further local wound care and discharge antibiotics Time with Patient: Less than 30
[2021-06-06] MEDS: ATORVASTATIN 80 MG TAB PO SCH (21:32)
[2021-06-06] MEDS: MELATONIN 5 MG TABLET PO SCH (21:32)
[2021-06-06 22:51] LABS: % Iron Saturation 8.93 (12.00-45.00)
[2021-06-07] MEDS: SODIUM CHLORIDE 0.9% 1,000 ML IV SCH (01:02)
[2021-06-07 04:27] LABS: African American GFR (CKD) 80 (>60 ml/min/1.73 sqM); Anion Gap 8 mmol/L; Blood Urea Nitrogen 14 mg/dL (7-17); Calcium 8.1 mg/dL (8.4-10.2); Carbon Dioxide 25 mmol/L (22-30); Chloride 105 mmol/L (98-107); Glucose 111 mg/dL (74-99); Non-African American GFR(CKD) 70 (>60 ml/min/1.73 sqM); Potassium 4.3 mmol/L (3.5-5.1); Sodium 138 mmol/L (137-145)
[2021-06-07 04:32] LABS: Anisocytosis Slight; HCT 29.8 % (34.0-46.0); HGB 9.3 gm/dL (11.4-16.0); Hypochromasia Marked; MCH 29.9 pg (25.0-35.0); MCHC 31.2 g/dL (31.0-37.0); MCV 95.8 fL (80.0-100.0); Mean Platelet Volume 8.9; Platelet Count 219 k/uL (150-450); RBC 3.11 m/uL (3.80-5.40); RDW 16.7 % (11.5-15.5); WBC 4.1 k/uL (3.8-10.6)
[2021-06-07] MEDS: FUROSEMIDE 20 MG TAB PO SCH (07:07)
[2021-06-07] MEDS: SPIRONOLACTONE 25 MG TAB PO SCH (07:09)
[2021-06-07] MEDS: AMIODARONE 200 MG TAB PO SCH (07:10)
[2021-06-07] MEDS: lisinopriL 5 MG TAB PO SCH (07:10)
[2021-06-07] MEDS: LETROZOLE 2.5 MG TAB PO SCH (07:11)
[2021-06-07 07:34] VITALS: RESP 19
--- NOTE | 2021-06-07 10:17 | P.PN ---
Subjective This is a pleasant 65-year-old female patient with history of paroxysmal atrial fibrillation, coronary artery disease s/p prior PCI, cardiomyopathy, hypertension, dyslipidemia, prior biventricular ICD status post extraction secondary to erosion of the cardiac leads through the skin. She underwent this extraction last month the [facility]. She presented to the emergency department after she noted an area around the incision started to pull out. She underwent incision and drainage and pocket evacuation yesterday by Dr. Díaz. The fluid that was removed was dark brown in color and seemed like old blood rather than any purulent drainage. He packed the area and cultures were sent. She has received IV antibiotics and ID has been consult did for further recommendations. 06/07/2021 She is seen and examined laying flat in bed in no acute distress. She has some pain to the site but tolerable. She denies chest pain, shortness of breath or dizziness. Blood pressure 137/78 heart rate 73 afebrile and maintaining oxygen saturation on room air. Laboratory data reviewed, hemoglobin 9.3, platelets 219, sodium 138, potassium 4.3 and creatinine 0.88, BUN 14 Eliquis is on hold She is currently receiving IV Ceftriaxone per infectious disease, amiodarone 20 mg daily, atorvastatin 80 mg nightly, Lasix 60 mg daily, lisinopril 5 mg daily, spironolactone 12.5 mg daily PHYSICAL EXAMINATION: HEENT: Head is atraumatic, normocephalic. Pupils equal, round. Neck is supple. There is no elevated jugular venous pressure. HEART EXAMINATION: Heart sounds regular, S1 and S2 normal. A soft systolic murmur. CHEST EXAMINATION: Lungs are clear to auscultation and precussion. No chest wall tenderness is noted on palpation or with deep breathing. Left upper chest with dressing intact, serosanguineous drainage noted no significant erythema around the site, patient complains of tenderness to palpitation EXTREMITIES: 2+ peripheral pulses with trace lower extremity peripheral edema and mild right hand edema and no calf tenderness noted. ASSESSMENT Possible left chest wall abscess although incision and drainage showed likelihood of old blood as opposed to purulent drainage, ID on consult, cultures positive for Proteus mirabilis Cardiomyopathy, status post biventricular ICD placement with subsequent extraction Paroxysmal atrial fibrillation Coronary artery disease status post PCI Hypertension Hyperlipidemia PLAN Dr Díaz to take patient to the EP lab today and will remove packing today, no need to be NPO per Dr. Díaz. Infectious disease following, appreciate antibiotic recommendations Continue to hold eliquis. Further recommendations to follow. FATBACK TRIMMER note has been reviewed, I agree with a documented findings and plan of care. Patient was seen and examined. Objective - Vital Signs Vital signs: Vital Signs Temp 97.8 F 06/07/21 07:34 Pulse 62 06/07/21 07:34 Resp 19 06/07/21 07:34 BP 162/80 06/07/21 07:34 Pulse Ox 96 06/07/21 07:34 Intake & Output 06/06/21 06/07/21 06/07/21 18:59 06:59 18:59 Intake Total 480 Balance 480 Intake: Oral 480 Other: Voiding Method Toilet # Voids 2 - Labs CBC & Chem 7: 06/07/21 03:26 06/07/21 03:26 Labs: Abnormal Lab Results - Last 24 Hours (Table) 06/06/21 06/06/21 06/06/21 Range/Units 03:57 03:57 14:16 RBC 3.01 L (4.10-5.20) X 10*6/uL Hgb 8.5 L (12.0-15.0) g/dL Hct 29.2 L (37.2-46.3) % MCHC 29.1 L (32.0-37.0) g/dL RDW 17.2 H (11.5-14.5) % BUN/Creatinine Ratio 11.45 L (12.00-20.00) Ratio Glucose (74-99) mg/dL Calcium 8.4 L (8.7-10.3) mg/dL Iron 27 L (50-170) ug/dL % Saturation 8.93 L (12.00-45.00) 06/07/21 06/07/21 Range/Units 03:26 03:26 RBC 3.11 L (4.10-5.20) X 10*6/uL Hgb 9.3 L (12.0-15.0) g/dL Hct 29.8 L (37.2-46.3) % MCHC (32.0-37.0) g/dL RDW 16.7 H (11.5-14.5) % BUN/Creatinine Ratio (12.00-20.00) Ratio Glucose 111 H (74-99) mg/dL Calcium 8.1 L (8.7-10.3) mg/dL Iron (50-170) ug/dL % Saturation (12.00-45.00) Microbiology - Last 24 Hours (Table) 06/03/21 11:27 Blood Culture - Preliminary Blood No Growth after 72 hours 06/03/21 11:27 Blood Culture - Preliminary Blood No Growth after 72 hours
[2021-06-07] MEDS ORDERED: IV FLUID CONTINUATION 1,000 ML IV ONE (11:30)
[2021-06-07] MEDS ORDERED: MIDAZOLAM 2 MG/2 ML VIAL IV ONE (11:35)
[2021-06-07] MEDS ORDERED: fentaNYL (PF) 50 MCG/ML 2 ML AMP IV ONE (11:37)
--- NOTE | 2021-06-07 12:44 | P.PCN ---
Preoperative Diagnosis: Procedure Removal of chest wall packing under conscious sedation LV packing of the wound with fresh sponges. Patient to the procedure well Plan Antibiotic management per ID Repacking of the wound after 4-5 days, may be done as an outpatient
[2021-06-07 13:45] VITALS: BP 122/80; PULSE 74; TEMP 97.7
--- NOTE | 2021-06-07 14:13 | P.DS ---
Providers Date of admission: 06/03/21 15:27 Expected date of discharge: 06/07/21 Attending physician: Nicole Grove, Consults: 06/03/21 15:27 Consult Physician Urgent Consulting Provider: Hair Díaz Consult Reason/Comments: Abscess of pacemaker site Do you want consulting provider notified?: Already Contacted 06/03/21 18:20 Consult Physician Routine Consulting Provider: Slick Ramos Consult Reason/Comments: abscess of prior pace maker site Do you want consulting provider notified?: Yes Primary care physician: [facility] Course: Discharge Diagnosis: Infected Seroma/hematoma of the left chest wall-Proteus Acute blood loss anemia Systolic congestive heart failure, chronic EF 45-50% P. A fib Morbid obesity BMI 54.9 CAD Heart Failure HTN HLD Hospital Course: Patient is a 65-year-old female past medical history of atrial fibrillation, coronary artery disease, systolic congestive heart failure, hypertension, and dyslipidemia who presented to the ER at the direction of her primary care physician after her recently removed pacemaker and site began leaking. Patient had been hospitalized here in April 2021 and required transfer to [facility] due to infected pacemaker. There she underwent extraction of her pacer/ICD as well as leads. She had been on IV antibiotics in the hospital and ultimately went home on a 1 week course of oral antibiotics and she was due to have her bayron removed today and then noted significant amount of leaking from the prior pacemaker site. Patient states she had been released from the care of [facility] and was due to follow-up with Dr. Díaz. He came and evaluated her in the ER and felt as though he could incise and drain the prior pacemaker pocket. On arrival to the ER vital signs within normal limits. Laboratory analysis was essentially unremarkable. CT of the chest demonstrated left upper wall fluid collection containing air likely independent sales representative of abscess. Patient was started on IV vancomycin and ID was consulted. She did undergo incision and drainage of that pocket which demonstrated serosanganous fluid. Her cultures grew proteus. She has her packing changed on 06/07/21 ans she was determined stable for dishcarge with clos outpatient follow-up. Follow-up: ceftin X 14 days, Dr. Ramos at [facility], Dr Díaz . Her eliquis was held during her hospital stay but is resumed on discharge. Patient seen and examined at bedside. Pain controlled, feeling frustrated about being sick again, no nausea, no vomiting. Vital signs reviewed and stable. General: non toxic, no distress, appears at stated age Derm: warm, dry, packing in place over left chest wall with serosnaguanous soak through. Head: atraumatic, normocephalic, symmetric Eyes: EOMI, no lid lag, anicteric sclera Mouth: no lip lesion, mucus membranes moist Cardiovascular: S1S2 reg, no murmur, positive posterior tibial pulse bilateral, Lungs: CTA bilateral, no rhonchi, no rales , no accessory muscle use Abdominal: soft, nontender to palpation, no guarding, no appreciable organomegaly Ext: no gross muscle atrophy, no edema, no contractures Neuro: CN II-XI grossly intact, no focal neuro deficits Psych: Alert, oriented, appropriate affect A total of 45 minutes of time were spent preparing this complex discharge summary . Patient Condition at Discharge: Fair Plan - Discharge Summary Discharge Rx Participant: Yes New Discharge Prescriptions: New Cefuroxime Axetil [Ceftin] 500 mg PO BID 14 Days #28 tab HYDROcodone/APAP 5-325MG [[place]ado 5-325] 1 each PO Q4HR PRN #10 tab PRN Reason: Moderate Pain Continue Letrozole [Femara] 2.5 mg PO DAILY Apixaban [Eliquis] 5 mg PO BID #60 tab Atorvastatin [Lipitor] 80 mg PO HS #30 tab Amiodarone [Cordarone] 200 mg PO DAILY Spironolactone [Aldactone] 12.5 mg PO DAILY Melatonin 10 mg PO HS Aspirin [Adult Low Dose Aspirin EC] 81 mg PO DAILY lisinopriL [Zestril] 5 mg PO HS Discharge Medication List Letrozole [Femara] 2.5 mg PO DAILY 06/06/16 [History] Apixaban [Eliquis] 5 mg PO BID #60 tab 12/12/18 [Rx] Atorvastatin [Lipitor] 80 mg PO HS #30 tab 12/12/18 [Rx] Amiodarone [Cordarone] 200 mg PO DAILY 02/28/20 [History] Aspirin [Adult Low Dose Aspirin EC] 81 mg PO DAILY 03/25/21 [History] Melatonin 10 mg PO HS 06/03/21 [History] Spironolactone [Aldactone] 12.5 mg PO DAILY 06/03/21 [History] lisinopriL [Zestril] 5 mg PO HS 06/03/21 [History] Cefuroxime Axetil [Ceftin] 500 mg PO BID 14 Days #28 tab 06/07/21 [Rx] HYDROcodone/APAP 5-325MG [Quemado 5-325] 1 each PO Q4HR PRN #10 tab 06/07/21 [Rx] Follow up Appointment(s)/Referral(s): Hair Díaz MD [STAFF PHYSICIAN] - 1 Week Tu Gonzalez MD [Primary Care Provider] - 1-2 days Activity/Diet/Wound Care/Special Instructions: Activity: as tolerated Diet: Heart Healthy Special Instructions: *Please make appointment prior to discharge for: [facility]: [phone] in 1 week Discharge Disposition: HOME SELF-CARE
== END 2021-06-07 15:52 | disposition home or self-care (01) | DRG 863 ==
LOC: EC 10:39 → 4SSUR 15:27
PROVIDERS: ADMIT Internal Medicine; ATTEND Internal Medicine
PROC: 0W980ZX Drainage of Chest Wall, Open Approach, Diagnostic (ICD-10-PCS; principal; 2021-06-03 19:00)
PROC: 2W0 Placement, Anatomical Regions, Change (ICD-10-PCS; 2021-06-07)
DX: T81.41XA Infection following a procedure, superficial incisional surgical site, initial encounter (principal); L76.32 Postprocedural hematoma of skin and subcutaneous tissue following other procedure; D62 Acute posthemorrhagic anemia; I42.9 Cardiomyopathy, unspecified; I50.22 Chronic systolic (congestive) heart failure; Z68.43 Body mass index [BMI] 50.0-59.9, adult; L76.34 Postprocedural seroma of skin and subcutaneous tissue following other procedure; B96.4 Proteus (mirabilis) (morganii) as the cause of diseases classified elsewhere; E66.01 Morbid (severe) obesity due to excess calories; E78.5 Hyperlipidemia, unspecified; I11.0 Hypertensive heart disease with heart failure; I25.10 Atherosclerotic heart disease of native coronary artery without angina pectoris; I48.0 Paroxysmal atrial fibrillation; L50.9 Urticaria, unspecified; T36.8X5A Adverse effect of other systemic antibiotics, initial encounter; Y92.230 Patient room in hospital as the place of occurrence of the external cause; M25.512 Pain in left shoulder; G47.00 Insomnia, unspecified; I25.2 Old myocardial infarction; Z86.73 Personal history of transient ischemic attack (TIA), and cerebral infarction without residual deficits; Z90.12 Acquired absence of left breast and nipple; Z79.01 Long term (current) use of anticoagulants; Z79.811 Long term (current) use of aromatase inhibitors; Z79.82 Long term (current) use of aspirin; Z79.899 Other long term (current) drug therapy; Z88.6 Allergy status to analgesic agent; Z91.014 Allergy to mammalian meats; Z91.040 Latex allergy status; Z91.018 Allergy to other foods; Z91.09 Other allergy status, other than to drugs and biological substances; Z85.3 Personal history of malignant neoplasm of breast; Z92.21 Personal history of antineoplastic chemotherapy; Z95.5 Presence of coronary angioplasty implant and graft; Z98.890 Other specified postprocedural states; Z80.3 Family history of malignant neoplasm of breast; Z82.3 Family history of stroke; Z82.49 Family history of ischemic heart disease and other diseases of the circulatory system; Z83.3 Family history of diabetes mellitus
CPT/HCPCS: 10060; 12001; 36415; 71250; 80048; 80053; 82565; 82728; 83540; 83550; 83605; 85025; 85027; 87040; 87070; 87077; 87186; 87205; 88304; 96365; 96366; 99285

== ENCOUNTER 2021-06-14 08:25 | Day surgery (SDC) | payer MEDICARE ==
--- NOTE | 2021-06-14 18:23 | P.PCN ---
Preoperative Diagnosis: Patient was brought to the ESU area Under sterile precautions old dressing was removed. The packing in the wound was removed Fresh new sponges were packed into the wound and the tail of the sponges were tied and left outside for easy removal in the future Plan follow up in the wound clinic within 5 days This pocket has several recesses and should only be packed with large lap sponges with the tail, for easy retrieval 4 x 4 gauze should not be used
== END 2021-06-14 18:41 | disposition home or self-care (01) ==
LOC: CATHEP 08:25
PROVIDERS: ATTEND Internal Medicine Clinical Cardiac Electrophysiology
DX: Z48.01 Encounter for change or removal of surgical wound dressing (principal)
CPT/HCPCS: 33222

== ENCOUNTER → 2021-08-30 | Outpatient (CLI) | payer MEDICARE ==
--- NOTE | 2021-08-30 14:38 | MM ---
Reason for Exam: Follow-up at short interval from prior study. Last screening mammogram was performed 12 month(s) ago. Patient History: Menarche at age 13. First Full-Term at age 28. Postmenopausal. Breast cancer, age 59. Previous chest radiation therapy. Previous chemotherapy. 04/27/2015, Ultrasound-Guided Core Biopsy on the Left side. 04/27/2015, Malignant Stereotactic Core Biopsy on the left side. 2015, Mastectomy on the Left side. 09/13/2016, High risk Core Biopsy on the right side. 07/28/2016, High risk Core Biopsy on the right side. 2016, Chemotherapy. 06/07/2016, Implant Removal on the left side. 2015, Radiation Therapy on the left side. 2015, Chemotherapy. Mother had breast cancer, age 50. Prior Study Comparison: 09/13/2018 Right Diagnostic Mammogram, [facility]. 09/16/2019 Right Diagnostic Mammogram, [facility]. 09/17/2020 Right Diagnostic Mammogram, [facility]. Tissue Density: Right: There are scattered fibroglandular densities. Findings: Analyzed By CAD. Stable post excision changes with surgical clips and distortion in the right breast lower inner aspect. Vascular calcifications in the right breast. No suspicious new distortion or microcalcifications right breast. Overall Assessment: Benign, BI-RAD 2 Management: Screening Mammogram of the right breast in 1 year. A clinical breast exam by your physician is recommended on an annual basis and results should be correlated with mammographic findings. This exam should not preclude additional follow-up of suspicious palpable abnormalities. Results were given to the patient verbally at the time of exam. Electronically signed and approved by: Kobi Andrews M.D.
== END | disposition home or self-care (01) ==
LOC: RADMAMWWP 13:46
PROVIDERS: ATTEND Surgery
DX: R92.8 Other abnormal and inconclusive findings on diagnostic imaging of breast (principal); Z78.0 Asymptomatic menopausal state; Z80.3 Family history of malignant neoplasm of breast
CPT/HCPCS: 77065; G0279; 77061

== ENCOUNTER → 2021-09-10 | Outpatient (CLI) | payer MEDICARE ==
[2021-09-10 15:06] VITALS: BP 146/74; PULSE 81; RESP 20; TEMP 98
--- NOTE | 2021-09-10 15:33 | P.PN ---
Subjective Progress Note Date: 09/10/21 Principal diagnosis: stage III left breast cancer left breast stage III invasive ductal cancer stage III left breast cancer Mary is a 65-year-old white female with a history of stage III moderately differentiated invasive ductal carcinoma of the left breast. This was ER/OH positive and HER-2 negative. She is status post neoadjuvant therapy followed by a left breast mastectomy with immediate reconstruction. She subsequently underwent postmastectomy radiotherapy directed to the reconstructed breast and lymphatics. This finished in March 2016. She developed an infection and was necessary to have her tilting saw operator removed. She has no evidence of any infection at this time. She has had a right breast partial resection which was benign, and there are clips makring the area of the biopsy cavity. She has seen a plastic surgeon in considering reconstruction in the future. The patient was scheduled for reconstruction in November 2018, however a week prior she had a myocardial infarction. She now has an internal pacemaker and defibrillator . She had 100% blockage of her left descending artery and a stent was placed. She was noted to have a low ejection fraction on echo and therefore the internal pacemaker and defibrillator were placed. At that time her reconstruction was on hold until she is stable from a cardiac standpoint. She is also seen by Dr. Martinez and no longer following with Dr. Finch . She has intermittent cramping of the muscle of the left chest wall it has improved. She has no lumps or masses in her right breast of concern. No nipple discharge or skin changes of concern. Most recently right breast mammogram was done on . This is benign BIRADS 2. Medical oncology note from 03-26-[address] Martinez was reviewed. Continue Femara and continue calcium and vitamin D supplement as per medical oncology. At this time the patient is not complaining of any new changes in her right breast or chest wall. The patient developed an infection of her pacemaker defibrillator in April 2021. It was necessary that this be removed and this was [facility] at [facility]. She was in the hospital for approximately a week. She subsequently was discharged and developed an infection of the seroma at that site. She was then hospitalized at [facility]. At this time she does not have a pacemaker defibrillator in place. She is going to follow-up with a manager quality compliance next week to see if it is necessary that one be replaced. Family history: 1. mother: breast cancer 2. father: cancer ? type 3. paternal aunt: brain Hormonal History: menarche: 13 1 [place], breast fed: yes, first born at 29 menopause: 50 BCP: none hormones: antiestrogen complains of sweating with this Surgical history: 1. 3 C-sections 2. Left mastectomy, Port-A-Cath, tilting saw operator placed and removed 3. left coronary artery stent placed 4. Internal pacemaker and defibrillator 5. removal of pacemaker/defibrillator Medical history: 1. Hypertension 2. Myocardial infarction 3. BMI 54.9 4. vertigo Social history: Smoke: Negative Alcohol: Occasional Drugs: Negative Review of systems: HEENT: none lung: none heart: HTN, [place] GI: none Gu: none Musculoskeletal: Arthritis Neurologic: Neuropathy hands and feet Psychiatric: Negative skin: none allergies: Seasonal Objective - Vital Signs Vital signs: Vital Signs Temp 98.0 F 09/10/21 15:03 Pulse 81 09/10/21 15:03 Resp 20 09/10/21 15:03 BP 146/74 09/10/21 15:03 Pulse Ox 97 09/10/21 15:03 FiO2 Intake & Output 09/09/21 09/10/21 09/10/21 18:59 06:59 18:59 Weight 145.15 kg - Exam BMI: 53.3 - Constitutional General appearance: Present: cooperative - EENT Eyes: Present: EOMI ENT: Present: hearing grossly normal - Neck Neck: Present: normal ROM - Respiratory Respiratory: bilateral: CTA - Cardiovascular Heart sounds: normal: S1, S2 - Gastrointestinal General gastrointestinal: Present: soft - Musculoskeletal Musculoskeletal: Present: gait normal - Psychiatric Psychiatric: Present: A&O x's 3, appropriate affect, intact judgment & insight - Additional findings Additional findings: Breast Exam: Bra: 44B Inspection: Right breast grade 3 ptosis, left chest wall no evidence of active infection there does appear to be a fungal infection one of the skin folds Palpation: Right breast: Multi-positional exam no dominant masses or nodules of concern Right axilla: No adenopathy of concern Left chest wall: No evidence of recurrent cancer, there is some erythema which appears to be consistent with a fungal infection one of the skin folds on the l eft chest wall, the pacemaker defibrillator has been removed although the remaining scar tissue at this site, there is no evidence of active infection at this time Left axilla: No adenopathy of concern Assessment and Plan Assessment: Impression: Stage III left breast cancer no evidence of recurrence Patient remains on letrazole Pacemaker/defibrillator removed from left chest wall Probable fungal infection in this scar on the left chest wall Plan: Nystatin cream Continue to follow with medical oncology/continue light result Repeat right breast mammogram 1 year Follow with cardiology Continue to follow with Dr. Gonzalez CC: Dr. Gonzalez
== END ==
LOC: WWCWWP 14:39
PROVIDERS: ATTEND Surgery
DX: Z08 Encounter for follow-up examination after completed treatment for malignant neoplasm (principal); Z85.3 Personal history of malignant neoplasm of breast; I10 Essential (primary) hypertension; I25.2 Old myocardial infarction; Z90.12 Acquired absence of left breast and nipple; Z91.040 Latex allergy status; Z88.1 Allergy status to other antibiotic agents; Z91.011 Allergy to milk products; Z91.014 Allergy to mammalian meats; Z88.6 Allergy status to analgesic agent

== ENCOUNTER 2022-05-25 20:01 | Emergency (ER) | payer MEDICARE ==
[2022-05-25] MEDS ORDERED: SODIUM CHLORIDE 0.9% 1,000 ML IV STA (20:09)
[2022-05-25] MEDS ORDERED: METOCLOPRAMIDE 5 MG/ML 2 ML VIAL IVP STA (20:10)
--- NOTE | 2022-05-25 20:17 | ED ---
Syncope HPI - General Chief Complaint: Syncope Stated Complaint: Fall Time Seen by Provider: 05/25/22 20:02 Source: patient, EMS, RN notes reviewed Mode of arrival: EMS Limitations: no limitations - History of Present Illness Initial Comments: This is a 66-year-old female who presents to the emergency department for a syncopal episode. Patient states that she has not felt well over the last couple of weeks with coughing and difficulty breathing. Today, she was at a [employer] restaurant with her family. She was continuing to cough, which started to make her feel nauseous. When she went to stand up, states that she stood up too quickly and felt dizzy. She subsequently passed out and fell backwards, hitting the back of her head. Unsure how long she lost consciousness for. EMS did note an abrasion to the back of her head. Tetanus vaccine is up-to-date. Patient is on Eliquis. She started to throw up in the emergency department. States that this is from all of the coughing, and that it is triggering her gag reflex. Denies any associated abdominal pain. She feels somewhat dizzy from the fall, but denies any substantial headaches. Also denies any chest pain or current shortness of breath. Denies any fevers, chills, sore throat, chest pain, palpitations, abdominal pain, diarrhea, or back pain. MD Complaint: loss of consciousness - Related Data Home Medications Medication Instructions Recorded Confirmed Letrozole [Femara] 2.5 mg PO DAILY 06/06/16 04/07/22 Amiodarone [Cordarone] 200 mg PO DAILY 02/28/20 04/07/22 Aspirin [Adult Low Dose Aspirin EC] 81 mg PO DAILY 03/25/21 04/07/22 Melatonin [Melatonin ER] 10 mg PO HS 06/03/21 04/07/22 Spironolactone [Aldactone] 12.5 mg PO DAILY 06/03/21 04/07/22 lisinopriL [Zestril] 5 mg PO BID 06/03/21 04/07/22 Previous Rx's Medication Instructions Recorded Apixaban [Eliquis] 5 mg PO BID #60 tab 12/12/18 Atorvastatin [Lipitor] 80 mg PO HS #30 tab 12/12/18 Allergies Allergy/AdvReac Type Severity Reaction Status Date / Time vancomycin Allergy Rash/Hives Verified 05/25/22 20:34 latex AdvReac Unknown itching Verified 05/25/22 20:34 and tingling ibuprofen [From Motrin] AdvReac Nausea & Verified 05/25/22 20:34 Vomiting phenaphen Allergy Severe Anaphylaxis Uncoded 05/25/22 20:34 blue cheese Allergy Unknown Rash/Hives, Uncoded 05/25/22 20:34 Swelling corn beef Allergy Unknown Rash/Hives, Uncoded 05/25/22 20:34 Swelling Review of Systems ROS Statement: Those systems with pertinent positive or pertinent negative responses have been documented in the HPI. ROS Other: All systems not noted in ROS Statement are negative. Past Medical History Past Medical History: Atrial Fibrillation, Coronary Artery Disease (CAD), Cancer, Heart Failure, CVA/TIA, Hyperlipidemia, Hypertension, Myocardial Infarction (ME) Additional Past Medical History / Comment(s): CVA (MAR 2014)- NO RESIDUAL EFFECTS , LEFT BREAST CANCER. FINISHED CHEMO Sep, HX OF INFECTION FROM IMPLANT WITH DIFFICULTY HEALING.,. 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 history of LIFE VEST. vertigo Last Myocardial Infarction Date:: 12/08/2018 History of Any Multi-Drug Resistant Organisms: None Reported Past Surgical History: Breast Surgery, Section, Heart Catheterization With Stent, Pacemaker Additional Past Surgical History / Comment(s): LT MASTECTOMY WITH IMPLANT (INFECTION & REMOVED),. C-SEC X3. MEDI PORT INSERTION-RT CHEST-REMOVED. BREAST BIOPSIES. HEART CATH WITH STENT 11/2018, pacemaker removal 05/11/21 Past Anesthesia/Blood Transfusion Reactions: Postoperative Nausea & Vomiting (PONV) Additional Past Anesthesia/Blood Transfusion Reaction / Comment(s): HX OF PONV. Date of Last Stent Placement:: 11/2018 Type of Cardiac Device: Biventricular Pacemaker, Permanent Pacemaker, AICD Device Placement Date:: 06/20/19 Past Psychological History: No Psychological Hx Reported Smoking Status: Never smoker Past Alcohol Use History: Rare Past Drug Use History: None Reported - Past Family History Mother Family Medical History: Cancer, CVA/TIA Additional Family Medical History / Comment(s): BREAST CANCER Father Family Medical History: Cancer, Congestive Heart Failure (CHF), Diabetes Mellitus Additional Family Medical History / Comment(s): CANCER General Exam General appearance: alert, in no apparent distress Head exam: Present: other (Hematoma with overlying abrasion and minor active bleeding to the right side of the back of the head. No lacerations.) Eye exam: Present: normal appearance, PERRL, EOMI. Absent: scleral icterus, conjunctival injection, periorbital swelling Respiratory exam: Present: normal lung sounds bilaterally. Absent: respiratory distress, wheezes, rales, rhonchi, stridor Cardiovascular Exam: Present: regular rate, normal rhythm, normal heart sounds. Absent: systolic murmur, diastolic murmur, rubs, gallop, clicks Neurological exam: Present: alert, oriented X3, CN II-XII intact Psychiatric exam: Present: normal affect, normal mood Skin exam: Present: warm, dry, normal color. Absent: rash Course Vital Signs 05/25/22 05/25/22 05/25/22 20:26 20:28 20:30 Temperature 98.2 F Pulse Rate 101 H 106 H Respiratory 16 Rate Blood Pressure 133/88 O2 Sat by Pulse 95 95 94 L Oximetry 05/25/22 05/25/22 05/25/22 21:00 21:30 22:00 Temperature Pulse Rate 97 105 H Respiratory Rate Blood Pressure 133/88 120/99 O2 Sat by Pulse 93 L 91 L Oximetry 05/25/22 05/25/22 05/26/22 22:30 23:00 00:00 Temperature Pulse Rate 110 H 103 H 99 Respiratory Rate Blood Pressure 140/98 117/96 O2 Sat by Pulse 92 L 89 L 97 Oximetry 05/26/22 05/26/22 05/26/22 01:00 02:00 03:00 Temperature Pulse Rate 92 92 93 Respiratory 16 18 Rate Blood Pressure 139/96 142/96 131/78 O2 Sat by Pulse 92 L 97 96 Oximetry 05/26/22 05/26/22 04:00 05:00 Temperature Pulse Rate 92 104 H Respiratory 16 18 Rate Blood Pressure 155/60 136/67 O2 Sat by Pulse Oximetry Medical Decision Making - Medical Decision Making This is a 66-year-old female who presents to the emergency department for a syncopal episode. Was pt. sent in by a medical professional or institution? @ -No Did you speak to anyone other than the patient for history? @ -EMS Did you review nursing and triage notes? @ -Yes, and I agree, it is accurate with regards to the patient's symptoms. Were old charts reviewed? @ -No Differential Diagnosis? @ -Differential Syncope: Valvular disease, hypertrophic cardiomyopathy, pulmonary embolism, tamponade, tachycardia, bradycardia, ME, hypovolemia, hemorrhage, dissection, anemia, intracranial hemorrhage, seizure, hypoglycemia, carbon monoxide poisoning, this is not meant to be an all-inclusive list. EKG interpreted by me (3pts min.)? @ -Atrial fibrillation. Ventricular rate 99 beats per minute, QRS duration 169 ms, QTC 475 ms. X-rays interpreted by me (1pt min.)? @ -Chest x-ray obtained, my interpretation identifies no localized consolidatio ns or infiltrates. CT interpreted by me (1pt min.)? @ -Computed tomography scan of the brain and c-spine obtained. My interpretation identifies no evidence of an acute intracranial hemorrhage, skull fracture, or cervical spine fracture. What testing was considered but not performed? (CT, X-rays, U/S, labs)? Why? @ -None What meds were considered but not given? Why? @ -None Did you discuss the management of the patient with other professionals? @ -No Did you reconcile home meds? @ -No Was smoking cessation discussed for >3mins.? @ -No Was critical care preformed (if so, how long)? @ -No Were there social determinants of health that impacted care today? How? (Homelessness, low income, unemployed, alcoholism, drug addiction, transportation, low edu. Level, literacy, decrease access to med. care, longterm, rehab)? @ -No Was there de-escalation of care discussed even if they declined? (Discuss DNR or withdrawal of care, Hospice)? @ -No What co-morbidities impacted this encounter? (DM, HTN, Smoking, COPD, CAD, Cance r, CVA, Hep., AIDS, mental health diagnosis, sleep apnea, morbid obesity)? @ -A-fib, CAD, CHF, HLD, HTN Was patient admitted / discharged? @ -Discharged. Lab work obtained and found to be nonactionable. Atrial fibrillation on the EKG is consistent with the patient's history of a-fib. Computed tomography scan of the brain and C-spine reveals no acute injuries, however it did identify an enlarged right thyroid gland. TSH with reflex T4 was ordered. Chest x-ray revealed no acute findings. Patient negative for Covid, influenza, and RSV. IV fluids and Reglan administered for the nausea and dizziness, which the patient states was beneficial. However, she continued to have some mild residual dizziness and states that her stomach felt somewhat unsettled. She was subsequently given an additional liter of IV fluids and Pepcid. Ofirmev administered as well because she started to develop a headache. Ofirmev was chosen due to her allergy to NSAIDs and inability to tolerate pills at this time due to associated nausea and vomiting. Her thyroid studies were consistent with hyperthyroidism, which was discussed with the patient. Advised that she will need to follow-up on this finding with her primary care provider to discuss treatment. Patient continued to complain of dizziness in the emergency department. Discussed that we can watch her for a little bit longer to see if she improves with IV fluids and rest. She was monitored in the emergency department for another couple of hours by ED attending, Dr. Espinal. Patient exhibited improvement and felt stable for discharge home. Discussed that she did most likely sustain a concussion and she needs to refrain from any excess or exertional activity until cleared by her PCP. She can take Tylenol as needed for pain relief. Undiagnosed new problem with uncertain prognosis? @ -None Drug Therapy requiring intensive monitoring for toxicity (Heparin, Nitro, Insulin, Cardizem)? @ -None Were any procedures done? @ -None Diagnosis/symptom? @ -Syncope, head injury, bronchitis, Fall Acute, or Chronic, or Acute on Chronic? @ -Acute Uncomplicated (without systemic symptoms) or Complicated (systemic symptoms)? @ -Uncomplicated Side effects of treatment? @ -None Exacerbation, Progression, or Severe Exacerbation] @ -Not applicable Poses a threat to life or bodily function? @ -No Return precautions reviewed in depth, the patient is instructed to return to the emergency department with any new, worsening, or concerning symptoms. Patient verbalized understanding. This case was discussed in detail with the attending ED physician, Dr. Espinal. Presentation, findings, and treatment plan discussed in detail as well. - Lab Data Result diagrams: 05/25/22 21:05/25/22: Lab Results 05/25/22 05/25/22 05/25/22 Range/Units 21:29 21: 21: WBC 6.6 (3.8-10.6) k/uL RBC 3.68 L (3.80-5.40) m/uL Hgb 10.4 L (11.4-16.0) gm/dL Hct 33.2 L (34.0-46.0) % MCV 90.1 (80.0-100.0) fL MCH 28.3 (25.0-35.0) pg MCHC 31.4 (31.0-37.0) g/dL RDW 16.5 H (11.5-15.5) % Plt Count 180 (150-450) k/uL MPV 8.9 Neutrophils % 76 % Lymphocytes % 14 % Monocytes % 7 % Eosinophils % 2 % Basophils % 0 % Neutrophils # 5.0 (1.3-7.7) k/uL Lymphocytes # 0.9 L (1.0-4.8) k/uL Monocytes # 0.5 (0-1.0) k/uL Eosinophils # 0.1 (0-0.7) k/uL Basophils # 0.0 (0-0.2) k/uL Hypochromasia Moderate Anisocytosis Slight PT 11.5 (9.0-12.0) sec INR 1.1 (<1.2) APTT 22.8 (22.0-30.0) sec Sodium 140 (137-145) mmol/L Potassium 4.2 (3.5-5.1) mmol/L Chloride 106 (98-107) mmol/L Carbon Dioxide 25 (22-30) mmol/L Anion Gap 9 mmol/L BUN 21 H (7-17) mg/dL Creatinine 1.02 (0.52-1.04) mg/dL Est GFR (CKD-EPI)AfAm 67 (>60 ml/min/1.73 sqM) Est GFR (CKD-EPI)NonAf 58 (>60 ml/min/1.73 sqM) Glucose 175 H (74-99) mg/dL Calcium 8.1 L (8.4-10.2) mg/dL Magnesium 1.8 (1.6-2.3) mg/dL Total Bilirubin 1.0 (0.2-1.3) mg/dL AST 29 (14-36) U/L ALT 39 H (4-34) U/L Alkaline Phosphatase 109 (38-126) U/L Troponin I (0.000-0.034) ng/mL Total Protein 6.2 L (6.3-8.2) g/dL Albumin 3.7 (3.5-5.0) g/dL TSH (0.465-4.680) mIU/L Free T4 (0.78-2.19) ng/dL Influenza Type A (PCR) (Not Detectd) Influenza Type B (PCR) (Not Detectd) RSV (PCR) (Not Detectd) SARS-CoV-2 (PCR) (Not Detectd) 05/25/22 05/25/22 05/25/22 Range/Units 21:29 21:37 22:05 WBC (3.8-10.6) k/uL RBC (3.80-5.40) m/uL Hgb (11.4-16.0) gm/dL Hct (34.0-46.0) % MCV (80.0-100.0) fL MCH (25.0-35.0) pg MCHC (31.0-37.0) g/dL RDW (11.5-15.5) % Plt Count (150-450) k/uL MPV Neutrophils % % Lymphocytes % % Monocytes % % Eosinophils % % Basophils % % Neutrophils # (1.3-7.7) k/uL Lymphocytes # (1.0-4.8) k/uL Monocytes # (0-1.0) k/uL Eosinophils # (0-0.7) k/uL Basophils # (0-0.2) k/uL Hypochromasia Anisocytosis PT (9.0-12.0) sec INR (<1.2) APTT (22.0-30.0) sec Sodium (137-145) mmol/L Potassium (3.5-5.1) mmol/L Chloride (98-107) mmol/L Carbon Dioxide (22-30) mmol/L Anion Gap mmol/L BUN (7-17) mg/dL Creatinine (0.52-1.04) mg/dL Est GFR (CKD-EPI)AfAm (>60 ml/min/1.73 sqM) Est GFR (CKD-EPI)NonAf (>60 ml/min/1.73 sqM) Glucose (74-99) mg/dL Calcium (8.4-10.2) mg/dL Magnesium (1.6-2.3) mg/dL Total Bilirubin (0.2-1.3) mg/dL AST (14-36) U/L ALT (4-34) U/L Alkaline Phosphatase (38-126) U/L Troponin I 0.015 (0.000-0.034) ng/mL Total Protein (6.3-8.2) g/dL Albumin (3.5-5.0) g/dL TSH 0.036 L (0.465-4.680) mIU/L Free T4 4.47 H (0.78-2.19) ng/dL Influenza Type A (PCR) Not Detected (Not Detectd) Influenza Type B (PCR) Not Detected (Not Detectd) RSV (PCR) Not Detected (Not Detectd) SARS-CoV-2 (PCR) Not Detected (Not Detectd) - Radiology Data Radiology results: report reviewed, image reviewed Disposition Clinical Impression: Fall, Head injury, Bronchitis, Syncope Disposition: HOME SELF-CARE Instructions (If sedation given, give patient instructions): Concussion (ED), Fall Prevention for Older Adults (ED) Additional Instructions: Return to the emergency department with any new, worsening, or concerning symptoms. Follow up with your primary care provider in 1-2 days. Is patient prescribed a controlled substance at d/c from ED?: No Referrals: Tu Gonzalez MD [Primary Care Provider] - 1-2 days
[2022-05-25 20:33] VITALS: TEMP 98.2
--- NOTE | 2022-05-25 21:23 | CT ---
EXAMINATION TYPE: CT brain cspine wo con CT DLP: 1784.8 mGycm, Automated exposure control for dose reduction was used. DATE OF EXAM: 05/25/2022 9:06 PM COMPARISON: 02/28/2020. CLINICAL INDICATION:Female, 66 years old with history of Head injury; fell, hit head, vomiting TECHNIQUE: Brain: Multiple axial CT images of the brain were obtained without IV contrast. Cspine: Axial CT images from the skull base to the inferior aspect of T2 we obtained without intraven ous contrast. Coronal and sagittal reformatted images were also reviewed. FINDINGS: Brain: Extra-axial spaces: No abnormal extra-axial fluid collections. Ventricular system: Within normal limits Cerebral parenchyma: No acute intraparenchymal hemorrhage or mass effect. The sidhu-white junction is well differentiated. Cerebellum: Unremarkable. Mass effect: No evidence of midline shift. Intracranial vasculature: unremarkable Soft tissues: Right lateral subcutaneous scalp hematoma measuring up to 7.4 x 2.7 cm. Calvarium/osseous structures: No depressed skull fracture. Paranasal sinuses and mastoid air cells: Mild scattered mucosal thickening and or secretions. Visualized orbits: Orbital contents are intact. Cervical spine: Fracture: None. Osseous structures: Multilevel degenerative disc disease changes with endplate spurring and disc oste ophyte complex's. Sclerosis within the T3 vertebral body to seen on prior on 06/03/2021 and is stable. Vertebral alignment: Within normal limits. Spinal canal/Neural Foramina: No evidence of significant spinal canal narrowing. No evidence for sign ificant neural foraminal stenosis. Neck soft tissues: Prevertebral soft tissues are within normal limits. Other: The airway is patent. The lung apices are clear. The right thyroid gland looks around post pos teriorly across midline. IMPRESSION: 1. No acute intracranial process. 2. Large right posterior scalp hematoma. No evidence of fracture. 3. No evidence of cervical spine fracture. 4. Mild multilevel degenerative disc disease. 5. Enlarged right thyroid gland with extension posterior to the trachea.
[2022-05-25 21:42] LABS: Anisocytosis Slight; Basophils % (A) 0 %; Eosinophils # (A) 0.1 k/uL (0-0.7); Eosinophils % (A) 2 %; HCT 33.2 % (34.0-46.0); HGB 10.4 gm/dL (11.4-16.0); Hypochromasia Moderate; Lymphocytes # (A) 0.9 k/uL (1.0-4.8); Lymphocytes % (A) 14 %; MCH 28.3 pg (25.0-35.0); MCHC 31.4 g/dL (31.0-37.0); MCV 90.1 fL (80.0-100.0); Mean Platelet Volume 8.9; Monocytes # (A) 0.5 k/uL (0-1.0); Monocytes % (A) 7 %; Neutrophils % (A) 76 %; Platelet Count 180 k/uL (150-450); RBC 3.68 m/uL (3.80-5.40); RDW 16.5 % (11.5-15.5); WBC 6.6 k/uL (3.8-10.6)
--- NOTE | 2022-05-25 21:53 | XR ---
EXAMINATION TYPE: XR chest 1V DATE OF EXAM: 05/25/2022 9:49 PM COMPARISON: Chest radiographs from 05/06/2021. TECHNIQUE: XR chest 1V Frontal view of the chest. CLINICAL INDICATION:Female, 66 years old with history of syncope; FINDINGS: Lungs/Pleura: There is no evidence of pleural effusion, focal consolidation, or pneumothorax. Pulmonary vascularity: Unremarkable. Heart/mediastinum: Cardiomediastinal silhouette is enlarged and stable. Musculoskeletal: No acute osseous pathology. Interval pacemaker removal. IMPRESSION: 1. No evidence for significant change from prior. 2. Mild cardiomegaly.
[2022-05-25 21:54] LABS: Albumin 3.7 g/dL (3.5-5.0); Calcium 8.1 mg/dL (8.4-10.2); INR 1.1 (<1.2); Magnesium 1.8 mg/dL (1.6-2.3); Partial Thromboplastin Time 22.8 sec (22.0-30.0); Potassium 4.2 mmol/L (3.5-5.1); Prothrombin Time 11.5 sec (9.0-12.0); Total Protein 6.2 g/dL (6.3-8.2)
[2022-05-25] MEDS ORDERED: FAMOTIDINE 20 MG/2 ML VIAL IV STA (22:41)
[2022-05-25] MEDS ORDERED: ACETAMINOPHEN IV (For NPO) 1,000 MG in EMPTY BAG 1 BAG IVPB STA (22:42)
[2022-05-25] MEDS: ONDANSETRON 4 MG/2 ML VIAL IVP STA (23:36)
[2022-05-26 00:46] LABS: T4, Free (Free Thyroxine) 4.47 ng/dL (0.78-2.19)
[2022-05-26] MEDS: ONDANSETRON 4 MG/2 ML VIAL IVP STA (02:15)
[2022-05-26 03:32] VITALS: RESP 18
[2022-05-26] MEDS ORDERED: ONDANSETRON 4 MG ODT STARTER PACK 2 TAB BTL PO STA (05:19)
[2022-05-26 05:48] VITALS: BP 136/67; PULSE 104
== END 2022-05-26 05:48 | disposition home or self-care (01) ==
LOC: EC 20:01
DX: S00.03XA Contusion of scalp, initial encounter (principal); S09.90XA Unspecified injury of head, initial encounter; R55 Syncope and collapse; J40 Bronchitis, not specified as acute or chronic; I48.91 Unspecified atrial fibrillation; I25.10 Atherosclerotic heart disease of native coronary artery without angina pectoris; I50.9 Heart failure, unspecified; I11.0 Hypertensive heart disease with heart failure; I25.2 Old myocardial infarction; Z86.73 Personal history of transient ischemic attack (TIA), and cerebral infarction without residual deficits; Z88.6 Allergy status to analgesic agent; Z91.040 Latex allergy status; Z88.8 Allergy status to other drugs, medicaments and biological substances; Z91.018 Allergy to other foods; Z20.822 Contact with and (suspected) exposure to COVID-19; Z79.82 Long term (current) use of aspirin; Z79.01 Long term (current) use of anticoagulants; X58.XXXA Exposure to other specified factors, initial encounter
CPT/HCPCS: 36415; 93005; 84439; 80053; 84443; 83735; 84484; 85025; 85610; 85730; 87636; 71045; 72125; 70450; 99285; 96365; 96366 ×5; 96375 ×3; J2765; J2405; J0131; S0119

== ENCOUNTER → 2022-07-06 | Outpatient (CLI) | payer MEDICARE ==
--- NOTE | 2022-07-07 08:31 | US ---
EXAMINATION TYPE: US thyroid st tissue head/neck DATE OF EXAM: 07/06/2022 COMPARISON: NONE CLINICAL INDICATION: Female, 66 years old with history of E04.9 NONTOXIC GOITER; TECHNIQUE: Multiple sonographic images of the thyroid gland are obtained. FINDINGS: GLAND SIZE: Right Lobe: 4.7 x 2.3 x 2.2 cm Overall Parenchyma: heterogenous Left Lobe: 3.3 x 1.1 x 1.1 cm Overall Parenchyma: homogeneous Isthmus Thickness: 0.4 cm NODULES RIGHT: # of nodules measured on right: 0 LEFT: # of nodules measured on left: 0 ISTHMUS: # of nodules measured in the isthmus: 0 Bilateral neck scanned, no evidence of lymphadenopathy. IMPRESSION: No discrete nodules. Overall normal-appearing thyroid gland by ultrasound.
== END | disposition home or self-care (01) ==
LOC: RADUSWWP 16:43
PROVIDERS: ATTEND Family Medicine
DX: E04.9 Nontoxic goiter, unspecified (principal)
CPT/HCPCS: 76536

== ENCOUNTER → 2022-09-01 | Outpatient (CLI) | payer MEDICARE ==
--- NOTE | 2022-09-01 13:46 | MM ---
Reason for Exam: Follow-up at short interval from prior study. Last screening mammogram was performed 12 month(s) ago. Patient History: Menarche at age 13. First Full-Term at age 28. Postmenopausal. Patient has history of breast feeding. Breast cancer, left, age 59. Previous chest radiation therapy at age 59. Previous chemotherapy at age 59. 04/27/2015, Ultrasound-Guided Core Biopsy on the Left side. 04/27/2015, Malignant Stereotactic Core Biopsy on the left side. 2015, Mastectomy on the Left side. 09/13/2016, High risk Core Biopsy on the right side. 07/28/2016, High risk Core Biopsy on the right side. 2015, Chemotherapy. 06/07/2016, Implant Removal on the left side. 2015, Radiation Therapy on the left side. 2015, Chemotherapy. Mother had breast cancer, age 50. Prior Study Comparison: 09/16/2019 Right Diagnostic Mammogram, [facility]. 09/17/2020 Right Diagnostic Mammogram, [facility]. 08/30/2021 Right MG 3D diag mammo w/cad RT, [facility]. Tissue Density: Right: There are scattered fibroglandular densities. Findings: Analyzed By CAD. Postsurgical and posttreatment changes right breast. Benign vascular calcifications are redemonstrated on the right. No significant change from prior exams. Overall Assessment: Benign, BI-RAD 2 Management: Screening Mammogram of the right breast in 1 year. . Results were given to the patient verbally at the time of exam. Patient should continue monthly self-breast exams. A clinical breast exam by your physician is recommended on an annual basis. This exam should not preclude additional follow-up of suspicious palpable abnormalities. Note on Citlaly scores and lifetime risk: 1. A Citlaly score greater than 3% is considered moderate risk. If this is the case, consider specialist referral to assess eligibility for a risk reducing agent. 2. If overall lifetime risk for the development of breast cancer is 20% or higher, the patient may qualify for future screening with alternating mammogram and breast MRI. Electronically signed and approved by: Allison Ralph M.D. Radiologist
== END | disposition home or self-care (01) ==
LOC: RADMAMWWP 13:04
PROVIDERS: ATTEND Surgery
DX: R92.1 Mammographic calcification found on diagnostic imaging of breast (principal); Z78.0 Asymptomatic menopausal state; Z85.3 Personal history of malignant neoplasm of breast; Z80.3 Family history of malignant neoplasm of breast
CPT/HCPCS: 77065; G0279; 77061

== ENCOUNTER → 2022-09-30 | Outpatient (CLI) | payer MEDICARE ==
[2022-09-30 13:43] VITALS: BP 107/71; PULSE 49; RESP 16; TEMP 97.7
--- NOTE | 2022-09-30 14:00 | P.PN ---
Subjective Progress Note Date: 09/30/22 Principal diagnosis: left breast stage III invasive ductal cancer 2016 left breast stage III invasive ductal cancer 2015 Mary is a 66-year-old white female with a history of stage III moderately differentiated invasive ductal carcinoma of the left breast. This was ER/NH po sitive and HER-2 negative. She is status post neoadjuvant therapy followed by a left breast mastectomy with immediate reconstruction. She subsequently underwent postmastectomy radiotherapy directed to the reconstructed breast and lymphatics. This finished in March 2016. She developed an infection and was necessary to have her ammonia box tender removed. She has no evidence of any infection at this time. She has had a right breast partial resection which was benign, and there are clips makring the area of the biopsy cavity. She has seen a plastic surgeon in considering reconstruction in the future. The patient was scheduled for reconstruction in November 2018, however a week prior she had a myocardial infarction. She now has an internal pacemaker and defibrillator . She had 100% blockage of her left descending artery and a stent was placed. She was noted to have a low ejection fraction on echo and therefore the internal pacemaker and defibrillator were placed. At that time her reconstruction was on hold until she is stable from a cardiac standpoint. She is also seen by Dr. Martinez and no longer following with Dr. Finch . She has intermittent cramping of the muscle of the left chest wall it has improved. She has no lumps or masses in her right breast of concern. No nipple discharge or skin changes of concern. Most recently right breast mammogram was done on . This is benign BIRADS 2. Medical oncology note from 04-04-[address] Martinez was reviewed. Continue Femara and continue calcium and vitamin D supplement as per medical oncology. At this time the patient is not complaining of any new changes in her right breast or chest wall. The patient developed an infection of her pacemaker defibrillator in April 2021. It was necessary that this be removed and this was done at [facility]. She was in the hospital for approximately a week April 2021. She subsequently was discharged and developed an infection of the seroma at that site. She was then hospitalized at [facility]. At this time she does not have a pacemaker defibrillator in [place] [id number]. They're still considering whether this is necessary. She developed a new area of nodularity at the pacemaker/defibrillator resection site. This is presumed to be consistent with scar tissue. She does not note any other new lumps masses or nodules of concern in her right breast or on her chest wall. The area of nodularity has since decreased in size. The patient does not note any new lumps masses or nodules of concern on the chest wall or in the right breast. The patient in May of 2022 developed fluid retention but improved at this time. She has lost 60 pounds since May 2022. Family history: 1. mother: breast cancer 2. father: cancer ? type 3. paternal aunt: brain Hormonal History: menarche: 13 1 [place], breast fed: yes, first born at 29 menopause: 50 BCP: none hormones: antiestrogen complains of sweating with this Surgical history: 1. 3 C-sections 2. Left mastectomy, Port-A-Cath, ammonia box tender placed and removed 3. left coronary artery stent placed 4. Internal pacemaker and defibrillator 5. removal of pacemaker/defibrillator Medical history: 1. Hypertension 2. Myocardial infarction 3. BMI 54.9 4. vertigo Social history: Smoke: Negative Alcohol: Occasional Drugs: Negative Review of systems: HEENT: none lung: none heart: HTN, [place] GI: none Gu: none Musculoskeletal: Arthritis Neurologic: Neuropathy hands and feet Psychiatric: Negative skin: none allergies: Seasonal Objective - Vital Signs Vital signs: Vital Signs Temp 97.7 F 09/30/22 13:38 Pulse 49 L 09/30/22 13:38 Resp 16 09/30/22 13:38 BP 107/71 09/30/22 13:38 Pulse Ox 98 09/30/22 13:38 FiO2 Intake & Output 09/29/22 09/30/22 09/30/22 18:59 06:59 18:59 Weight 131.542 kg - Constitutional General appearance: Present: cooperative - EENT Eyes: Present: EOMI ENT: Present: hearing grossly normal - Neck Neck: Present: normal ROM - Respiratory Respiratory: bilateral: CTA - Cardiovascular Heart sounds: normal: S1, S2 - Integumentary Integumentary: Present: normal turgor - Musculoskeletal Musculoskeletal: Present: gait normal - Psychiatric Psychiatric: Present: A&O x's 3, appropriate affect, intact judgment & insight - Additional findings Additional findings: Breast Exam: Bra: 44B Inspection: Right breast grade 3 ptosis, left chest wall no evidence of active infection Palpation: Right breast: Multi-positional exam no dominant masses or nodules of concern Right axilla: No adenopathy of concern Left chest wall: No evidence of recurrent cancer, the pacemaker defibrillator has been removed although there is what is believed to be remaining scar tissue at this site, there is no evidence of active infection or disease at this time Left axilla: No adenopathy of concern Assessment and Plan Assessment: Impression: Stage III left breast cancer no evidence of recurrence Patient remains on letrazole Pacemaker/defibrillator removed from left chest wall Probable scar tissue left chest wall Plan: Continue to follow with medical oncology/continue letrazole Repeat right breast 1 year Follow with cardiology Continue to follow with Dr. Gonzalez We have talked about the patient having an ultrasound of the area of firmness on the left chest wall and a biopsy I recommended this. At this time the patient has declined we will follow this conservatively follow up in 1 year CC: Dr. Gonzalez
== END ==
LOC: WWCWWP 13:01
PROVIDERS: ATTEND Surgery
DX: C50.912 Malignant neoplasm of unspecified site of left female breast (principal); I10 Essential (primary) hypertension; Z85.3 Personal history of malignant neoplasm of breast; I25.2 Old myocardial infarction; Z79.811 Long term (current) use of aromatase inhibitors; Z80.3 Family history of malignant neoplasm of breast; Z90.12 Acquired absence of left breast and nipple; Z95.5 Presence of coronary angioplasty implant and graft; Z17.0 Estrogen receptor positive status [ER+]; Z91.040 Latex allergy status; Z88.8 Allergy status to other drugs, medicaments and biological substances; Z91.011 Allergy to milk products; Z91.018 Allergy to other foods; Z79.01 Long term (current) use of anticoagulants; Z79.899 Other long term (current) drug therapy

== ENCOUNTER 2022-11-24 09:56 | Day surgery (SDC) | payer MEDICARE ==
[~2022-11-24 09:56] MED LIST changes: +SODIUM CHLORIDE 0.9% 1,000 ML IV SCH; -ceFAZolin 1,000 MG in SODIUM CHLORIDE 0.9% IRRIGATIO 250 ML IRRIGATION ONE
[2022-11-24] MEDS ORDERED: SODIUM CHLORIDE 0.9% 500 ML 500 ML IV ONE (10:01)
[2022-11-24 10:30] VITALS: BP 103/46; PULSE 56; RESP 18; TEMP 97.8
[2022-11-24 10:32] LABS: Glucose,Whole Blood 174 mg/dL (70-110)
[2022-11-24 11:00] LABS: African American GFR (CKD) 30 (>60 ml/min/1.73 sqM); Anion Gap 10 mmol/L; Blood Urea Nitrogen 51 mg/dL (7-17); Calcium 8.5 mg/dL (8.4-10.2); Carbon Dioxide 25 mmol/L (22-30); Chloride 104 mmol/L (98-107); Glucose 164 mg/dL (74-99); Non-African American GFR(CKD) 26 (>60 ml/min/1.73 sqM); Potassium 4.7 mmol/L (3.5-5.1); Sodium 139 mmol/L (137-145)
[2022-11-24] MEDS ORDERED: IOPAMIDOL-370 100ML BTL IVP ONE (11:14)
== END 2022-11-24 12:10 | disposition home or self-care (01) ==
LOC: CATHEP 09:56
PROVIDERS: ATTEND Internal Medicine Clinical Cardiac Electrophysiology
DX: I44.7 Left bundle-branch block, unspecified (principal); I25.10 Atherosclerotic heart disease of native coronary artery without angina pectoris; I10 Essential (primary) hypertension; E78.5 Hyperlipidemia, unspecified; Z82.49 Family history of ischemic heart disease and other diseases of the circulatory system; Z79.899 Other long term (current) drug therapy
CPT/HCPCS: 36005; 75820; 80048; Q9967

== ENCOUNTER 2022-12-26 08:07 | Inpatient (IN) | payer MEDICARE ==
[2022-12-22 12:39] VITALS: BMI 49.9
[~2022-12-26 08:07] MED LIST changes: +DAPTOmycin 350 MG in SODIUM CHLORIDE 0.9% 50 ML IVPB ONE
[2022-12-26] MEDS ORDERED: ceFAZolin 3 GM in SODIUM CHLORIDE 0.9% 100 ML IVPB ONE (08:14)
[2022-12-26] MEDS ORDERED: SODIUM CHLORIDE 0.9% 1,000 ML IV ONE (08:17)
[2022-12-26 08:53] LABS: Anisocytosis Slight; Basophils % (A) 0 %; Eosinophils # (A) 0.2 k/uL (0-0.7); Eosinophils % (A) 3 %; HCT 35.9 % (34.0-46.0); HGB 11.6 gm/dL (11.4-16.0); Hypochromasia Slight; Lymphocytes # (A) 1.8 k/uL (1.0-4.8); Lymphocytes % (A) 29 %; MCH 31.9 pg (25.0-35.0); MCHC 32.4 g/dL (31.0-37.0); MCV 98.4 fL (80.0-100.0); Macrocytosis Slight; Mean Platelet Volume 8.6; Monocytes # (A) 0.3 k/uL (0-1.0); Monocytes % (A) 5 %; Neutrophils # (A) 3.9 k/uL (1.3-7.7); Neutrophils % (A) 62 %; Platelet Count 212 k/uL (150-450); RBC 3.64 m/uL (3.80-5.40); RDW 16.9 % (11.5-15.5); WBC 6.3 k/uL (3.8-10.6)
[2022-12-26 09:04] LABS: ALT 31 U/L (4-34); AST 28 U/L (14-36); African American GFR (CKD) 32 (>60 ml/min/1.73 sqM); Alkaline Phosphatase 96 U/L (38-126); Anion Gap 10 mmol/L; Blood Urea Nitrogen 31 mg/dL (7-17); Calcium 8.1 mg/dL (8.4-10.2); Carbon Dioxide 29 mmol/L (22-30); Chloride 102 mmol/L (98-107); Glucose 142 mg/dL (74-99); Non-African American GFR(CKD) 28 (>60 ml/min/1.73 sqM); Potassium 4.1 mmol/L (3.5-5.1); Sodium 141 mmol/L (137-145); Total Bilirubin 0.7 mg/dL (0.2-1.3); Total Protein 6.5 g/dL (6.3-8.2)
[2022-12-26 10:38] LABS: T4, Free (Free Thyroxine) 1.76 ng/dL (0.78-2.19)
[2022-12-26] MEDS ORDERED: MIDAZOLAM 2 MG/2 ML VIAL ONE (12:03)
[2022-12-26] MEDS ORDERED: PHENYLEPHRINE 10 MG/ML 5 ML VIAL ONE (12:03)
[2022-12-26] MEDS ORDERED: PROPOFOL 10 MG/ML 20 ML VIAL IV ONE (12:03)
[2022-12-26] MEDS ORDERED: fentaNYL (PF) 50 MCG/ML 2 ML AMP ONE (12:03)
[2022-12-26] MEDS ORDERED: LIDOCAINE 1% INJ 10MG/ML (20 ML MDV) ONE ×2 (12:32→13:10)
[2022-12-26] MEDS: ceFAZolin 1,000 MG in SODIUM CHLORIDE 0.9% IRRIG BTL 250 ML IRRIGATION ONE ×2 (12:59→14:57)
[2022-12-26] MEDS ORDERED: LIDOCAINE 1% INJ 10MG/ML (20 ML MDV) SQ ONE ×3 (13:07→13:32)
[2022-12-26] MEDS ORDERED: IOPAMIDOL-370 100ML BTL INJ ONE (13:34)
[2022-12-26] MEDS ORDERED: ACETAMINOPHEN IV (For NPO) 1,000 MG in EMPTY BAG 1 BAG IVPB ONE (15:39)
--- NOTE | 2022-12-26 16:22 | P.EPPROC ---
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 Written informed consent was obtained prior to the procedure. Conscious sedation provided by HEAD SULFIDE OPERATOR. IV antibiotics administered. Local anesthesia administered. A 4 cm incision made in the pectoral area. Subfascial pocket made. Venous accesses obtained Venous sheaths placed. Leads placed in the right heart. 2 sets of pacing cables were used; one for backup temporary pacing and the other for assessment of current of injury and signal analysis. A single coil [employer] ICD lead positioned in the low RV septum just above the RV apex Good current of injury 58 cm lead, pacing impedance 551 ohms and pacing threshold 0.5 V at 0.4 ms A deflected sheath was prepped. A coronary sinus decapolar catheter was placed within this sheath. The catheter along with the sheath was then passed into the right heart, the catheter was prolapsed across the tricuspid valve, into the right ventricle and then further into the right ventricular outflow tract across the pulmonic valve into the pulmonary artery. This sheath was slid over this decapolar catheter into the RVOT. Thereafter the catheter last sheath assembly was withdrawn from the RVOT along the septum to the mid septal area. The sheath was appropriately to to map the right ventricular aspect of the septum. The decapolar catheter was withdrawn, the sheath flushed again and the screw-in pacing lead placed within the sheath. Further detailed unipolar pace-mapping of the septum was performed and once the appropriate based morphology was obtained on lead V1, the lead was screwed into the septum. The lead was screwed in 4-5 returns at a time while monitoring the current of injury, the pacing impedance changes and the paced QRS morphology. The stimulus to peak of V6 QRS was measured at each step. Once a QR or rSR pattern of paced QRS in lead V1 was obtained, a left bundle signal was sought. Impedance was measured and thresholds were measured. An impedance drop of 100-200 ohms but above 550 ohms was targeted along with an unchanged vector of the current of injury signal. The final positioning was based on the QRS morphology in lead V1 and a short stimulus to peak of the V6 QRS of less than 90 ms. The sheath was withdrawn, stability of the pacing lead deep in the septum was confirmed on KUNZ and UPPER SORBIAN views and the sheath was slipped and an adequate heel was provided for the lead. Unipolar and bipolar electrogram morphology obtained Atrial lead positioned in the right atrial appendage. Sensing, thresholds and impedances measured following positioning and securing the lead in the right atrial appendage Medtronic lead 52 cm in length. P waves 3 mV, pacing impedance 494 ohms and pacing threshold 1V @ 0.4 ms, 10 V negative Left bundle lead parameters pacing impedance 437 ohms, pacing threshold 0.5 V at 0.4 ms Stimulus-peak of V6 was 74 ms, paced QRS width 144 ms, right bundle pattern Medtronic 3830-lead Device lockstitch binder: Medtronic STEWARD/STEWARDESS RAILROAD DINING CAR-D, [place] Dual-chamber pacemaker device connected to the leads and placed in the right subfascial pocket Antipanic pouch Patient tolerated the procedure well without acute complications ICD reprogramming VT zone 176 bpm him a VF zone 214 beats a minute Appropriate antitachycardia pacing cardioversion and defibrillation Bradycardia pacing DDDR 60-130 with a paced AV interval 200 ms
[2022-12-26] MEDS: LACTATED RINGERS 1,000 ML IV SCH (16:56)
[2022-12-26] MEDS: SACUBITRIL/VALSARTAN 24 MG-26 MG TABLET PO SCH (20:24)
[2022-12-26] MEDS: ATORVASTATIN 80 MG TAB PO SCH (20:24)
[2022-12-27] MEDS: HYDROcodone/APAP 10-325MG 1 EACH TAB PO PRN ×2 (00:04→23:40)
[2022-12-27] MEDS: LACTATED RINGERS 1,000 ML IV SCH (04:56)
[2022-12-27] MEDS: METOPROLOL SUCCINATE (ER) 25 MG TAB.ER.24H PO SCH (08:55)
[2022-12-27] MEDS: APIXABAN 5 MG TAB PO SCH ×2 (08:55→21:02)
[2022-12-27] MEDS: SACUBITRIL/VALSARTAN 24 MG-26 MG TABLET PO SCH ×2 (08:55→21:02)
[2022-12-27] MEDS: ASPIRIN 81 MG PO SCH (08:55)
[2022-12-27] MEDS: FUROSEMIDE 40 MG TAB PO SCH (08:55)
[2022-12-27] MEDS: SPIRONOLACTONE 25 MG TAB PO SCH (08:55)
[2022-12-27] MEDS: DAPAGLIFLOZIN PROPANEDIOL 10 MG TABLET PO SCH (10:20)
[2022-12-27] MEDS: AMIODARONE 100 MG TAB PO SCH (10:20)
[2022-12-27] MEDS: LETROZOLE 2.5 MG TAB PO SCH (10:20)
--- NOTE | 2022-12-27 12:20 | IR ---
EXAMINATION TYPE: IR cva device check w fluoro DATE OF EXAM: 12/27/2022 COMPARISON: NONE HISTORY: Fluoroscopy time. Fluoroscopy was provided to the referring clinician.
--- NOTE | 2022-12-27 12:22 | XR ---
EXAMINATION TYPE: XR chest 2V DATE OF EXAM: 12/27/2022 COMPARISON: 05/25/2022 HISTORY: 67-year-old female leak placement check TECHNIQUE: Frontal and lateral views FINDINGS: Right anterior chest wall AICD generator with right atrial and 2 right ventricular leads. No apprecia ble pneumothorax. Heart upper limits of normal in size. Aorta and pulmonary vasculature within normal limit. No consolidation or pleural effusion. IMPRESSION: Right anterior chest wall AICD generator with right atrial and 2 right ventricular leads noted. No ap preciable pneumothorax.
[2022-12-27] MEDS: ACETAMINOPHEN TAB 325 MG TAB PO PRN (13:21)
[2022-12-27] MEDS: SODIUM CHLORIDE 0.9% 1,000 ML IV SCH (13:55)
--- NOTE | 2022-12-27 18:45 | P.PN ---
Progress Note - Text Patient is resting comfortably in bed Denies any chest discomfort no swelling or pain soakage in the right pectoral area Yesterday she underwent a right-sided biventricular ICD implantation with conduction system pacing Her twelve-lead EKG today shows a right bundle branch block like morphology, paced Vitals are stable Blood pressure 138 of 77 mmHg respirations normal Pulse rate in the 60s afebrile Interrogation of the device reveals diminutive R waves and high RV lead thresholds, ICD lead Yesterday threshold was 0.5 V at 0.5 ms Today her capture thresholds for volts at 0.5 ms In addition the paced QRS morphology for left bundle lead also shows more of a septal pattern Chest x-ray confirms ICD lead dislodgment with loss of slack It also confirms loss of slack in the left bundle lead him a significant and likely MICRA dislodgment Mild loss of slack in the atrial lead The ICD itself seems to be more caudal in location although it had been sutured in the pocket On more detailed questioning by the nurse, it it appears the patient tried to reach behind her back to scratch her back, yesterday Impression Dislodgment of the ICD lead MICRA dislodgment of the left bundle lead Loss of slack, significant in both these leads Mild loss of slack in the atrial lead Ischemic cardiomyopathy left bundle branch block pattern congestive heart failure last 2-3, chronic systolic Plan Revision of the leads on Discussed the patient
[2022-12-27] MEDS: ATORVASTATIN 80 MG TAB PO SCH (21:02)
[2022-12-28] MEDS: LACTATED RINGERS 1,000 ML IV SCH (06:59)
[2022-12-28] MEDS: ASPIRIN 81 MG PO SCH (08:59)
[2022-12-28] MEDS: METOPROLOL SUCCINATE (ER) 25 MG TAB.ER.24H PO SCH (08:59)
[2022-12-28] MEDS: SACUBITRIL/VALSARTAN 24 MG-26 MG TABLET PO SCH ×2 (08:59→22:20)
[2022-12-28] MEDS: APIXABAN 5 MG TAB PO SCH ×2 (08:59→22:20)
[2022-12-28] MEDS: FUROSEMIDE 40 MG TAB PO SCH (08:59)
[2022-12-28] MEDS: SPIRONOLACTONE 25 MG TAB PO SCH (08:59)
[2022-12-28] MEDS: AMIODARONE 100 MG TAB PO SCH (09:00)
[2022-12-28] MEDS: DAPAGLIFLOZIN PROPANEDIOL 10 MG TABLET PO SCH (09:00)
[2022-12-28] MEDS: LETROZOLE 2.5 MG TAB PO SCH (09:01)
[2022-12-28] MEDS: ATORVASTATIN 80 MG TAB PO SCH (22:20)
[2022-12-28] MEDS: HYDROcodone/APAP 10-325MG 1 EACH TAB PO PRN (22:50)
[2022-12-28] MEDS: SODIUM CHLORIDE 0.9% 1,000 ML IV SCH (23:44)
[2022-12-29] MEDS: DAPTOmycin 350 MG in SODIUM CHLORIDE 0.9% 50 ML IVPB SCH ×2 (06:06→11:41)
[2022-12-29] MEDS ORDERED: ceFAZolin 3 GM in SODIUM CHLORIDE 0.9% 100 ML IVPB PRN (07:00)
[2022-12-29] MEDS ORDERED: ceFAZolin 1 GM in SODIUM CHLORIDE 0.9% IRRIG BTL 250 ML IRRIGATION PRN (07:00)
--- NOTE | 2022-12-29 08:08 | P.PN ---
Subjective Patient was interviewed and examined on Monday No chest discomfort dizziness or lightheadedness She was encouraged to set up in the chair all day The pacemaker site does not have any bruising or soakage The dressing is dry On examination heart sounds S1 and S2 are normal Breath sounds are clear Impression history of cardio myopathy, ischemic Left bundle branch block CHF class 2-3 On guideline data medical treatment Right-sided Bi V ICD successful implant Dislodgment and pullout of the ICD lead as well as the left bundle lead with significant loss of healed on both leads and a minute loss of healed in the atrial lead is compared to a post implant images Plan Revision of the ICD lead and if possible the left bundle lead under general anesthesia tomorrow Discussed with the patient and her Objective - Vital Signs Vital signs: Vital Signs Temp 97.8 F 12/29/22 07:59 Pulse 63 12/29/22 07:59 Resp 12 12/29/22 07:59 BP 103/65 12/29/22 07:59 Pulse Ox 96 12/29/22 07:59 FiO2 Intake & Output 12/28/22 12/29/22 12/29/22 18:59 06:59 18:59 Other: Voiding Method Toilet Toilet # Voids 2 2 - Labs CBC & Chem 7: 12/26/22 08:30 12/26/22 08:30
[2022-12-29] MEDS ORDERED: MIDAZOLAM 2 MG/2 ML VIAL ONE (11:02)
[2022-12-29] MEDS ORDERED: KETAMINE HCL IN 0.9 % NACL 50 MG/5 ML SYRINGE ONE (11:02)
[2022-12-29] MEDS ORDERED: SUCCINYLCHOLINE CHLORIDE 200 MG/10 ML VIAL IV ONE (11:02)
[2022-12-29] MEDS ORDERED: PHENYLEPHRINE 10 MG/ML 5 ML VIAL ONE (11:02)
[2022-12-29] MEDS ORDERED: PROPOFOL 10 MG/ML 20 ML VIAL IV ONE (11:02)
[2022-12-29] MEDS ORDERED: fentaNYL (PF) 50 MCG/ML 2 ML AMP ONE (11:02)
[2022-12-29] MEDS ORDERED: LIDOCAINE 1% INJ 10MG/ML (20 ML MDV) ONE (11:02)
[2022-12-29] MEDS ORDERED: IV FLUID CONTINUATION 1,000 ML IV ONE (11:25)
[2022-12-29] MEDS ORDERED: IOPAMIDOL-370 100ML BTL IVP ONE (11:35)
[2022-12-29] MEDS ORDERED: LIDOCAINE 1% INJ 10MG/ML (20 ML MDV) SQ ONE (11:54)
[2022-12-29] MEDS ORDERED: ACETAMINOPHEN IV (For NPO) 1,000 MG in EMPTY BAG 1 BAG IVPB ONE (14:51)
--- NOTE | 2022-12-29 15:15 | P.EPPROC ---
- EP Procedure Note Electrophysiology Procedure Note: Diagnosis Patient underwent biventricular ICD implantation with left bundle pacing 2 days back Lead pulled, ICD lead, with significant loss of the heel and complete dislodgment Lead pulled, significant dislodgment of the left bundle lead Procedures performed today Under general anesthesia #1 ICD lead was repositioned in the RV apex with excellent sensing and thresholds and impedances #2 the left bundle lead was positioned in the LV septum, deep position avoiding the previous site #3 the atrial lead was stable in position as well as in electrical parameters #4 the LV veins/Antolin sinus was also mapped access into the coronary sinus was extremely difficult Details Patient was brought to the EP lab in a fasting state. General anesthesia provided ] Related prepped and draped as a protocol Venogram was performed to ensure patency of the vein An incision was made directly over the previous surgical site and carried down to the generator The leads were securely tied at the pectoralis muscle The left bundle lead sleeve was cut and the left bundle lead was extracted New axillary vein access was obtained and venous sheaths placed Following that the dislodged and withdrawn ICD lead was unscrewed. Repositioned in the RV septum just above the RV apex Screwed in position R waves 7 mV pacing impedance 779 ohms, high-voltage impedance 60 ohms and pacing threshold 0.75 V at 0.4 ms Thereafter the old left bundle lead was used to map RV septum However despite good contact with the current of injury was not optimal A new left bundle lead was then used to map. However coronary artery in the previous left bundle implant site was still suboptimal, likely due to edema Therefore the Antolin sinus sheath was placed in the Antolin sinus catheter was used to cannulate the coronary sinus However it could only cannulate the os of the coronary sinus. Because of the tortuosity of the coronary sinus, it would not advance any further. This was consistent with her prior implants were coronary dissection had occurred when attempted from the left side 7 years back The left bundle lead was then reimplanted and different position was obtained This time this was a deep septal position that was accepted The leads were secured to the underlying pectoralis muscle Always within interrogated Atrial lead was in excellent position with P waves of 2 mV, pacing impedance 399 ohms and pacing threshold 0.75 V at 0.4 ms The left bundle lead pacing impedance 399 ohms and pacing threshold was 1 warted 0.4 ms A deep W pattern was noted in lead V1 The procedure was long on account of mapping of the septum to get in November physician with 2 different leads as well as mapping for the coronary sinus Patient tolerated the procedure well without any acute complications The wound was closed in 3 layers after reimplanting the same generator COBALT HF MRI DF4
[2022-12-29] MEDS: ASPIRIN 81 MG PO SCH (17:07)
[2022-12-29] MEDS: DAPAGLIFLOZIN PROPANEDIOL 10 MG TABLET PO SCH (17:08)
[2022-12-29] MEDS: FUROSEMIDE 40 MG TAB PO SCH (17:08)
[2022-12-29] MEDS: LETROZOLE 2.5 MG TAB PO SCH (17:09)
[2022-12-29] MEDS: SACUBITRIL/VALSARTAN 24 MG-26 MG TABLET PO SCH ×2 (17:13→21:00)
[2022-12-29] MEDS: SPIRONOLACTONE 25 MG TAB PO SCH (17:14)
[2022-12-29] MEDS: LACTATED RINGERS 1,000 ML IV SCH (17:14)
[2022-12-29] MEDS: HYDROcodone/APAP 5-325MG 1 EACH TAB PO PRN (17:45)
[2022-12-29] MEDS: SODIUM CHLORIDE 0.9% 1,000 ML IV SCH (17:55)
[2022-12-29] MEDS ORDERED: ceFAZolin 3 GM in SODIUM CHLORIDE 0.9% 100 ML IVPB SCH (18:00)
[2022-12-29] MEDS: APIXABAN 5 MG TAB PO SCH ×2 (18:31→18:39)
[2022-12-29] MEDS: METOPROLOL SUCCINATE (ER) 25 MG TAB.ER.24H PO SCH (18:38)
[2022-12-29] MEDS: AMIODARONE 100 MG TAB PO SCH (18:45)
[2022-12-29] MEDS ORDERED: ONDANSETRON 4 MG/2 ML VIAL IVP PRN (19:29)
[2022-12-29] MEDS: ATORVASTATIN 80 MG TAB PO SCH (21:00)
[2022-12-29] MEDS: ACETAMINOPHEN TAB 325 MG TAB PO PRN (21:04)
[2022-12-30] MEDS: HYDROcodone/APAP 5-325MG 1 EACH TAB PO PRN (01:27)
[2022-12-30] MEDS: LACTATED RINGERS 1,000 ML IV SCH ×3 (04:51→23:57)
--- NOTE | 2022-12-30 08:17 | P.DS ---
Providers Date of admission: 12/30/22 07:35 Attending physician: Hair Díaz Primary care physician: [facility] Course: Patient is doing well No chest discomfort dizziness or lightheadedness Basic site is healed well On examination blood pressure 92/54 maneuvers mercury Heart sounds are normal breath sounds are clear Extremities warm Impression Congestive heart failure with left bundle-branch block and ischemic cardio myopathy Status post IV ICD in the right side Status post revision and reimplantation of leads on account of significant dislodgment Plan Increase dose of metoprolol 50 mrem by mouth daily Adequate hydration Ambulate in the hallways today If hemodynamically stable then she will go home today in follow-up with Dr. Dr. Campbell Plan - Discharge Summary Discharge Rx Participant: No New Discharge Prescriptions: New RX: Metoprolol Succinate [Toprol XL] 50 mg PO DAILY #90 tab RX: Amiodarone [Cordarone] 200 mg PO DAILY #90 tab Discontinued RX: Amiodarone [Cordarone] 200 mg PO DAILY Metoprolol Succinate [Metoprolol Succinate ER] 25 mg PO DAILY No Action RX: Letrozole [Femara] 2.5 mg PO DAILY RX: Apixaban [Eliquis] 5 mg PO BID #60 tab RX: Atorvastatin [Lipitor] 80 mg PO HS #30 tab RX: Spironolactone [Aldactone] 12.5 mg PO DAILY RX: Melatonin [Melatonin ER] 10 mg PO HS Sacubitril/Valsartan [Entresto 24 mg-26 mg Tablet] 1 each PO BID Dapagliflozin Propanediol [Farxiga] 1 tab PO DAILY Furosemide [Lasix] 40 mg PO DAILY RX: Aspirin [Adult Low Dose Aspirin EC] 81 mg PO DAILY Cetirizine HCl [Zyrtec] 10 mg PO DAILY Discharge Medication List RX: Letrozole [Femara] 2.5 mg PO DAILY 06/06/16 [History] RX: Apixaban [Eliquis] 5 mg PO BID #60 tab 12/12/18 [Rx] RX: Atorvastatin [Lipitor] 80 mg PO HS #30 tab 12/12/18 [Rx] RX: Aspirin [Adult Low Dose Aspirin EC] 81 mg PO DAILY 03/25/21 [History] RX: Melatonin [Melatonin ER] 10 mg PO HS 06/03/21 [History] RX: Spironolactone [Aldactone] 12.5 mg PO DAILY 06/03/21 [History] Dapagliflozin Propanediol [Farxiga] 1 tab PO DAILY 09/30/22 [History] Sacubitril/Valsartan [Entresto 24 mg-26 mg Tablet] 1 each PO BID 09/30/22 [History] Furosemide [Lasix] 40 mg PO DAILY 11/23/22 [History] Cetirizine HCl [Zyrtec] 10 mg PO DAILY 12/22/22 [History] RX: Amiodarone [Cordarone] 200 mg PO DAILY #90 tab 12/26/22 [Rx] RX: Metoprolol Succinate [Toprol XL] 50 mg PO DAILY #90 tab 12/29/22 [Rx] Follow up Appointment(s)/Referral(s): Ethan Campbell MD [STAFF PHYSICIAN] - 1 Week Activity/Diet/Wound Care/Special Instructions: PATIENT EDUCATION MATERIAL Instructions following a heart rhythm device implant. 1. Keep dressing DRY for 5 DAYS. You may cover the area with Saran or Cling Wrap, prior to a shower. 2. The dressing will be removed in the Device Clinic at [facility]. Absorbable sutures were used to close the wound. 3. Avoid raising the left arm above the shoulder level. 4 week restriction 4. Avoid arm movements, like backscratching, rubbing the head, or pulling on a cord. 4 weeks restriction 5. Gentle range of motion movements of the shoulder, closest to the incision should be performed to avoid a frozen shoulder. (Pendulum exercises of the shoulder) 6. The opposite arm may be used freely. 7. Avoid driving for 7 days. 8. Avoid activities such as golfing, swimming, weed whacking, lifting more than 10 pounds weight, bowling, gymnastics and weight training/lifting. (6 weeks restriction) 9. Activities such as wood chopping with an axe, pull-ups in the gymnasium, power lifting, arc-welding, being close to home induction cooktops will always be a problem. 10. Arm sling is only a reminder not to raise the arm above the head. You do not need to keep the arm completely immobilized. Your free to move the arm and use it and for normal activities. In case of any problems, please call [facility], [facility] Keith, @ [phone], Attention: Device Clinic Device clinic follow-up in 5 days Follow-up with primary program evaluator in 2-3 months Increase metoprolol succinate to 50 mg daily
[2022-12-30] MEDS: APIXABAN 5 MG TAB PO SCH ×2 (09:31→21:02)
[2022-12-30] MEDS: AMIODARONE 100 MG TAB PO SCH (09:31)
[2022-12-30] MEDS: FUROSEMIDE 40 MG TAB PO SCH (09:31)
[2022-12-30] MEDS: SPIRONOLACTONE 25 MG TAB PO SCH (09:32)
[2022-12-30] MEDS: ASPIRIN 81 MG PO SCH (09:32)
[2022-12-30] MEDS: SACUBITRIL/VALSARTAN 24 MG-26 MG TABLET PO SCH ×2 (09:33→21:02)
[2022-12-30] MEDS: DAPAGLIFLOZIN PROPANEDIOL 10 MG TABLET PO SCH (09:33)
[2022-12-30] MEDS: METOPROLOL SUCCINATE (ER) 50 MG TAB.ER.24H PO SCH (09:34)
[2022-12-30] MEDS: LETROZOLE 2.5 MG TAB PO SCH (09:34)
[2022-12-30] MEDS: SODIUM CHLORIDE 0.9% 1,000 ML IV SCH (12:27)
[2022-12-30] MEDS: ACETAMINOPHEN TAB 325 MG TAB PO PRN ×2 (12:38→18:46)
--- NOTE | 2022-12-30 13:10 | XR ---
EXAMINATION TYPE: XR chest 1V portable DATE OF EXAM: 12/30/2022 Comparison: 12/27/2022 Clinical History: 67-year-old female Lead placement check Findings: Right anterior chest wall ICD generator with right atrial, coronary sinus, right ventricular leads. N o appreciable pneumothorax. Heart upper limits of normal in size. Suspect some strandy atelectasis in the lower lungs. No appreciable pneumothorax. Impression: Right anterior chest wall AICD generator with right atrial, (?)coronary sinus, and right ventricular leads. The questioned coronary sinus lead could be confirmed with a lateral view. No acute process se en.
[2022-12-30] MEDS: ATORVASTATIN 80 MG TAB PO SCH (21:02)
[2022-12-31] MEDS: DAPTOmycin 350 MG in SODIUM CHLORIDE 0.9% 50 ML IVPB SCH (06:14)
[2022-12-31] MEDS: HYDROcodone/APAP 5-325MG 1 EACH TAB PO PRN (06:36)
[2022-12-31 07:50] VITALS: BP 130/60; PULSE 74; RESP 20; TEMP 98.4
[2022-12-31] MEDS: ASPIRIN 81 MG PO SCH (09:54)
[2022-12-31] MEDS: SACUBITRIL/VALSARTAN 24 MG-26 MG TABLET PO SCH (09:54)
[2022-12-31] MEDS: AMIODARONE 100 MG TAB PO SCH (09:54)
[2022-12-31] MEDS: DAPAGLIFLOZIN PROPANEDIOL 10 MG TABLET PO SCH (09:54)
[2022-12-31] MEDS: SPIRONOLACTONE 25 MG TAB PO SCH (09:54)
[2022-12-31] MEDS: FUROSEMIDE 40 MG TAB PO SCH (09:54)
[2022-12-31] MEDS: APIXABAN 5 MG TAB PO SCH (09:54)
[2022-12-31] MEDS: METOPROLOL SUCCINATE (ER) 50 MG TAB.ER.24H PO SCH (09:54)
[2022-12-31] MEDS: LETROZOLE 2.5 MG TAB PO SCH (09:54)
--- NOTE | 2022-12-31 09:59 | P.DS ---
Providers Date of admission: 12/30/22 07:35 Attending physician: Hair Díaz Primary care physician: [facility] Course: This is a 67-year-old female who underwent by BiV ICD and subsequent revision and reimplantation of leads on account of significant dislodgment. Patient examined this morning at the bedside. Patient is doing well. She reports a mild headache this morning. She denies chest pain or pressure. Denies shortness of breath. Vital signs are stable. The patient has been deemed stable for discharge home today. She is to follow up outpatient with Dr. Campbell. Discharge diagnosis Congestive heart failure with left bundle-branch block and ischemic cardio myopathy Status post IV ICD in the right side Status post revision and reimplantation of leads on account of significant dislodgment Nurse practitioner note has been reviewed by physician. Signing provider agrees with the documented findings, assessment, and plan of care. Plan - Discharge Summary Discharge Rx Participant: No New Discharge Prescriptions: New Metoprolol Succinate [Toprol XL] 50 mg PO DAILY #90 tab Amiodarone [Cordarone] 200 mg PO DAILY #90 tab Discontinued Amiodarone [Cordarone] 200 mg PO DAILY Metoprolol Succinate [Metoprolol Succinate ER] 25 mg PO DAILY No Action Letrozole [Femara] 2.5 mg PO DAILY Apixaban [Eliquis] 5 mg PO BID #60 tab Atorvastatin [Lipitor] 80 mg PO HS #30 tab Spironolactone [Aldactone] 12.5 mg PO DAILY Melatonin [Melatonin ER] 10 mg PO HS Sacubitril/Valsartan [Entresto 24 mg-26 mg Tablet] 1 each PO BID Dapagliflozin Propanediol [Farxiga] 1 tab PO DAILY Furosemide [Lasix] 40 mg PO DAILY Aspirin [Adult Low Dose Aspirin EC] 81 mg PO DAILY Cetirizine HCl [Zyrtec] 10 mg PO DAILY Discharge Medication List Letrozole [Femara] 2.5 mg PO DAILY 06/06/16 [History] Apixaban [Eliquis] 5 mg PO BID #60 tab 12/12/18 [Rx] Atorvastatin [Lipitor] 80 mg PO HS #30 tab 12/12/18 [Rx] Aspirin [Adult Low Dose Aspirin EC] 81 mg PO DAILY 03/25/21 [History] Melatonin [Melatonin ER] 10 mg PO HS 06/03/21 [History] Spironolactone [Aldactone] 12.5 mg PO DAILY 06/03/21 [History] Dapagliflozin Propanediol [Farxiga] 1 tab PO DAILY 09/30/22 [History] Sacubitril/Valsartan [Entresto 24 mg-26 mg Tablet] 1 each PO BID 09/30/22 [History] Furosemide [Lasix] 40 mg PO DAILY 11/23/22 [History] Cetirizine HCl [Zyrtec] 10 mg PO DAILY 12/22/22 [History] Amiodarone [Cordarone] 200 mg PO DAILY #90 tab 12/26/22 [Rx] Metoprolol Succinate [Toprol XL] 50 mg PO DAILY #90 tab 12/29/22 [Rx] Follow up Appointment(s)/Referral(s): Ethan Campbell MD [STAFF PHYSICIAN] - 1 Week (Office will call patient. ) Activity/Diet/Wound Care/Special Instructions: PATIENT EDUCATION MATERIAL Instructions following a heart rhythm device implant. 1. Keep dressing DRY for 5 DAYS. You may cover the area with Saran or Cling Wrap, prior to a shower. 2. The dressing will be removed in the Device Clinic at [facility]. Absorbable sutures were used to close the wound. 3. Avoid raising the left arm above the shoulder level. 4 week restriction 4. Avoid arm movements, like backscratching, rubbing the head, or pulling on a cord. 4 weeks restriction 5. Gentle range of motion movements of the shoulder, closest to the incision should be performed to avoid a frozen shoulder. (Pendulum exercises of the shoulder) 6. The opposite arm may be used freely. 7. Avoid driving for 7 days. 8. Avoid activities such as golfing, swimming, weed whacking, lifting more than 10 pounds weight, bowling, gymnastics and weight training/lifting. (6 weeks restriction) 9. Activities such as wood chopping with an axe, pull-ups in the gymnasium, power lifting, arc-welding, being close to home induction cooktops will always be a problem. 10. Arm sling is only a reminder not to raise the arm above the head. You do not need to keep the arm completely immobilized. Your free to move the arm and use it and for normal activities. In case of any problems, please call [facility], [place], @ [phone], Attention: Device Clinic Device clinic follow-up in 5 days Follow-up with primary stucco laborer in 2-3 months Increase metoprolol succinate to 50 mg daily
[2022-12-31] MEDS: LACTATED RINGERS 1,000 ML IV SCH (10:32)
== END 2022-12-31 12:17 | disposition home or self-care (01) | DRG 277 ==
LOC: CATHEP 08:07 → 6NMEDSUR 15:56 → CATHEP 12-29 09:40 → 6NMEDSUR 12-29 09:40 → CATHEP 12-30 07:30 → 6NMEDSUR 12-30 07:35
PROVIDERS: ADMIT Internal Medicine Clinical Cardiac Electrophysiology; ATTEND Internal Medicine Clinical Cardiac Electrophysiology
PROC: 02HK3JZ Insertion of Pacemaker Lead into Right Ventricle, Percutaneous Approach (ICD-10-PCS; 2022-12-26)
PROC: 02H63KZ Insertion of Defibrillator Lead into Right Atrium, Percutaneous Approach (ICD-10-PCS; 2022-12-26)
PROC: 0JH609Z Insertion of Cardiac Resynchronization Defibrillator Pulse Generator into Chest Subcutaneous Tissue and Fascia, Open Approach (ICD-10-PCS; principal; 2022-12-26 10:30)
PROC: 02HK3KZ Insertion of Defibrillator Lead into Right Ventricle, Percutaneous Approach (ICD-10-PCS; 2022-12-26 10:30)
PROC: 4B02XTZ Measurement of Cardiac Defibrillator, External Approach (ICD-10-PCS; 2022-12-27)
PROC: 02WA3MZ Revision of Cardiac Lead in Heart, Percutaneous Approach (ICD-10-PCS; 2022-12-29)
DX: I11.0 Hypertensive heart disease with heart failure (principal); I45.2 Bifascicular block; E78.2 Mixed hyperlipidemia; I50.22 Chronic systolic (congestive) heart failure; I48.91 Unspecified atrial fibrillation; I25.5 Ischemic cardiomyopathy; R51.9 Headache, unspecified; I25.10 Atherosclerotic heart disease of native coronary artery without angina pectoris; Z95.5 Presence of coronary angioplasty implant and graft; Z79.82 Long term (current) use of aspirin; Z79.01 Long term (current) use of anticoagulants; Z79.84 Long term (current) use of oral hypoglycemic drugs; Z87.891 Personal history of nicotine dependence; Z79.899 Other long term (current) drug therapy; Z82.49 Family history of ischemic heart disease and other diseases of the circulatory system
CPT/HCPCS: 33215; 33216; 33225; 33249; 71045; 71046; 76000; 80053; 84439; 84443; 85025

== ENCOUNTER → 2023-04-19 | Outpatient (CLI) | payer MEDICARE ==
--- NOTE | 2023-04-19 21:25 | BD ---
EXAMINATION TYPE: Axial Bone Density DATE OF EXAM: 04/19/2023 CLINICAL HISTORY: 67 years old Female. ICD-10 CODE: C50.112 BREAST CANCER Height: 65 Weight: 304 FRAX RISK QUESTIONS: Glucocorticoids (More than 3mos): yes (Ex: prednisone, prednisolone, methylprednisolone, dexamethasone, and hydrocortisone). RISK FACTORS HISTORY OF: MEDICATIONS: Thyroid Medications: Which medication: Levothyroxine How Long: less than a year EXAM MEASUREMENTS: Bone mineral densitometry was performed using the [employer] System. Bone mineral density as measured about the Lumbar spine is: ----- L1-L4(G/cm2): 1.199 T Score Values are as follows: ----- L1: -0.3 ----- L2: 0.5 ----- L3: 0.9 ----- L4: -0.5 ----- L1-L4: 0.2 Z Score Values are as follows: ----- L1: 0.1 ----- L2: 0.9 ----- L3: 1.3 ----- L4: 0.0 ----- L1-L4: 0.6 Bone mineral density has: Decreased -5.6% since study of: 03-30-21 Bone mineral density about the R hip (g/cm2): 1.005 Bone mineral density about the L hip (g/cm2): 0.995 T Score values are as follows: -----R Neck: -1.0 -----L Neck: -1.3 -----R Total: 0.0 -----L Total: -0.1 Z Score values are as follows: -----R Neck: -0.2 -----L Neck: -0.5 -----R Total: 0.5 -----L Total: 0.4 Bone mineral density has: Decreased -7.1% since study of: 03-30-2021 FRAX%s: The graph provided illustrates a 11.5% chance for a major osteoporotic fx and a 1.2% chance f or the hips probability for fx in 10 years time. IMPRESSION: Normal (Values between +1 and -1 indicate normal bone mass). Consider repeating this study in 5 year s or sooner if there is some new clinical indication. NOTE: T-SCORE=SD OF THE YOUNG ADULT MEAN.
== END | disposition home or self-care (01) ==
LOC: RADBDWWP 12:44
PROVIDERS: ATTEND Internal Medicine Hematology & Oncology
DX: C50.112 Malignant neoplasm of central portion of left female breast (principal); I42.9 Cardiomyopathy, unspecified; I10 Essential (primary) hypertension; E78.2 Mixed hyperlipidemia; G62.0 Drug-induced polyneuropathy; I25.10 Atherosclerotic heart disease of native coronary artery without angina pectoris
CPT/HCPCS: 77080

== ENCOUNTER → 2023-09-19 | Outpatient (CLI) | payer MEDICARE ==
--- NOTE | 2023-09-21 12:07 | MM ---
Reason for Exam: Hx of breast cancer, mastectomy. Last screening mammogram was performed 12 month(s) ago. Patient History: Menarche at age 13. First Full-Term at age 28. Postmenopausal. Patient has history of breast feeding. Breast cancer, left, age 59. Previous chest radiation therapy at age 59. Previous chemotherapy at age 59. 04/27/2015, Ultrasound-Guided Core Biopsy on the Left side. 04/27/2015, Malignant Stereotactic Core Biopsy on the left side. 2015, Mastectomy on the Left side. 09/13/2016, High risk Core Biopsy on the right side. 07/28/2016, High risk Core Biopsy on the right side. 2015, Chemotherapy. 06/07/2016, Implant Removal on the left side. 2015, Radiation Therapy on the left side. 2015, Chemotherapy. Mother had breast cancer, age 50. Prior Study Comparison: 07/28/2016 Right Diagnostic Mammogram, [facility]. 08/18/2016 Right Diagnostic Mammogram, [facility]. 03/07/2017 Right Diagnostic Mammogram, [facility]. 09/07/2017 Right Diagnostic Mammogram, [facility]. 03/06/2018 Right Diagnostic Mammogram, [facility]. 09/13/2018 Right Diagnostic Mammogram, [facility]. 09/16/2019 Right Diagnostic Mammogram, [facility]. 09/17/2020 Right Diagnostic Mammogram, [facility]. 08/30/2021 Right MG 3D diag mammo w/cad RT, [facility]. 09/01/2022 Right MG 3D diag mammo w/cad RT, [facility]. Tissue Density: Right: The breasts are almost entirely fatty. Findings: Analyzed By CAD. There is no suspicious group of microcalcifications or new suspicious mass in the right breast. Overall Assessment: Benign, BI-RAD 2 Management: Screening Mammogram of the right breast in 1 year. . Patient should continue monthly self-breast exams. A clinical breast exam by your physician is recommended on an annual basis. This exam should not preclude additional follow-up of suspicious palpable abnormalities. Note on Citlaly scores and lifetime risk: 1. A Citlaly score greater than 3% is considered moderate risk. If this is the case, consider specialist referral to assess eligibility for a risk reducing agent. 2. If overall lifetime risk for the development of breast cancer is 20% or higher, the patient may qualify for future screening with alternating mammogram and breast MRI. Electronically signed and approved by: Isidro Strickland M.D. Radiologis
== END | disposition home or self-care (01) ==
LOC: RADMAMWWP 09:17
PROVIDERS: ATTEND Surgery
DX: Z12.31 Encounter for screening mammogram for malignant neoplasm of breast (principal); R92.311 Mammographic fatty tissue density, right breast; C50.112 Malignant neoplasm of central portion of left female breast; I10 Essential (primary) hypertension; E78.5 Hyperlipidemia, unspecified; G62.0 Drug-induced polyneuropathy; I25.10 Atherosclerotic heart disease of native coronary artery without angina pectoris; I42.9 Cardiomyopathy, unspecified; Z71.3 Dietary counseling and surveillance; Z78.0 Asymptomatic menopausal state; Z80.3 Family history of malignant neoplasm of breast
CPT/HCPCS: 77067

== ENCOUNTER → 2023-10-26 | Outpatient (CLI) | payer MEDICARE ==
[2023-10-26 11:22] VITALS: BP 110/74; PULSE 102; RESP 16; TEMP 97.7
--- NOTE | 2023-10-26 11:29 | P.PN ---
Subjective Progress Note Date: 10/26/23 09/30/22 Principal diagnosis: left breast stage III invasive ductal cancer 2015 Mary is a 68-year-old white female with a history of stage III moderately differentiated invasive ductal carcinoma of the left breast. This was ER/CA positive and HER-2 negative. She is status post neoadjuvant therapy followed by a left breast mastectomy with immediate reconstruction. She subsequently underwent postmastectomy radiotherapy directed to the reconstructed breast and lymphatics. This finished in March 2016. She developed an infection and was necessary to have her centerless grinder removed. She has no evidence of any infection at this time. She has had a right breast partial resection which was benign, and there are clips making the area of the biopsy cavity. She has seen a plastic surgeon in considering reconstruction in the future. The patient was scheduled for reconstruction in November 2018, however a week prior she had a myocardial infarction. She now has an internal pacemaker and defibrillator . She had 100% blockage of her left descending artery and a stent was placed. She was noted to have a low ejection fraction on echo and therefore the internal pacemaker and defibrillator were placed. At that time her reconstruction was on hold until she is stable from a cardiac standpoint. She is also seen by Dr. Martinez and no longer following with Dr. Finch . She has intermittent cramping of the muscle of the left chest wall it has improved. She has no lumps or masses in her right breast of concern. No nipple discharge or skin changes of concern. Most recently right breast mammogram was done on . This is benign BIRADS 2. Medical oncology note from 04-07-[address] Martinez was reviewed. Continue Letrazole and continue calcium and vitamin D supplement as per medical oncology. At this time the patient is not complaining of any new changes in her right breast or chest wall. The patient developed an infection of her pacemaker defibrillator in April 2021. It was necessary that this be removed and this was done at [facility]. She was in the hospital for approximately a week April 2021. She subsequently was discharged and developed an infection of the seroma at that site. She was then hospitalized at [facility]. At this time she does not have a pacemaker defibrillator in place[place] [id number]. They were considering whether this was necessary in September of 2022. She developed a new area of nodularity at the pacemaker/defibrillator resection site. This is presumed to be consistent with scar tissue. She does not note any other new lumps masses or nodules of concern in her right breast or on her chest wall. The area of nodularity has since decreased in size. The patient does not note any new lumps masses or nodules of concern on the chest wall or in the right breast. The patient in May of 2022 developed fluid retention but improved at this time. She has lost 60 pounds since May 2022. She did have the pacemaker replaced as of 2023. She is not complaining of any new lumps masses or nodules of concern in the right breast or on the left chest wall. She does have some concerns regarding the defect on the left chest wall and would like to have this repaired. She continues to have some nodularity at the site of the pacemaker where it was removed on the left side which is most likely believed to be scar tissue. Family history: 1. mother: breast cancer 2. father: cancer ? type 3. paternal aunt: brain Hormonal History: menarche: 13 1 [place], breast fed: yes, first born at 29 menopause: 50 BCP: none hormones: antiestrogen complains of sweating with this Surgical history: 1. 3 C-sections 2. Left mastectomy, Port-A-Cath, centerless grinder placed and removed 3. left coronary artery stent placed 4. Internal pacemaker and defibrillator 5. removal of pacemaker/defibrillator 6. replacement of pacemaker Medical history: 1. Hypertension 2. Myocardial infarction 3. BMI 54.9 4. vertigo Social history: Smoke: Negative Alcohol: Occasional Drugs: Negative Review of systems: HEENT: none lung: none heart: HTN, [place] GI: none Gu: none Musculoskeletal: Arthritis Neurologic: Neuropathy hands and feet Psychiatric: Negative skin: none allergies: Seasonal Objective - Constitutional General appearance: Present: cooperative - EENT Eyes: Present: EOMI ENT: Present: hearing grossly normal - Neck Neck: Present: normal ROM - Respiratory Respiratory: bilateral: CTA - Cardiovascular Rhythm: regular Heart sounds: normal: S1, S2 - Integumentary Integumentary: Present: normal turgor - Musculoskeletal Musculoskeletal: Present: gait normal - Psychiatric Psychiatric: Present: A&O x's 3, appropriate affect, intact judgment & insight - Additional findings Additional findings: Breast Exam: Bra: 44B Inspection: Right breast grade 3 ptosis, left chest wall no evidence of active infection Palpation: Right breast: Multi-positional exam no dominant masses or nodules of concern Right axilla: No adenopathy of concern Left chest wall: No evidence of recurrent cancer, the pacemaker defibrillator has been removed although there is what is believed to be remaining scar tissue at this site, there is no evidence of active infection or disease at this time; redundant skin at the left chest wall, defect where implant got infected in 2016 Left axilla: No adenopathy of concern Assessment and Plan Assessment: Impression: Stage III left breast cancer no evidence of recurrence Patient remains on letrazole Pacemaker/defibrillator removed from left chest wall, replaced right chest wall Probable scar tissue left chest wall Plan: Continue to follow with medical oncology/continue letrazole Repeat right breast mammogram August 2024 Follow with cardiology Continue to follow with Dr. Gonzalez We have talked about the patient having an ultrasound of the area of firmness on the left chest wall and a biopsy I recommended this. consider revision of scar left chest wall follow up in 1 year CC: Dr. Gonzalez
== END ==
LOC: WWCWWP 10:48
PROVIDERS: ATTEND Surgery
DX: C50.912 Malignant neoplasm of unspecified site of left female breast (principal); I25.2 Old myocardial infarction; Z17.0 Estrogen receptor positive status [ER+]; Z80.3 Family history of malignant neoplasm of breast; Z90.12 Acquired absence of left breast and nipple; Z95.5 Presence of coronary angioplasty implant and graft; Z88.1 Allergy status to other antibiotic agents; Z88.6 Allergy status to analgesic agent; Z91.014 Allergy to mammalian meats; Z91.011 Allergy to milk products; Z91.040 Latex allergy status; Z88.8 Allergy status to other drugs, medicaments and biological substances; Z79.01 Long term (current) use of anticoagulants

== ENCOUNTER → 2023-10-26 | Outpatient (CLI) | payer MEDICARE ==
--- NOTE | 2023-10-26 14:48 | USB ---
Reason for Exam: Clinical finding. Patient History: Menarche at age 13. First Full-Term at age 28. Postmenopausal. Patient has history of breast feeding. Breast cancer, left, age 59. Previous chest radiation therapy at age 59. Previous chemotherapy at age 59. 04/27/2015, Ultrasound-Guided Core Biopsy on the Left side. 04/27/2015, Malignant Stereotactic Core Biopsy on the left side. 2015, Mastectomy on the Left side. 09/13/2016, High risk Core Biopsy on the right side. 07/28/2016, High risk Core Biopsy on the right side. 2015, Chemotherapy. 06/07/2016, Implant Removal on the left side. 2015, Radiation Therapy on the left side. 2015, Chemotherapy. Mother had breast cancer, age 50. Technique: Method: Whole Breast Handheld. Prior Study Comparison: 08/30/2021 Right MG 3D diag mammo w/cad RT, [facility]. 09/01/2022 Right MG 3D diag mammo w/cad RT, [facility]. 09/19/2023 Right MG screen mara unilateral w/cad, [facility]. Findings: The whole breast of the left breast and the axilla of the left breast were scanned. A complete US of all four quadrants of the breast common axilla, and retro-areolar region were reviewed. At the 12:00 position, 5 cm from the nipple, there is a heterogeneous hypoechoic lesion measuring 1.4 x 1.7 x 0.4 cm showing small internal cystic areas. An shadowing is present. Postoperative change is suspected but tissue sampling can BE performed prior to any breast revision surgery. At the 12:00 position, 5 cm from the nipple, just adjacent, there is a benign 8 mm cyst. At the 3:00 position, there is a platelike area of fluid measuring 3.9 x 0.5 x 3.3 cm, likely chronic postoperative seroma. No other solid or cystic lesion or axillary lymphadenopathy. Overall Assessment: Suspicious, BI-RAD 4 Management: Ultrasound Core Biopsy of the left breast. Single site 12:00 position. Results were given to the patient verbally at the time of exam. Electronically signed and approved by: Allison Ralph M.D. Radiologist
== END | disposition home or self-care (01) ==
LOC: RADUSWWP 13:27
PROVIDERS: ATTEND Surgery
DX: C50.912 Malignant neoplasm of unspecified site of left female breast (principal); Z85.3 Personal history of malignant neoplasm of breast; Z78.0 Asymptomatic menopausal state; Z80.3 Family history of malignant neoplasm of breast

== ENCOUNTER → 2023-11-14 | Day surgery (SDC) | payer MEDICARE ==
--- NOTE | 2023-11-22 11:37 | USB ---
Prior Study Comparison: 08/30/2021 Right MG 3D diag mammo w/cad RT, [facility]. 09/01/2022 Right MG 3D diag mammo w/cad RT, [facility]. 09/19/2023 Right MG screen mara unilateral w/cad, [facility]. Pathology Description: Location: 12 o'clock. Needle Type: Mammotome Cores: 4 Skin Nicks: 1 Gauge: 13 The procedure of ultrasound guided core biopsy was explained to the patient. Benefits, alternatives, and risks were discussed. An informed consent was then obtained. A timeout was performed. The patient was placed in supine positioning for imaging and for the procedure. The overlying skin was prepped and draped in usual sterile fashion. Lidocaine was used as anesthetic into the skin and subcutaneous tissue up to area of concern in the breast. A small skin enrique was made with surgical scalpel. Under ultrasound guidance, a 12-gauge vacuum assisted biopsy gun device was used to obtain 4 core samples. A biopsy clip was left in lesion. Hydromark butterfly core marker was placed. The patient tolerated the procedure well without any immediate complication. The patient was kept in the radiology department for short stay after the procedure and then discharged home in stable condition. Postprocedure mammogram: The patient was transferred to mammography for physician ordered post procedure mammogram for clip placement verification. Impression: Successful ultrasound guided core biopsy of area of concern in the left chest wall, full pathology results to follow. Recommendations: 1. Recommendations are pending pathology results. [facility], , 11/14/2023 2:27 PM. Pathology Results: Result: Benign, Fat necrosis. Pathology and radiology were reviewed. Findings are concordant. LEFT BREAST, BIOPSY: Fibrous scar with fat necrosis, focal microcalcification, and histiocytosis. Current specimen negative for malignancy. Overall Assessment: Benign Management: Diagnostic Breast Ultrasound of the left breast in 6 months. Electronically signed and approved by: Gaston Flores D.O. Radiologis
== END ==
LOC: RADUSWWP 12:43
PROVIDERS: ATTEND Surgery
DX: R92.8 Other abnormal and inconclusive findings on diagnostic imaging of breast
CPT/HCPCS: 88305

== ENCOUNTER → 2023-11-24 | Outpatient (CLI) | payer MEDICARE ==
--- NOTE | 2023-11-24 15:12 | P.PN ---
Subjective Progress Note Date: 11/24/23 10/26/23 09/30/22 Principal diagnosis: left breast stage III invasive ductal cancer 2016 Mary is a 68-year-old white female with a history of stage III moderately differentiated invasive ductal carcinoma of the left breast. This was ER/VT positive and HER-2 negative. She is status post neoadjuvant therapy followed by a left breast mastectomy with immediate reconstruction. She subsequently underwent postmastectomy radiotherapy directed to the reconstructed breast and lymphatics. This finished in March 2016. She developed an infection and was necessary to have her automotive shop foreman removed. She has no evidence of any infection at this time. She has had a right breast partial resection which was benign, and there are clips making the area of the biopsy cavity. She has seen a plastic surgeon in considering reconstruction in the future. The patient was scheduled for reconstruction in November 2018, however a week prior she had a myocardial infarction. She now has an internal pacemaker and defibrillator . She had 100% blockage of her left descending artery and a stent was placed. She was noted to have a low ejection fraction on echo and therefore the internal pacemaker and defibrillator were placed. At that time her reconstruction was on hold until she is stable from a cardiac standpoint. She is also seen by Dr. Martinez and no longer following with Dr. Finch . She has intermittent cramping of the muscle of the left chest wall it has improved. She has no lumps or masses in her right breast of concern. No nipple discharge or skin changes of concern. Most recently right breast mammogram was done on . This is benign BIRADS 2. Medical oncology note from 04-07-[address] Martinez was reviewed. Continue Letrazole and continue calcium and vitamin D supplement as per medical oncology. At this time the patient is not complaining of any new changes in her right breast or chest wall. The patient developed an infection of her pacemaker defibrillator in April 2021. It was necessary that this be removed and this was done at [facility]. She was in the hospital for approximately a week April 2021. She subsequently was discharged and developed an infection of the seroma at that site. She was then hospitalized at [facility]. At this time she does not have a pacemaker defibrillator in place[place] [id number]. They were considering whether this was necessary in September of 2022. She developed a new area of nodularity at the pacemaker/defibrillator resection site. This is presumed to be consistent with scar tissue. She does not note any other new lumps masses or nodules of concern in her right breast or on her chest wall. The area of nodularity has since decreased in size. The patient does not note any new lumps masses or nodules of concern on the chest wall or in the right breast. The patient in May of 2022 developed fluid retention but improved at this time. She has lost 60 pounds since May 2022. She did have the pacemaker replaced as of 2023. She is not complaining of any new lumps masses or nodules of concern in the right breast or on the left chest wall. She does have some concerns regarding the defect on the left chest wall and would like to have this repaired. She continues to have some nodularity at the site of the pacemaker where it was removed on the left side which is most likely believed to be scar tissue. On her last visit of 10-26-2023 we had some concerns regarding some fullness in the left chest wall. Left ultrasound was performed on 10-26-2023. This was co nsidered suspicious BI-RADS 4 and an ultrasound core biopsy was performed. The results revealed fibrous scar with fat necrosis, focal microcalcification and histiocytes. No evidence of any cancer. Family history: 1. mother: breast cancer 2. father: cancer ? type 3. paternal aunt: brain Hormonal History: menarche: 13 1 [place]age, breast fed: yes, first born at 29 menopause: 50 BCP: none hormones: antiestrogen complains of sweating with this Surgical history: 1. 3 C-sections 2. Left mastectomy, Port-A-Cath, automotive shop foreman placed and removed 3. left coronary artery stent placed 4. Internal pacemaker and defibrillator 5. removal of pacemaker/defibrillator 6. replacement of pacemaker Medical history: 1. Hypertension 2. Myocardial infarction 3. BMI 54.9 4. vertigo Social history: Smoke: Negative Alcohol: Occasional Drugs: Negative Review of systems: HEENT: none lung: none heart: HTN, CT GI: none Gu: none Musculoskeletal: Arthritis Neurologic: Neuropathy hands and feet Psychiatric: Negative skin: none allergies: Seasonal Objective - Constitutional General appearance: Present: cooperative - EENT Eyes: Present: EOMI ENT: Present: hearing grossly normal - Neck Neck: Present: normal ROM - Respiratory Respiratory: bilateral: CTA - Cardiovascular Rhythm: regular Heart sounds: normal: S1, S2 - Integumentary Integumentary: Present: normal turgor - Musculoskeletal Musculoskeletal: Present: gait normal - Psychiatric Psychiatric: Present: A&O x's 3, appropriate affect, intact judgment & insight - Additional findings Additional findings: Breast Exam: Bra: 44B Inspection: Right breast grade 3 ptosis, left chest wall no evidence of active infection Palpation: Right breast: Multi-positional exam no dominant masses or nodules of concern Right axilla: No adenopathy of concern Left chest wall: No evidence of recurrent cancer, the pacemaker defibrillator has been removed although there is what is believed to be remaining scar tissue at this site, there is no evidence of active infection or disease at this time; redundant skin at the left chest wall, defect where implant got infected in 2016; area of cavitation in the left chest wall is 8 cm x 3 cm Left axilla: No adenopathy of concern Assessment and Plan Assessment: Impression: Stage III left breast cancer no evidence of recurrence Patient remains on letrazole Pacemaker/defibrillator removed from left chest wall, replaced right chest wall Probable scar tissue left chest wall Plan: Continue to follow with medical oncology/continue letrazole Repeat right breast mammogram August 2024 Follow with cardiology/from Dr. Guzman clearance for revision of left chest wall Continue to follow with Dr. Gonzalez clearance for revision of left chest wall wound revision of scar left chest wall Preoperative discussion with the wound clinic doctors regarding possible preoxygenation prior to surgery CC: Dr. Gonzalez Additional CC's: Tu Gonzalez
== END ==
LOC: WWCWWP 14:24
PROVIDERS: ATTEND Surgery
DX: R92.8 Other abnormal and inconclusive findings on diagnostic imaging of breast (principal); R92.0 Mammographic microcalcification found on diagnostic imaging of breast; I25.2 Old myocardial infarction; Z85.3 Personal history of malignant neoplasm of breast; Z90.12 Acquired absence of left breast and nipple; Z80.3 Family history of malignant neoplasm of breast; Z95.5 Presence of coronary angioplasty implant and graft; Z91.09 Other allergy status, other than to drugs and biological substances; Z88.6 Allergy status to analgesic agent; Z88.1 Allergy status to other antibiotic agents; Z91.011 Allergy to milk products; Z91.040 Latex allergy status; Z88.8 Allergy status to other drugs, medicaments and biological substances; Z91.014 Allergy to mammalian meats; Z79.01 Long term (current) use of anticoagulants

== ENCOUNTER → 2023-12-28 | Outpatient (CLI) | payer MEDICARE ==
[2023-12-28 09:41] VITALS: BP 115/77; PULSE 90; RESP 18; TEMP 98.6
--- NOTE | 2023-12-28 10:05 | P.PN ---
Subjective Progress Note Date: 12/28/23 Principal diagnosis: left breast stage III IDC [id number] Principal diagnosis: left breast stage III invasive ductal cancer 2015 Mary is a 68-year-old white female with a history of stage III moderately differentiated invasive ductal carcinoma of the left breast. This was ER/ND positive and HER-2 negative. She is status post neoadjuvant therapy followed by a left breast mastectomy with immediate reconstruction. She subsequently underwent postmastectomy radiotherapy directed to the reconstructed breast and lymphatics. This finished in March 2016. She developed an infection and was necessary to have her cover seamer removed. She has no evidence of any infection at this time. She has had a right breast partial resection which was benign, and there are clips making the area of the biopsy cavity. She has seen a plastic surgeon in considering reconstruction in the future. The patient was scheduled for reconstruction in November 2018, however a week prior she had a myocardial infarction. She now has an internal pacemaker and defibrillator . She had 100% blockage of her left descending artery and a stent was placed. She was noted to have a low ejection fraction on echo and therefore the internal pacemaker and defibrillator were placed. At that time her reconstruction was on hold until she is stable from a cardiac standpoint. She is also seen by Dr. Martinez and no longer following with Dr. Finch . She has intermittent cramping of the muscle of the left chest wall it has improved. She has no lumps or masses in her right breast of concern. No nipple discharge or skin changes of concern. Most recently right breast mammogram was done on . This is benign BIRADS 2. Medical oncology note from 04-07-[address] Martinez was reviewed. Continue Letrazole and continue calcium and vitamin D supplement as per medical oncology. At this time the patient is not complaining of any new changes in her right breast or chest wall. The patient developed an infection of her pacemaker defibrillator in April 2021. It was necessary that this be removed and this was done at [facility]. She was in the hospital for approximately a week April 2021. She subsequently was discharged and developed an infection of the seroma at that site. She was then hospitalized at [facility]. At this time she does not have a pacemaker defibrillator in place[place] [id number]. They were considering whether this was necessary in September of 2022. She developed a new area of nodularity at the pacemaker/defibrillator resection site. This is presumed to be consistent with scar tissue. She does not note any other new lumps masses or nodules of concern in her right breast or on her chest wall. The area of nodularity has since decreased in size. The patient does not note any new lumps masses or nodules of concern on the chest wall or in the right breast. The patient in May of 2022 developed fluid retention but improved at this time. She has lost 60 pounds since May 2022. She did have the pacemaker replaced as of 2023. She is not complaining of any new lumps masses or nodules of concern in the right breast or on the left chest wall. She does have some concerns regarding the defect on the left chest wall and would like to have this repaired. She continues to have some nodularity at the site of the pacemaker where it was removed on the left side which is most likely believed to be scar tissue. On her visit of 10-26-2023 we had some concerns regarding some fullness in the left chest wall. Left ultrasound was performed on 10-26-2023. This was considered suspicious BI-RADS 4 and an ultrasound core biopsy was performed. The results revealed fibrous scar with fat necrosis, focal microcalcification and histiocytes. No evidence of any cancer. Family history: 1. mother: breast cancer 2. father: cancer ? type 3. paternal aunt: brain Hormonal History: menarche: 13 1 [place]age, breast fed: yes, first born at 29 menopause: 50 BCP: none hormones: antiestrogen complains of sweating with this Surgical history: 1. 3 C-sections 2. Left mastectomy, Port-A-Cath, cover seamer placed and removed 3. left coronary artery stent placed 4. Internal pacemaker and defibrillator 5. removal of pacemaker/defibrillator 6. replacement of pacemaker Medical history: 1. Hypertension 2. Myocardial infarction 3. BMI 54.9 4. vertigo Social history: Smoke: Negative Alcohol: Occasional Drugs: Negative Review of systems: HEENT: none lung: none heart: HTN, [place] GI: none Gu: none Musculoskeletal: Arthritis Neurologic: Neuropathy hands and feet Psychiatric: Negative skin: none allergies: Seasonal Objective - Vital Signs Vital signs: Vital Signs Temp 98.6 F 12/28/23 09:36 Pulse 90 12/28/23 09:36 Resp 18 11/07/24 09:36 BP 115/77 12/28/23 09:36 Pulse Ox 95 12/28/23 09:36 FiO2 Intake & Output 12/27/23 12/28/23 12/28/23 18:59 06:59 18:59 Weight 136.078 kg - Constitutional General appearance: Present: cooperative - EENT Eyes: Present: EOMI ENT: Present: hearing grossly normal - Neck Neck: Present: normal ROM - Respiratory Respiratory: bilateral: CTA - Cardiovascular Rhythm: regular Heart sounds: normal: S1, S2 - Musculoskeletal Musculoskeletal: Present: gait normal - Psychiatric Psychiatric: Present: A&O x's 3, appropriate affect, intact judgment & insight - Additional findings Additional findings: Breast Exam: Bra: 44B Inspection: Right breast grade 3 ptosis, left chest wall no evidence of active infection Palpation: Right breast: Multi-positional exam no dominant masses or nodules of concern Right axilla: No adenopathy of concern Left chest wall: No evidence of recurrent cancer, the pacemaker defibrillator has been removed although there is what is believed to be remaining scar tissue at this site, there is no evidence of active infection or disease at this time; redundant skin at the left chest wall, defect where implant got infected in 2017; area of cavitation in the left chest wall is 8 cm x 3 cm Left axilla: No adenopathy of concern Assessment and Plan Assessment: Impression: Stage III left breast cancer no evidence of recurrence Patient remains on letrazole Pacemaker/defibrillator removed from left chest wall, replaced right chest wall Probable scar tissue left chest wall Plan: Continue to follow with medical oncology/continue letrazole Repeat right breast mammogram August 2024 Follow with cardiology/from Dr. Guzman clearance for revision of left chest wall Continue to follow with Dr. Gonzalez clearance for revision of left chest wall wound revision of scar left chest wall Preoperative discussion with the wound clinic doctors regarding possible preoxygenation prior to surgery (appointment on 01-01-24) op note from pacemaker removed (DR. Guzman office) We have discussed whether she would like to be seen by plastic surgeon for this to be performed and she has declined this. Risks and benefits of the procedure were discussed with the patient. Risk include but are not limited to bleeding, infection, reaction to the anesthetic. Secondary to the fact that this is in a prior radiated tissue there may be difficulty with wound healing. She understands this and wishes to proceed. CC: Dr. Gonzalez
== END ==
LOC: WWCWWP 09:18
PROVIDERS: ATTEND Surgery
DX: Z48.817 Encounter for surgical aftercare following surgery on the skin and subcutaneous tissue (principal); Z85.3 Personal history of malignant neoplasm of breast; Z80.3 Family history of malignant neoplasm of breast; Z90.12 Acquired absence of left breast and nipple; Z88.1 Allergy status to other antibiotic agents; Z88.6 Allergy status to analgesic agent; Z91.040 Latex allergy status; Z91.011 Allergy to milk products; Z88.8 Allergy status to other drugs, medicaments and biological substances; Z91.014 Allergy to mammalian meats

== ENCOUNTER 2024-01-09 09:56 | Day surgery (SDC) | payer MEDICARE ==
[~2024-01-09 09:56] MED LIST changes: -DAPTOmycin 350 MG in SODIUM CHLORIDE 0.9% 50 ML IVPB ONE; +HYDROmorphone 0.5 MG/0.5 ML SYRINGE IVP PRN; +LACTATED RINGERS 1,000 ML IV SCH; -SODIUM CHLORIDE 0.9% 1,000 ML IV SCH
[2024-01-09 10:24] VITALS: RESP 16
[2024-01-09] MEDS: ONDANSETRON 4 MG/2 ML VIAL IVP ONE (10:54)
[2024-01-09] MEDS: ACETAMINOPHEN TAB 500 MG TAB PO PRN (10:54)
[2024-01-09] MEDS: DEXAMETHASONE SOD PHOSPHATE 4 MG/ML 1 ML VIAL IV ONE (10:54)
[2024-01-09] MEDS: IV FLUID CONTINUATION 1,000 ML IV ONE (10:59)
[2024-01-09] MEDS: HEPARIN SODIUM,PORCINE 5,000 UNIT/ML 1 ML VIAL SQ PRN (11:51)
[2024-01-09] MEDS ORDERED: LIDOCAINE 1% INJ 10MG/ML (20 ML MDV) ONE (11:52)
[2024-01-09] MEDS ORDERED: SUGAMMADEX SODIUM 200 MG/2 ML SDV IV ONE (11:52)
[2024-01-09] MEDS ORDERED: diphenhydrAMINE 50 MG/ML 1 ML VIAL ONE (11:52)
[2024-01-09] MEDS ORDERED: GLYCOPYRROLATE 0.2 MG/ML 2 ML VIAL ONE (11:52)
[2024-01-09] MEDS ORDERED: NEOSTIGMINE 1 MG/ML 10 ML VIAL ONE (11:52)
[2024-01-09] MEDS ORDERED: ROCURONIUM 10 MG/ML (5 ML VIAL) IV ONE (11:52)
[2024-01-09] MEDS ORDERED: fentaNYL (PF) 50 MCG/ML 2 ML AMP ONE (11:52)
[2024-01-09] MEDS ORDERED: MIDAZOLAM 2 MG/2 ML VIAL ONE (11:52)
[2024-01-09] MEDS ORDERED: PHENYLEPHRINE 10 MG/ML VIAL ONE (11:52)
[2024-01-09] MEDS ORDERED: SUCCINYLCHOLINE CHLORIDE 200 MG/10 ML VIAL IV ONE (11:52)
[2024-01-09] MEDS ORDERED: PROPOFOL 10 MG/ML 20 ML VIAL IV ONE (11:52)
[2024-01-09] MEDS: ceFAZolin 3 GM in SODIUM CHLORIDE 0.9% 100 ML IVPB PRN (11:57)
[2024-01-09] MEDS: LIDOCAINE 1% INJ 10MG/ML (20 ML MDV) SQ ONE ×2 (12:46→13:54)
--- NOTE | 2024-01-09 13:44 | P.BCAON ---
Date of Procedure: 01/09/24 Preoperative Diagnosis: Deformity left chest wall incision with scarring and cavitation of the mastectomy site Postoperative Diagnosis: Same Procedure(s) Performed: Revision scar left chest wall Anesthesia: ELENO Surgeon: Angélica Spence Estimated Blood Loss (ml): 50 IV fluids (ml): 400 Pathology: other (Left skin chest wall and scar tissue) Condition: stable Disposition: same day Indications for Procedure: Deformity left chest wall incision Operative Findings: Dense scar tissue Description of Procedure: The patient was brought to the operative suite and following induction of anesthesia the left chest wall was prepped and draped in a sterile fashion. An incision was made in the medial aspect of the prior incision. The skin at this site was very closely adherent down to the area of the pectoralis muscle/rib cage. This was able to be dissected free but there was dense scar tissue at this site. There was cavitation of the wound secondary to the tethering of the tissue at this site. It was dissected free to the area where prior pacemaker had been placed and again there was marked scar tissue at this site. These tissues were dissected free forming a superior flap which could then be brought to close the new chest wall defect. States a portion of the scar tissue at the pacemaker site was excised. There was a small defect in the skin which was closed using Vicryl suture followed by a 4-0 Monocryl. After assuring that hemostasis was attained the inferior flap was mobilized and as were medial and lateral flaps. The wound was well irrigated. Surgicel in powder form was p laced. A #10 RAINER drain was placed. A portion of the superior skin of the flap was excised. The tissue mobilization was approximately 15 cm x 13 cm. The subcutaneous tissues were closed using 3-0 Vicryl suture. A 3-0 Vicryl suture running subcutaneous suture was placed. A 4-0 Monocryl subcuticular suture was placed. Surgical glue was placed. 10 cc of 1% lidocaine were placed. The drain was secured using a nylon suture. The patient tolerated the procedure in stable condition. All instrument and sponge counts were correct at the end of the case.
[2024-01-09 14:35] VITALS: TEMP 97.1
[2024-01-09 15:22] VITALS: BP 119/76; PULSE 61
== END 2024-01-09 15:52 | disposition home or self-care (01) ==
LOC: OR 09:56
PROVIDERS: ATTEND Surgery
DX: J98.8 Other specified respiratory disorders (principal); Z85.3 Personal history of malignant neoplasm of breast
CPT/HCPCS: 88305; 12034; J2250; J0330; J1200; J1644; J1100; J2710; J0690; J2405; J2003; J3010; J2704; J2371; J1596

== ENCOUNTER → 2024-01-12 | Outpatient (CLI) | payer MEDICARE ==
--- NOTE | 2024-01-12 10:47 | P.BCPO ---
Progress Note - Text Progress Note Date: 01/12/24 Mary is status post 01-09-24 revision of left chest wall surgical scar. Pathology is pending. She tolerated the procedure without difficulty Examination: lungs: Clear Heart: Regular rate and rhythm Incision: Clean and dry there is a seroma at the incision site the RAINER drain was stripped and 60 cc of blood-tinged fluid was noted with complete resolution of the seroma Impression: Patient doing well Plan: Drain will be left in place Follow-up next week Follow-up sooner any questions or concerns CC: Dr. Gonzalez
[2024-01-12 11:06] VITALS: BP 90/56; PULSE 94; RESP 17; TEMP 97.7
== END ==
LOC: WWCWWP 10:21
PROVIDERS: ATTEND Surgery
DX: Z04.89 Encounter for examination and observation for other specified reasons (principal); Z98.890 Other specified postprocedural states; Z88.1 Allergy status to other antibiotic agents; Z91.040 Latex allergy status; Z88.6 Allergy status to analgesic agent; Z91.011 Allergy to milk products; Z91.014 Allergy to mammalian meats; Z88.8 Allergy status to other drugs, medicaments and biological substances

== ENCOUNTER → 2024-01-16 | Outpatient (CLI) | payer MEDICARE ==
[2024-01-16 07:59] VITALS: BP 118/81; PULSE 88; RESP 18; TEMP 97.9
--- NOTE | 2024-01-16 08:38 | P.PN ---
Subjective Progress Note Date: 01/16/24 Mary is status post 01-09-24 revision of left chest wall surgical scar. Pathology is pending. She tolerated the procedure without difficulty Examination: lungs: Clear Heart: Regular rate and rhythm Incision: Clean and dry, seroma is resolved, less than 40 cc/day and RAINER drain for last several days Impression: Patient doing well Plan: DC drain Follow-up hira weeks Follow-up sooner any questions or concerns CC: Dr. Gonzalez Additional CC's: Tu Gonzalez Objective - Vital Signs Vital signs: Vital Signs Temp 97.9 F 01/16/24 07:57 Pulse 88 01/16/24 07:57 Resp 18 01/16/24 07:57 BP 118/81 01/16/24 07:57 Pulse Ox 96 01/16/24 07:57 FiO2 Intake & Output 01/15/24 01/16/24 01/16/24 18:59 06:59 18:59 Weight 136.078 kg
== END ==
LOC: WWCWWP 07:44
PROVIDERS: ATTEND Surgery
DX: L90.5 Scar conditions and fibrosis of skin (principal); Z98.890 Other specified postprocedural states; Z88.1 Allergy status to other antibiotic agents; Z91.040 Latex allergy status; Z88.6 Allergy status to analgesic agent; Z88.8 Allergy status to other drugs, medicaments and biological substances; Z91.018 Allergy to other foods; Z91.011 Allergy to milk products; Z79.01 Long term (current) use of anticoagulants; Z85.3 Personal history of malignant neoplasm of breast

== ENCOUNTER → 2024-02-01 | Outpatient (CLI) | payer MEDICARE ==
--- NOTE | 2024-02-01 12:05 | P.PN ---
Subjective Progress Note Date: 02/01/24 01/16/24 Mary is status post 01-09-24 revision of left chest wall surgical scar. Pathology is benign. She states her young granddaughter sat on the her chest wall and afterwards she had some discomfort. Improved now. She is having some persistent minimal drainage. Examination: lungs: Clear Heart: Regular rate and rhythm Incision: Clean and dry, seroma Impression: Patient doing well Plan: Aspiration seroma Follow-up 1 month Follow-up sooner any questions or concerns following informed consent the area of concern in the left chest wall was aspirated. The area was prepped using chlorhexidine An 18-gauge needle and a 20 cc syringe was used to aspirate 120 cc of red-tinged fluid. There was no evidence of any infection. There was near complete resolution of the seroma. The patient tolerated the procedure in stable condition. CC: Dr. Gonzalez
== END ==
LOC: WWCWWP 10:41
PROVIDERS: ATTEND Surgery
DX: Z85.3 Personal history of malignant neoplasm of breast (principal); Z88.1 Allergy status to other antibiotic agents; Z91.040 Latex allergy status; Z88.6 Allergy status to analgesic agent; Z91.011 Allergy to milk products; Z88.8 Allergy status to other drugs, medicaments and biological substances

== ENCOUNTER → 2024-02-23 | Outpatient (CLI) | payer MEDICARE ==
[2024-02-23 13:42] LABS: Appearance,Urine Clear (Clear); Bilirubin,Urine Negative (Negative); Blood,Urine Negative (Negative); Color,Urine Colorless; Glucose,Urine (UA) 3+ (Negative); Ketones,Urine Negative (Negative); Leukocyte Esterase,Urine Moderate (Negative); Nitrite,Urine Negative (Negative); Protein,Urine Negative (Negative); RBC,Urine 1 /hpf (0-5); Specific Gravity,Urine 1.007 (1.001-1.035); Squamous Epithelial Cell,Urine 2 /hpf (0-4); Urobilinogen,Urine <2.0 mg/dL (<2.0); WBC,Urine 15 /hpf (0-5)
[2024-02-23 13:51] LABS: Creatinine,Urine Random 15.6 mg/dL; Protein/Creatinine Ratio,Urine 0.769
[2024-02-23 15:40] LABS: HCT 39.3 % (37.2-46.3); HGB 11.5 g/dL (12.0-15.0); MCH 28.5 pg (27.0-32.0); MCHC 29.3 g/dL (32.0-37.0); MCV 97.5 FL (80.0-97.0); Mean Platelet Volume 11.1 FL (9.5-12.2); NRBC Per 100 WBC 0 X 10*3/uL (0.00-0.01); Platelet Count 236 X 10*3/uL (140-440); RBC 4.03 X 10*6/uL (4.10-5.20); RDW 14.7 % (11.5-14.5); WBC 6.93 X 10*3/uL (4.50-10.00)
[2024-02-23 20:48] LABS: BUN/Creat Ratio 17.31 Ratio (12.00-20.00); Blood Urea Nitrogen 27.7 mg/dL (9.0-27.0); Calcium 8.9 mg/dL (8.7-10.3); Chloride 102 mmol/L (96-109); Glucose 157 mg/dL (70-110); Magnesium 2.2 mg/dL (1.5-2.4); Phosphorus 4.2 mg/dL (2.4-5.1); Potassium 4.2 mmol/L (3.5-5.5); Sodium 144 mmol/L (135-145)
[2024-02-23 23:43] LABS: Microalbumin Creatinine Ratio <75 mg/g Cr (0-30); Urine Creatinine 15.9 mg/dL (28.0-217.0)
[2024-02-26 16:30] LABS: Free Kappa Lt Chain Qnt, Serum 3.01 mg/dL (0.33-1.94); Free Lambda Lt Chain Qnt, Seru 1.73 mg/dL (0.57-2.63)
== END | disposition home or self-care (01) ==
LOC: LABWHC1 11:44
PROVIDERS: ATTEND Internal Medicine
DX: I13.10 Hypertensive heart and chronic kidney disease without heart failure, with stage 1 through stage 4 chronic kidney disease, or unspecified chronic kidney disease (principal); N17.9 Acute kidney failure, unspecified
CPT/HCPCS: 36415; 80048; 81001; 82043; 82570; 83735; 83883; 83970; 84100; 84156; 85027

== ENCOUNTER → 2024-02-23 | Outpatient (CLI) | payer MEDICARE ==
[2024-02-23 12:51] VITALS: BP 136/79; PULSE 92; RESP 17; TEMP 97.9
--- NOTE | 2024-02-23 13:27 | P.PN ---
Subjective Progress Note Date: 02/23/24 01/16/24 Mary is status post 01-09-24 revision of left chest wall surgical scar. Pathology is benign. She states her young granddaughter sat on the her chest wall shortly after the surgery and afterwards she had some discomfort. Improved now. She is having some persistent minimal drainage. A seroma of 126 cc aspirated on 01-16-24. Examination: lungs: Clear Heart: Regular rate and rhythm Incision: Clean and dry, seroma Impression: Patient doing well Plan: Aspiration seroma Follow-up 1 month Follow-up sooner any questions or concerns following informed consent the area of concern in the left chest wall was aspirated. The area was prepped using chlorhexidine An 18-gauge needle and a 20 cc syringe was used to aspirate 30 cc of red-tinged fluid. There was no evidence of any infection. There was near complete resolution of the seroma. The patient tolerated the procedure in stable co ndition. CC: Dr. Gonzalez Objective - Vital Signs Vital signs: Vital Signs Temp 97.9 F 02/23/24 12:49 Pulse 92 02/23/24 12:49 Resp 17 02/23/24 12:49 BP 136/79 02/23/24 12:49 Pulse Ox 97 02/23/24 12:49 FiO2 Intake & Output 02/22/24 02/23/24 02/23/24 18:59 06:59 18:59 Weight 136.078 kg
== END ==
LOC: WWCWWP 12:28
PROVIDERS: ATTEND Surgery
DX: L76.34 Postprocedural seroma of skin and subcutaneous tissue following other procedure (principal); Z91.018 Allergy to other foods; Z88.6 Allergy status to analgesic agent; Z91.040 Latex allergy status; Z88.8 Allergy status to other drugs, medicaments and biological substances

== ENCOUNTER 2024-05-09 16:27 | Inpatient (IN) | payer MEDICARE ==
--- NOTE | 2024-05-09 17:08 | ED ---
ENT HPI - General Chief complaint: ENT Stated complaint: R side facial swelling Time Seen by Provider: 05/09/24 16:42 Source: patient, family, RN notes reviewed Mode of arrival: ambulatory Limitations: no limitations - History of Present Illness Initial comments: This is a 68-year-old female who presents to the emergency department for right- sided face and neck swelling. States that she first noticed this 3-4 days ago. It started out as almost a numbness and tingling in her right bottom lip. This then progressed to pain and swelling to the right side of her face which has since started to go down her neck. States that today the symptoms got much worse. She is barely able to open her mouth or eat due to the pain and swelling. She has not measured any fevers or chills at home. She went to see her primary care provider today who advised she come here for a CT scan to rule out an abscess. - Related Data Home Medications Medication Instructions Recorded Confirmed Letrozole [Femara] 2.5 mg PO DAILY 06/06/16 04/05/24 Aspirin [Adult Low Dose Aspirin EC] 81 mg PO DAILY 03/25/21 04/05/24 Melatonin [Melatonin Tr] 10 mg PO HS 06/03/21 04/05/24 Spironolactone [Aldactone] 6.25 mg PO DAILY 06/03/21 04/05/24 Dapagliflozin Propanediol [Farxiga] 1 tab PO DAILY 09/30/22 04/05/24 Sacubitril/Valsartan [Entresto 24 1 each PO BID 09/30/22 04/05/24 mg-26 mg Tablet] Furosemide [Lasix] 40 mg PO DAILY 11/23/22 04/05/24 Cetirizine HCl [Zyrtec] 10 mg PO DAILY 12/22/22 04/05/24 Amiodarone [Cordarone] 100 mg PO DAILY 01/05/24 04/05/24 Levothyroxine Sodium 88 mcg PO DAILY 01/05/24 04/05/24 Acetaminophen Tab [Tylenol Tab] 1,000 mg PO Q6HR PRN 01/09/24 04/05/24 Previous Rx's Medication Instructions Recorded Apixaban [Eliquis] 5 mg PO BID #60 tab 12/12/18 Atorvastatin [Lipitor] 80 mg PO HS #30 tab 12/12/18 Metoprolol Succinate [Toprol XL] 50 mg PO DAILY #90 tab 12/29/22 oxyCODONE HCL [OxyIR] 5 mg PO Q6H PRN #10 tab 01/09/24 Allergies Allergy/AdvReac Type Severity Reaction Status Date / Time vancomycin Allergy Rash/Hives Verified 05/09/24 16:41 latex AdvReac Unknown itching Verified 05/09/24 16:41 and tingling ibuprofen [From Motrin] AdvReac Nausea & Verified 05/09/24 16:41 Vomiting phenaphen Allergy Severe Anaphylaxis Uncoded 05/09/24 16:41 blue cheese Allergy Unknown Rash/Hives, Uncoded 05/09/24 16:41 Swelling corn beef Allergy Unknown Rash/Hives, Uncoded 05/09/24 16:41 Swelling phenaphen #3 Allergy Anaphylaxis Uncoded 05/09/24 16:41 Review of Systems ROS Statement: Those systems with pertinent positive or pertinent negative responses have been documented in the HPI. ROS Other: All systems not noted in ROS Statement are negative. Past Medical History Past Medical History: Atrial Fibrillation, Coronary Artery Disease (CAD), Cancer, Heart Failure, CVA/TIA, Hyperlipidemia, Hypertension, Myocardial Infarction ([place]) Additional Past Medical History / Comment(s): CVA (MAR 2014)- NO RESIDUAL EFFECTS , LEFT BREAST CANCER. FINISHED CHEMO Sep, HX OF INFECTION FROM IMPLANT WITH DIFFICULTY HEALING-REMOVED. 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 vertigo,See Dr Díaz's H & P Last Myocardial Infarction Date:: 12/08/2018 History of Any Multi-Drug Resistant Organisms: None Reported Past Surgical History: AICD, Breast Surgery, Section, Heart Catheterization With Stent, Pacemaker Additional Past Surgical History / Comment(s): LT MASTECTOMY WITH IMPLANT (INFECTION & REMOVED),. C-SEC X3. MEDI PORT INSERTION-RT CHEST-REMOVED. BREAST BIOPSIES. HEART CATH WITH STENT 11/2018, pacemaker/AICD removal 05/11/21, Past Anesthesia/Blood Transfusion Reactions: Postoperative Nausea & Vomiting (PONV) Additional Past Anesthesia/Blood Transfusion Reaction / Comment(s): HX OF PONV. Date of Last Stent Placement:: 11/2018 Type of Cardiac Device: Biventricular Pacemaker, Permanent Pacemaker, AICD Device Placement Date:: 06/20/19 Past Psychological History: No Psychological Hx Reported Smoking Status: Never smoker Past Alcohol Use History: Rare Past Drug Use History: None Reported - Past Family History Mother Family Medical History: Cancer, CVA/TIA Additional Family Medical History / Comment(s): BREAST CANCER Father Family Medical History: Cancer, Congestive Heart Failure (CHF), Diabetes Mellitus Additional Family Medical History / Comment(s): CANCER General Exam Limitations: no limitations General appearance: alert, in no apparent distress ENT exam: Present: other (Swelling and tenderness to the right side of the face and right side of the neck. No posterior pharyngeal erythema.) Respiratory exam: Present: normal lung sounds bilaterally. Absent: respiratory distress, wheezes, rales, rhonchi, stridor Cardiovascular Exam: Present: regular rate, normal rhythm Neurological exam: Present: alert, oriented X3, CN II-XII intact Psychiatric exam: Present: normal affect, normal mood Course Vital Signs 05/09/24 05/09/24 05/09/24 16:31 17:04 18:44 Temperature 97.7 F Pulse Rate 76 72 117 H Respiratory 19 18 18 Rate Blood Pressure 82/53 86/50 112/72 O2 Sat by Pulse 94 L 95 98 Oximetry 05/09/24 05/09/24 21:13 22:50 Temperature 97.8 F Pulse Rate 76 80 Respiratory 18 18 Rate Blood Pressure 124/80 97/63 O2 Sat by Pulse 98 100 Oximetry Medical Decision Making - Medical Decision Making This is a 68-year-old female who presents to the emergency department for facial pain and swelling. Was pt. sent in by a medical professional or institution? @ -No Did you speak to anyone other than the patient for history? @ -No Did you review nursing and triage notes? @ -Yes, and I agree, it is accurate with regards to the patient's symptoms. Were old charts reviewed? @ -No Differential Diagnosis? @ -Facial cellulitis, abscess, dental infection, strep throat, this is not meant to be an all-inclusive list. EKG interpreted by me (3pts min.)? @ -Not obtained X-rays interpreted by me (1pt min.)? @ -Not obtained CT interpreted by me (1pt min.)? @ -CT scan of the soft tissue neck obtained. My interpretation identifies soft tissue swelling in the region of the right parotid gland. U/S interpreted by me (1pt. min.)? @ -Not obtained What testing was considered but not performed? (CT, X-rays, U/S, labs)? Why? @ -None What meds were considered but not given? Why? @ -None Did you discuss the management of the patient with other professionals? @ -Yes, Dr. Calderón, who accepts the patient for admission Did you reconcile home meds? @ -No Was smoking cessation discussed for >3mins.? @ -No Was critical care preformed (if so, how long)? @ -No Were there social determinants of health that impacted care today? How? (Homelessness, low income, unemployed, alcoholism, drug addiction, transportati on, low edu. Level, literacy, decrease access to med. care, long term, rehab)? @ -No Was there de-escalation of care discussed even if they declined? (Discuss DNR or withdrawal of care, Hospice)? @ -No What co-morbidities impacted this encounter? (DM, HTN, Smoking, COPD, CAD, Cancer, CVA, Hep., AIDS, mental health diagnosis, sleep apnea, morbid obesity)? @ -CAD, CHF, HLD, HTN Was patient admitted / discharged? @ -Admitted. Patient hypotensive on arrival with a BP of 82/53. Blood pressure corrected with a 500 mL bolus of IV fluids, however due to a history of CHF we did not want to fluid overload the patient. Lab work demonstrates an elevated lactic acid of 2.6 and an elevated CRP of 37. Rapid strep test negative. COVID, influenza, and RSV testing negative. CT scan of the soft tissue neck demonstrates extensive edema of the right facial structures extending from the lower pole of the parotid gland to the right neck. There also appears to be edema of the submandibular gland. Findings could be related to cellulitis secondary to a parotitis. No drainable abscess is identified at this time. Patient believes that she did receive the MMR vaccine. Blood culture, EBV panel, and mumps antibody testing ordered. Given the high risk location of the infection as well as the patient's level of discomfort, she was admitted to medicine for IV antibiotics. She was started on Zosyn for the meantime for broad-spectrum coverage. Consult placed for infectious disease and ENT. Case discussed with ED attending Dr. Parada. Undiagnosed new problem with uncertain prognosis? @ -None Drug Therapy requiring intensive monitoring for toxicity (Heparin, Nitro, Insu bradford, Cardizem)? @ -None Were any procedures done? @ -None Diagnosis/symptom? @ -Facial edema and cellulitis, parotitis Acute, or Chronic, or Acute on Chronic? @ -Acute Uncomplicated (without systemic symptoms) or Complicated (systemic symptoms)? @ -Complicated Side effects of treatment? @ -None Exacerbation, Progression, or Severe Exacerbation] @ -Not applicable Poses a threat to life or bodily function? @ -Yes, can lead to life-threatening infection or airway compromise - Lab Data Result diagrams: 05/09/24 18:22 05/09/24 18:22 Lab Results 05/09/24 05/09/24 05/09/24 Range/Units 17:40 17:40 18:22 WBC 10.4 (3.8-10.6) k/uL RBC 3.97 (3.80-5.40) m/uL Hgb 10.7 L (11.4-16.0) gm/dL Hct 34.3 (34.0-46.0) % MCV 86.4 (80.0-100.0) fL MCH 27.0 (25.0-35.0) pg MCHC 31.3 (31.0-37.0) g/dL RDW 16.5 H (11.5-15.5) % Plt Count 191 (150-450) k/uL MPV 9.5 Neutrophils % 87 % Lymphocytes % 7 % Monocytes % 4 % Eosinophils % 1 % Basophils % 0 % Neutrophils # 9.0 H (1.3-7.7) k/uL Lymphocytes # 0.7 L (1.0-4.8) k/uL Monocytes # 0.4 (0-1.0) k/uL Eosinophils # 0.1 (0-0.7) k/uL Basophils # 0.0 (0-0.2) k/uL Hypochromasia Marked Anisocytosis Slight Sodium (137-145) mmol/L Potassium (3.5-5.1) mmol/L Chloride (98-107) mmol/L Carbon Dioxide (22-30) mmol/L Anion Gap mmol/L BUN (7-17) mg/dL Creatinine (0.52-1.04) mg/dL Est GFR (CKD-EPI)AfAm (>60 ml/min/1.73 sqM) Est GFR (CKD-EPI)NonAf (>60 ml/min/1.73 sqM) Glucose (74-99) mg/dL Lactic Ac Sepsis Rflx Plasma Lactic Acid Ar (0.7-2.0) mmol/L Calcium (8.4-10.2) mg/dL Total Bilirubin (0.2-1.3) mg/dL AST (14-36) U/L ALT (4-34) U/L Alkaline Phosphatase (38-126) U/L C-Reactive Protein (<1.0) mg/dL Total Protein (6.3-8.2) g/dL Albumin (3.5-5.0) g/dL Amylase (30-110) U/L Influenza Type A (PCR) Not Detected (Not Detectd) Influenza Type B (PCR) Not Detected (Not Detectd) RSV (PCR) Not Detected (Not Detectd) SARS-CoV-2 (PCR) Not Detected (Not Detectd) Group A Strep (PCR) NOT DETECTED (Not Detectd) 05/09/24 05/09/24 05/09/24 Range/Units 18:22 18:22 18:22 WBC (3.8-10.6) k/uL RBC (3.80-5.40) m/uL Hgb (11.4-16.0) gm/dL Hct (34.0-46.0) % MCV (80.0-100.0) fL MCH (25.0-35.0) pg MCHC (31.0-37.0) g/dL RDW (11.5-15.5) % Plt Count (150-450) k/uL MPV Neutrophils % % Lymphocytes % % Monocytes % % Eosinophils % % Basophils % % Neutrophils # (1.3-7.7) k/uL Lymphocytes # (1.0-4.8) k/uL Monocytes # (0-1.0) k/uL Eosinophils # (0-0.7) k/uL Basophils # (0-0.2) k/uL Hypochromasia Anisocytosis Sodium 134 L (137-145) mmol/L Potassium 3.5 (3.5-5.1) mmol/L Chloride 97 L (98-107) mmol/L Carbon Dioxide 28 (22-30) mmol/L Anion Gap 9 mmol/L BUN 45 H (7-17) mg/dL Creatinine 2.18 H (0.52-1.04) mg/dL Est GFR (CKD-EPI)AfAm 26 (>60 ml/min/1.73 sqM) Est GFR (CKD-EPI)NonAf 23 (>60 ml/min/1.73 sqM) Glucose 190 H (74-99) mg/dL Lactic Ac Sepsis Rflx Plasma Lactic Acid Ar 2.6 H* (0.7-2.0) mmol/L Calcium 8.2 L (8.4-10.2) mg/dL Total Bilirubin 1.0 (0.2-1.3) mg/dL AST 30 (14-36) U/L ALT 19 (4-34) U/L Alkaline Phosphatase 104 (38-126) U/L C-Reactive Protein 37.0 H (<1.0) mg/dL Total Protein 5.9 L (6.3-8.2) g/dL Albumin 3.4 L (3.5-5.0) g/dL Amylase 39 (30-110) U/L Influenza Type A (PCR) (Not Detectd) Influenza Type B (PCR) (Not Detectd) RSV (PCR) (Not Detectd) SARS-CoV-2 (PCR) (Not Detectd) Group A Strep (PCR) (Not Detectd) 05/09/24 05/09/24 Range/Units 18:50 21:16 WBC (3.8-10.6) k/uL RBC (3.80-5.40) m/uL Hgb (11.4-16.0) gm/dL Hct (34.0-46.0) % MCV (80.0-100.0) fL MCH (25.0-35.0) pg MCHC (31.0-37.0) g/dL RDW (11.5-15.5) % Plt Count (150-450) k/uL MPV Neutrophils % % Lymphocytes % % Monocytes % % Eosinophils % % Basophils % % Neutrophils # (1.3-7.7) k/uL Lymphocytes # (1.0-4.8) k/uL Monocytes # (0-1.0) k/uL Eosinophils # (0-0.7) k/uL Basophils # (0-0.2) k/uL Hypochromasia Anisocytosis Sodium (137-145) mmol/L Potassium (3.5-5.1) mmol/L Chloride (98-107) mmol/L Carbon Dioxide (22-30) mmol/L Anion Gap mmol/L BUN (7-17) mg/dL Creatinine (0.52-1.04) mg/dL Est GFR (CKD-EPI)AfAm (>60 ml/min/1.73 sqM) Est GFR (CKD-EPI)NonAf (>60 ml/min/1.73 sqM) Glucose (74-99) mg/dL Lactic Ac Sepsis Rflx Y Plasma Lactic Acid Ar 1.1 (0.7-2.0) mmol/L Calcium (8.4-10.2) mg/dL Total Bilirubin (0.2-1.3) mg/dL AST (14-36) U/L ALT (4-34) U/L Alkaline Phosphatase (38-126) U/L C-Reactive Protein (<1.0) mg/dL Total Protein (6.3-8.2) g/dL Albumin (3.5-5.0) g/dL Amylase (30-110) U/L Influenza Type A (PCR) (Not Detectd) Influenza Type B (PCR) (Not Detectd) RSV (PCR) (Not Detectd) SARS-CoV-2 (PCR) (Not Detectd) Group A Strep (PCR) (Not Detectd) - Radiology Data Radiology results: report reviewed, image reviewed Disposition Clinical Impression: Facial cellulitis, Acute parotitis, Facial edema Disposition: ADMITTED IP TO THIS HOSP
[2024-05-09 18:25] LABS: Influenza A Not Detected (Not Detectd); Influenza B Not Detected (Not Detectd); RSV Not Detected (Not Detectd)
[2024-05-09 18:34] LABS: Anisocytosis Slight; Basophils % (A) 0 %; Eosinophils # (A) 0.1 k/uL (0-0.7); Eosinophils % (A) 1 %; HCT 34.3 % (34.0-46.0); HGB 10.7 gm/dL (11.4-16.0); Hypochromasia Marked; Lymphocytes # (A) 0.7 k/uL (1.0-4.8); Lymphocytes % (A) 7 %; MCHC 31.3 g/dL (31.0-37.0); MCV 86.4 fL (80.0-100.0); Mean Platelet Volume 9.5; Monocytes # (A) 0.4 k/uL (0-1.0); Monocytes % (A) 4 %; Neutrophils % (A) 87 %; Platelet Count 191 k/uL (150-450); RBC 3.97 m/uL (3.80-5.40); RDW 16.5 % (11.5-15.5); WBC 10.4 k/uL (3.8-10.6)
[2024-05-09 18:58] LABS: ALT 19 U/L (4-34); AST 30 U/L (14-36); African American GFR (CKD) 26 (>60 ml/min/1.73 sqM); Albumin 3.4 g/dL (3.5-5.0); Alkaline Phosphatase 104 U/L (38-126); Anion Gap 9 mmol/L; Blood Urea Nitrogen 45 mg/dL (7-17); Calcium 8.2 mg/dL (8.4-10.2); Carbon Dioxide 28 mmol/L (22-30); Chloride 97 mmol/L (98-107); Glucose 190 mg/dL (74-99); Non-African American GFR(CKD) 23 (>60 ml/min/1.73 sqM); Potassium 3.5 mmol/L (3.5-5.1); Sodium 134 mmol/L (137-145); Total Protein 5.9 g/dL (6.3-8.2)
[2024-05-09] MEDS: SODIUM CHLORIDE 0.9% 500 ML 500 ML IV ONE (19:07)
[2024-05-09] MEDS: HYDROmorphone 1 MG/ML 1 ML SYRINGE IVP STA ×2 (19:08→22:48)
[2024-05-09] MEDS: SODIUM CHLORIDE 0.9% 1,000 ML IV ONE (19:08)
--- NOTE | 2024-05-09 21:18 | CT ---
EXAMINATION TYPE: CT soft tissue neck wo con DATE OF EXAM: 05/09/2024 9:03 PM COMPARISON: None. CLINICAL INDICATION: Female, 68 years old with history of Right sided neck and facial swelling, patie nt reports pain, swelling, and numbness on right side of face and down into right side of neck, sent by PCP for r/o abscess., TECHNIQUE: Axial CT was performed with sagittal and coronal reformats. IV CONTRAST: , patient injected with mL of . (None if empty) CT DLP: 447 mGycm, Automated exposure control for dose reduction was used. The lack of contrast and patient head rotation limits evaluation. FINDINGS: AIRWAY: The supraglottic, glottic, and subglottic portions of the airway appear patent and free of mass. THYROID GLAND: No nodules or masses seen. LYMPH NODES: There are couple of scattered reactive subcentimeter lymph nodes. LUNG APICES: No nodule or mass is seen. OTHER: There is extensive soft tissue swelling noted in the region of the right parotid gland at its inferior pole extending into the right masseter musculature and surrounding subcutaneous soft tissue s. Edema extends into the upper neck on the right. There also appears to be mild edema of the right s ubmandibular gland. No bone destruction to suggest periodontal abscess. Vascular structures are paten t. No significant degenerative change of the cervical spine. No abscess seen. IMPRESSION: No drainable abscess identified at this time on this limited unenhanced study. As noted there is exte nsive edema of the right facial structures extending from the lower pole of the parotid gland through the right neck. There also appears to be edema of the submandibular gland. Findings could be related to cellulitis secondary to parotitis. Correlate clinically. [facility], , 05/09/2024 9:15 PM
[2024-05-09] MEDS: PIPERACILLIN-TAZOBACTAM 3.375 GM in SODIUM CHLORIDE 0.9% 100 ML IVPB STA (21:20)
[2024-05-09] MEDS ORDERED: HYDROmorphone 1 MG/ML 1 ML SYRINGE IVP PRN (22:11)
[2024-05-09] MEDS ORDERED: NALOXONE 0.4 MG/ML 1 ML VIAL IV PRN (22:11)
[2024-05-09] MEDS ORDERED: ACETAMINOPHEN TAB 325 MG TAB PO PRN (22:11)
--- NOTE | 2024-05-09 23:56 | P.HPIM ---
History of Present Illness H&P Date: 05/09/24 Chief Complaint: Swelling 68-year-old female with paroxysmal A-fib, congestive heart failure, hypertension, CKD Patient coming in due to right-sided facial swelling she saw her PCP today who advised her to go to the ER for CT scan She reports that this has been going on for couple days started as some numbness and tingling at the tip of her tongue and lips then progressed to this gradual swelling of the right side of her face to the point today where she could not open her mouth to eat or drink due to severe pain denies any fevers or chills denies any trauma she reports that about a week ago she was taking care of her grandkids who had some runny nose and upper respiratory symptoms She denies any difficulty breathing or pain with swallowing however she is having some limited range of motion of her jaw due to severe pain on the right side of her face this has been getting worse with increase pain swelling and erythema In the ED CT scan was done and was suspicious for soft tissue edema and parotitis CT scan was done without contrast Patient denies anything similar in the past, she denies any muscle aches sore throat or upper respiratory infection symptoms at this point. Patient denies any pain with salivation denies any abnormal taste in her mouth denies any pus in her mouth. She denies tobacco smoking illicit drugs or heavy alcohol review of systems Pertinent positives as noted in HPI. All other systems were reviewed and are negative on exam Constitutional: No acute distress, conversant, pleasant Eyes: Anicteric sclerae, moist conjunctiva, Pupils equal round reactive to light ENMT: NC/AT Limited range of motion of the mouth due to severe pain over the right side of the face there is swelling extending from the right preauricular region all the way down obscuring the edge of the mandible tenderness to palpation worse to the touch and slight erythema Neck: Supple, no palpable lymph nodes Lungs: Clear to auscultation Clear to percussion Normal respiratory effort, no accessory muscle use Cardiovascular: Heart regular in rate and rhythm, No murmurs, gallops, or rubs No peripheral edema Abdominal: Soft Nontender, no guarding, rebound or rigidity Abdomen moving with respiration Normoactive bowel sounds Extremities: No digital cyanosis No clubbing Pedal pulses intact and symmetrical Radial pulses intact and symmetrical No calf tenderness Psychiatric: Alert and oriented to person, place and time Appropriate affect fair judgement Neuro Muscles Strength 5/5 in all 4 extremities Sensation to light touch grossly present throughout Cranial nerves II-XII grossly intact Past Medical History Past Medical History: Atrial Fibrillation, Coronary Artery Disease (CAD), Cancer, Heart Failure, CVA/TIA, Hyperlipidemia, Hypertension, Myocardial Infarction ([place]) Additional Past Medical History / Comment(s): CVA (MAR 2014)- NO RESIDUAL EFFECTS , LEFT BREAST CANCER. FINISHED CHEMO Sep, HX OF INFECTION FROM IMPLANT WITH DIFFICULTY HEALING-REMOVED. 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 vertigo, Last Myocardial Infarction Date:: 12/08/2018 History of Any Multi-Drug Resistant Organisms: None Reported Past Surgical History: AICD, Breast Surgery, Section, Heart Catheterization With Stent, Pacemaker Additional Past Surgical History / Comment(s): LT MASTECTOMY WITH IMPLANT (INFECTION & REMOVED),. C-SEC X3. MEDI PORT INSERTION-RT CHEST-REMOVED. BREAST BIOPSIES. HEART CATH WITH STENT 11/2018, pacemaker/AICD removal 05/11/21, Past Anesthesia/Blood Transfusion Reactions: Postoperative Nausea & Vomiting (PONV) Additional Past Anesthesia/Blood Transfusion Reaction / Comment(s): HX OF PONV. Date of Last Stent Placement:: 11/2018 Type of Cardiac Device: Biventricular Pacemaker, Permanent Pacemaker, AICD Device Placement Date:: 06/20/19 Past Psychological History: No Psychological Hx Reported Smoking Status: Never smoker Past Alcohol Use History: Rare Past Drug Use History: None Reported - Past Family History Mother Family Medical History: Cancer, CVA/TIA Additional Family Medical History / Comment(s): BREAST CANCER Father Family Medical History: Cancer, Congestive Heart Failure (CHF), Diabetes Mellitus Additional Family Medical History / Comment(s): CANCER Medications and Allergies Home Medications Medication Instructions Recorded Confirmed Type Letrozole [Femara] 2.5 mg PO DAILY 06/06/16 04/05/24 History Apixaban [Eliquis] 5 mg PO BID #60 tab 12/12/18 04/05/24 Rx Atorvastatin [Lipitor] 80 mg PO HS #30 tab 12/12/18 04/05/24 Rx Aspirin [Adult Low Dose Aspirin EC] 81 mg PO DAILY 03/25/21 04/05/24 History Melatonin [Melatonin Tr] 10 mg PO HS 06/03/21 04/05/24 History Spironolactone [Aldactone] 6.25 mg PO DAILY 06/03/21 04/05/24 History Dapagliflozin Propanediol [Farxiga] 1 tab PO DAILY 09/30/22 04/05/24 History Sacubitril/Valsartan [Entresto 24 1 each PO BID 09/30/22 04/05/24 History mg-26 mg Tablet] Furosemide [Lasix] 40 mg PO DAILY 11/23/22 04/05/24 History Cetirizine HCl [Zyrtec] 10 mg PO DAILY 12/22/22 04/05/24 History Metoprolol Succinate [Toprol XL] 50 mg PO DAILY #90 tab 12/29/22 04/05/24 Rx Amiodarone [Cordarone] 100 mg PO DAILY 01/05/24 04/05/24 History Levothyroxine Sodium 88 mcg PO DAILY 01/05/24 04/05/24 History Acetaminophen Tab [Tylenol Tab] 1,000 mg PO Q6HR PRN 01/09/24 04/05/24 History oxyCODONE HCL [OxyIR] 5 mg PO Q6H PRN #10 tab 01/09/24 04/05/24 Rx Allergies Allergy/AdvReac Type Severity Reaction Status Date / Time vancomycin Allergy Rash/Hives Verified 05/09/24 16:41 latex AdvReac Unknown itching Verified 05/09/24 16:41 and tingling ibuprofen [From Motrin] AdvReac Nausea & Verified 05/09/24 16:41 Vomiting phenaphen Allergy Severe Anaphylaxis Uncoded 05/09/24 16:41 blue cheese Allergy Unknown Rash/Hives, Uncoded 05/09/24 16:41 Swelling corn beef Allergy Unknown Rash/Hives, Uncoded 05/09/24 16:41 Swelling phenaphen #3 Allergy Anaphylaxis Uncoded 05/09/24 16:41 Physical Exam Vitals: Vital Signs Temp Pulse Resp BP Pulse Ox 05/09/24 22:50 80 18 97/63 100 05/09/24 21:13 97.8 F 76 18 124/80 98 05/09/24 18:44 117 H 18 112/72 98 05/09/24 17:04 72 18 86/50 95 05/09/24 16:31 97.7 F 76 19 82/53 94 L Intake and Output 05/09/24 05/09/24 05/10/24 14:59 22:59 06:59 Other: Weight 136.078 kg 136.078 kg Results CBC & Chem 7: 05/09/24 18:22 05/09/24 18:22 Labs: Abnormal Lab Results - Last 24 Hours (Table) 05/09/24 05/09/24 05/09/24 Range/Units 18:22 18:22 18:22 Hgb 10.7 L (11.4-16.0) gm/dL RDW 16.5 H (11.5-15.5) % Neutrophils # 9.0 H (1.3-7.7) k/uL Lymphocytes # 0.7 L (1.0-4.8) k/uL Sodium 134 L (137-145) mmol/L Chloride 97 L (98-107) mmol/L BUN 45 H (7-17) mg/dL Creatinine 2.18 H (0.52-1.04) mg/dL Glucose 190 H (74-99) mg/dL Plasma Lactic Acid Ar 2.6 H* (0.7-2.0) mmol/L Calcium 8.2 L (8.4-10.2) mg/dL C-Reactive Protein 37.0 H (<1.0) mg/dL Total Protein 5.9 L (6.3-8.2) g/dL Albumin 3.4 L (3.5-5.0) g/dL Thrombosis Risk Factor Assmnt - Choose All That Apply Any of the Below Risk Factors Present?: Yes Each Factor Represents 1 point: Obesity (BMI >25), Swollen legs (current) Other Risk Factors: Yes Each Risk Factor Represents 2 Points: Age 61-74 years Other congenital or acquired thrombophilia - If yes, enter type in comment: No Thrombosis Risk Factor Assessment Total Risk Factor Score: 4 Thrombosis Risk Factor Assessment Level: Moderate Risk Assessment and Plan Assessment: 68-year-old female with paroxysmal A-fib, congestive heart failure, CKD, peripheral neuropathy coming in right-sided facial swelling and pain I discussed case with ED doctor and accepted the admission for suspected parotitis with anticipated length of stay more than [address] scan of the neck without contrast showed no collection or abscess however it did show soft tissue edema and enlarged parotid gland Follow-up cultures Empiric antibiotics with Zosyn 3.3475 g IV piggyback every 8 hours Tylenol for fever 650 mg p.o. every 6 hours as needed Pain control with morphine 4 mg IV push every 3 hours as needed IV fluid hydration normal saline 50 cc/h Monitor vital signs White count unremarkable 10.4 patient afebrile Lactic acidosis 2.6 elevated C-reactive protein elevated 37 Monitor airways Chronic conditions Paroxysmal A-fib continue with amiodarone and Eliquis CKD not sure of baseline renal function Creatinine 2.18 and BUN 45 both elevated Potassium 3.5 and sodium 134 unremarkable Hold Entresto until stable renal function Monitor urine output Monitor renal function Congestive heart failure Hold Entresto Continue with Farxiga Hypothyroid Continue with levothyroxine Full code DVT prophylaxis on Eliquis for A-fib GI prophylaxis continue with Protonix 40 mg IV push daily
[2024-05-10] MEDS: APIXABAN 5 MG TAB PO SCH (00:02)
[2024-05-10] MEDS: HYDROcodone/APAP 5-325MG 1 EACH TAB PO PRN (00:04)
[2024-05-10] MEDS: SODIUM CHLORIDE 0.9% 1,000 ML IV STA ×2 (00:06→10:23)
[2024-05-10] MEDS: HYDROmorphone 0.5 MG/0.5 ML SYRINGE IVP PRN (02:49)
[2024-05-10 05:59] LABS: Mumps Virus IgG Ab Interp Positive (Negative); Mumps Virus IgG Antibody 3.3 AI
[2024-05-10 06:00] LABS: EBV-EA (IgG) 1.2 AI; EBV-EBNA(IgG) 1.2; EBV-VCA (IgG) >8.0 AI; EBV-VCA (IgM) <0.2 AI
[2024-05-10] MEDS: LEVOTHYROXINE 88 MCG TAB PO SCH (06:28)
[2024-05-10] MEDS: ASPIRIN 81 MG PO SCH (08:29)
[2024-05-10] MEDS: AMIODARONE 100 MG TAB PO SCH (08:29)
[2024-05-10] MEDS: METOPROLOL SUCCINATE (ER) 50 MG TAB.ER.24H PO SCH (08:29)
[2024-05-10] MEDS: DAPAGLIFLOZIN PROPANEDIOL 10 MG TABLET PO SCH (08:29)
[2024-05-10] MEDS: PIPERACILLIN-TAZOBACTAM 3.375 GM in SODIUM CHLORIDE 0.9% 100 ML IVPB SCH (08:29)
[2024-05-10] MEDS: PANTOPRAZOLE 40 MG/10 ML VIAL IV SCH (08:29)
[2024-05-10 10:51] LABS: Anisocytosis Slight; HGB 10.4 gm/dL (11.4-16.0); Hypochromasia Marked; MCH 27.2 pg (25.0-35.0); MCHC 30.7 g/dL (31.0-37.0); MCV 88.8 fL (80.0-100.0); Mean Platelet Volume 9.3; Platelet Count 161 k/uL (150-450); RBC 3.82 m/uL (3.80-5.40); RDW 16.4 % (11.5-15.5); WBC 9.8 k/uL (3.8-10.6)
[2024-05-10 11:21] LABS: African American GFR (CKD) 39 (>60 ml/min/1.73 sqM); Anion Gap 12 mmol/L; Blood Urea Nitrogen 34 mg/dL (7-17); Calcium 8.1 mg/dL (8.4-10.2); Carbon Dioxide 23 mmol/L (22-30); Chloride 97 mmol/L (98-107); Glucose 187 mg/dL (74-99); Non-African American GFR(CKD) 34 (>60 ml/min/1.73 sqM); Potassium 3.7 mmol/L (3.5-5.1); Sodium 132 mmol/L (137-145)
[2024-05-10] MEDS: ONDANSETRON 4 MG/2 ML VIAL IVP PRN (11:45)
[2024-05-10 13:48] LABS: Appearance,Urine Clear (Clear); Bilirubin,Urine Negative (Negative); Blood,Urine Negative (Negative); Color,Urine Light Yellow; Glucose,Urine (UA) 4+ (Negative); Ketones,Urine Negative (Negative); Leukocyte Esterase,Urine Negative (Negative); Nitrite,Urine Negative (Negative); PH, Urine 5.5 (5.0-8.0); Protein,Urine 1+ (Negative); RBC,Urine 1 /hpf (0-5); Specific Gravity,Urine 1.025 (1.001-1.035); Urobilinogen,Urine <2.0 mg/dL (<2.0); WBC,Urine 2 /hpf (0-5)
--- NOTE | 2024-05-10 14:31 | P.PN ---
Subjective Progress Note Date: 05/10/24 Hospital course: Patient is a very pleasant 68-year-old female with a past medical history of CAD status post stenting, severe ischemic cardiomyopathy status post biventricular pacemaker placement, paroxysmal atrial fibrillation on anticoagulation with Eliquis, history of left bundle branch block, HFrEF, hypertension, hyperlipidemia, hypothyroidism, and chronic kidney disease stage IIIb. She was sent to the emergency department on 05/09/2024 from her PCPs office secondary to concerns of right-sided facial swelling and need for CT. Upon arrival to our facility, patient underwent evaluation in the emergency department. Vital signs upon arrival show blood pressure 82/53, heart rate 70s rate 19, temp 97.7 F, and SpO2 of 94% on room air. Labs were completed and reviewed. CBC showing normocytic anemia with hemoglobin of 10.7. BMP showing hypochloremic hyponatremia with sodium of 134, chloride of 97 and acute kidney injury on stage IIIb chronic kidney disease with BUN of 45, creatinine 2.18, and GFR of 23 with baseline creatinine of 1.5. Lactic acid was elevated at 2.6. CRP was elevated at 37.0. CT soft tissues of neck without contrast was completed showing extens mae edema of the right facial structures extending from the lower lobe of the parotid gland throughout the right neck, edema of the submandibular gland, and no definitive drainable abscess reported, these findings concerning for acute parotiditis. Patient started on broad-spectrum antibiotics and admitted under our services with consultation to infectious disease and ENT. Physical exam: Patient seen and fully evaluated at bedside this morning, she continues to report moderate to severe pain of her right lower jaw and neck with decreased range of motion. She denies having any headache, lightheadedness, dizziness, chest pain, palpitations, shortness of breath, or any other complaints at this time. Vital signs reviewed and stable. General: Nontoxic, no distress and appears stated age. Obese. . Derm: Skin warm and dry, normal coloration for ethnicity. Head/Neck: Atraumatic, normocephalic and symmetric. Limited range of motion of neck and mouth due to swelling and reports of severe pain with palpation or movement. Patient with extensive swelling and palpable enlarged parotid gland/mass to right preauricular region extending down beneath mandible region/j aw and surrounding erythema on face extending downwards right lateral neck. Eyes: EOM's intact, no lid lag, and anicteric sclera Mouth: no lip lesions, mucus membranes moist Cardiovascular: regular rate and rhythm with normal S1S2, no murmur, positive posterior tibial pulses bilaterally, and cap refill < 2 seconds. Lungs: Respirations even, regular, and unlabored on room air. Lungs CTA bilaterally, no rhonchi, no rales, no wheezing, and no accessory muscle usage. Abdominal: soft, nontender to palpation, no guarding, no appreciable organomegaly Ext: ROM intact. No gross muscle atrophy, no edema, no contractures Neuro: Speech clear, face symmetrical and CN II-XII grossly intact with no noted focal neuro deficits Psych: Alert and oriented to person, place, time, and situation. Appropriate and pleasant affect. Assessment and Plan of Care: Parotiditis with surrounding facial cellulitis Sepsis on admission secondary to above as evidenced by hypotension with blood pr essure 82/53, heart rate 117, and lactic acid of 2.6 -Continue IV antibiotic with Unasyn 3 g every 8 hours -Infectious disease following, and discussed plan of care with Dr. Ramos. -ENT following starting patient on IV Decadron. -Maintain aspiration precautions -Monitor pulse oximetry -Follow-up on blood cultures and mumps virus IgM antibody once resulted. -Continue symptomatic care and pain management with Tylenol 650 mg every 6 hours as needed for mild pain/fever, [place] 5/325 mg tablets every 4 hours as needed for moderate pain, and Dilaudid 1 mg every 3 hours as needed for severe pain. Acute kidney injury on stage IIIb chronic kidney disease -Likely secondary to dehydration resulting from poor oral intake and sepsis. -Acute kidney injury resolved after IV fluid hydration with renal function back at baseline this morning with BUN of 34, creatinine 1.55, GFR of 34 Hyperglycemia -No history of diabetes mellitus, patient currently hyperglycemic with blood glucose of 186. Order placed for glycemic protocol with Humalog sliding scale. Follow-up on hemoglobin A1c results. Lactic acidosis, resolved with IV fluid hydration CAD status post stenting Ischemic cardiomyopathy status post biventricular pacemaker placement History of left bundle branch block Paroxysmal atrial fibrillation Chronic systolic heart failure Hypertension Hyperlipidemia -Patient currently free from cardiac complaints. -Telemetry monitoring. -Continue cardiac medication regimen with amiodarone 100 mg daily, Eliquis 5 mg twice daily, aspirin 81 mg daily, atorvastatin 80 mg nightly, Farxiga 10 mg daily, and metoprolol 50 mg daily. Hypothyroidism -Continue home medication regimen with levothyroxine 88 mcg daily. Data and imaging reviewed: -Vital signs reviewed. Blood pressure 115/74, heart rate 71, respiratory rate 17, temp 98.3 F, and SpO2 100% on room air. -Morning labs reviewed. ESR 37.0. CBC showing stable normocytic anemia with hemoglobin of 10.4. BMP showing hyponatremia with sodium of 132 chloride of 97 and improvement of renal function back to baseline for patient's CKD with BUN of 34, creatinine 1.55, GFR of 34. Magnesium 2.0. CODE STATUS: Full code DVT prophylaxis: Anitaquis Discussed with: Patient, RN, and infectious disease physician Anticipated discharge date: Pending clinical course Anticipated discharge place: Home Patient was seen independently by Nurse Pracitioner. This document was prepared using [employer] dictation software. Please allow for errors in casino operations supervisor, while rare they do occur. Ronny Florian NP rendered care for this patient independently, reviewed the findings and plan as documented in the note above and agree with plan. I did not physically speak with or examine the patient on this date. Objective - Vital Signs Vital signs: Vital Signs Temp 98.0 F 05/10/24 02:00 Pulse 78 05/10/24 02:00 Resp 16 05/10/24 02:00 BP 116/71 05/10/24 02:00 Pulse Ox 94 L 05/10/24 02:00 FiO2 Intake & Output 05/09/24 05/10/24 05/10/24 18:59 06:59 18:59 Weight 136.078 kg 136.078 kg Other: # Voids 1 - Labs CBC & Chem 7: 05/10/24 10:28 05/10/24 10:28 Labs: Abnormal Lab Results - Last 24 Hours (Table) 05/09/24 05/09/24 05/09/24 Range/Units 18:22 18:22 18:22 Hgb 10.7 L (11.4-16.0) gm/dL RDW 16.5 H (11.5-15.5) % Neutrophils # 9.0 H (1.3-7.7) k/uL Lymphocytes # 0.7 L (1.0-4.8) k/uL Sodium 134 L (137-145) mmol/L Chloride 97 L (98-107) mmol/L BUN 45 H (7-17) mg/dL Creatinine 2.18 H (0.52-1.04) mg/dL Glucose 190 H (74-99) mg/dL Plasma Lactic Acid Ar 2.6 H* (0.7-2.0) mmol/L Calcium 8.2 L (8.4-10.2) mg/dL C-Reactive Protein 37.0 H (<1.0) mg/dL Total Protein 5.9 L (6.3-8.2) g/dL Albumin 3.4 L (3.5-5.0) g/dL EBV Capsid Ag IgG Intrp (Negative) EBV EA IgG Ab Interp (Negative) EBV Nuc Ag IgG Interp (Negative) Mumps Virus IgG Interp (Negative) 05/09/24 05/09/24 Range/Units 18:22 18:22 Hgb (11.4-16.0) gm/dL RDW (11.5-15.5) % Neutrophils # (1.3-7.7) k/uL Lymphocytes # (1.0-4.8) k/uL Sodium (137-145) mmol/L Chloride (98-107) mmol/L BUN (7-17) mg/dL Creatinine (0.52-1.04) mg/dL Glucose (74-99) mg/dL Plasma Lactic Acid Ar (0.7-2.0) mmol/L Calcium (8.4-10.2) mg/dL C-Reactive Protein (<1.0) mg/dL Total Protein (6.3-8.2) g/dL Albumin (3.5-5.0) g/dL EBV Capsid Ag IgG Intrp Positive A (Negative) EBV EA IgG Ab Interp Positive A (Negative) EBV Nuc Ag IgG Interp Positive A (Negative) Mumps Virus IgG Interp Positive A (Negative)
[2024-05-10] MEDS ORDERED: DEXTROSE 50% SYRINGE 50 ML IVP PRN ×2 (15:01)
[2024-05-10] MEDS: DEXAMETHASONE SOD PHOSPHATE 10 MG/ML 1 ML VIAL IVP SCH (16:12)
[2024-05-10] MEDS: AMPICILLIN-SULBACTAM 3 GM in SODIUM CHLORIDE 0.9% 100 ML IVPB SCH (16:13)
[2024-05-10 17:14] LABS: Glucose,Whole Blood 192 mg/dL (70-110)
[2024-05-10] MEDS: INSULIN LISPRO (HumaLOG) 100 UNIT/ML 10 mL VL SQ SCH (17:57)
[2024-05-10 19:52] LABS: Glucose,Whole Blood 247 mg/dL (70-110)
[2024-05-10] MEDS: ATORVASTATIN 80 MG TAB PO SCH (20:04)
--- NOTE | 2024-05-10 23:46 | P.CONS ---
History of Present Illness - Reason for Consult Consult date: 05/10/24 Right-sided facial cellulitis/parotitis Requesting physician: Beti Gupta - Chief Complaint Right-sided facial pain and swelling x 4 days - History of Present Illness Patient is a 68-year-old female with a past medical history significant for Atrial Fibrillation, Coronary Artery Disease (CAD), Cancer, Heart Failure, CVA/TIA, Hyperlipidemia, Hypertension, Myocardial Infarction ([place]) presenting to the hospital for evaluation of right-sided facial swelling and pain that the patient noticed about 3 to 4 days before presentation to hospital patient denies any history of any trauma has been complaining of numbness and tingling to the right lower lip patient noted to have increasing swelling redness to the face some extension to the neck area for the patient was evaluated by the PCP and advised to go to the ER for CT patient did not recall any high-grade fever did have some chills on presentation to hospital patient was afebrile no fever have recorded subsequently patient was nontachycardic hypotensive or hypoxic patient did have white count of 10.4 with a left shift BUN and creatinine has been elevated liver enzymes are normal urine has been negative patient did have EBV serology positive influenza RSV COVID testing was negative patient did have CT of the soft tissue of the neck which shows extensive soft tissue swelling noted in the region of the right parotid gland no evidence of any abscess patient was started on Zosyn infectious disease was consulted for further management of antibiotic therapy Review of Systems Positive point and negatives has been mentioned in the HPI, complete review of systems was performed and all other systems are negative Past Medical History Past Medical History: Atrial Fibrillation, Coronary Artery Disease (CAD), Cancer, Heart Failure, CVA/TIA, Hyperlipidemia, Hypertension, Myocardial Infarction ([place]) Additional Past Medical History / Comment(s): CVA (MAR 2014)- NO RESIDUAL EFFECTS , LEFT BREAST CANCER. FINISHED CHEMO Sep, HX OF INFECTION FROM IMPLANT WITH DIFFICULTY HEALING-REMOVED. 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 vertigo, Last Myocardial Infarction Date:: 12/08/2018 History of Any Multi-Drug Resistant Organisms: None Reported Past Surgical History: AICD, Breast Surgery, Section, Heart Catheteriz ation With Stent, Pacemaker Additional Past Surgical History / Comment(s): LT MASTECTOMY WITH IMPLANT (INFECTION & REMOVED),. C-SEC X3. MEDI PORT INSERTION-RT CHEST-REMOVED. BREAST BIOPSIES. HEART CATH WITH STENT 11/2018, pacemaker/AICD removal 05/11/21, Past Anesthesia/Blood Transfusion Reactions: Postoperative Nausea & Vomiting (PONV) Additional Past Anesthesia/Blood Transfusion Reaction / Comm: HX OF PONV. Date of Last Stent Placement:: 11/2018 Type of Cardiac Device: Biventricular Pacemaker, Permanent Pacemaker, AICD Device Placement Date:: 06/20/19 Past Psychological History: No Psychological Hx Reported Smoking Status: Never smoker Past Alcohol Use History: Rare Past Drug Use History: None Reported - Past Family History Mother Family Medical History: Cancer, CVA/TIA Additional Family Medical History / Comment(s): BREAST CANCER Father Family Medical History: Cancer, Congestive Heart Failure (CHF), Diabetes Mellitus Additional Family Medical History / Comment(s): CANCER Medications and Allergies Home Medications Medication Instructions Recorded Confirmed Type Letrozole [Femara] 2.5 mg PO DAILY 06/06/16 05/10/24 History Apixaban [Eliquis] 5 mg PO BID #60 tab 12/12/18 05/10/24 Rx Atorvastatin [Lipitor] 80 mg PO HS #30 tab 12/12/18 05/10/24 Rx Dapagliflozin Propanediol [Farxiga] 10 mg PO DAILY 09/30/22 05/10/24 History Sacubitril/Valsartan [Entresto 24 1 tab PO BID 09/30/22 05/10/24 History mg-26 mg Tablet] Furosemide [Lasix] 40 mg PO BID PRN 11/23/22 05/10/24 History Metoprolol Succinate [Toprol XL] 50 mg PO DAILY #90 tab 12/29/22 05/10/24 Rx Amiodarone [Cordarone] 100 mg PO DAILY 01/05/24 05/10/24 History Levothyroxine Sodium 88 mcg PO DAILY 01/05/24 05/10/24 History Allergies Allergy/AdvReac Type Severity Reaction Status Date / Time vancomycin Allergy Rash/Hives Verified 05/10/24 11:06 latex AdvReac Unknown itching Verified 05/10/24 11:06 and tingling ibuprofen [From Motrin] AdvReac Nausea & Verified 05/10/24 11:06 Vomiting phenaphen Allergy Severe Anaphylaxis Uncoded 05/09/24 16:41 blue cheese Allergy Unknown Rash/Hives, Uncoded 05/09/24 16:41 Swelling corn beef Allergy Unknown Rash/Hives, Uncoded 05/09/24 16:41 Swelling phenaphen #3 Allergy Anaphylaxis Uncoded 05/09/24 16:41 Physical Exam Vitals: Vital Signs Temp Pulse Pulse Resp BP BP Pulse Ox 05/10/24 07:00 98.3 F 71 17 115/74 100 05/10/24 02:00 98.0 F 78 16 116/71 94 L 05/09/24 22:50 80 18 97/63 100 05/09/24 21:13 97.8 F 76 18 124/80 98 05/09/24 18:44 117 H 18 112/72 98 05/09/24 17:04 72 18 86/50 95 05/09/24 16:31 97.7 F 76 19 82/53 94 L Intake and Output 05/09/24 05/10/24 05/10/24 22:59 06:59 14:59 Intake Total 118 Balance 118 Intake: Oral 118 Other: # Voids 1 Weight 136.078 kg 136.078 kg GENERAL DESCRIPTION: Elderly female lying in bed, no distress. No tachypnea or accessory muscle of respiration use. HEENT: Shows Pallor , no scleral icterus. Oral mucous membrane is dry. Right- sided facial swelling redness and tenderness NECK: Trachea central, no thyromegaly. LUNGS: Unlabored breathing. Clear to auscultation anteriorly. No wheeze or crackle. HEART: S1, S2, regular rate and rhythm. No loud murmur ABDOMEN: Soft, no tenderness , EXTREMITIES: No edema of feet. SKIN: No rash, no masses palpable. NEUROLOGICAL: The patient is awake, alert, oriented x3, mood and affect normal. Results CBC & Chem 7: 05/10/24 10:28 05/10/24 10:28 Labs: Abnormal Lab Results - Last 24 Hours (Table) 05/09/24 05/09/24 05/09/24 Range/Units 18:22 18:22 18:22 Hgb 10.7 L (11.4-16.0) gm/dL MCHC (31.0-37.0) g/dL RDW 16.5 H (11.5-15.5) % Neutrophils # 9.0 H (1.3-7.7) k/uL Lymphocytes # 0.7 L (1.0-4.8) k/uL Sodium 134 L (137-145) mmol/L Chloride 97 L (98-107) mmol/L BUN 45 H (7-17) mg/dL Creatinine 2.18 H (0.52-1.04) mg/dL Glucose 190 H (74-99) mg/dL Plasma Lactic Acid Ar 2.6 H* (0.7-2.0) mmol/L Calcium 8.2 L (8.4-10.2) mg/dL C-Reactive Protein 37.0 H (<1.0) mg/dL Total Protein 5.9 L (6.3-8.2) g/dL Albumin 3.4 L (3.5-5.0) g/dL EBV Capsid Ag IgG Intrp (Negative) EBV EA IgG Ab Interp (Negative) EBV Nuc Ag IgG Interp (Negative) Mumps Virus IgG Interp (Negative) 05/09/24 05/09/24 05/10/24 Range/Units 18:22 18:22 10:28 Hgb 10.4 L (11.4-16.0) gm/dL MCHC 30.7 L (31.0-37.0) g/dL RDW 16.4 H (11.5-15.5) % Neutrophils # (1.3-7.7) k/uL Lymphocytes # (1.0-4.8) k/uL Sodium (137-145) mmol/L Chloride (98-107) mmol/L BUN (7-17) mg/dL Creatinine (0.52-1.04) mg/dL Glucose (74-99) mg/dL Plasma Lactic Acid Ar (0.7-2.0) mmol/L Calcium (8.4-10.2) mg/dL C-Reactive Protein (<1.0) mg/dL Total Protein (6.3-8.2) g/dL Albumin (3.5-5.0) g/dL EBV Capsid Ag IgG Intrp Positive A (Negative) EBV EA IgG Ab Interp Positive A (Negative) EBV Nuc Ag IgG Interp Positive A (Negative) Mumps Virus IgG Interp Positive A (Negative) 05/10/24 Range/Units 10:28 Hgb (11.4-16.0) gm/dL MCHC (31.0-37.0) g/dL RDW (11.5-15.5) % Neutrophils # (1.3-7.7) k/uL Lymphocytes # (1.0-4.8) k/uL Sodium 132 L (137-145) mmol/L Chloride 97 L (98-107) mmol/L BUN 34 H (7-17) mg/dL Creatinine 1.55 H (0.52-1.04) mg/dL Glucose 187 H (74-99) mg/dL Plasma Lactic Acid Ar (0.7-2.0) mmol/L Calcium 8.1 L (8.4-10.2) mg/dL C-Reactive Protein (<1.0) mg/dL Total Protein (6.3-8.2) g/dL Albumin (3.5-5.0) g/dL EBV Capsid Ag IgG Intrp (Negative) EBV EA IgG Ab Interp (Negative) EBV Nuc Ag IgG Interp (Negative) Mumps Virus IgG Interp (Negative) Assessment and Plan (1) Acute parotitis Current Visit: Yes Status: Acute Code(s): K11.21 - ACUTE SIALOADENITIS SNOMED Code(s): 69441732 (2) Facial cellulitis Current Visit: Yes Status: Acute Code(s): L03.211 - CELLULITIS OF FACE SNOMED Code(s): 302309627 Plan: 1patient presented to hospital with right-sided facial swelling and pain in this patient has been diagnosed with a right-sided facial cellulitis/parotitis we will need to cover for the polymicrobial oral lawrence to be the likely pathogen and less likely MRSA 2vancomycin allergy 3elevated BUN and creatinine high risk of nephrotoxicity from certain antibiotics 4will recommend discontinue Zosyn start the patient on Unasyn 3 g every 8 hour and see clinical swallows were discussed with OFFICE SERVICES MANAGER for admitting team We will follow on clinical condition and cultures to further adjust medication if needed Thank you for this consultation we will follow the patient along with you Dictation was produced using [employer] software. please excuse any grammatical, word or spelling errors. Time with Patient: Greater than 30
[2024-05-11 05:48] LABS: Glucose,Whole Blood 160 mg/dL (70-110)
[2024-05-11] MEDS: DEXAMETHASONE SOD PHOSPHATE 10 MG/ML 1 ML VIAL IVP ONE (08:13)
[2024-05-11 09:54] LABS: HCT 32.6 % (37.2-46.3); HGB 9.7 g/dL (12.0-15.0); MCH 26.9 pg (27.0-32.0); MCHC 29.8 g/dL (32.0-37.0); MCV 90.3 FL (80.0-97.0); Mean Platelet Volume 11.9 FL (9.5-12.2); NRBC Per 100 WBC 0 X 10*3/uL (0.00-0.01); Platelet Count 169 X 10*3/uL (140-440); RBC 3.61 X 10*6/uL (4.10-5.20); RDW 16.8 % (11.5-14.5); WBC 7.78 X 10*3/uL (4.50-10.00)
[2024-05-11 10:15] LABS: Magnesium 2.3 mg/dL (1.5-2.4)
[2024-05-11 10:16] LABS: BUN/Creat Ratio 18.36 Ratio (12.00-20.00); Blood Urea Nitrogen 25.7 mg/dL (9.0-27.0); Chloride 100 mmol/L (96-109); Glucose 176 mg/dL (70-110); Potassium 5.1 mmol/L (3.5-5.5); Sodium 137 mmol/L (135-145)
[2024-05-11 10:17] LABS: Calcium 8.4 mg/dL (8.7-10.3)
[2024-05-11 12:13] LABS: Glucose,Whole Blood 215 mg/dL (70-110)
--- NOTE | 2024-05-11 15:40 | P.PN ---
Subjective Progress Note Date: 05/11/24 Principal diagnosis: Reason for follow-up is right facial cellulitis Patient is a 68-year-old female with a past medical history significant for Atrial Fibrillation, Coronary Artery Disease (CAD), Cancer, Heart Failure, CVA/TIA, Hyperlipidemia, Hypertension, Myocardial Infarction ([place]) presenting to the hospital for evaluation of right-sided facial swelling and pain, patient did have CT concerning for extensive soft tissue swelling in the region of the parotid gland. On today's evaluation that is 05/11/2024, patient did not have any fever and denies any chills, patient is breathing comfortably on room air, patient with no chest pain or cough patient did not have any abdominal pain nausea vomiting or any loose stools patient right-sided facial pain and swelling has decreased intensity. Patient white count 7.78, creat is 1.4 cultures are currently pending Objective - Vital Signs Vital signs: Vital Signs Temp 98.0 F 05/11/24 14:23 Pulse 73 05/11/24 14:23 Resp 15 05/11/24 14:23 BP 97/64 05/11/24 14:23 Pulse Ox 94 L 05/11/24 14:23 FiO2 Intake & Output 05/10/24 05/11/24 05/11/24 18:59 06:59 18:59 Intake Total 236 Balance 236 Intake: Oral 236 Other: # Voids 2 2 1 - Exam GENERAL DESCRIPTION: An elderly Female lying in bed in no distress HEENT: Right-sided facial redness has resolved still has some induration RESPIRATORY SYSTEM: Unlabored breathing , decreased breath sounds at bases HEART: S1 S2 regular rate and rhythm , ABDOMEN: Soft , no tenderness EXTREMITIES: No edema feet - Labs CBC & Chem 7: 05/11/24 05:33 05/11/24 05:33 Labs: Abnormal Lab Results - Last 24 Hours (Table) 05/10/24 05/10/24 05/11/24 Range/Units 17:13 19:51 05:33 RBC (4.10-5.20) X 10*6/uL Hgb (12.0-15.0) g/dL Hct (37.2-46.3) % MCH (27.0-32.0) pg MCHC (32.0-37.0) g/dL RDW (11.5-14.5) % Est GFR (CKD-EPI) (>=60) Glucose (70-110) mg/dL POC Glucose (mg/dL) 192 H 247 H (70-110) mg/dL Hemoglobin A1c 7.0 H (<=6.0) % Calcium (8.7-10.3) mg/dL 05/11/24 05/11/24 05/11/24 Range/Units 05:33 05:33 05:46 RBC 3.61 L (4.10-5.20) X 10*6/uL Hgb 9.7 L (12.0-15.0) g/dL Hct 32.6 L (37.2-46.3) % MCH 26.9 L (27.0-32.0) pg MCHC 29.8 L (32.0-37.0) g/dL RDW 16.8 H (11.5-14.5) % Est GFR (CKD-EPI) 41 L (>=60) Glucose 176 H (70-110) mg/dL POC Glucose (mg/dL) 160 H (70-110) mg/dL Hemoglobin A1c (<=6.0) % Calcium 8.4 L (8.7-10.3) mg/dL 05/11/24 Range/Units 12:09 RBC (4.10-5.20) X 10*6/uL Hgb (12.0-15.0) g/dL Hct (37.2-46.3) % MCH (27.0-32.0) pg MCHC (32.0-37.0) g/dL RDW (11.5-14.5) % Est GFR (CKD-EPI) (>=60) Glucose (70-110) mg/dL POC Glucose (mg/dL) 215 H (70-110) mg/dL Hemoglobin A1c (<=6.0) % Calcium (8.7-10.3) mg/dL Microbiology - Last 24 Hours (Table) 05/09/24 20:59 Blood Culture - Preliminary Blood Assessment and Plan (1) Acute parotitis Current Visit: Yes Status: Acute Code(s): K11.21 - ACUTE SIALOADENITIS SNOMED Code(s): 36710063 (2) Facial cellulitis Current Visit: Yes Status: Acute Code(s): L03.211 - CELLULITIS OF FACE SNOMED Code(s): 870427113 Plan: 1patient presented to hospital with right-sided facial swelling and pain in this patient has been diagnosed with a right-sided facial cellulitis/parotitis we will need to cover for the polymicrobial oral lawrence to be the likely pathogen and less likely MRSA 2vancomycin allergy 3patient seem to have shown some clinical improvement we will continue the patient on Unasyn 3 g every 8 hour for another 24 to 48 hours before transition to oral antibiotics Dictation was produced using [employer] dictation software. please excuse any grammatical, word or spelling errors. Time with Patient: Less than 30
[2024-05-11 17:08] LABS: Glucose,Whole Blood 252 mg/dL (70-110)
--- NOTE | 2024-05-11 17:13 | P.PN ---
Subjective Progress Note Date: 05/11/24 Hospital course: Patient is a very pleasant 68-year-old female with a past medical history of CAD status post stenting, severe ischemic cardiomyopathy status post biventricular pacemaker placement, paroxysmal atrial fibrillation on anticoagulation with Eliquis, history of left bundle branch block, HFrEF, hypertension, hyperlipidemia, hypothyroidism, and chronic kidney disease stage IIIb. She was sent to the emergency department on 05/09/2024 from her PCPs office secondary to concerns of right-sided facial swelling and need for CT. Upon arrival to our facility, patient underwent evaluation in the emergency department. Vital signs upon arrival show blood pressure 82/53, heart rate 70s rate 19, temp 97.7 F, and SpO2 of 94% on room air. Labs were completed and reviewed. CBC showing normocytic anemia with hemoglobin of 10.7. BMP showing hypochloremic hyponatremia with sodium of 134, chloride of 97 and acute kidney injury on stage IIIb chronic kidney disease with BUN of 45, creatinine 2.18, and GFR of 23 with baseline creatinine of 1.5. Lactic acid was elevated at 2.6. CRP was elevated at 37.0. CT soft tissues of neck without contrast was completed showing extens mae edema of the right facial structures extending from the lower lobe of the parotid gland throughout the right neck, edema of the submandibular gland, and no definitive drainable abscess reported, these findings concerning for acute parotiditis. Patient started on broad-spectrum antibiotics and admitted under our services with consultation to infectious disease and ENT. Physical exam: Patient seen and fully evaluated at bedside this morning, she reports improvement of swelling and pain to her right jaw and neck. Patient does have increased range of motion and neck and significant improvement. Parotid gland remains enlarged with mild erythema surrounding. Patient encouraged to suck on lemon drops. She reports tolerating diet and denies having any choking or dysphagia. She does report some pain with swallowing secondary to movement of her jaw but otherwise maintaining airway without difficulty. Patient informed likely another 24 hours of antibiotics possible discharge home tomorrow on oral antibiotic course. Vital signs reviewed and stable. General: Nontoxic, no distress and appears stated age. Obese. . Derm: Skin warm and dry, normal coloration for ethnicity. Head/Neck: Atraumatic, normocephalic and symmetric. Limited range of motion of neck and mouth due to swelling and reports of severe pain with palpation or movement. Patient with extensive swelling and palpable enlarged parotid gland/mass to right preauricular region extending down beneath mandible region/jaw and surrounding erythema on face extending downwards right lateral neck. Eyes: EOM's intact, no lid lag, and anicteric sclera Mouth: no lip lesions, mucus membranes moist Cardiovascular: regular rate and rhythm with normal S1S2, no murmur, positive posterior tibial pulses bilaterally, and cap refill < 2 seconds. Lungs: Respirations even, regular, and unlabored on room air. Lungs CTA bilaterally, no rhonchi, no rales, no wheezing, and no accessory muscle usage. Abdominal: soft, nontender to palpation, no guarding, no appreciable organomegaly Ext: ROM intact. No gross muscle atrophy, no edema, no contractures Neuro: Speech clear, face symmetrical and CN II-XII grossly intact with no noted focal neuro deficits Psych: Alert and oriented to person, place, time, and situation. Appropriate and pleasant affect. Assessment and Plan of Care: Parotiditis with surrounding facial cellulitis Sepsis on admission secondary to above as evidenced by hypotension with blood pressure 82/53, heart rate 117, and lactic acid of 2.6 -Continue IV antibiotic with Unasyn 3 g every 8 hours -Infectious disease following, and discussed plan of care with Dr. Ramos. -ENT following starting patient on IV Decadron. -Maintain aspiration precautions -Monitor pulse oximetry -Follow-up on blood cultures and mumps virus IgM antibody once resulted. -Continue symptomatic care and pain management with Tylenol 650 mg every 6 hours as needed for mild pain/fever, Palmetto 5/325 mg tablets every 4 hours as needed for moderate pain, and Dilaudid 1 mg every 3 hours as needed for severe pain. Acute kidney injury on stage IIIb chronic kidney disease. -Resolved with IV fluid hydration and increased oral intake. Hyperglycemia -Hemoglobin A1c 7%. Patient to continue with glycemic protocol and Humalog sliding scale, will plan for discharge home on metformin. Lactic acidosis, resolved with IV fluid hydration CAD status post stenting Ischemic cardiomyopathy status post biventricular pacemaker placement History of left bundle branch block Paroxysmal atrial fibrillation Chronic systolic heart failure Hypertension Hyperlipidemia -Patient currently free from cardiac complaints. -Telemetry monitoring. -Continue cardiac medication regimen with amiodarone 100 mg daily, Eliquis 5 mg twice daily, aspirin 81 mg daily, atorvastatin 80 mg nightly, Farxiga 10 mg daily, and metoprolol 50 mg daily. Hypothyroidism -Continue home medication regimen with levothyroxine 88 mcg daily. Data and imaging reviewed: -Vital signs reviewed. Blood pressure 100/60, heart rate 70, respiratory rate 16, temp 97.3 F, and SpO2 of 97% on room air -Morning labs reviewed. CBC showing stable normocytic anemia with hemoglobin of 9.7. BMP showing improvement of acute kidney injury with BUN of 25.7, creatinine of 1.4, and GFR of 41. Blood glucose 176. Hemoglobin A1c 7%. CODE STATUS: Full code DVT prophylaxis: Calderon Discussed with: Patient, RN, and infectious disease physician Anticipated discharge date: Likely tomorrow morning Anticipated discharge place: Home Patient was seen independently by Nurse Pracitioner. This document was prepared using DGSE dictation software. Please allow for errors in electrical superintendent, while rare they do occur. Ronny Florian NP rendered care for this patient independently, reviewed the findings and plan as documented in the note above and agree with plan. I did not physically speak with or examine the patient on this date. Objective - Vital Signs Vital signs: Vital Signs Temp 97.3 F L 05/11/24 07:00 Pulse 70 05/11/24 07:00 Resp 17 05/11/24 08:07 BP 100/60 05/11/24 07:00 Pulse Ox 97 05/11/24 07:00 FiO2 Intake & Output 05/10/24 05/11/24 05/11/24 18:59 06:59 18:59 Intake Total 236 Balance 236 Intake: Oral 236 Other: # Voids 2 2 - Labs CBC & Chem 7: 05/11/24 05:33 05/11/24 05:33 Labs: Abnormal Lab Results - Last 24 Hours (Table) 05/10/24 05/10/24 05/10/24 Range/Units 10:28 10:28 13:39 RBC (4.10-5.20) X 10*6/uL Hgb 10.4 L (11.4-16.0) gm/dL Hct (37.2-46.3) % MCH (27.0-32.0) pg MCHC 30.7 L (31.0-37.0) g/dL RDW 16.4 H (11.5-15.5) % Sodium 132 L (137-145) mmol/L Chloride 97 L (98-107) mmol/L BUN 34 H (7-17) mg/dL Creatinine 1.55 H (0.52-1.04) mg/dL Est GFR (CKD-EPI) (>=60) Glucose 187 H (74-99) mg/dL POC Glucose (mg/dL) (70-110) mg/dL Hemoglobin A1c (<=6.0) % Calcium 8.1 L (8.4-10.2) mg/dL Urine Protein 1+ H (Negative) Urine Glucose (UA) 4+ H (Negative) 05/10/24 05/10/24 05/11/24 Range/Units 17:13 19:51 05:33 RBC (4.10-5.20) X 10*6/uL Hgb (11.4-16.0) gm/dL Hct (37.2-46.3) % MCH (27.0-32.0) pg MCHC (31.0-37.0) g/dL RDW (11.5-15.5) % Sodium (137-145) mmol/L Chloride (98-107) mmol/L BUN (7-17) mg/dL Creatinine (0.52-1.04) mg/dL Est GFR (CKD-EPI) (>=60) Glucose (74-99) mg/dL POC Glucose (mg/dL) 192 H 247 H (70-110) mg/dL Hemoglobin A1c 7.0 H (<=6.0) % Calcium (8.4-10.2) mg/dL Urine Protein (Negative) Urine Glucose (UA) (Negative) 05/11/24 05/11/24 05/11/24 Range/Units 05:33 05:33 05:46 RBC 3.61 L (4.10-5.20) X 10*6/uL Hgb 9.7 L (11.4-16.0) gm/dL Hct 32.6 L (37.2-46.3) % MCH 26.9 L (27.0-32.0) pg MCHC 29.8 L (31.0-37.0) g/dL RDW 16.8 H (11.5-15.5) % Sodium (137-145) mmol/L Chloride (98-107) mmol/L BUN (7-17) mg/dL Creatinine (0.52-1.04) mg/dL Est GFR (CKD-EPI) 41 L (>=60) Glucose 176 H (74-99) mg/dL POC Glucose (mg/dL) 160 H (70-110) mg/dL Hemoglobin A1c (<=6.0) % Calcium 8.4 L (8.4-10.2) mg/dL Urine Protein (Negative) Urine Glucose (UA) (Negative) Microbiology - Last 24 Hours (Table) 05/09/24 20:59 Blood Culture - Preliminary Blood
[2024-05-11 19:50] LABS: Glucose,Whole Blood 275 mg/dL (70-110)
[2024-05-12 05:16] LABS: Glucose,Whole Blood 271 mg/dL (70-110)
[2024-05-12 12:16] LABS: Glucose,Whole Blood 307 mg/dL (70-110)
--- NOTE | 2024-05-12 16:23 | P.PN ---
Subjective Progress Note Date: 05/12/24 Hospital course: Patient is a very pleasant 68-year-old female with a past medical history of CAD status post stenting, severe ischemic cardiomyopathy status post biventricular pacemaker placement, paroxysmal atrial fibrillation on anticoagulation with Eliquis, history of left bundle branch block, HFrEF, hypertension, hyperlipidemia, hypothyroidism, and chronic kidney disease stage IIIb. She was sent to the emergency department on 05/09/2024 from her PCPs office secondary to concerns of right-sided facial swelling and need for CT. Upon arrival to our facility, patient underwent evaluation in the emergency department. Vital signs upon arrival show blood pressure 82/53, heart rate 70s rate 19, temp 97.7 F, and SpO2 of 94% on room air. Labs were completed and reviewed. CBC showing normocytic anemia with hemoglobin of 10.7. BMP showing hypochloremic hyponatremia with sodium of 134, chloride of 97 and acute kidney injury on stage IIIb chronic kidney disease with BUN of 45, creatinine 2.18, and GFR of 23 with baseline creatinine of 1.5. Lactic acid was elevated at 2.6. CRP was elevated at 37.0. CT soft tissues of neck without contrast was completed showing extens mae edema of the right facial structures extending from the lower lobe of the parotid gland throughout the right neck, edema of the submandibular gland, and no definitive drainable abscess reported, these findings concerning for acute parotiditis. Patient started on broad-spectrum antibiotics and admitted under our services with consultation to infectious disease and ENT. ENT evaluated and tarted patient on IV Decadron and patient completed course of IV Decadron on labs although stable. Physical exam: Patient seen and fully evaluated at bedside this morning, she does report improvement of swelling and pain in her jaw. But continues to report feeling different when swallowing. Patient reports swelling improved after IV steroids but states she feels that it is returning now that steroids have stopped. Will start patient on Medrol Dosepak. Patient is tolerating a regular diet at this time. She denies having any chest pain, palpitations, shortness of breath, nausea, or vomiting. She is clearing her own secretions and maintaining SpO2 on room air at 96%. Vital signs reviewed and stable. General: Nontoxic, no distress and appears stated age. Obese. . Derm: Skin warm and dry, normal coloration for ethnicity. Head/Neck: Atraumatic, normocephalic and symmetric. Neck supple with full range of motion. Patient does have mild swelling to right parotid gland slightly extending beneath chin but significantly improved over the past 24 hours, erythema also showing significant improvement with only mild erythema remaining Eyes: EOM's intact, no lid lag, and anicteric sclera Mouth: no lip lesions, mucus membranes moist Cardiovascular: regular rate and rhythm with normal S1S2, no murmur, positive posterior tibial pulses bilaterally, and cap refill < 2 seconds. Lungs: Respirations even, regular, and unlabored on room air. Lungs CTA bilaterally, no rhonchi, no rales, no wheezing, and no accessory muscle usage. Abdominal: soft, nontender to palpation, no guarding, no appreciable organomegaly Ext: ROM intact. No gross muscle atrophy, no edema, no contractures Neuro: Speech clear, face symmetrical and CN II-XII grossly intact with no noted focal neuro deficits Psych: Alert and oriented to person, place, time, and situation. Appropriate and pleasant affect. Assessment and Plan of Care: Parotiditis with surrounding facial cellulitis Sepsis on admission secondary to above as evidenced by hypotension with blood pressure 82/53, heart rate 117, and lactic acid of 2.6 -Continue IV antibiotic with Unasyn 3 g every 8 hours -Infectious disease following, and discussed plan of care with Dr. Ramos. Patient to be discharged home on Augmentin 875/125 mg tablets x 10 days tomorrow morning. -ENT evaluated. Started patient on IV Decadron and patient completed course of IV Decadron on labs although stable. -Again educated patient on the importance of sucking on lemon drops or sour candy as she has been advised both by myself and ENT to do. -Maintain aspiration precautions -Monitor pulse oximetry -Blood cultures showing no growth to date -Continue symptomatic care and pain management with Tylenol 650 mg every 6 hours as needed for mild pain/fever, Ball 5/325 mg tablets every 4 hours as needed for moderate pain, and Dilaudid 1 mg every 3 hours as needed for severe pain. Acute kidney injury on stage IIIb chronic kidney disease. -Resolved with IV fluid hydration and increased oral intake. Hyperglycemia -Hemoglobin A1c 7%. Patient to continue with glycemic protocol and Humalog sliding scale, will plan for discharge home on metformin. Lactic acidosis, resolved with IV fluid hydration CAD status post stenting Ischemic cardiomyopathy status post biventricular pacemaker placement History of left bundle branch block Paroxysmal atrial fibrillation Chronic systolic heart failure Hypertension Hyperlipidemia -Patient currently free from cardiac complaints. -Telemetry monitoring. -Continue cardiac medication regimen with amiodarone 100 mg daily, Eliquis 5 mg twice daily, aspirin 81 mg daily, atorvastatin 80 mg nightly, Farxiga 10 mg daily, and metoprolol 50 mg daily. Hypothyroidism -Continue home medication regimen with levothyroxine 88 mcg daily. Data and imaging reviewed: -Vital signs reviewed. Blood pressure 100/58, heart rate 69, respiratory rate 17, temp 97.5 F, and SpO2 of 96% on room air -Labs reviewed. CBC showing stable normocytic anemia with hemoglobin of 9.7. BMP showing improvement of acute kidney injury with BUN of 25.7, creatinine of 1.4, and GFR of 41. Blood glucose 176. Hemoglobin A1c 7%. CODE STATUS: Full code DVT prophylaxis: Eliquis Discussed with: Patient, RN, and infectious disease physician Anticipated discharge date: Tomorrow morning. Anticipated discharge place: Home Patient was seen independently by Nurse Pracitioner. This document was prepared using eOriginal dictation software. Please allow for errors in metal cleaner, while rare they do occur. Ronny Florian NP rendered care for this patient independently, reviewed the findings and plan as documented in the note above and agree with plan. I did not physically speak with or examine the patient on this date. Objective - Vital Signs Vital signs: Vital Signs Temp 97.5 F L 05/12/24 07:05 Pulse 69 05/12/24 07:05 Resp 17 05/12/24 07:05 BP 108/58 05/12/24 07:05 Pulse Ox 96 05/12/24 07:05 FiO2 Intake & Output 05/11/24 05/12/24 05/12/24 18:59 06:59 18:59 Other: # Voids 1 1 - Labs CBC & Chem 7: 05/11/24 05:33 05/11/24 05:33 Labs: Abnormal Lab Results - Last 24 Hours (Table) 05/11/24 05/11/24 05/11/24 Range/Units 05:33 05:33 05:33 RBC 3.61 L (4.10-5.20) X 10*6/uL Hgb 9.7 L (12.0-15.0) g/dL Hct 32.6 L (37.2-46.3) % MCH 26.9 L (27.0-32.0) pg MCHC 29.8 L (32.0-37.0) g/dL RDW 16.8 H (11.5-14.5) % Est GFR (CKD-EPI) 41 L (>=60) Glucose 176 H (70-110) mg/dL POC Glucose (mg/dL) (70-110) mg/dL Hemoglobin A1c 7.0 H (<=6.0) % Calcium 8.4 L (8.7-10.3) mg/dL 05/11/24 05/11/24 05/11/24 Range/Units 12:09 17:04 19:48 RBC (4.10-5.20) X 10*6/uL Hgb (12.0-15.0) g/dL Hct (37.2-46.3) % MCH (27.0-32.0) pg MCHC (32.0-37.0) g/dL RDW (11.5-14.5) % Est GFR (CKD-EPI) (>=60) Glucose (70-110) mg/dL POC Glucose (mg/dL) 215 H 252 H 275 H (70-110) mg/dL Hemoglobin A1c (<=6.0) % Calcium (8.7-10.3) mg/dL 05/12/24 Range/Units 05:14 RBC (4.10-5.20) X 10*6/uL Hgb (12.0-15.0) g/dL Hct (37.2-46.3) % MCH (27.0-32.0) pg MCHC (32.0-37.0) g/dL RDW (11.5-14.5) % Est GFR (CKD-EPI) (>=60) Glucose (70-110) mg/dL POC Glucose (mg/dL) 271 H (70-110) mg/dL Hemoglobin A1c (<=6.0) % Calcium (8.7-10.3) mg/dL Microbiology - Last 24 Hours (Table) 05/09/24 20:59 Blood Culture - Preliminary Blood
--- NOTE | 2024-05-12 16:40 | P.PN ---
Subjective Progress Note Date: 05/12/24 Principal diagnosis: Reason for follow-up is right facial cellulitis Patient is a 68-year-old female with a past medical history significant for Atrial Fibrillation, Coronary Artery Disease (CAD), Cancer, Heart Failure, CVA/TIA, Hyperlipidemia, Hypertension, Myocardial Infarction ([place]) presenting to the hospital for evaluation of right-sided facial swelling and pain, patient did have CT concerning for extensive soft tissue swelling in the region of the parotid gland. On today's evaluation that is 05/12/2024, Patient is afebrile patient is currently on room air and denies having any shortness of breath, the patient denies any chest pain or cough, the patient denies any nausea vomiting did not have any abdominal pain and no diarrhea, pain to the right side of the face has slightly decreased intensity. No new lab has been obtained today blood culture has been negative Objective - Vital Signs Vital signs: Vital Signs Temp 97.5 F L 05/12/24 07:05 Pulse 69 05/12/24 07:05 Resp 17 05/12/24 07:05 BP 108/58 05/12/24 07:05 Pulse Ox 96 05/12/24 07:05 FiO2 Intake & Output 05/11/24 05/12/24 05/12/24 18:59 06:59 18:59 Other: Voiding Method Toilet # Voids 1 1 - Exam GENERAL DESCRIPTION: An elderly Female lying in bed in no distress HEENT: Right-sided facial redness has resolved still has some induration RESPIRATORY SYSTEM: Unlabored breathing , decreased breath sounds at bases HEART: S1 S2 regular rate and rhythm , ABDOMEN: Soft , no tenderness EXTREMITIES: No edema feet - Labs CBC & Chem 7: 05/11/24 05:33 05/11/24 05:33 Labs: Abnormal Lab Results - Last 24 Hours (Table) 05/11/24 05/11/24 05/12/24 Range/Units 17:04 19:48 05:14 POC Glucose (mg/dL) 252 H 275 H 271 H (70-110) mg/dL 05/12/24 Range/Units 12:13 POC Glucose (mg/dL) 307 H (70-110) mg/dL Microbiology - Last 24 Hours (Table) 05/09/24 20:59 Blood Culture - Preliminary Blood Assessment and Plan (1) Acute parotitis Current Visit: Yes Status: Acute Code(s): K11.21 - ACUTE SIALOADENITIS SNOMED Code(s): 76042457 (2) Facial cellulitis Current Visit: Yes Status: Acute Code(s): L03.211 - CELLULITIS OF FACE SNOMED Code(s): 290035798 Plan: 1patient presented to hospital with right-sided facial swelling and pain in this patient has been diagnosed with a right-sided facial cellulitis/parotitis we will need to cover for the polymicrobial oral lawrence to be the likely pathogen and less likely MRSA 2vancomycin allergy 3patient has shown clinical improvement on Unasyn advise finishing therapy with Augmentin discussed with the POCKETBOOK MAKER for admitting team Dictation was produced using In[employer]ent dictation software. please excuse any grammatical, word or spelling errors. Time with Patient: Less than 30
[2024-05-12] MEDS: methylPREDNISolone 4 MG TAB TAPER PO SCH (16:58)
[2024-05-12 17:29] LABS: Glucose,Whole Blood 244 mg/dL (70-110)
[2024-05-12 20:40] LABS: Glucose,Whole Blood 344 mg/dL (70-110)
[2024-05-13 05:51] LABS: Glucose,Whole Blood 303 mg/dL (70-110)
--- NOTE | 2024-05-13 07:15 | CONS ---
CONSULTATION REASON FOR CONSULTATION: Right facial cellulitis/parotitis. HISTORY OF PRESENT ILLNESS: This patient is a very pleasant, 68-year-old female, who was admitted via the emergency room with complaints of having a 3 to 4 history of swelling of the right side of her face. In addition to this, she stated that there was some slight numbness to the right side of her face. She denied any recent dental work or recent upper respiratory tract infection. A CT scan of the neck was performed, and it showed evidence of inflammation of the right parotid gland without abscess. The patient was admitted and placed on intravenous antibiotics and IV fluids. She states that her face feels much better now compared to when she was admitted. PAST MEDICAL HISTORY: Reveals she has allergies to vancomycin, ibuprofen, , and blue cheese. CURRENT HOME MEDICINES: Include: 1. Femara. 2. Aldactone. 3. Farxiga. 4. Entresto. 5. Lasix. 6. Cordarone. 7. Zyrtec. 8. Synthroid. REVIEW OF SYSTEMS: CARDIOVASCULAR: Positive for congestive heart failure. METABOLIC/ENDOCRINE: Positive for hypothyroidism. The remainder of the review of systems is essentially unremarkable. PHYSICAL EXAMINATION: GENERAL: The patient is a pleasant, 68-year-old female who is alert and cooperative and is in no acute distress at this time. HEENT: The patient is normocephalic. Tympanic membranes are normal. Middle ear spaces are free of any fluid or infection. Pupils are equal, round, reactive to light and accommodation. Extraocular movements within normal limits. Intranasal examination reveals moderate septal deviation to the left with moderate bilateral compensatory hypertrophy of the inferior turbinates. Examination of the oropharynx with attention to Stensen duct during bimanual palpation of the right parotid gland reveals no evidence of any purulence. Palpation of the patient's right facial area and right neck reveals that there is some firmness but no fluctuance. The area is moderately tender. The parotid gland is palpated and is felt to be inflamed. Cranial nerves 2 through 12 and remainder of the head and neck exam unremarkable. CHEST/CARDIOVASCULAR: Both lung appiah are clear to percussion and auscultation. The patient is in regular sinus rhythm. S1, S2 are present. No murmurs. ABDOMEN: There is no evidence of any masses, megaly, or tenderness. The abdomen is soft. The remainder of physical exam is unremarkable. IMPRESSION: Right facial cellulitis, right parotitis (formally called surgical parotitis). PLAN: The patient's current medication is more than adequate to treat her particular disease. I have advised her that we will get her some lemon drop candy to suck on and this will help the right parotid gland to drain. In addition to this, upon questioning, the patient states that she drinks very little water despite the fact that she has been advised to drink more water by her computer information systems instructor. I advised the patient that she needs to try and drink at least 2 L or approximately 67 ounces of water on a daily basis in addition to any other fluids that she may take, and the primary cause of her particular condition is dehydration. This form of parotitis used to be called surgical parotitis because it was commonly seen in patients who were hospitalized after surgical procedure with inadequate IV fluids. I have advised her to try and suck on several pieces of lemon drop candy on a daily basis for at least a week after surgical procedure. The infectious disease service will determine what antibiotic she should be discharged on for 10 days. Because the patient does have some issues with allergies and sinuses, I have advised that we can see her in my office once she is discharged. I gave the patient and her one of my business cards to take home. Thank you for allowing me to assist in the care of your patient. If I can be of any further assistance, please feel free to call my office. TRISTAN / LEANNE: [phone] /
[2024-05-13 07:32] VITALS: BP 109/55; PULSE 63; RESP 16; TEMP 97.3
[2024-05-13 08:40] LABS: HCT 31.6 % (37.2-46.3); HGB 9.4 g/dL (12.0-15.0); MCH 26.3 pg (27.0-32.0); MCHC 29.7 g/dL (32.0-37.0); MCV 88.5 FL (80.0-97.0); Mean Platelet Volume 11.1 FL (9.5-12.2); NRBC Per 100 WBC 0 X 10*3/uL (0.00-0.01); Platelet Count 258 X 10*3/uL (140-440); RBC 3.57 X 10*6/uL (4.10-5.20); RDW 16.8 % (11.5-14.5); WBC 7.85 X 10*3/uL (4.50-10.00)
[2024-05-13 08:52] LABS: Magnesium 2.4 mg/dL (1.5-2.4)
[2024-05-13 09:24] LABS: BUN/Creat Ratio 24.47 Ratio (12.00-20.00); Blood Urea Nitrogen 41.6 mg/dL (9.0-27.0); Calcium 8.3 mg/dL (8.7-10.3); Carbon Dioxide 25.6 mmol/L (21.6-31.8); Chloride 100 mmol/L (96-109); Glucose 284 mg/dL (70-110); Sodium 137 mmol/L (135-145)
--- NOTE | 2024-05-13 11:54 | P.DS ---
Providers Date of admission: 05/10/24 12:26 Expected date of discharge: 05/13/24 Attending physician: Manny Calderón MD Consults: 05/09/24 22:01 Consult Physician Urgent Consulting Provider: Slick Ramos Consult Reason/Comments: Right-sided facial cellulitis, parotitis Do you want consulting provider notified?: Yes 05/09/24 23:38 Consult Physician Urgent Consulting Provider: Ron Kelley Consult Reason/Comments: Facial cellulitis, parotitis Do you want consulting provider notified?: Yes, Notify in am Primary care physician: [facility] Course: Discharge Diagnosis: Parotiditis with surrounding facial cellulitis. Patient received 3-day course of IV antibiotics with Unasyn along with 3 doses of IV Decadron. Swelling improved however once Decadron was stopped started to return and she was started on a Medrol Dosepak. Patient doing well this morning and reports swelling and pain nearly resolved completely. She is medically optimized for discharge. Per recommendations of infectious disease, patient to be discharged home on an additional 10-day course of oral antibiotics with Augmentin 500/125 mg tablets twice daily for renal dosing. Sepsis on admission secondary to above as evidenced by hypotension with blood pressure 82/53, heart rate 117, and lactic acid of 2.6. Acute kidney injury on stage IIIb chronic kidney disease with baseline creatinine of 1.6. Current creatinine 1.7 slightly above baseline patient sent home with prescription for repeat BMP in 3 days with results to be sent to PCP and she was instructed to continue to follow-up outpatient with tomato grader for long-term monitoring/management of renal function. Hyperglycemia. Hemoglobin A1c 7%. Patient newly diagnosed diabetes mellitus type 2 and educated on new diagnosis. She was provided with a glucometer, test trips, and testing supplies. Patient discharged home on metformin 500 mg twice daily as she reports her tomato grader just spoke with her about possibly starting her on this medication. Lactic acidosis, resolved with IV fluid hydration CAD status post stenting. Continue cardiac medication regimen with amiodarone 100 mg daily, Eliquis 5 mg twice daily, aspirin 81 mg daily, atorvastatin 80 mg nightly, Farxiga 10 mg daily, and metoprolol 50 mg daily. Ischemic cardiomyopathy status post biventricular pacemaker placement. History of left bundle branch block Paroxysmal atrial fibrillation Chronic systolic heart failure Hypertension Hyperlipidemia Hypothyroidism. Continue home medication regimen with levothyroxine 88 mcg daily. Hospital Course: Patient is a very pleasant 68-year-old female with a past medical history of CAD status post stenting, severe ischemic cardiomyopathy status post biventricular pacemaker placement, paroxysmal atrial fibrillation on anticoagulation with Eliquis, history of left bundle branch block, HFrEF, hypertension, hyperlipidemia, hypothyroidism, and chronic kidney disease stage IIIb. She was sent to the emergency department on 05/09/2024 from her PCPs office secondary to concerns of right-sided facial swelling and need for CT. Upon arrival to our facility, patient underwent evaluation in the emergency department. Vital signs upon arrival show blood pressure 82/53, heart rate 70s rate 19, temp 97.7 F, and SpO2 of 94% on room air. Labs were completed and reviewed. CBC showing normocytic anemia with hemoglobin of 10.7. BMP showing hypochloremic hyponatremia with sodium of 134, chloride of 97 and acute kidney injury on stage IIIb chronic kidney disease with BUN of 45, creatinine 2.18, and GFR of 23 with baseline creatinine of 1.5. Lactic acid was elevated at 2.6. CRP was elevated at 37.0. CT soft tissues of neck without contrast was completed showing extensive edema of the right facial structures extending from the lower lobe of the parotid gland throughout the right neck, edema of the submandibular gland, and no definitive drainable abscess reported, these findings concerning for acute parotiditis. Patient started on broad-spectrum antibiotics and admitted under our services with consultation to infectious disease and ENT. ENT evaluated and tarted patient on IV Decadron. Patient received 3-day course of IV antibiotics with Unasyn along with 3 doses of IV Decadron. Swelling improved however once Decadron was stopped started to return and she was started on a Medrol Dosepack again resulting in resolution of swelling. Patient doing well this morning and reports swelling and pain nearly resolved completely. She is medically optimized for discharge. Per recommendations of infectious disease, patient being discharged home on an additional 10-day course of oral antibiotics with Augmentin 500/125 mg tablets twice daily for renal dosing. Patient medically optimized and cleared for discharge at this time. Patient to follow- up outpatient with PCP in 1 to 2 days, ENT in 1 week, and encouraged to follow- up with her tomato grader for long-term monitoring/management of her renal function. Patient provided with a prescription for repeat BMP in 3 days Physical exam: Vital signs reviewed and stable. General: Nontoxic, no distress and appears stated age. Obese. . Derm: Skin warm and dry, normal coloration for ethnicity. Head/Neck: Atraumatic, normocephalic and symmetric. Neck supple with full range of motion. Patient does have minimal swelling to right parotid gland slightly extending beneath chin but significantly improved over the past 24 hours, erythema also showing significant improvement with only mild erythema remaining Eyes: EOM's intact, no lid lag, and anicteric sclera Mouth: no lip lesions, mucus membranes moist Cardiovascular: regular rate and rhythm with normal S1S2, no murmur, positive posterior tibial pulses bilaterally, and cap refill < 2 seconds. Lungs: Respirations even, regular, and unlabored on room air. Lungs CTA bilaterally, no rhonchi, no rales, no wheezing, and no accessory muscle usage. Abdominal: soft, nontender to palpation, no guarding, no appreciable organomegaly Ext: ROM intact. No gross muscle atrophy, no edema, no contractures Neuro: Speech clear, face symmetrical and CN II-XII grossly intact with no noted focal neuro deficits Psych: Alert and oriented to person, place, time, and situation. Appropriate and pleasant affect. A total of 35 minutes of time were spent preparing this complex discharge summary. Pt was discharged on 05/13/2024 at 9:54 AM. Patient was seen independently by Nurse Practitioner. This document was prepared using CAST[employer] dictation software. Please allow for errors in cream cheese maker while rare they do occur. Ronny Florian NP rendered care for this patient independently, reviewed the findings and plan as documented in the note above. I did not physically speak with or examine the patient on this date. Patient Condition at Discharge: Stable Plan - Discharge Summary New Discharge Prescriptions: New metFORMIN HCL [Glucophage] 500 mg PO BID 30 Days #60 tab methylPREDNISolone Dose Pack [Medrol Dose Pack] 4 mg PO DIRECTED #21 tab Amoxic-Pot Clav 500-125 mg [Augmentin 500-125 mg] 1 tab PO Q12HR 10 Days #20 tab Continue Letrozole [Femara] 2.5 mg PO DAILY Apixaban [Eliquis] 5 mg PO BID #60 tab Atorvastatin [Lipitor] 80 mg PO HS #30 tab Sacubitril/Valsartan [Entresto 24 mg-26 mg Tablet] 1 tab PO BID Dapagliflozin Propanediol [Farxiga] 10 mg PO DAILY Furosemide [Lasix] 40 mg PO BID PRN PRN Reason: Edema Metoprolol Succinate [Toprol XL] 50 mg PO DAILY #90 tab Levothyroxine Sodium 88 mcg PO DAILY Amiodarone [Cordarone] 100 mg PO DAILY Discharge Medication List Letrozole [Femara] 2.5 mg PO DAILY 06/06/16 [History] Apixaban [Eliquis] 5 mg PO BID #60 tab 12/12/18 [Rx] Atorvastatin [Lipitor] 80 mg PO HS #30 tab 12/12/18 [Rx] Dapagliflozin Propanediol [Farxiga] 10 mg PO DAILY 09/30/22 [History] Sacubitril/Valsartan [Entresto 24 mg-26 mg Tablet] 1 tab PO BID 09/30/22 [History] Furosemide [Lasix] 40 mg PO BID PRN 11/23/22 [History] Metoprolol Succinate [Toprol XL] 50 mg PO DAILY #90 tab 12/29/22 [Rx] Amiodarone [Cordarone] 100 mg PO DAILY 01/05/24 [History] Levothyroxine Sodium 88 mcg PO DAILY 01/05/24 [History] metFORMIN HCL [Glucophage] 500 mg PO BID 30 Days #60 tab 05/12/24 [Rx] Amoxic-Pot Clav 500-125 mg [Augmentin 500-125 mg] 1 tab PO Q12HR 10 Days #20 tab 05/13/24 [Rx] methylPREDNISolone Dose Pack [Medrol Dose Pack] 4 mg PO DIRECTED #21 tab 05/13/24 [Rx] Follow up Appointment(s)/Referral(s): Tu Gonzalez MD [Primary Care Provider] - 1-2 days Ron Kelley MD [STAFF PHYSICIAN] - 1 Week Ambulatory/Diagnostic Orders: Basic Metabolic Panel [LAB.AMB] Time Frame: 3 Days, Location: None Selected Patient Instructions/Handouts: Cellulitis (ED), Cellulitis (GEN), Parotid Duct Obstruction (GEN), Type 2 Diabetes Management for Adults (DC) Activity/Diet/Wound Care/Special Instructions: Activity: As tolerated. Take breaks as needed. Diet: Heart healthy and carb consistent diet. Avoid salts, or foods with hidden salts such as canned or boxed foods and frozen dinners. Extra salt makes your heart work harder and traps the fluid in your body for longer. Special Instructions: Take all of your medications as directed and remember to keep all of your doctor's appointments and follow-up as needed. As discussed at bedside, strongly recommend continuing sucking on omari or lemon heads. Thank you for allowing us to participate in your care, it was truly a pleasure having you for our patient!!! Discharge Disposition: HOME SELF-CARE
--- NOTE | 2024-05-13 18:51 | CDI ---
Date: 05/13/2024 From: Sakshi Melo1 Email: [email or web address] Admit Date: 05/10/2024 12:26:00 PM Patient Name: Mary Wilson Visit Number: [id number] Discharge Date: 05/13/2024 11:29:00 AM ATTENTION: The Clinical Documentation Specialists (CDI) and [facility] Coding Staff appreciate your assistance in clarifying documentation. Please respond to the clarification below the line at the bottom and electronically sign. The CDI & [facility] Coding staff will review the response and follow-up if needed. Please note: Queries are made part of the Legal Health Record. If you have any questions, please contact the author of this message via ITS. Dr. Veronica Araiza, Acute kidney injury is documented in the Discharge Summary Report on 05/13/2024 - which may lack sufficient clinical evidence/support in the medical record. Additional clarification is requested. History/Risk Factors: 68-year-old female presented to [facility] ED for evaluation due to right-sided facial swelling. PMH: Stage 3b chronic kidney disease, chronic systolic heart failure, ischemic cardiomyopathy, type 2 diabetes mellitus, hypertension, coronary artery disease Clinical Indicators: Documentation Location: Electronic Medical Record Discharge Summary Report (05/13/2024): Acute kidney injury on stage IIIb chronic kidney disease with baseline creatinine of 1.6. Current creatinine 1.7, slightly above baseline Lab Trends: 05/09/2024 05/10/2024 05/11/2024 05/13/2024 Creatinine 2.18 1.4 1.55 1.7 BUN 45 34 25.7 41.6 GFR 23 34 41 32 Treatment: Pertinent Labs Monitored with Trend 0.9% Sodium Chloride IV Bolus x 500mL 0.9% Sodium Chloride IV Infusion @ 50mL/hr. After work up and study, please which diagnosis is most appropriate? [ ] Acute kidney injury has been ruled out. Stage 3b chronic kidney disease, stable. [ x ] Acute kidney injury on stage 3b chronic kidney disease is a valid diagnosis as evidenced by the following: [ ] Unable to determine [ ] Other, please specify Reference: KDIGO RONY Criteria An increase in serum creatinine by greater than or equal to 0.3 mg/dL within 48 hours; or An increase in serum creatinine by greater than or equal to 1.5 times baseline, which is known or presumed to have occurred within the prior 7 days; or A urine volume less than 0.5 ml/kg/h for 6 hours When the baseline is unknown the lowest creatinine during admission assumed to be baseline Reference: National Kidney Foundation Stage 1 eGFR = 90 and kidney damage for =3 months Stage 2 eGFR 60-89 and kidney damage for =3 months Stage 3a eGFR 45-59 and kidney damage for =3 months Stage 3b eGFR 30-44 and kidney damage for =3 months Stage 4 eGFR 15-29 r and kidney damage for =3 months Stage 5 eGFR <15 and kidney damage for =3 months MTDD
--- NOTE | 2024-05-13 18:54 | CDI ---
Date: 05/13/2024 From: Sakshi Melo1 Email: [email or web address] Admit Date: 05/10/2024 12:26:00 PM Patient Name: Mary Wilson Visit Number: [id number] Discharge Date: 05/13/2024 11:29:00 AM ATTENTION: The Clinical Documentation Specialists (CDI) and [facility] Coding Staff appreciate your assistance in clarifying documentation. Please respond to the clarification below the line at the bottom and electronically sign. The CDI & [facility] Coding staff will review the response and follow-up if needed. Please note: Queries are made part of the Legal Health Record. If you have any questions, please contact the author of this message via ITS. Dr. Veronica Araiza, Sepsis is documented in the Discharge Summary Report on 05/13/2024 - which may lack sufficient clinical evidence/support in the medical record. Additional clarification is requested. History/Risk Factors: 68-year-old female presented to [facility] ED for evaluation due to right-sided facial swelling. PMH: Stage 3b chronic kidney disease, chronic systolic heart failure, ischemic cardiomyopathy, type 2 diabetes mellitus, hypertension, coronary artery disease Clinical Indicators: Documentation Location: Electronic Medical Record Vital Sign Trend: Date Time Temperature HR RR BP SpO2 05/09/2024 16:31 97.7 F (Temporal) 76 19 82/53 94% on Room Air 05/10/2024 15:00 97.8 F (Oral) 74 17 97/58 97% on Room Air 05/11/2024 07:00 97.3 F (Oral) 70 16 107/71 97% on Room Air 05/12/2024 07:05 97.5 F (Oral) 69 17 108/58 96% on Room Air 05/13/2024 07:00 97.3 F (Oral) 63 16 109/55 97% on Room Air Lab Results: 05/09/2024 05/10/2024 05/11/2024 05/13/2024 WBC 10.4 9.8 7.78 7.85 Other Clinical Indicators: Blood Cultures (Collected on 05/09/2024): No growth after 72 hours (Preliminary Results) Venous Lactic Acid: (05/09/2024): 2.6 1.1 Infectious Disease Progress Note (05/12/2024): o "Acute parotitis o Facial cellulitis Discharge Summary Report (05/13/2024): o Sepsis on admission secondary to above as evidenced by hypotension with blood pressure 82/ 53, heart rate 117, and lactic acid of 2.6 Treatment: Infectious Disease Consultation Unasyn 3g IVPB Every 8 Hours Zosyn 3.375g IVPB x 2 Doses (Discontinued) Augmentin 500-125mg Oral Every 12 Hours x 10 Days (Prescribed on Discharge) 0.9% Sodium Chloride IV Bolus x 500mL 0.9% Sodium Chloride IV Infusion @ 50mL/hr. After work up and study, please clarify which diagnosis is most appropriate? [ ] Sepsis ruled out [ x ] Sepsis is a valid diagnosis [ ] Other, please specify [ ] Unable to determine SIRS Criteria (2 or more of the following may indicate SIRS): Temperature < 96.8F (36C) or > 101.0F (38.3C) Heart Rate > 90 bpm Respiratory Rate > 20 breaths/min or PaCO2 < 32 mmHg White Blood Cell Count > 12,000 or < 4,000 cells/mm3 or > 10% bands MTDD
== END 2024-05-13 11:29 | disposition home or self-care (01) | DRG 872 ==
LOC: EC 16:27 → 6NMEDSUR 22:12 → OBSVTOIN 05-10 12:26
PROVIDERS: ADMIT Internal Medicine; ATTEND Internal Medicine
DX: A41.9 Sepsis, unspecified organism (principal); E87.20 Acidosis, unspecified; I13.0 Hypertensive heart and chronic kidney disease with heart failure and stage 1 through stage 4 chronic kidney disease, or unspecified chronic kidney disease; D63.1 Anemia in chronic kidney disease; I25.5 Ischemic cardiomyopathy; E87.1 Hypo-osmolality and hyponatremia; L03.211 Cellulitis of face; B97.4 Respiratory syncytial virus as the cause of diseases classified elsewhere; E11.22 Type 2 diabetes mellitus with diabetic chronic kidney disease; I48.0 Paroxysmal atrial fibrillation; G62.0 Drug-induced polyneuropathy; N18.32 Chronic kidney disease, stage 3b; E03.9 Hypothyroidism, unspecified; I50.22 Chronic systolic (congestive) heart failure; N17.9 Acute kidney failure, unspecified; E11.40 Type 2 diabetes mellitus with diabetic neuropathy, unspecified; E11.65 Type 2 diabetes mellitus with hyperglycemia; E78.5 Hyperlipidemia, unspecified; I95.9 Hypotension, unspecified; E87.8 Other disorders of electrolyte and fluid balance, not elsewhere classified; I25.10 Atherosclerotic heart disease of native coronary artery without angina pectoris; I25.2 Old myocardial infarction; R79.82 Elevated C-reactive protein (CRP); T45.1X5A Adverse effect of antineoplastic and immunosuppressive drugs, initial encounter; K11.21 Acute sialoadenitis; I44.7 Left bundle-branch block, unspecified; Z85.3 Personal history of malignant neoplasm of breast; Z90.12 Acquired absence of left breast and nipple; Z92.21 Personal history of antineoplastic chemotherapy; Z79.01 Long term (current) use of anticoagulants; Z79.82 Long term (current) use of aspirin; Z79.899 Other long term (current) drug therapy; Z79.890 Hormone replacement therapy; Z86.73 Personal history of transient ischemic attack (TIA), and cerebral infarction without residual deficits; Z88.1 Allergy status to other antibiotic agents; Z95.5 Presence of coronary angioplasty implant and graft; Z20.822 Contact with and (suspected) exposure to COVID-19; Z95.810 Presence of automatic (implantable) cardiac defibrillator; Z91.040 Latex allergy status; Z88.6 Allergy status to analgesic agent
CPT/HCPCS: 36415; 70490; 80048; 80053; 81001; 82150; 83036; 83605; 83735; 85025; 85027; 86140; 86663; 86664; 86665; 86735; 87040; 87636; 87651; 96361; 96365; 96375; 99285

== ENCOUNTER → 2024-06-11 | Outpatient (CLI) | payer MEDICARE ==
[2024-06-11 13:45] LABS: African American GFR (CKD) 53 (>60 ml/min/1.73 sqM); Blood Urea Nitrogen 17 mg/dL (7-17); Non-African American GFR(CKD) 46 (>60 ml/min/1.73 sqM)
--- NOTE | 2024-06-11 14:35 | CT ---
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 CT DLP: [address] CTDI: mGy Automated exposure control for dose reduction was used. TECHNIQUE: CT scan of the sinuses is performed without contrast, axial images are obtained, coronal r eformatted images are also reviewed. FINDINGS: On the close sagittal right TMJ the condyle is in normal position within the mandibular fossa. Howeve r, on the open mouth view there is normal translation of the right condyle but there is obliteration of the joint space between the condyle and the articular tubercle indicating a trapped TMJ meniscus w ithin the mandibular fossa. There is no bony erosion of the condyle, articular tubercle or mandibular fossa. The left TMJ is normal with normal translation of the meniscus with opening of the mouth. There are n o bony erosive changes involving the left TMJ. The mastoid air cells are well aerated. IMPRESSION: Abnormal right TMJ with locking of the meniscus within the mandibular fossa on the open-mouth view. T he left TMJ is unremarkable. [facility], , 06/11/2024 2:33 PM
== END | disposition home or self-care (01) ==
LOC: RADCTMAIN 13:02
PROVIDERS: ATTEND Otolaryngology
DX: M26.601 Right temporomandibular joint disorder, unspecified (principal)
CPT/HCPCS: 82565; 84520; 70487; 36415; Q9967